=== PATIENT | female | born 1970 | race Caucasian/White ===

== ENCOUNTER → 2016-06-26 | Outpatient (CLI) | payer MEDICARE, OTHER ==
--- NOTE | 2016-06-26 09:09 | US ---
EXAMINATION TYPE: US abdomen complete DATE OF EXAM: 06/26/2016 8:52 AM COMPARISON: None CLINICAL HISTORY: 45 year-old female right upper quadrant pain. R10.11 RUQ Pain x 2 years and related to food intake. TECHNIQUE: Multiple sonographic images of the abdomen were obtained. FINDINGS: Liver Length: 16.3 cm Gallbladder Wall: 0.1 cm CBD: 0.2 cm Spleen: 9.7 cm Right Kidney: 9.5 x 4.5 x 3.8 cm Left Kidney: 9.9 x 4.7 x 4.2 cm Pancreas: hyperechoic; tail and head are gassed out Liver: Echogenic and attenuating. No focal lesions seen. Gallbladder: No abnormal gallbladder distention, wall thickening, pericholecystic fluid, or shadowin g calculi. Evidence for sonographic Orlando's sign: no CBD: Within normal limits Spleen: Within normal limits Right Kidney: No hydronephrosis. Left Kidney: No hydronephrosis. Upper IVC: wnl Abd Aorta: wnl IMPRESSION: At least moderate, possibly moderate to severe hepatic steatosis. Correlate with LFTs, lipid profile, and patient risk factors.
== END | disposition home or self-care (01) ==
LOC: RADUSWWP 08:21
PROVIDERS: ATTEND Surgery
DX: R10.11 Right upper quadrant pain (principal)
CPT/HCPCS: 76700

== ENCOUNTER 2016-08-22 06:57 | Day surgery (SDC) | payer MEDICARE ==
[2016-08-19 10:57] VITALS: BMI 35.5
[~2016-08-22 06:57] MED LIST: LACTATED RINGERS 1,000 ML IV SCH
[2016-08-22 07:14] VITALS: TEMP 98.6
[2016-08-22 07:26] LABS: Glucose,Whole Blood 99 mg/dL (75-99)
[2016-08-22] MEDS ORDERED: HYDROCORTISONE SUCCINATE 100 MG/2 ML VIAL IV STA (07:28)
[2016-08-22] MEDS ORDERED: LACTATED RINGERS 1,000 ML IV ONE (07:33)
[2016-08-22] MEDS ORDERED: PROPOFOL 10 MG/ML 20 ML VIAL IV ONE (07:36)
[2016-08-22] MEDS ORDERED: LIDOCAINE 1% INJ 10MG/ML (20 ML MDV) ONE (07:36)
--- NOTE | 2016-08-22 08:11 | P.OP ---
Date of Procedure: 08/22/16 Preoperative Diagnosis: Change in bowel habits GERD Hiatal hernia Panhypopituitary syndrome Obesity BMI 35.5 Postoperative Diagnosis: Same Procedure(s) Performed: Colonoscopy without biopsy Implants: Not applicable Anesthesia: MAC Surgeon: [place] Fleming Pathology: none sent Condition: stable Disposition: other (ASA3) Indications for Procedure: 45 years old female with multiple comorbid conditions including obesity BMI 35.5 , hypopituitarism, change in bowel habits, GERD and hiatal hernia presents for screening colonoscopy. Prior colonoscopy was [address] Choi. It was incomplete colonoscopy secondary to poor prep. Informed consent obtained and patient elected to undergo colonoscopy with possible biopsy Operative Findings: Sigmoid diverticulosis Description of Procedure: The patient was brought to the endoscopy suite and placed in lateral decubitus position. IV sedation was given as per anesthesia team. Patient was on continuous vitals and pulse oximetry monitoring throughout the procedure. A timeout was performed to verify correct patient and correct procedure. Perianal examination did not show any external hemorrhoids. Digital rectal examination was performed. No masses or gross blood. A well-lubricated Olympus colonoscope was passed per rectally and was gradually advanced beyond the sigmoid colon, splenic flexure, transverse colon, hepatic flexure and cecum. The ileocecal valve was visualized as well as the appendiceal orifice . The colonoscope was gradually withdrawn inspecting all the mucosal surfaces. Bowel prep was good. No polyps, masses, AV malformations noted. Sigmoid diverticulosis noted without any evidence of acute diverticulitis. The scope was gradually withdrawn and retroflexed in the rectum . Grade 1 internal hemorrhoids seen. Total withdrawal time was greater than 6 minutes . Patient tolerated the procedure well and was taken to post anesthesia care unit in stable condition. Recommend repeat colonoscopy in 10 years .
[2016-08-22] MEDS ORDERED: SIMETHICONE 40 MG/0.6 ML DROPS 2,000 MG/30 ML BOTTLE PO ONE (08:42)
[2016-08-22 08:47] VITALS: RESP 16
[2016-08-22] MEDS ORDERED: SIMETHICONE 40 MG/0.6 ML DROPS 2,000 MG/30 ML BOTTLE PO SCH (09:00)
[2016-08-22 09:01] VITALS: BP 123/79; PULSE 68
== END 2016-08-22 09:22 | disposition home or self-care (01) ==
LOC: ORWHC2ENDO 06:57
PROVIDERS: ATTEND Surgery
DX: K57.30 Diverticulosis of large intestine without perforation or abscess without bleeding (principal); K64.0 First degree hemorrhoids; Z80.0 Family history of malignant neoplasm of digestive organs; I20.9 Angina pectoris, unspecified; I25.2 Old myocardial infarction; E03.9 Hypothyroidism, unspecified; E23.0 Hypopituitarism; E66.01 Morbid (severe) obesity due to excess calories; Z68.35 Body mass index [BMI] 35.0-35.9, adult; J45.909 Unspecified asthma, uncomplicated; K21.9 Gastro-esophageal reflux disease without esophagitis; F41.9 Anxiety disorder, unspecified; F43.10 Post-traumatic stress disorder, unspecified; F32.9 Major depressive disorder, single episode, unspecified; E13.9 Other specified diabetes mellitus without complications; Z79.84 Long term (current) use of oral hypoglycemic drugs; Z87.891 Personal history of nicotine dependence; Z79.899 Other long term (current) drug therapy; Z88.5 Allergy status to narcotic agent; Z91.030 Bee allergy status
CPT/HCPCS: 45378; J2001; J2704

== ENCOUNTER → 2016-09-25 | Outpatient (CLI) | payer MEDICARE, OTHER | END | disposition home or self-care (01) | LOC: LABPAT 17:13 | PROVIDERS: ATTEND Orthopaedic Surgery | DX: Z01.812 Encounter for preprocedural laboratory examination (principal) | CPT/HCPCS: 87070 ==

== ENCOUNTER 2016-10-21 06:58 | Inpatient (IN) | payer MEDICARE ==
[2016-10-15 17:23] VITALS: BMI 35.5
--- NOTE | 2016-10-18 13:45 | HP ---
DATE OF ADMISSION: CHIEF COMPLAINT: Left knee pain. HISTORY OF PRESENT ILLNESS: The patient is a 45-year-old female on disability who presents with progressive left knee pain secondary to osteoarthrosis despite extensive conservative measures. She has had multiple previous arthroscopies in addition has tried injections and medications with only partial temporary relief. She notes persistent giving way, swelling, and stiffness. It limits her normal function and activities. PAST MEDICAL HISTORY: Significant for arthritis, hypopituitarism, diabetes insipidus, orthostatic hypotension and coronary artery disease. PAST SURGICAL HISTORY: Significant for spinal fusion, bilateral knee arthroscopies, right carpal tunnel release, left elbow arthroscopy. CURRENT MEDICATIONS: 1. Protonix. 2. Motrin. 3. Duragesic patch. 4. Crawford. 5. Baclofen. 6. Cymbalta 7. Neurontin. She has allergies to MORPHINE and VOLTAREN. FAMILY HISTORY: Significant for cancer. SOCIAL HISTORY: Negative for current tobacco or alcohol use. Sixteen-point review of systems otherwise reviewed and is noncontributory. On examination, the patient is approximately 5 feet 5 inches, 240 pounds of endomorphic habitus. HEENT exam is nonfocal. Neck is supple. She has painless passive motion of her left hip. Straight leg raise is negative. Active motion left knee -8 to 130 degrees of flexion. She is tender about the lateral greater than medial joint line. She has a trace effusion. Collaterals are stable, Montez's negative, Joseph's elicits medial and lateral pain. She has genu valgum alignment. Her distal neurovascular exam appears be intact in the left lower extremity. Previous x-rays to include weight-bearing notch, lateral, and merchant views of the left knee obtained in the office show severe lateral and patellofemoral compartment narrowing. There is a questionable loose body in the lateral compartment. IMPRESSION: 1. Left knee severe lateral compartment osteoarthrosis. 2. Hypopituitarism. RECOMMENDATIONS: I talked to the patient at length regarding her treatment options. At this point, she is quite limited because of pain and opts to proceed with surgery. We will plan to proceed with left total knee arthroplasty. We will institute DVT prophylaxis postoperatively. Her informatics spec did recommend a stress dose of hydrocortisone 100 mg one hour prior to surgery and then 75 mg IV q.8 hours after surgery. He also recommends tapering to oral hydrocortisone 20 mg b.i.d. in the postoperative phase.
[~2016-10-21 06:58] MED LIST changes: +ACETAMINOPHEN TAB 500 MG TAB PO ONE; +DEXAMETHASONE SOD PHOSPHATE 10 MG/ML 1 ML VIAL IV ONE; +HYDROmorphone 1 MG/ML 1 ML SYRINGE IVP PRN; +MIDAZOLAM 2 MG/2 ML VIAL IV PRN; +ONDANSETRON 4 MG/2 ML VIAL IVP ONE; +TRANEXAMIC ACID 1,000 MG in SODIUM CHLORIDE 0.9% 100 ML IVPB ONE; +ceFAZolin 2 GM in SODIUM CHLORIDE 0.9% 100 ML IVPB ONE
[2016-10-21] MEDS ORDERED: LIDOCAINE 1% 20 ML VIAL (10MG/ML) FOR IV START INTRADERMA ONE (13:59)
[2016-10-21] MEDS ORDERED: HYDROCORTISONE SUCCINATE 100 MG/2 ML VIAL IV ONE (14:00)
[2016-10-21] MEDS ORDERED: SCOPOLAMINE 1.5MG/72HR PATCH TRANSDERM ONE (14:05)
[2016-10-21 14:17] LABS: Glucose,Whole Blood 98 mg/dL (75-99)
[2016-10-21] MEDS ORDERED: ROPIVACAINE 1,100 MG, SODIUM CHLORIDE 0.9% 330 ML MISCELLANE PRN ×2 (14:49)
--- NOTE | 2016-10-21 14:53 | P.ONQ ---
Anesthesiology Proc Note - PNB - Peripheral Nerve Block Performed Left Adductor Canal Infusion Time Out Performed: Yes Indication: Acute Post-Operative Pain, Dx/Pain Location (Left Knee) Specifically requested for management of pain by DrAlan: Thanh Bey Sedation Type: Sedate with meaningful contact maintained Preparation: Sterile Dressing Position: Supine Catheter: Indwelling Needle Types: Other (see comment) (Pajunk) Needle Size: 100mm (4") Needle Gauge: 21 Technique: Ultrasound Injectate: 0.5% Ropivacaine (see comment for volume) (30cc) Blood Aspirated: No Pain Paresthesia on Injection Noted: No Resistance on Injection: Normal Events: Uneventful and Well Tolerated
[2016-10-21] MEDS ORDERED: BUPIVACAINE LIPOSOME/PF 1.3% 20 ML VIAL SQ ONE ×2 (15:15→16:25)
[2016-10-21] MEDS ORDERED: ROPIVACAINE 246.25 MG, EPINEPHrine 0.5 MG, KETOROLAC 30 MG, cloNIDine HCL/PF 80 MCG, WA... MISCELLANE ONE ×5 (15:31)
[2016-10-21] MEDS ORDERED: SODIUM CHLORIDE 0.9% 100 ML BAG ONE (16:03)
[2016-10-21] MEDS ORDERED: TRANEXAMIC ACID 1,000 MG/10 ML VIAL ONE (16:03)
[2016-10-21] MEDS ORDERED: MIDAZOLAM 2 MG/2 ML VIAL ONE (16:03)
[2016-10-21] MEDS ORDERED: MEPERIDINE 50 MG/ML SYRINGE ONE (16:03)
[2016-10-21] MEDS ORDERED: PROPOFOL 10 MG/ML 20 ML VIAL IV ONE (16:03)
[2016-10-21] MEDS ORDERED: LACTATED RINGERS 1,000 ML IV ONE (16:45)
[2016-10-21] MEDS ORDERED: HYDROcodone/APAP 7.5-325MG 1 EACH TAB PO PRN (17:39)
[2016-10-21] MEDS ORDERED: traMADol 50 MG TAB PO PRN (17:39)
[2016-10-21] MEDS ORDERED: NALOXONE 0.4 MG/ML 1 ML VIAL IV PRN (17:39)
[2016-10-21] MEDS ORDERED: ONDANSETRON 4 MG/2 ML VIAL IVP PRN (17:39)
[2016-10-21] MEDS ORDERED: HYDROmorphone 1 MG/ML 1 ML SYRINGE IVP PRN ×2 (17:39)
[2016-10-21] MEDS ORDERED: MAGNESIUM HYDROXIDE 2,400 MG/10 ML CUP PO PRN (17:39)
--- NOTE | 2016-10-21 18:08 | P.OP ---
Date of Procedure: 10/21/16 Preoperative Diagnosis: Left knee severe tricompartmental osteoarthrosis Postoperative Diagnosis: Same Procedure(s) Performed: Left total knee arthroplasty/cemented/cruciate retaining Implants: [employer] size 5 narrow cemented femoral component, size 3 cemented tibial component, 9 mm articular surface, 32 mm cemented patellar component. Anesthesia: regional, local, spinal Surgeon: Thanh Bey Risk Engineer #1: Dony Carson Estimated Blood Loss (ml): 50 Pathology: other (Bone fragments) Condition: stable Disposition: PACU Indications for Procedure: The patient's a 45-year-old female who presents with progressive left knee pain secondary to osteoarthrosis despite extensive conservative treatment. A discussion of the risks and benefits of operative intervention versus continued conservative measures was made with patient. She's had multiple previous arthroscopy was with only partial temporary relief. She opted to proceed with surgery. Specific risks of surgery to include infection, neurovascular injury, development of blood clots, possible component loosening, possible component failure and need for subsequent procedures was discussed. Informed consent was obtained. Operative Findings: Significant tricompartmental osteoarthrosis Description of Procedure: The patient was brought to the operating room, and after induction of spinal anesthesia the left lower extremity was prepped and draped in normal fashion. The limb was elevated to facilitate exsanguination. The tourniquet was inflated to 270 mmHg. A longitudinal incision extending 3 finger breaths above this. Pole of patella extending to the medial aspect the tibial tubercle was then made. Skin and subcutaneous tissues were divided sharply. Electrocautery was used for hemostasis. A medial parapatellar arthrotomy was then performed. The medial soft tissues to include the superficial and deep portions of the medial collateral ligament as well as the medial hamstring tendons were elevated subperiosteally. The patella was everted. A portion of the retropatellar fat pad was excised sharply. The knee was then flexed. The anterior cruciate ligament was sacrificed. Blunt retractors were placed. A starting hole was made in the distal femur 1 cm anterior to the posterior cruciate ligament origin. An intramedullary femoral guide was then gently inserted planning on 5 valgus distal cut with 9.5 mm distal resection. The cutting block was pinned in place. The distal cut was then made. The posterior referencing sizing guide was utilized. I felt size 5 was most appropriate. 3 of external rotation was was built into the system and verified off the trans-epicondylar axis and the posterior condyles. The cutting block was pinned in place. The anterior, posterior, and chamfer cuts were then made. Bone fragments were removed. A size 5 narrow component was then placed and was fully seated. There is good anterior to posterior and medial to lateral fit. The distal peg holes were drilled. The trial component was then removed. Attention was then paid towards preparing the proximal tibia. An extra medullary guide was utilized in line with the tibial shaft and second metatarsal distally. A 3 posterior slope cutting block was utilized. I planned on 6 mm resection from the medial compartment. The cutting block was pinned in place. The posterior cruciate ligament was protected with a retractor. The proximal tibial cut was made in bone fragment removed in one piece. The tibia sized most appropriate size 3. The remnants of the medial and lateral menisci were excised at the capsular junction with electrocautery. The trial femoral and tibial components were placed along with a 9 mm articular surface. I was able to obtain full flexion and extension with good stability with varus and valgus stress. After several flexion and extension cycles, the tibial rotation was marked with electrocautery in line with the medial one third of the tibial tubercle. Attention was then paid towards preparing the patella. A patella reamer was utilized taking that a 14 mm of bone stock. A good flush cut was made. The patella sized most appropriately 32 mm. The peg holes were drilled. The trial component was placed. The knee was taken through range of motion. I had good patellofemoral tracking with no hands technique. The trial components were then removed. The tibia was prepared in the appropriate rotation with appropriate drill and keel punch. The posterior osteophytes of the distal femur were carefully removed with a curved osteotome. The flexion and extension gaps were checked and felt to be symmetric. The bony surfaces were prepared with pulsatile lavage and dried. The posterior soft tissues were injected with ropivacaine. The tibial component was then cemented in placed and was fully seated. Excess cement was removed. The femoral component was cemented placed and was fully seated. Excess cement was removed. The trial 9 mm articular surface placed and the knee was put in full extension. The patella component was cemented place. After the cement had sufficiently hardened, the knee was again taken through range of motion. Again I was able to obtain full flexion and extension with good stability with varus and valgus stress. The trial articular surface was removed and the final 9 mm articular surface was inserted. This was fully seated. Care taken to avoid any soft tissue interposition. Pulsatile lavage was utilized. The medial parapatellar arthrotomy was closed with #2 Ethibond suture. A deep drain was placed exiting laterally. Tourniquet was deflated with proximal a 60 minutes total tourniquet time. The subcu tissues reapproximated with interrupted 2-0 Vicryl sutures. The skin was reapproximated with 30 subcu strata fix suture. Skin tape and adhesive was applied. A sterile dressing was applied. The patient was awoken from sedation and transferred to recovery room in good condition. Blood loss was estimated 50 mL. 2 doses of IV TXA was given. No complications were incurred. Sponge and needle counts were correct in the case.
--- NOTE | 2016-10-21 18:22 | XR ---
EXAMINATION TYPE: XR knee limited LT DATE OF EXAM: 10/21/2016 COMPARISON: NONE HISTORY: Post knee replacement TECHNIQUE: 2 views left knee FINDINGS: Tibial femoral components of in place. Catheter is present. Postsurgical changes are within the soft tissues. IMPRESSION: 1. No acute fractures post knee replacement
[2016-10-21 18:52] VITALS: RESP 16
[2016-10-21] MEDS ORDERED: SENNOSIDES-DOCUSATE SODIUM 1 EACH TAB PO SCH (21:00)
[2016-10-21] MEDS ORDERED: NITROGLYCERIN SL TABS 0.4 MG TAB SUBLINGUAL PRN (22:11)
[2016-10-21] MEDS ORDERED: diphenhydrAMINE 50 MG CAP PO PRN (22:11)
[2016-10-21] MEDS ORDERED: DOXEPIN 10 MG CAP PO SCH (22:15)
[2016-10-21] MEDS ORDERED: MELATONIN 5 MG TABLET PO SCH (22:16)
[2016-10-21] MEDS: HYDROCORTISONE SUCCINATE 100 MG/2 ML VIAL IV SCH (22:33)
[2016-10-21] MEDS: SUCRALFATE 1 GM TAB PO SCH (23:46)
[2016-10-21] MEDS: PANTOPRAZOLE 40 MG TABLET PO SCH (23:49)
[2016-10-22] MEDS: ceFAZolin 2 GM in SODIUM CHLORIDE 0.9% 100 ML IVPB SCH ×2 (00:21→08:28)
[2016-10-22] MEDS: HYDROcodone/APAP 7.5-325MG 1 EACH TAB PO PRN ×3 (02:24→14:36)
[2016-10-22] MEDS ORDERED: LEVOTHYROXINE 75 MCG TAB PO SCH (06:30)
[2016-10-22] MEDS ORDERED: SUCRALFATE 1 GM TAB PO SCH (07:30)
[2016-10-22] MEDS ORDERED: PANTOPRAZOLE 40 MG TABLET PO SCH (07:30)
[2016-10-22 07:42] LABS: Basophils % (A) 0 %; CH 27.6; CHCM 31.1; Eosinophils % (A) 0 %; HCT 35.8 % (34.0-46.0); HDW 2.54; HGB 11.2 gm/dL (11.4-16.0); Hypochromasia Slight; Luc # (Auto) 0.09; Luc % (Auto) 1; Lymphocytes # (A) 0.9 k/uL (1.0-4.8); Lymphocytes % (A) 5 %; MCH 27.9 pg (25.0-35.0); MCHC 31.3 g/dL (31.0-37.0); MCV 89.3 fL (80.0-100.0); Mean Platelet Volume 7.3; Monocytes # (A) 0.6 k/uL (0-1.0); Monocytes % (A) 4 %; Neutrophils # (A) 15.6 k/uL (1.3-7.7); Neutrophils % (A) 90 %; WBC 17.3 k/uL (3.8-10.6); WBC (Perox) 17.55
[2016-10-22] MEDS: DESMOPRESSIN 0.2 MG TAB PO SCH ×2 (08:29→12:48)
[2016-10-22] MEDS: HYDROCORTISONE SUCCINATE 100 MG/2 ML VIAL IV SCH (08:31)
[2016-10-22] MEDS: hydrOXYzine PAMOATE 25 MG CAP PO PRN ×2 (08:33→14:37)
[2016-10-22] MEDS: SUCRALFATE 1 GM TAB PO SCH ×2 (08:34→12:46)
[2016-10-22] MEDS: PANTOPRAZOLE 40 MG TABLET PO SCH (08:34)
[2016-10-22] MEDS ORDERED: RIVAROXABAN 10 MG TAB PO SCH (09:00)
[2016-10-22] MEDS ORDERED: HYDROCORTISONE 10 MG TAB PO SCH (09:00)
[2016-10-22] MEDS ORDERED: cycloSPORINE 0.05% OPHTH 0.4 ML DROPERETTE BOTH EYES SCH (09:00)
[2016-10-22] MEDS ORDERED: DULoxetine HCL 30 MG CAPSULE.DR PO SCH (09:00)
[2016-10-22] MEDS ORDERED: FAMOTIDINE 20 MG TAB PO SCH (09:00)
[2016-10-22] MEDS ORDERED: DESMOPRESSIN 0.2 MG TAB PO SCH (09:00)
[2016-10-22] MEDS ORDERED: CHOLECALCIFEROL 1,000 UNIT TAB PO SCH (09:00)
[2016-10-22] MEDS ORDERED: ARIPiprazole 2 MG TAB PO SCH (09:00)
[2016-10-22] MEDS ORDERED: SOMATROPIN SQ SCH (10:00)
--- NOTE | 2016-10-22 10:23 | P.PN ---
Subjective Principal diagnosis: Status post left total knee arthroplasty Patient is seen today resting in her hospital bed, she appears comfortable. Her family is present at bedside. She is done well at this point with physical therapy, she has urinated well on her own, pain is well-controlled. She denies any headaches, lightheadedness, chest pain, shortness of breath. Objective - Vital Signs Vital signs: Vital Signs Temp 98.6 F 10/22/16 07:00 Pulse 65 10/22/16 07:00 Resp 16 10/22/16 07:00 BP 104/71 10/22/16 07:00 Pulse Ox 97 10/22/16 07:00 Intake & Output 10/21/16 10/22/16 10/22/16 18:59 06:59 18:59 Intake Total 2000 40 180 Output Total 250 650 250 Balance 1750 -610 -70 Weight 116 kg Intake: IV 2000 Oral 40 180 Output: Urine 200 650 250 Uretheral ([place]) 250 Estimated Blood Loss 50 Other: Voiding Method Indwelling Catheter - Exam Left lower extremity: Incision is clean, dry, and intact. Calf is soft, no tenderness with palpation. Minimal soft tissue swelling present around the knee. Plantar flexion, dorsiflexion, EHL, FHL are intact. Dorsal pedis pulses 2+, sensory exam to light touch throughout extremities intact. - Labs CBC & Chem 7: 10/22/16 06:54 Labs: Abnormal Lab Results - Last 24 Hours (Table) 10/22/16 Range/Units 06:54 WBC 17.3 H (3.8-10.6) k/uL Hgb 11.2 L (11.4-16.0) gm/dL Plt Count 453 H (150-450) k/uL Neutrophils # 15.6 H (1.3-7.7) k/uL Lymphocytes # 0.9 L (1.0-4.8) k/uL Assessment and Plan Plan: Assessment: 1. Postop day 1 status post left total knee arthroplasty Plan: 1. Pain control, we'll discharge home on oral medication 2. Per endocrinology's recommendation, we'll discharge patient home on hydrocortisone tablets 20 mg twice a day 3. GI and DVT prophylaxis, will either discharge home on Xarelto 10 mg or aspirin 325 mg twice a day 4. Daily dressing changes/ice and elevate 5. Medical recommendations 6. Discharge planning: Patient will be likely discharged home today Time with Patient: Less than 30
--- NOTE | 2016-10-22 10:25 | P.DS ---
Providers Date of admission: 10/21/16 13:40 Attending physician: Thanh Bey Consults: 10/21/16 17:41 Consult Physician Routine Consulting Provider: Gaston Bueno Consult Reason/Comments: Medical Management Do you want consulting provider notified?: Yes Primary care physician: Adriel Fonsecamiguel [facility] Course: Date of admission: 10/21/2016 Date of discharge: 10/22/2016 Admission diagnosis: Status post left total knee arthroplasty Discharge diagnosis: Same Attending physician: Dr. Bey Surgical procedures: Left total knee arthroplasty Brief history: Patient is a 45-year-old female with a history of progressive primary left knee osteoarthritis. At this point patient has failed conservative treatment measures and has opted to proceed with a elective left total knee arthroplasty. Hospital course: Details of patient's surgery can be found in operative report. Patient tolerated the procedure well and was subsequently transported to orthopedic floor. Patient's orthopeidc and medical care was provided daily. Patient had daily laboratory tests performed for evaluation of overall blood counts. Patient had daily physical therapy to include strengthening range of motion as well as education with walker ambulation. Patient had daily CPM usage as part of their physical therapy program. Patient was treated with Xarelto for their postoperative DVT prophylaxis during their inpatient stay. Patient was noted to have a relatively uneventful postoperative course. Patient reported satisfactory pain control with oral pain medications by postoperative day 0. Patient showed satisfactory progress with physical therapy. Patient moved steadily through the program and had no difficulty meeting the goals by postoperative day 1. Given patient's otherwise satisfactory course and having met physical therapy goals, plan is to discharge patient home on postoperative day 1. Discharge condition/disposition: Patient will be discharged home in stable condition. Discharge medications: Instructions are given on resumption of patient's normal daily medications per primary care recommendation, in addition patient will be prescribed Monhegan 7.5 mg/325 mg, Vistaril 25 mg, Colace 100 mg, hydrocortisone 20 mg. Discharge instructions: 1. Wound care and infection precautions, keep incision dry and covered while showering, no lotions, creams, moisturizers. No soaking, tubs, pools, hottubs. Do not scrub over the incision. 2. Weight-bear as tolerated with walker / cane until follow-up. 3. Ice and elevate when necessary. Do not exceed 20 minutes per hour with ice pack. 4. Utilize compression sleeve until seen at first follow up appointment. 5. Visiting nursing care. 6. Home physical therapy including home CPM. 7. Pain meds and anticoagulants per prescription. 8. Pain medication has potential to cause constipation. Increase oral fluid and fiber intake. Contact primary care provider if you have not had a bowel movement within 48 hours after discharge 9. No anti-inflammatory medication until discussed at first post operative visit, this including Motrin, Aleve, Mobic, Diclofenac. 10. Follow up in office at 2 weeks postop with Josh Carson PA-C 11. Follow up with your primary care doctor 7-10 days after discharge. 12. Contact [facility] with any questions, . Procedures: Left total knee arthroplasty Patient Condition at Discharge: Good Plan - Discharge Summary New Discharge Prescriptions: New Rivaroxaban [Xarelto] 10 mg PO DAILY #12 tab Docusate [Colace] 100 mg PO DAILY #30 capsule HYDROcodone/APAP 7.5-325MG [Monhegan 7.5] 1 - 2 each PO Q6HR PRN #60 tab PRN Reason: Pain hydrOXYzine PAMOATE [Vistaril] 25 mg PO Q6HR #60 capsule Hydrocortisone [Cortef] 20 mg PO BID #30 tablet No Action cycloSPORINE [Restasis] 1 drop BOTH EYES BID Sucralfate [Carafate] 1 gram PO QID Pantoprazole Sodium [Protonix] 40 mg PO BID Melatonin 10 mg PO HS Doxepin [SINEquan] 20 mg PO HS diphenhydrAMINE [Benadryl] 50 mg PO BID PRN PRN Reason: Migraine Headache Levothyroxine Sodium [Synthroid] 75 mcg PO QAM Nitroglycerin Sl Tabs [Nitrostat] 0.4 mg SL Q5M PRN PRN Reason: Chest Pain Cholecalciferol [Vitamin D3] 2,000 unit PO DAILY Desmopressin Acetate 0.05 mg PO BID DULoxetine HCL [Cymbalta] 90 mg PO DAILY Hydrocortisone [Cortef] 10 mg PO BID Nutropin 0.3 mg SQ DAILY ARIPiprazole [Abilify] 2 mg PO DAILY Discharge Medication List Doxepin [SINEquan] 20 mg PO HS 10/31/13 [History] Melatonin 10 mg PO HS 10/31/13 [History] Pantoprazole Sodium [Protonix] 40 mg PO BID 10/31/13 [History] Sucralfate [Carafate] 1 gram PO QID 10/31/13 [History] cycloSPORINE [Restasis] 1 drop BOTH EYES BID 10/31/13 [History] diphenhydrAMINE [Benadryl] 50 mg PO BID PRN 12/28/13 [History] Levothyroxine Sodium [Synthroid] 75 mcg PO QAM 04/19/14 [History] Nitroglycerin Sl Tabs [Nitrostat] 0.4 mg SL Q5M PRN 01/15/15 [History] Cholecalciferol [Vitamin D3] 2,000 unit PO DAILY 05/01/15 [History] Desmopressin Acetate 0.05 mg PO BID 07/17/15 [History] DULoxetine HCL [Cymbalta] 90 mg PO DAILY 09/13/15 [History] Hydrocortisone [Cortef] 10 mg PO BID 12/08/15 [History] ARIPiprazole [Abilify] 2 mg PO DAILY 10/15/16 [History] Nutropin 0.3 mg SQ DAILY 10/15/16 [History] Rivaroxaban [Xarelto] 10 mg PO DAILY #12 tab 10/21/16 [Rx] Docusate [Colace] 100 mg PO DAILY #30 capsule 10/22/16 [Rx] HYDROcodone/APAP 7.5-325MG [Monhegan 7.5] 1 - 2 each PO Q6HR PRN #60 tab 10/22/16 [ Rx] Hydrocortisone [Cortef] 20 mg PO BID #30 tablet 10/22/16 [Rx] hydrOXYzine PAMOATE [Vistaril] 25 mg PO Q6HR #60 capsule 10/22/16 [Rx] Follow up Appointment(s)/Referral(s): Dony Carson PAC [PHYSICIAN CAREER SERVICES OFFICER] - 11/05/16 2:10 pm [facility] [REFERRING] - 1 Week Activity/Diet/Wound Care/Special Instructions: Orthopedic Discharge Instructions: 1. Wound care and infection precautions, keep incision dry and covered while showering, no lotions, creams, moisturizers. No soaking, pools, hot tubs. Do not scrub over incision. 2. Weight-bear as tolerated with walker / cane until follow-up. 3. Ice and elevate when necessary. Do not exceed 20 minutes per hour with ice pack. 4. Utilize compression sleeve until seen at first follow up appointment. 5. Visiting nursing care. 6. Home physical therapy including home CPM. 7. Pain meds and anticoagulants per prescription. 8. Pain medication has potential to cause constipation. Increase oral fluid and fiber intake. Contact primary care provider if you have not had a bowel movement within 48 hours after discharge. 9. No anti-inflammatory medication until discussed at first post operative visit, this including Motrin, Aleve, Mobic, Diclofenac. 10. Follow up in office at 2 weeks postop with Josh Carson PA-C 11. Follow up with your primary care doctor 7-10 days after discharge. 12. Contact [facility] with any questions, . Discharge Disposition: HOME WITH HOME HEALTH SERVICES
--- NOTE | 2016-10-22 12:25 | P.PN ---
Progress Note - Text Postoperative day # 1 status post total knee arthroplasty, on adductor canal perineural catheter placed for postoperative analgesia. Ropivacaine 0.2% 8 mL per hour through ON-Q pump continuous infusion. Pain is well controlled. On visual analog scale 3/10 Patient is Not using much PRN oral pain medications. Catheter site: Looks Ok. There is no erythema or tenderness. Continue with the current pain management plan and will follow.
[2016-10-22 13:50] VITALS: BP 129/65; PULSE 66; TEMP 98.8
--- NOTE | 2016-10-23 07:15 | CONS ---
DATE OF CONSULTATION: 10/22/2016 REASON FOR CONSULTATION: Medical management requested by Dr. Bey. CONSULTATION: This is a very pleasant 45-year-old patient of Dr. Mondragon well known to me from prior admissions. I saw this patient earlier today. The patient underwent a left total knee arthroplasty, doing well. Pain is reasonably well controlled ( ) has been up in the hallway. No nausea, vomiting or chest pain. Patient has lost quite a bit of weight voluntarily after stopping some medication in last few months. The patient's other chronic stable medical conditions include lumbar DJD, asthma, fibromyalgia, GERD, diabetes insipidus, hypopituitarism, cervical spine radiculopathy, interstitial cystitis with urinary bladder spasms. Patient had been following with Dr. Del Angel for pain management, stopped a lot of pain medication, actually she is really better and also was following later with Dr. Sy. REVIEW OF SYSTEMS: CONSTITUTIONAL: None. HEENT: None. RESPIRATORY: None. CARDIOVASCULAR: None. GASTROINTESTINAL: Heartburn. GENITOURINARY: None. MUSCULOSKELETAL: Pain in different joints. DERMATOLOGICAL: None. HEMATOLOGICAL: None. LYMPHATICS: None. PSYCHIATRY: None. NEUROLOGICAL: None. ENDOCRINOLOGY: As above. 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 PAST SURGICAL HISTORY: Back surgery, , titanium plate and 4 screws in the neck, right carpal tunnel surgery, hemorrhoidectomy, bronchoscopy, knee surgery, esophageal manometry study. PAST PSYCH HISTORY: Anxiety, depression, PTSD. SOCIAL HISTORY: Patient stopped smoking in 2008, smoked about three quarters day for about 29 years. Alcohol none. Family history of hyperlipidemia, hypertension, rectal cancer. Home medication list reviewed in the computer. Allergies to MORPHINE, VENOM BEE, BLUE DYE. On examination, temperature 98.8, pulse 66, respirations 16, blood pressure 129/65, pulse ox 97% on room air. GENERAL APPEARANCE: Well built, BMI of 41.3, appeared comfortable, smiling. EYES: Pupils equal. Conjunctivae normal. HEENT: Oral cavity normal. NECK: JVD not raised. Mass not palpable. RESPIRATORY: Effort normal. LUNGS: Fair air entry. CARDIOVASCULAR: First and second sounds normal. No edema. ABDOMEN: Soft, nontender. Liver and spleen not palpable. LYMPHATIC: No lymph node palpable in neck or axillae. PSYCHIATRY: Alert and oriented x3. Mood and affect normal. NEUROLOGICAL: Pupils equal. Cranial nerves grossly intact. Power and sensation grossly intact. Left knee in a dressing. INVESTIGATIONS: White count 17.3, hemoglobin 11.2. ASSESSMENT: 1. Left total knee arthroplasty. 2. Major depressive disorder in remission. 3. Severe lumbar degenerative joint disease, chronic. 4. Mild persistent asthma, chronic. 5. Fibromyalgia, chronic. 6. Gastroesophageal reflux disease. 7. Diabetes insipidus, chronic. 8. Hypopituitarism with Bam syndrome. 9. Interstitial cystitis, chronic. 10. Chronic urinary bladder spasms. 11. Morbid obesity, body mass index 41.3. PLAN: Home medications are continued. Patient is doing rather well, compared to last time I had seen her. The patient did stop a lot of her pain medications. She has lost a lot of weight and very excited. Overall, feeling much better. Patient when discharged is to go back and follow with family doctor. Thank you Dr. Bey.
== END 2016-10-22 15:34 | disposition home health service (06) | DRG 470 ==
LOC: 2ORMAIN 13:40 → 3SUR 17:42
PROVIDERS: ADMIT Orthopaedic Surgery; ATTEND Orthopaedic Surgery
PROC: 0SRD0J9 Replacement of Left Knee Joint with Synthetic Substitute, Cemented, Open Approach (ICD-10-PCS; principal; 2016-10-21 15:20)
DX: M17.12 Unilateral primary osteoarthritis, left knee (principal); E23.2 Diabetes insipidus; E23.0 Hypopituitarism; Z68.41 Body mass index [BMI] 40.0-44.9, adult; E66.01 Morbid (severe) obesity due to excess calories; F32.9 Major depressive disorder, single episode, unspecified; F43.10 Post-traumatic stress disorder, unspecified; I25.10 Atherosclerotic heart disease of native coronary artery without angina pectoris; J45.30 Mild persistent asthma, uncomplicated; K21.9 Gastro-esophageal reflux disease without esophagitis; M21.069 Valgus deformity, not elsewhere classified, unspecified knee; M47.816 Spondylosis without myelopathy or radiculopathy, lumbar region; M54.12 Radiculopathy, cervical region; M79.7 Fibromyalgia; N30.10 Interstitial cystitis (chronic) without hematuria; N32.89 Other specified disorders of bladder; Z82.49 Family history of ischemic heart disease and other diseases of the circulatory system; Z87.891 Personal history of nicotine dependence; Z98.1 Arthrodesis status
CPT/HCPCS: 81025; 85025; 88300

== ENCOUNTER → 2017-01-19 | Outpatient (CLI) | payer MEDICARE, OTHER ==
--- NOTE | 2017-01-19 09:43 | MR ---
EXAMINATION TYPE: MR lumbar spine wo con DATE OF EXAM: 01/19/2017 COMPARISON: MRI lumbar spine March 15, 2015 HISTORY: radiculopathy lsp per order, pain going into bilateral legs per patient for several years. TECHNIQUE: Multiplanar, multisequence imaging of the lumbar spine is performed without IV contrast. FINDINGS: Sagittal images of the lumbar spine show vertebral body heights and alignment to appear sat isfactory. Multilevel disc desiccation is redemonstrated but disc space heights are fairly well-maint ained. No large posterior disc herniations are seen on sagittal images. The conus medullaris remains normal in position and signal ending at mid L1 level. The bone marrow signal intensity is within nor mal limits. No significant spurring is seen. Axial images show the T12-L1, L1-L2, and L2-L3 levels all to remain within normal limits. Axial images at L3-L4 level show mild broad disc bulge minimally effacing anterior thecal sac, bilate ral neural foramina are patent. No significant change from prior study is seen. Axial images at L4-L5 level show mild facet degenerative changes bilaterally and ligamentum flavum hy pertrophy. There is broad central disc protrusion minimally effacing anterior thecal sac. Bilateral n eural foramina are patent. No significant change from prior study is seen. Axial images at L5-S1 level show mild facet degenerative changes bilaterally. There is small central disc protrusion seen but spinal canal is preserved and bilateral neural foramina are patent. Paraspinal muscle bulk is maintained. No suspicious retroperitoneal findings are evident. IMPRESSION: Stable multilevel degenerative changes mid to lower lumbar spine as detailed above. No si gnificant change or new finding is identified to account for patient's bilateral radiculopathy type s ymptoms.
== END | disposition home or self-care (01) ==
LOC: RADMRIMAIN 07:56
PROVIDERS: ATTEND Family Medicine
DX: M47.27 Other spondylosis with radiculopathy, lumbosacral region (principal)
CPT/HCPCS: 72148

== ENCOUNTER → 2017-02-05 | Outpatient (CLI) | payer MEDICARE, OTHER ==
[2017-02-05 16:37] LABS: Potassium 4.6 mmol/L (3.5-5.1)
[2017-02-05 16:40] LABS: Anisocytosis Slight; Basophils # (A) 0.1 k/uL (0-0.2); Basophils % (A) 1 %; CH 27.5; CHCM 32.4; Eosinophils # (A) 0.1 k/uL (0-0.7); Eosinophils % (A) 1 %; HCT 41.4 % (34.0-46.0); HDW 2.69; Luc # (Auto) 0.21; Luc % (Auto) 2; Lymphocytes % (A) 24 %; MCH 26.8 pg (25.0-35.0); MCHC 31.4 g/dL (31.0-37.0); MCV 85.4 fL (80.0-100.0); Mean Platelet Volume 6.7; Monocytes # (A) 0.5 k/uL (0-1.0); Monocytes % (A) 6 %; Neutrophils # (A) 5.7 k/uL (1.3-7.7); Neutrophils % (A) 66 %; RBC 4.85 m/uL (3.80-5.40); RDW 16.2 % (11.5-15.5); WBC 8.6 k/uL (3.8-10.6); WBC (Perox) 8.85
[2017-02-05 16:43] LABS: INR 0.9 (<1.2); Partial Thromboplastin Time 22.5 sec (22.0-30.0); Prothrombin Time 9.7 sec (9.0-12.0)
== END | disposition home or self-care (01) ==
LOC: LABPAT 15:38
PROVIDERS: ATTEND Orthopaedic Surgery
DX: Z01.810 Encounter for preprocedural cardiovascular examination (principal); Z01.812 Encounter for preprocedural laboratory examination; M17.11 Unilateral primary osteoarthritis, right knee
CPT/HCPCS: 80051; 85025; 85610; 85730; 87070

== ENCOUNTER 2017-02-10 06:14 | Inpatient (IN) | payer MEDICARE, OTHER ==
[2017-02-06 09:30] VITALS: BMI 36.3
--- NOTE | 2017-02-09 09:40 | HP ---
HISTORY AND PHYSICAL CHIEF COMPLAINT: Right knee pain. HISTORY OF PRESENT ILLNESS: The patient is a 46-year-old female on disability, who presents with progressive right knee pain, worsening over the past several years secondary to osteoarthrosis. She has tried multiple conservative measures. She is having pain that limits her normal function and activities. She underwent left total knee arthroplasty October 21, 2016. PAST MEDICAL HISTORY: Significant for hypopituitarism, diabetes, Blanca's hypothyroidism, arthritis, reflux disease, anxiety disorder. PAST SURGICAL HISTORY: Significant for left total knee arthroplasty, bilateral knee arthroscopy, carpal tunnel release, cervical spine fusion. FAMILY HISTORY: Significant for hypertension, cancer. SOCIAL HISTORY: Negative for current tobacco or alcohol use. . A 16-POINT REVIEW OF SYSTEMS: Otherwise reviewed and is noncontributory. On examination, the patient is approximately 5 foot 5, 240 pounds of endomorphic habitus. HEENT exam is nonfocal. Neck is supple. She has painless passive motion of her right hip. Straight leg raise is negative, active motion right knee -4 to 125 degrees of flexion. She is tender about the medial joint line. Collaterals are stable, Montez is negative, Joseph's is equivocal. She has genu varum alignment. Her distal neurovascular exam appears to be intact in the right lower extremity. Previous x-rays of the right knee obtained in the office show severe tricompartmental osteoarthrosis. IMPRESSION: 1. Right knee severe tricompartmental osteoarthrosis. 2. Hypopituitarism. RECOMMENDATIONS: I talked to the patient at length regarding her treatment options. At this point, she opts to proceed with surgery. We will plan to proceed with right total knee arthroplasty. Risks and benefits were discussed at length in layman's terms. The patient underwent preoperative medical evaluation and endocrine evaluation by Dr. Nadia Chapa. MMODL / IJN: [id number] /
[~2017-02-10 06:14] MED LIST changes: -HYDROmorphone 1 MG/ML 1 ML SYRINGE IVP PRN; -LACTATED RINGERS 1,000 ML IV SCH; +LIDOCAINE 1% 20 ML VIAL (10MG/ML) FOR IV START INTRADERMA PRN; +MELOXICAM 7.5 MG TAB PO ONE; +ONDANSETRON 4 MG/2 ML VIAL IVP PRN; +SCOPOLAMINE 1.5MG/72HR PATCH TRANSDERM ONE
[2017-02-10] MEDS: LACTATED RINGERS 1,000 ML IV SCH (06:43)
[2017-02-10] MEDS ORDERED: fentaNYL (PF) 50 MCG/ML 2 ML AMP IVP ONE (07:13)
[2017-02-10] MEDS ORDERED: ROPIVACAINE 1,100 MG, SODIUM CHLORIDE 0.9% 330 ML MISCELLANE PRN ×2 (07:35)
--- NOTE | 2017-02-10 07:37 | P.ONQ ---
Anesthesiology Proc Note - PNB - Peripheral Nerve Block Performed Right Adductor Canal Infusion Time Out Performed: Yes Procedure Start Time: 07:20 Indication: Acute Post-Operative Pain, Analgesia Specifically requested for management of pain by DrAlan: Thanh Bey Sedation Type: Sedate with meaningful contact maintained Preparation: Sterile Prep Position: Supine Catheter Depth at Skin (cm): 8 Catheter: Indwelling Needle Types: Other (see comment) (pajunk) Needle Size: 100mm (4") Needle Gauge: 21 Technique: Ultrasound Injectate: 0.5% Ropivacaine (see comment for volume) (20cc) Blood Aspirated: No Pain Paresthesia on Injection Noted: No Resistance on Injection: Normal Events: Uneventful and Well Tolerated
[2017-02-10] MEDS ORDERED: LIDOCAINE 1% INJ 10MG/ML (20 ML MDV) ONE (07:58)
[2017-02-10] MEDS ORDERED: MIDAZOLAM 2 MG/2 ML VIAL ONE (07:58)
[2017-02-10] MEDS ORDERED: PROPOFOL 10 MG/ML 20 ML VIAL IV ONE (07:58)
[2017-02-10] MEDS ORDERED: HYDROCORTISONE SUCCINATE 100 MG/2 ML VIAL ONE (07:58)
[2017-02-10] MEDS ORDERED: SODIUM CHLORIDE 0.9% 100 ML BAG ONE (07:58)
[2017-02-10] MEDS ORDERED: TRANEXAMIC ACID 1,000 MG/10 ML VIAL ONE (07:58)
[2017-02-10] MEDS ORDERED: fentaNYL (PF) 50 MCG/ML 2 ML AMP ONE (07:58)
[2017-02-10] MEDS ORDERED: ROPIVACAINE 246.25 MG, EPINEPHrine 0.5 MG, KETOROLAC 30 MG, cloNIDine HCL/PF 80 MCG, WA... MISCELLANE ONE ×5 (08:04)
[2017-02-10] MEDS ORDERED: ceFAZolin 3,000 MG in SODIUM CHLORIDE 0.9% IRRIGATIO 3,000 ML IRRIGATION ONE (08:42)
[2017-02-10] MEDS ORDERED: LACTATED RINGERS 1,000 ML IV ONE (08:44)
[2017-02-10] MEDS ORDERED: ROPIVACAINE 5 MG/ML 30 ML VIAL MISCELLANE ONE (08:45)
[2017-02-10] MEDS ORDERED: MAGNESIUM HYDROXIDE 2,400 MG/10 ML CUP PO PRN (09:33)
[2017-02-10] MEDS ORDERED: HYDROmorphone 1 MG/ML 1 ML SYRINGE IVP PRN (09:33)
[2017-02-10] MEDS ORDERED: HYDROcodone/APAP 7.5-325MG 1 EACH TAB PO PRN (09:33)
[2017-02-10] MEDS ORDERED: NALOXONE 0.4 MG/ML 1 ML VIAL IV PRN (09:33)
--- NOTE | 2017-02-10 09:39 | P.DS ---
Providers Date of admission: 02/10/17 06:14 Expected date of discharge: 02/11/17 Attending physician: Thanh Bey Consults: 02/10/17 09:33 Consult Physician Routine Consulting Provider: Gaston Bueno Consult Reason/Comments: medical management Do you want consulting provider notified?: Yes Primary care physician: Stated None Hospital Course: Date of admission: 02/10/2017 Date of discharge: 02/11/2017 Admission diagnosis: Status post right total knee arthroplasty Discharge diagnosis: Same Attending physician: Dr. Bey Surgical procedures: Right total knee arthroplasty Brief history: Patient is a 46-year-old female with a history of progressive primary right knee osteoarthritis. At this point patient has failed conservative treatment measures and has opted to proceed with a elective right total knee arthroplasty. Hospital course: Details of patient's surgery can be found in operative report. Patient tolerated the procedure well and was subsequently transported to orthopedic floor. Patient's orthopeidc and medical care was provided daily. Patient had daily laboratory tests performed for evaluation of overall blood counts . Patient had daily physical therapy to include strengthening range of motion as well as education with walker ambulation. Patient had daily CPM usage as part of their physical therapy program. Patient was treated with Lovenox for their postoperative DVT prophylaxis during their inpatient stay. Patient was noted to have a relatively uneventful postoperative course. Patient reported satisfactory pain control with oral pain medications by postoperative day 0. Patient showed satisfactory progress with physical therapy. Patient moved steadily through the program and had no difficulty meeting the goals by postoperative day 1. Given patient's otherwise satisfactory course and having met physical therapy goals, plan is to discharge patient home on postoperative day 1. Discharge condition/disposition: Patient will be discharged home in stable condition. Discharge medications: Instructions are given on resumption of patient's normal daily medications per primary care recommendation, in addition patient will be prescribed [place] 7.5 mg/325 mg, Vistaril 25 mg, Colace 100 mg, Xarelto 10 mg. Discharge instructions: 1. Wound care and infection precautions, keep incision dry and covered while showering, no lotions, creams, moisturizers. No soaking, tubs, pools, hottubs. Do not scrub over the incision. 2. Weight-bear as tolerated with walker / cane until follow-up. 3. Ice and elevate when necessary. Do not exceed 20 minutes per hour with ice pack. 4. Utilize compression sleeve until seen at first follow up appointment. 5. Visiting nursing care. 6. Home physical therapy including home CPM. 7. Pain meds and anticoagulants per prescription. 8. Pain medication has potential to cause constipation. Increase oral fluid and fiber intake. Contact primary care provider if you have not had a bowel movement within 48 hours after discharge 9. No anti-inflammatory medication until discussed at first post operative visit, this including Motrin, Aleve, Mobic, Diclofenac. 10. Follow up in office at 2 weeks postop with Josh Carson PA-C 11. Follow up with your primary care doctor 7-10 days after discharge. 12. Contact [facility] with any questions, . Procedures: Right total knee arthroplasty Patient Condition at Discharge: Good Plan - Discharge Summary New Discharge Prescriptions: New Rivaroxaban [Xarelto] 10 mg PO DAILY #12 tab Docusate [Colace] 100 mg PO DAILY #30 capsule HYDROcodone/APAP 7.5-325MG [[place] 7.5] 1 - 2 each PO Q6HR PRN #60 tab PRN Reason: Pain hydrOXYzine PAMOATE [Vistaril] 25 mg PO Q6HR #60 capsule No Action cycloSPORINE [Restasis] 1 drop BOTH EYES BID Sucralfate [Carafate] 1 gram PO QID Pantoprazole Sodium [Protonix] 40 mg PO BID Melatonin 10 mg PO HS Doxepin [SINEquan] 20 mg PO HS diphenhydrAMINE [Benadryl] 50 mg PO BID PRN PRN Reason: Allergy Symptoms Levothyroxine Sodium [Synthroid] 75 mcg PO QAM Nitroglycerin Sl Tabs [Nitrostat] 0.4 mg SL Q5M PRN PRN Reason: Chest Pain Cholecalciferol [Vitamin D3] 2,000 unit PO DAILY Desmopressin Acetate 0.05 mg PO BID DULoxetine HCL [Cymbalta] 90 mg PO DAILY Hydrocortisone [Cortef] 10 mg PO BID Nutropin 0.3 mg SQ DAILY ARIPiprazole [Abilify] 2 mg PO DAILY ALPRAZolam [Xanax] 0.5 mg PO HS PRN PRN Reason: Insomnia Lipoflavonoid 1 tab PO DAILY PRN PRN Reason: tinnitus Discharge Medication List Doxepin [SINEquan] 20 mg PO HS 10/31/13 [History] Melatonin 10 mg PO HS 10/31/13 [History] Pantoprazole Sodium [Protonix] 40 mg PO BID 10/31/13 [History] Sucralfate [Carafate] 1 gram PO QID 10/31/13 [History] cycloSPORINE [Restasis] 1 drop BOTH EYES BID 10/31/13 [History] diphenhydrAMINE [Benadryl] 50 mg PO BID PRN 12/28/13 [History] Levothyroxine Sodium [Synthroid] 75 mcg PO QAM 04/19/14 [History] Nitroglycerin Sl Tabs [Nitrostat] 0.4 mg SL Q5M PRN 01/15/15 [History] Cholecalciferol [Vitamin D3] 2,000 unit PO DAILY 05/01/15 [History] Desmopressin Acetate 0.05 mg PO BID 07/17/15 [History] DULoxetine HCL [Cymbalta] 90 mg PO DAILY 09/13/15 [History] Hydrocortisone [Cortef] 10 mg PO BID 12/08/15 [History] ARIPiprazole [Abilify] 2 mg PO DAILY 10/15/16 [History] Nutropin 0.3 mg SQ DAILY 10/15/16 [History] ALPRAZolam [Xanax] 0.5 mg PO HS PRN 02/06/17 [History] Lipoflavonoid 1 tab PO DAILY PRN 02/06/17 [History] Docusate [Colace] 100 mg PO DAILY #30 capsule 02/11/17 [Rx] HYDROcodone/APAP 7.5-325MG [[place] 7.5] 1 - 2 each PO Q6HR PRN #60 tab 02/11/17 [ Rx] Rivaroxaban [Xarelto] 10 mg PO DAILY #12 tab 02/11/17 [Rx] hydrOXYzine PAMOATE [Vistaril] 25 mg PO Q6HR #60 capsule 02/11/17 [Rx] Follow up Appointment(s)/Referral(s): Dony Carson PAC [[facility]] - 02/25/17 2:50 pm [facility], [REFERRING] - Activity/Diet/Wound Care/Special Instructions: Orthopedic Discharge Instructions: 1. Wound care and infection precautions, keep incision dry and covered while showering, no lotions, creams, moisturizers. No soaking, pools, hot tubs. Do not scrub over incision. 2. Weight-bear as tolerated with walker / cane until follow-up. 3. Ice and elevate when necessary. Do not exceed 20 minutes per hour with ice pack. 4. Utilize compression sleeve until seen at first follow up appointment. 5. Visiting nursing care. 6. Home physical therapy including home CPM. 7. Pain meds and anticoagulants per prescription. 8. Pain medication has potential to cause constipation. Increase oral fluid and fiber intake. Contact primary care provider if you have not had a bowel movement within 48 hours after discharge. 9. No anti-inflammatory medication until discussed at first post operative visit, this including Motrin, Aleve, Mobic, Diclofenac. 10. Follow up in office at 2 weeks postop with Josh Carson PA-C 11. Follow up with your primary care doctor 7-10 days after discharge. 12. Contact [facility] with any questions, . Discharge Disposition: HOME WITH HOME HEALTH SERVICES
--- NOTE | 2017-02-10 10:04 | P.OP ---
Date of Procedure: 02/10/17 Preoperative Diagnosis: Right knee severe tricompartmental osteoarthrosis Postoperative Diagnosis: Same Procedure(s) Performed: Right total knee [id number] retaining Implants: [employer] size 5 narrow cemented femoral component, size 4 cemented tibial component, 9 mm articular surface, 32 mm cemented patellar component. This was a cruciate retaining implant. Anesthesia: regional, local, spinal Surgeon: Thanh Bey Hog Operator #1: Dony Carson Estimated Blood Loss (ml): 50 Pathology: other (Bone fragments) Condition: stable Disposition: PACU Indications for Procedure: The patient is a 46-year-old female who presents with progressive right knee pain secondary to osteoarthrosis despite extensive conservative measures. A discussion of the risks and benefits of continued conservative measures versus operative intervention was made with patient. She opted to proceed with surgery. Operative risks to include infection, neurovascular injury, development of blood clots, possible component loosening, possible component failure and need for subsequent procedures was discussed. Informed consent was obtained. Operative Findings: As below Description of Procedure: The patient was brought to the operating room, and after induction of spinal anesthesia the right lower extremity was prepped and draped in normal fashion. The tourniquet was inflated to 270 mmHg. A longitudinal incision extending 3 finger breaths above the superior pole of patella extending to the medial aspect of the tibial tubercle was then made. The skin and subcutaneous tissues were divided sharply. Electrocautery was used for hemostasis. A medial parapatellar arthrotomy was performed. The medial soft tissues to include the superficial and deep portions of the medial collateral ligament as well as the medial hamstring tendons were elevated subperiosteally. The patella was everted. A portion the retro-patellar fat pad was excised sharply. The knee was flexed. The anterior cruciate ligament was sacrificed. Blunt retractors were placed. A starting hole was made in the distal femur 1 cm anterior to the posterior cruciate ligament origin. An intramedullary femoral guide was then gently inserted planning on 5 valgus distal cut with 9 mm distal resection. The cutting block was pinned in place. The distal cut was then made. The posterior referencing sizing guide was utilized. I felt size 5 narrow was most appropriate. 3 of external rotation was built into the system and verified off the trans-epicondylar axis and the posterior condyles. The cutting block was pinned in place. The anterior, posterior, and chamfer cuts were then made. The bone fragments were removed. The trial size 5 narrow component was placed and was fully seated. There is good anterior to posterior and medial to lateral fit. The distal peg holes were drilled. The trial component was then removed. Attention was then paid towards preparing the proximal tibia. An extramedullary guide was utilized in line with the tibial shaft and second metatarsal distally. A 3 posterior slope cutting block was utilized. I planned on a 6 mm resection from the medial compartment. The cutting block was pinned in place. The posterior cruciate ligament was protected with a retractor. The proximal tibial cut was made in the bone removed one fragment. The tibia sized most appropriately size 4. The remnants of the medial and lateral menisci were excised at the capsular junction with electrocautery. The trial femoral and tibial components were placed along with a 9 mm articular surface. I was able to obtain full flexion and extension with good stability with varus and valgus stress. After several flexion and extension cycles, the tibial rotation was marked in line with the medial one third of the tibial tubercle with electrocautery. The patella was then prepared with the appropriate patella reamer. This was taken down to 14 mm of bone stock. A good flush cut was made. The patella sized most appropriately 32 mm. The peg holes were drilled. The trial components placed. The knee was taken through range of motion. I had good patellofemoral tracking with no hands technique. The trial components were then removed. The tibia was prepared in the appropriate rotation with appropriate drill and keel punch. The posterior osteophytes off the distal femur were carefully removed with a curved osteotome. The flexion and extension gaps were checked and felt to be symmetric. The posterior soft tissues were injected with ropivacaine. The bony surfaces were prepared with pulsatile lavage and dried. The tibial component was then cemented in placed and was fully seated. Excess cement was removed. The femoral component cemented place and was fully seated. Excess cement was removed. The trial 9 mm articular surface was placed and the knee was put in full extension. The patella component was cemented. After the cement had sufficiently hardened, and the knee was taken through a range of motion. Again I had good stability in flexion and extension with varus and valgus stress. The trial articular surface was removed and the final 9 mm articular surface was placed and was fully seated. Care taken to avoid any soft tissue interposition. Pulsatile lavage was again utilized. The medial parapatellar arthrotomy was closed with #2 Ethibond suture. A deep drain was placed exiting laterally. The tourniquet was deflated with less than 1 hour total tourniquet time. Final hemostasis was obtained with electrocautery. The second dose of IV TXA was given. The subcutaneous tissues were reapproximated with interrupted 2-0 Vicryl sutures. The skin was repaired with 3-0 subcuticular strata fix suture. Skin tape and adhesive was applied. A sterile dressing was applied. The patient was awoken from sedation and transferred to the recovery room in good condition. Blood loss was estimated 50 mL. No complications were incurred. Sponge and needle counts were correct at the end the case.
--- NOTE | 2017-02-10 10:47 | XR ---
EXAMINATION TYPE: XR knee limited RT DATE OF EXAM: 02/10/2017 CLINICAL HISTORY: Postoperative evaluation Two views of the right knee are submitted. Identified are changes of total knee arthroplasty with femoral and tibial components appearing well seated. Postsurgical soft tissue changes are noted. Alignment is anatomic.
[2017-02-10 12:36] VITALS: RESP 16
[2017-02-10] MEDS: HYDROcodone/APAP 7.5-325MG 1 EACH TAB PO PRN (16:00)
[2017-02-10] MEDS: ceFAZolin 2 GM in SODIUM CHLORIDE 0.9% 100 ML IVPB SCH ×2 (16:44→23:44)
[2017-02-10] MEDS: SENNOSIDES-DOCUSATE SODIUM 1 EACH TAB PO SCH (20:48)
[2017-02-10] MEDS: ENOXAPARIN 30 MG/0.3 ML SYRINGE SQ SCH (20:49)
[2017-02-10] MEDS: HYDROmorphone 1 MG/ML 1 ML SYRINGE IVP PRN (20:56)
[2017-02-10] MEDS ORDERED: diphenhydrAMINE 25 MG CAP PO PRN (20:57)
[2017-02-10] MEDS ORDERED: ALPRAZolam 0.5 MG TAB PO PRN (22:46)
[2017-02-10] MEDS ORDERED: diphenhydrAMINE 50 MG CAP PO PRN (22:46)
[2017-02-10] MEDS: SUCRALFATE 1 GM TAB PO SCH (23:42)
[2017-02-10] MEDS: DESMOPRESSIN 0.2 MG TAB PO SCH (23:43)
[2017-02-10] MEDS: MELATONIN 5 MG TABLET PO SCH (23:43)
[2017-02-10] MEDS: PANTOPRAZOLE 40 MG TABLET PO SCH (23:43)
[2017-02-10] MEDS: cycloSPORINE 0.05% OPHTH 0.4 ML DROPERETTE BOTH EYES SCH (23:43)
[2017-02-10] MEDS: DOXEPIN 10 MG CAP PO SCH (23:44)
[2017-02-10] MEDS: HYDROCORTISONE 10 MG TAB PO SCH (23:44)
[2017-02-11] MEDS: LACTATED RINGERS 1,000 ML IV SCH (03:59)
[2017-02-11] MEDS: HYDROcodone/APAP 7.5-325MG 1 EACH TAB PO PRN ×2 (04:48→10:22)
[2017-02-11] MEDS: LEVOTHYROXINE 75 MCG TAB PO SCH (04:49)
[2017-02-11 07:11] LABS: Basophils % (A) 0 %; CH 26.3; CHCM 30.9; Eosinophils % (A) 0 %; HCT 32.4 % (34.0-46.0); HDW 2.55; HGB 10.2 gm/dL (11.4-16.0); Hypochromasia Slight; Luc # (Auto) 0.18; Luc % (Auto) 2; Lymphocytes # (A) 1.7 k/uL (1.0-4.8); Lymphocytes % (A) 15 %; MCH 27.1 pg (25.0-35.0); MCHC 31.7 g/dL (31.0-37.0); MCV 85.5 fL (80.0-100.0); Mean Platelet Volume 6.2; Monocytes # (A) 0.7 k/uL (0-1.0); Monocytes % (A) 6 %; Neutrophils % (A) 77 %; RBC 3.79 m/uL (3.80-5.40); RDW 15.4 % (11.5-15.5); WBC 11.7 k/uL (3.8-10.6); WBC (Perox) 11.87
--- NOTE | 2017-02-11 08:25 | CONS ---
CONSULTATION DATE OF CONSULTATION: 02/10/2017 REASON FOR CONSULTATION: Medical management requested by Dr. Bey. CONSULTATION: This is a very pleasant, 46-year-old patient who follows with Dr. Mondragon and also follows with battery tester field out of town. Patient has undergone a right total knee arthroplasty, has got a Hemovac in place. Pain is controlled. Patient's chronic stable medical conditions include lumbar DJD, asthma, fibromyalgia, GERD, diabetes insipidus, hypopituitarism, cervical spine radiculopathy, interstitial cystitis and urinary bladder spasms. Patient recently has been put on growth hormone and patient was sleeping quite a bit before that, not doing really well, excited about that. REVIEW OF SYSTEMS: CONSTITUTIONAL: None. HEENT: None. RESPIRATORY: None. CARDIOVASCULAR: None. GASTROINTESTINAL: Heartburn. GENITOURINARY: None. MUSCULOSKELETAL: Pain in the joints. DERMATOLOGICAL: None. HEMATOLOGICAL: None. LYMPHATIC: None. PSYCHIATRY: None. ENDOCRINOLOGY: As above. 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 PAST SURGICAL HISTORY: Back surgery, , joint replacement, artificial disc in C5, C6, C7, titanium plate and screws in the neck, right carpal tunnel, hemorrhoidectomy, bronchoscopy, cervical epidural steroid injections, left knee arthroscopy, esophageal manometry motility study, radiofrequency treatment to L5. Right knee scope, left total knee. PAST PSYCH HISTORY: Past psych history of depression and anxiety. SOCIAL HISTORY: The patient started smoking in 1979, stopped in 2008, 3/4 pack a day. Smoked for 29 years. FAMILY HISTORY: Family history of hyperlipidemia, hypertension and rectal cancer. HOME MEDICATIONS: 1. Benadryl 50 mg p.o. b.i.d. p.r.n. 2. Restasis 1 drop to both eyes b.i.d. 3. Carafate 1 gram p.o. q.i.d. 4. Protonix 40 mg b.i.d. 5. Nutropin 0.3 mg subcutaneous daily. 6. Nitrostat 0.4 sublingual q.5 p.r.n. 7. Melatonin 10 mg p.o. q.h.s. 8. Lipoflavonoid 1 tab p.o. daily p.r.n. 9. Synthroid 75 mcg p.o. daily. 10.Cortef 10 mg p.o. b.i.d. 11.[place] 7.5, one to two tablets q.6 p.r.n. 12.Sinequan 20 mg p.o. q.h.s. 13.Desmopressin 0.05 mg p.o. b.i.d. 14.Cymbalta 90 mg p.o. daily. 15.Vitamin D3, 2000 units p.o. daily. 16.Abilify 2 mg p.o. daily. 17.Xanax 0.5 p.o. q.h.s. p.r.n. ALLERGIES: Allergies to MORPHINE, VENOM BEE, BLUE DYE. PHYSICAL EXAMINATION: On examination, temperature 98.6 pulse 75, respirations 16, blood pressure 107/61, pulse ox 96% on room air. GENERAL APPEARANCE: Well built, BMI 36.3, lying in bed, comfortable. EYES: Pupils equal. Conjunctivae normal. HEENT: Oral cavity normal. NECK: JVD not raised. Mass not palpable. RESPIRATORY: Effort normal. Lungs fair air entry. CARDIOVASCULAR: First and second sounds normal. No edema. ABDOMEN: Soft, nontender. Liver and spleen not palpable. LYMPHATIC: No lymph node palpable in the neck or axillae. PSYCHIATRY: Alert and oriented x3. Mood affect normal. NEUROLOGICAL: Pupils equal. Cranial nerves grossly intact. Power and sensation grossly intact. EXTREMITIES: Right knee in a dressing with a Hemovac in placed. INVESTIGATIONS: White count 11.3, hemoglobin 11.2, platelets 453. ASSESSMENT: 1. Right total knee arthroplasty. 2. Major depressive disorder, in remission. 3. Severe lumbar spine degenerative joint disease, chronic, controlled. 4. Mild persistent asthma, chronic. 5. Chronic fibromyalgia. 6. Gastroesophageal reflux disease. 7. Diabetes insipidus, chronic. 8. Hypopituitarism with Bam syndrome. 9. Interstitial cystitis, chronic. 10.Chronic urinary bladder spasm. 11.Obesity, body mass index 36.3. PLAN: The patient's home medications will be resumed. The patient is on IV fluids. Lovenox for DVT prophylaxis per Dr. Bey. Care was discussed with the patient. The patient should follow up with family doctor upon discharge. Thank you, Dr. Bey. SHUN / ANASTACIA: [id number] /
[2017-02-11] MEDS: HYDROmorphone 1 MG/ML 1 ML SYRINGE IVP PRN ×2 (08:32→13:01)
[2017-02-11] MEDS: traMADol 50 MG TAB PO PRN ×2 (08:42→18:56)
[2017-02-11] MEDS: ARIPiprazole 2 MG TAB PO SCH (09:10)
[2017-02-11] MEDS: PANTOPRAZOLE 40 MG TABLET PO SCH ×2 (09:10→16:51)
[2017-02-11] MEDS: SUCRALFATE 1 GM TAB PO SCH ×4 (09:10→20:15)
[2017-02-11] MEDS: CHOLECALCIFEROL 1,000 UNIT TAB PO SCH (09:11)
[2017-02-11] MEDS: DULoxetine HCL 30 MG CAPSULE.DR PO SCH (09:12)
[2017-02-11] MEDS: HYDROCORTISONE 10 MG TAB PO SCH ×2 (09:12→20:15)
[2017-02-11] MEDS: FAMOTIDINE 20 MG TAB PO SCH (09:12)
[2017-02-11] MEDS: cycloSPORINE 0.05% OPHTH 0.4 ML DROPERETTE BOTH EYES SCH (09:13)
[2017-02-11] MEDS: DESMOPRESSIN 0.2 MG TAB PO SCH ×2 (09:14→20:13)
[2017-02-11] MEDS: ENOXAPARIN 30 MG/0.3 ML SYRINGE SQ SCH ×2 (09:15→20:15)
[2017-02-11] MEDS: hydrOXYzine PAMOATE 25 MG CAP PO PRN ×3 (10:22→22:19)
[2017-02-11] MEDS: SOMATROPIN SQ SCH (10:39)
--- NOTE | 2017-02-11 11:06 | P.PN ---
Subjective Principal diagnosis: Status post right total knee arthroplasty Patient seen today resting in her hospital bed, her is present at bedside. Patient's pain is controlled at this time. She is done well with therapy, urinary catheters been discontinued. She denies any headaches, lightheadedness, chest pain, shortness of breath, fever or chills. Objective - Vital Signs Vital signs: Vital Signs Temp 98.4 F 02/11/17 08:00 Pulse 61 02/11/17 08:00 Resp 16 02/11/17 08:00 BP 104/59 02/11/17 08:00 Pulse Ox 93 L 02/11/17 08:00 Intake & Output 02/10/17 02/11/17 02/11/17 18:59 06:59 18:59 Intake Total 1301 1390 Output Total 1000 650 Balance 301 740 Weight 102.058 kg Intake: IV 1301 Intake, IV Titration 800 Amount ceFAZolin 2 gm In Sodium 800 Chloride 0.9% 100 ml @ 100 mls/hr IVPB Q8H [facility] Rx#:[id number] Oral 590 Output: Drainage 650 Knee 650 Urine 950 Uretheral ([place]) 500 Estimated Blood Loss 50 Other: # Voids 4 - Exam Right lower extremity: Incisions clean, dry and intact. Pain pump is in good position. Minimal soft tissue swelling present around the knee. Calf is soft, no tenderness with palpation. Plantar flexion, dorsiflexion, EHL, FHL are intact. Sensory exam to light touch throughout the extremities intact, dorsal pedis pulses 2+ - Labs CBC & Chem 7: 02/11/17 06:37 Labs: Abnormal Lab Results - Last 24 Hours (Table) 02/11/17 Range/Units 06:37 WBC 11.7 H (3.8-10.6) k/uL RBC 3.79 L (3.80-5.40) m/uL Hgb 10.2 L (11.4-16.0) gm/dL Hct 32.4 L (34.0-46.0) % Neutrophils # 9.0 H (1.3-7.7) k/uL Assessment and Plan Plan: Assessment: 1. Postop day #1 status post right total knee arthroplasty Plan: 1. Pain control, we'll discharge patient home on oral medication 2. Daily dressing changes/ice and elevate, wound care instructions discussed 3. Home therapy and nursing at home, including use of CPM 4. GI and DVT prophylaxis, we'll discharge patient home on Xarelto 10 mg once a day 5. Medical recommendations 6. Discharge planning: Patient is stable for discharge home today Time with Patient: Less than 30
--- NOTE | 2017-02-11 11:53 | P.PN ---
Progress Note - Text POD#1 S/P Rt TKA. rt knee pain is tolerated with a combination of ACB and oral analgesics.
[2017-02-11] MEDS ORDERED: HYDROcodone/APAP 10-325MG 1 EACH TAB PO PRN (12:59)
--- NOTE | 2017-02-11 14:47 | PN ---
PROGRESS NOTE DATE OF SERVICE: 02/11/2017 PRESENTING COMPLAINT: Right knee surgery. INTERVAL HISTORY: Patient is status post right knee arthroplasty, some pain is present. No nausea. vomiting, tolerating a diet. No dizziness, did work with therapy. REVIEW OF SYSTEMS: Done for constitutional, cardiovascular, GI, pulmonary, musculoskeletal; relevant findings as above. CURRENT MEDICATIONS: Reviewed. PHYSICAL EXAMINATION: Temperature 98.4, pulse 61, respirations 16, blood pressure 104/59, pulse ox 93% on room air. GENERAL DESCRIPTION: A 46-year-old gentleman, sitting up in bed, comfortable. EYES: Pupils equal, conjunctivae normal. NECK: JVD not raised. Mass not palpable. Respiratory effort normal. Lungs are clear. CARDIOVASCULAR: First and second sounds normal, no edema. ABDOMEN: Soft, nontender. Liver and spleen not palpable. PSYCHIATRY: Alert and oriented x3, mood and affect normal. Right knee in a dressing. INVESTIGATIONS: Hemoglobin 10.2. ASSESSMENT: 1. Right total knee arthroplasty. 2. Major depressive disorder, in remission. 3. Severe lumbar spine degenerative joint disease, chronic, controlled. 4. Mild persistent asthma, chronic. 5. Chronic fibromyalgia. 6. Gastroesophageal reflux disease. 7. Diabetes insipidus, chronic. 8. Hypopituitarism, . 9. Interstitial cystitis, chronic. 10.Chronic urinary bladder spasms. 11.Obesity, body mass index of 36.3. PLAN: Care was discussed with the patient. No new issues. Continue current medication and treatment plan. Keep on Alar. SHUN / VELIAN: [id number] /
[2017-02-11] MEDS: HYDROcodone/APAP 10-325MG 1 EACH TAB PO PRN ×2 (16:11→22:20)
[2017-02-11] MEDS: DOXEPIN 10 MG CAP PO SCH (20:14)
[2017-02-11] MEDS: SENNOSIDES-DOCUSATE SODIUM 1 EACH TAB PO SCH (20:15)
[2017-02-11] MEDS: MELATONIN 5 MG TABLET PO SCH (20:15)
[2017-02-12] MEDS: cycloSPORINE 0.05% OPHTH 0.4 ML DROPERETTE BOTH EYES SCH ×2 (03:57→08:36)
[2017-02-12] MEDS: HYDROcodone/APAP 10-325MG 1 EACH TAB PO PRN ×3 (05:41→16:12)
[2017-02-12] MEDS: hydrOXYzine PAMOATE 25 MG CAP PO PRN ×3 (05:41→16:13)
[2017-02-12] MEDS: LEVOTHYROXINE 75 MCG TAB PO SCH (05:42)
[2017-02-12 08:33] VITALS: TEMP 98.2
[2017-02-12] MEDS: ENOXAPARIN 30 MG/0.3 ML SYRINGE SQ SCH (08:34)
[2017-02-12] MEDS: SUCRALFATE 1 GM TAB PO SCH ×2 (08:35→16:48)
[2017-02-12] MEDS: PANTOPRAZOLE 40 MG TABLET PO SCH (08:35)
[2017-02-12] MEDS: CHOLECALCIFEROL 1,000 UNIT TAB PO SCH (08:35)
[2017-02-12] MEDS: ARIPiprazole 2 MG TAB PO SCH (08:35)
[2017-02-12] MEDS: DESMOPRESSIN 0.2 MG TAB PO SCH (08:37)
[2017-02-12] MEDS: DULoxetine HCL 30 MG CAPSULE.DR PO SCH (08:38)
[2017-02-12] MEDS: FAMOTIDINE 20 MG TAB PO SCH (08:39)
[2017-02-12] MEDS: traMADol 50 MG TAB PO PRN (08:40)
[2017-02-12] MEDS: HYDROCORTISONE 10 MG TAB PO SCH (08:40)
[2017-02-12] MEDS: SOMATROPIN SQ SCH (10:08)
[2017-02-12 15:15] VITALS: BP 142/85; PULSE 84
--- NOTE | 2017-02-12 15:34 | P.PN ---
Progress Note - Text DATE OF SERVICE: 02/12/2017 PRESENTING COMPLAINT: Right knee surgery HISTORY OF PRESENT ILLNESS: 46-year-old female status post right knee arthroplasty. INTERVAL HISTORY: 02/12/2017: Sitting up in bed, appears comfortable. Right knee continues to be tender, surgical dressing in place, agreeable to work with physical therapy. Tolerating her diet, ambulatory with a walker and assistance, last BM prior to admission. REVIEW OF SYSTEMS: Done for constitutional ,cardiovascular, GI, pulmonary, musculoskeletal with relevant findings as above. CURRENT MEDICATIONS [place], Xanax, Abilify, DDAVP, Benadryl, Ultram. PHYSICAL EXAM VITAL SIGNS: Temperature 98.2, pulse 73, respirations 16, blood pressure 112/73, oxygen saturation 96% on room air. GENERAL APPEARANCE: Lying in bed, not in distress. EYES: Pupils equal. Conjunctiva normal. NECK: JVD not raised. Mass not palpable. RESPIRATORY: Respiratory effort normal. Lungs clear to auscultation. CARDIOVASCULAR: First and second sounds normal. No edema. ABDOMEN: Soft. Liver and spleen not palpable. No tenderness. No mass palpable. PSYCHIATRY: Alert and oriented x3. Mood and affect normal. MUSCULOSKELETAL: INVESTIGATIONS: White blood cell count 11.7, hemoglobin 10.2, ASSESSMENT: -Right knee arthroplasty. -Leukocytosis likely reactive to surgical procedure. -Acute blood loss anemia as expected from surgery. -Major depressive disorder, in remission. -Severe lumbar spine degenerative joint disease, chronic, controlled. -Persistent asthma chronic. -Chronic problem myalgia. -Gastroesophageal reflux disease, -Diabetes insipidus chronic. -Hypopituitarisim, controlled -Interstitial cystitis, chronic. -Chronic urinary bladder spasms. -Obesity, body mass index of 36.3. PLAN: Continue current medication and treatment plan, no new issues. Discharge planning for the next 24-48 hours. We will continue to follow closely. MEAT HOSTESS statement: Patient was seen and examined by nurse practitioner Leydi Lopez and all elements of the case discussed with attending Dr. Bueno
--- NOTE | 2017-02-12 18:24 | PN ---
PROGRESS NOTE DATE OF SERVICE: 02/12/2017 ATTENDING NOTE: This patient was seen and examined by me. I discussed with nurse practitioner, Ms. Lopez. The patient is feeling much better. Tired, some pain in the right knee. EXAMINATION: Afebrile, blood pressure 122/85. LUNGS: Clear. CARDIOVASCULAR: First and second sounds are normal. Dressing over the right knee. INVESTIGATIONS: No blood work from today. ASSESSMENT: 1. Right total knee arthroplasty, improving. 2. Other medical conditions stable. Care was discussed with the patient. Continue current treatment plan. MMODL / IJN: [id number] /
== END 2017-02-12 16:30 | disposition home health service (06) | DRG 470 ==
LOC: 2ORMAIN 06:14 → 3SUR 09:57
PROVIDERS: ADMIT Orthopaedic Surgery; ATTEND Orthopaedic Surgery
PROC: 0SRC0J9 Replacement of Right Knee Joint with Synthetic Substitute, Cemented, Open Approach (ICD-10-PCS; principal; 2017-02-10 08:00)
DX: M17.11 Unilateral primary osteoarthritis, right knee (principal); E23.2 Diabetes insipidus; E23.0 Hypopituitarism; E27.40 Unspecified adrenocortical insufficiency; D62 Acute posthemorrhagic anemia; N30.10 Interstitial cystitis (chronic) without hematuria; K21.9 Gastro-esophageal reflux disease without esophagitis; M79.7 Fibromyalgia; M51.26 Other intervertebral disc displacement, lumbar region; F32.9 Major depressive disorder, single episode, unspecified; M47.816 Spondylosis without myelopathy or radiculopathy, lumbar region; J45.30 Mild persistent asthma, uncomplicated; N32.89 Other specified disorders of bladder; E66.9 Obesity, unspecified; K44.9 Diaphragmatic hernia without obstruction or gangrene; M21.161 Varus deformity, not elsewhere classified, right knee; M54.12 Radiculopathy, cervical region; F41.9 Anxiety disorder, unspecified; Z79.899 Other long term (current) drug therapy; Z96.698 Presence of other orthopedic joint implants; Z98.1 Arthrodesis status; Z96.652 Presence of left artificial knee joint; Z87.891 Personal history of nicotine dependence; Z88.5 Allergy status to narcotic agent; Z91.030 Bee allergy status; Z91.02 Food additives allergy status
CPT/HCPCS: 85025; 88300

== ENCOUNTER → 2017-04-07 | Outpatient (CLI) | payer MEDICARE, OTHER ==
[2017-04-07 14:37] VITALS: BP 115/77; PULSE 98; RESP 16
--- NOTE | 2017-04-07 15:16 | P.PN ---
Subjective Progress Note Date: 04/07/17 This is 46 years old female with a chronic history of neck pain and upper extremity pain patient was diagnosed with complex regional pain syndrome, status post cervical epidural steroid injections, done more than a year ago , a few weeks ago patient started complaining of severe low back pain localized in the right side, radiation to the right buttock area, she denies any initiating event she denies any fever or night sweats and that is no change in the bowel movement or urination, the pain is constant and increases with any activity, she denies any motor or sensory deficit, and the current pain medication is not helping to control her pain she's using [place] 7.5/325, with minimal relief of her right buttock pain, she denies any side effect of the medication Objective - Vital Signs Vital signs: Vital Signs Temp Pulse 98 04/07/17 14:28 Resp 16 04/07/17 14:28 BP 115/77 04/07/17 14:28 Pulse Ox 96 04/07/17 14:28 Intake & Output 04/06/17 04/07/17 04/07/17 18:59 06:59 18:59 Weight 108.862 kg - Exam Physical Examinations : 1-Constitutiona : Cooperative , not in acute distress . 2-HEENT : nech ; supple , no Lymphadenopathy , normal thyroid size . eyes : no ptosis , no icterus, no photophobia . ENT : normal of hearing , normal oropharynx , no Thrush . 3- Respiratory : Chest clear to auscultations Bilaterally , no wheezing , no Rhonchi . 4- Cardiovascular : regular rate and rhythem , S1 , S2 , no S3 , no S4. 5- Gastrointestinal : abdomen soft no tenderness , bowel sounds positive all four quadrents , no organomegally . 6- Genitourinary : Defferred . 7- neurologic : Cranial nerve II to XII intact , no focal neurological deffecit . 8-psychatric : alert , oriented X 3 , appropriate affect , intact judgment and insight . 9-Lymphatic : no Lymphadenopathy . 10- musculoskeltal : cervical spine = motor stregnth in the deltoid and biceps, , Lumber spine = normal moter stegnth lower extremities ,thigh and legs .5/5 deep tendon reflexes : normal Knee Jerk , normal ankle Jerk . lumber facet Loading Test positive on the right side strait leg raising test negative bilaterally Fabere test negative bilaterally Sever tenderness over the Sacroiliac joint on the Right , Assessment and Plan Plan: Assessment and plan= right sacroiliitis, patient could benefit from right sacroiliac joint steroid injections , patient should continue to use her current pain medication [place] 7.5/325 every 6 hours when necessary, and she is getting prescription refilled from her primary care Time with Patient: Less than 30
== END | disposition home or self-care (01) ==
LOC: PNWHC3 13:38
PROVIDERS: ATTEND Specialist
DX: M46.1 Sacroiliitis, not elsewhere classified (principal)
CPT/HCPCS: 99211

== ENCOUNTER 2017-04-14 09:58 | Day surgery (SDC) | payer MEDICARE, OTHER ==
[2017-04-09 15:39] VITALS: BMI 35.5
--- NOTE | 2017-04-13 10:49 | HP ---
HISTORY AND PHYSICAL CHIEF COMPLAINT: Right knee stiffness. HISTORY OF PRESENT ILLNESS: The patient is a 46-year-old female who underwent right total knee arthroplasty on 02/10/2017 with persistent right knee stiffness despite adequate rehabilitation. She has been in therapy. She is walking without any assistive devices. She denies fevers or chills. PAST MEDICAL HISTORY: Significant for arthritis. PAST SURGICAL HISTORY: Significant for bilateral total knee arthroplasty, bilateral knee arthroscopies, left wrist surgery. CURRENT MEDICATIONS: 1. Duragesic patch. 2. [place]. 3. Baclofen. 4. Cymbalta. 5. Neurontin. 6. Protonix. ALLERGIES: She has allergies to MORPHINE and VOLTAREN. FAMILY HISTORY: Significant for cancer. SOCIAL HISTORY: Negative for current tobacco or alcohol use. REVIEW OF SYSTEMS: Sixteen point review of systems otherwise reviewed and is noncontributory. PHYSICAL EXAMINATION: On examination, the patient is approximately 5 feet 5 inches, 240 pounds of endomorphic habitus. HEENT exam is nonfocal. Neck is supple. She has painless passive motion of her right hip. Straight leg raise is negative. Active motion of right knee -8 to 80 degrees of flexion. The incision is well healed. There is no warmth or erythema. She has no real joint line tenderness. Her knee is stable to varus and valgus stress. Homans is negative. Her distal neurovascular exam appears intact in the right lower extremity. X-rays to include weightbearing notch and lateral views of the right knee obtained in the office show a total knee arthroplasty in good alignment without definite lucency or loosening. IMPRESSION: Status post right total knee arthroplasty with arthrofibrosis. RECOMMENDATIONS: I talked to the patient at length regarding her treatment options. At this point, she opts to proceed with manipulation under anesthesia. We will likely perform that utilizing IV sedation. Risks and benefits were discussed at length in layman's terms. MMODL / IJN: [id number] /
[~2017-04-14 09:58] MED LIST changes: -ACETAMINOPHEN TAB 500 MG TAB PO ONE; +LACTATED RINGERS 1,000 ML IV SCH; -LIDOCAINE 1% 20 ML VIAL (10MG/ML) FOR IV START INTRADERMA PRN; -MELOXICAM 7.5 MG TAB PO ONE; -ONDANSETRON 4 MG/2 ML VIAL IVP PRN; -SCOPOLAMINE 1.5MG/72HR PATCH TRANSDERM ONE; -TRANEXAMIC ACID 1,000 MG in SODIUM CHLORIDE 0.9% 100 ML IVPB ONE; -ceFAZolin 2 GM in SODIUM CHLORIDE 0.9% 100 ML IVPB ONE; +ceFAZolin IN SWFI 2 GM/20 ML SYRINGE IVP ONE
[2017-04-14 10:23] VITALS: TEMP 98.2
[2017-04-14] MEDS ORDERED: HYDROCORTISONE SUCCINATE 100 MG/2 ML VIAL IVP ONE (10:50)
[2017-04-14 11:05] LABS: Glucose,Whole Blood 83 mg/dL (75-99)
[2017-04-14] MEDS ORDERED: fentaNYL (PF) 50 MCG/ML 2 ML AMP ONE (11:45)
[2017-04-14] MEDS ORDERED: PROPOFOL 10 MG/ML 20 ML VIAL IV ONE (11:45)
[2017-04-14] MEDS ORDERED: MIDAZOLAM 2 MG/2 ML VIAL ONE (11:45)
[2017-04-14] MEDS ORDERED: LIDOCAINE 1% INJ 10MG/ML (20 ML MDV) ONE (11:45)
[2017-04-14] MEDS: HYDROmorphone 0.5 MG/0.5 ML SYRINGE IVP PRN ×4 (11:55→12:10)
--- NOTE | 2017-04-14 11:55 | P.OP ---
Date of Procedure: 04/14/17 Preoperative Diagnosis: Arthrofibrosis right knee status post total knee arthroplasty Postoperative Diagnosis: Same Procedure(s) Performed: Manipulation under anesthesia right knee Anesthesia: MAC Surgeon: Thanh Bey Estimated Blood Loss (ml): 0 Pathology: none sent Condition: stable Disposition: PACU Indications for Procedure: The patient's a 46-year-old female who recently underwent right total knee arthroplasty and initially did well with therapy, however developed increasing stiffness despite adequate rehabilitation. A discussion of the risks and benefits of manipulation under anesthesia was made with patient. She opted to proceed. Risks of the procedure to include possible fracture, component loosening, tendon rupture, and recurrence of stiffness was discussed. Informed consent was obtained. Operative Findings: Significant adhesions Description of Procedure: The patient was brought to the recovery room, and after induction of IV sedation I then gently manipulated her right knee. I first obtained 125 of flexion after encountering moderate adhesions. The knee was then gently manipulated into full extension. I felt this was adequate. The patient was then awoken from anesthesia and monitored until fully awake. No complications were incurred. There was no blood loss.
[2017-04-14] MEDS ORDERED: MEPERIDINE 50 MG/ML SYRINGE IVP ONE (12:21)
[2017-04-14] MEDS ORDERED: LACTATED RINGERS 1,000 ML IV ONE (12:53)
[2017-04-14] MEDS ORDERED: KETOROLAC 30 MG/ML 1 ML VIAL IVP ONE (12:59)
[2017-04-14] MEDS ORDERED: HYDROcodone/APAP 7.5-325MG 1 EACH TAB PO ONE (13:13)
[2017-04-14 13:35] VITALS: BP 111/80; PULSE 81; RESP 20
== END 2017-04-14 13:53 | disposition home or self-care (01) ==
LOC: OR 09:58
PROVIDERS: ATTEND Orthopaedic Surgery
DX: M24.661 Ankylosis, right knee (principal); Z96.651 Presence of right artificial knee joint; M19.90 Unspecified osteoarthritis, unspecified site; E07.9 Disorder of thyroid, unspecified; F32.9 Major depressive disorder, single episode, unspecified; F41.9 Anxiety disorder, unspecified; Z79.891 Long term (current) use of opiate analgesic; Z79.899 Other long term (current) drug therapy; Z88.6 Allergy status to analgesic agent; Z88.5 Allergy status to narcotic agent
CPT/HCPCS: 27570

== ENCOUNTER → 2017-06-11 | Outpatient (CLI) | payer MEDICARE, OTHER ==
[2017-06-11 14:42] VITALS: BP 115/81; PULSE 88; RESP 18; TEMP 98.9
--- NOTE | 2017-06-11 15:34 | P.PN ---
Subjective Progress Note Date: 06/11/17 This is follow-up visit for this patient with a history of severe and chronic low back pain secondary to sacroiliitis, we have done sacroiliac joint steroid injections one in March 2017 The second one was done in April 2017, patient reported that she gets more than 70% increase in her low back pain after each injection Patients currently on [place] 7.5/325 6 hours and she is getting prescription refills from her primary care Patient denies any side effects of the medication, denies excessive drowsiness or sleepiness, denies suicidal ideation, and reports that the current pain medication is NOT helping To control the pain and improve activity of daily living Patient denies any motor or sensory deficit , patient denies any fever or night sweats, denies any change in the bowel movements or urination Physical Examinations : 1-Constitutiona : Cooperative , not in acute distress . 2-HEENT : nech ; supple , no Lymphadenopathy , no Thyromegaly , normal thyroid size . eyes : no ptosis , no icterus, no photophobia . ENT : normal of hearing , normal oropharynx , no Thrush . 3- Respiratory : Chest clear to auscultations Bilaterally , no wheezing , no Rhonchi . 4- Cardiovascular : regular rate and rhythem , S1 , S2 , no S3 , no S4. 5- Gastrointestinal : abdomen soft no tenderness , bowel sounds positive all four quadrents , no organomegally . 6- Genitourinary : Defferred . 7- neurologic : Cranial nerve II to XII intact , no focal neurological deffecit . 8-psychatric : alert , oriented X 3 , appropriate affect , intact judgment and insight . 9-Lymphatic : no Lymphadenopathy . 10- musculoskeltal : exams of the cervical spine = motor strength normal bilateral upper extremities facet loading test cervical area positive. exams of the Lumber spine = motor strength lower extremities ,thigh and legs .5/5 deep tendon reflexes : normal Knee Jerk , normal ankle Jerk . lumber facet Loading Test positive Range of motion: Range of motion in flexion of the lumbar spine 60 degrees Range of motion range of motion of extension of the lumbar spine 30 Sever tenderness over the Sacroiliac joint on the Right , Assessment and plan = Chronic low back pain secondary to sacroiliitis, lumbar spondylosis with facet arthropathy without myelopathy , Patient had good results after right sacroiliac joint steroid injections 2 , and she will be in good candidate for radiofrequency ablation of the right side sacroiliac joint ( radiofrequency ablation of the right L5-S1 to result from this and the radiofrequency ablation of the lateral branches right-sided S1 S2 S3 she should continue to get prescription refills from her primary care Dr. Bennett Objective - Vital Signs Vital signs: Vital Signs Temp 98.9 F 06/11/17 14:32 Pulse 88 06/11/17 14:32 Resp 18 06/11/17 14:32 BP 115/81 06/11/17 14:32 Pulse Ox 95 06/11/17 14:32 Intake & Output 06/10/17 06/11/17 06/11/17 18:59 06:59 18:59 Weight 100.698 kg
== END | disposition home or self-care (01) ==
LOC: PNWHC3 14:21
PROVIDERS: ATTEND Specialist
DX: G89.29 Other chronic pain (principal); M47.816 Spondylosis without myelopathy or radiculopathy, lumbar region; M46.96 Unspecified inflammatory spondylopathy, lumbar region; M46.1 Sacroiliitis, not elsewhere classified; Z79.899 Other long term (current) drug therapy
CPT/HCPCS: 99211

== ENCOUNTER 2017-07-13 09:42 | Day surgery (SDC) | payer MEDICARE, OTHER ==
[2017-07-07 15:42] VITALS: BMI 35.5
[2017-07-13 10:13] VITALS: TEMP 98.1
[2017-07-13] MEDS ORDERED: LACTATED RINGERS 1,000 ML IV ONE (10:14)
[2017-07-13] MEDS ORDERED: LIDOCAINE 1% 20 ML VIAL (10MG/ML) FOR IV START INTRADERMA ONE (10:29)
[2017-07-13 10:54] LABS: Glucose,Whole Blood 91 mg/dL (75-99)
--- NOTE | 2017-07-13 11:23 | P.PCN ---
Date of Procedure: 07/13/17 Surgeon: Hugo Marques Pathology: none sent Condition: stable Disposition: PACU Description of Procedure: PREOPERATIVE DIAGNOSIS: Sacroiliitis; lumbar spondylosis without myelopathy POSTOPERATIVE DIAGNOSIS: Sacroiliitis; lumbar spondylosis without myelopathy PROCEDURE: Radiofrequency thermocoagulation/ablation of the Medial branch of L5 and S1, S2, S3 lateral branch levels under fluoroscopic guidance, right ANESTHESIA: Local with 1% lidocaine; IV sedation with Versed/fentanyl EBL: Minimal PROCEDURE INDICATION: The patient with low back pain secondary to sacroilitis with marked decrease in pain with prior right sacroiliac joint injections. No use of blood thinners. PROCEDURE DESCRIPTION: The patient was seen and identified in the preoperative area. Risks, benefits, complications, and alternatives were discussed with the patient, with risks including but not limited to bleeding, infection, nerve damage, incomplete pain relief, and allergic reactions to medications. The patient agreed to proceed with the procedure and signed the informed consent after all questions were answered. IV was started. Vital signs were stable throughout the procedure. Patient was taken to the OR and time out was completed.The patient was placed in the prone position on procedure table and a pillow was placed under the abdomen to reduce lumbar lordosis. The lumbosacral area was prepped and draped in the usual sterile fashion. Critical pause was taken. Vital signs were closely monitored during the procedure. L5 Medial Branch: Using right oblique fluoroscopy, the junction of the transverse process and the superior articular process of the top of the sacrum on the right side, which correspond to the fluoroscopic image of the "eye of the Alec dog" was identified. Skin and deeper tissues were localized with 1% lidocaine at the identified level. Then using fluoroscopy, a 10-cm 20-gauge radiofrequency cannula with a 10-mm active tip was was advanced under fluoroscopic guidance until contact was made with periosteum. At this level, the Sensory testing of L5 Medial branch was performed at 50 Hz and 0 to 1 volt with production of concordant pain. Motor stimulation was done at 2 Hz with stimulation of multifidus muscle contraction at (0.1-2.5) volts. No radicular symptoms or paresthesias were produced during the testing. Subsequently, the L5 medial branch was subjected to a radiofrequency ablation at a mode of 90 seconds at 80 degrees Celsius after negative motor and sensory testing as indicated and after injecting 0.5 ml of preservative free Lidocaine 1%. Then after the radiofrequency procedure was done, 1 mL of a solution containing 4 mL of 0.5% preservative-free lidocaine mixed with 40 mg of Kenalog. S1, S2, and S3 Medial branches: Using the oblique position, the right sacroiliac joint was identified. Skin and deeper tissues corresponding to the site were anesthetized with 1% lidocaine. Under fluoroscopic guidance, a total of three 10-cm 18-gauge radiofrequency cannula with 10-mm active tips were advanced to the lateral aspects of the S1, S2, and S3 vertebral foramina. Subsequently, sensory and motor testings were performed at a total of 3 segments at 50 Hz and 2 Hz respectively which produced concordant pain without radiculopathy or paresthesia. Then each segment was subjected to radiofrequency ablation at a mode of 90 seconds at 80 degrees Celsius for a total of 3 lesions with the bipolar technique. Then after the radiofrequency procedure was done, each site was injected with 1 mL of the aforementioned solution containing 4 mL of 0.5% preservative-free lidocaine mixed with 40 mg of Kenalog. The needles were withdrawn. Area was cleaned. Band-Aid was applied. COMPLICATIONS: None. COMMENTS: DISPOSITION / PLANS: The patient was placed in a supine position and transferred to the recovery area in a stable condition for observation and was discharged from the recovery room after meeting discharge criteria. Home discharge instructions given to the patient by the staff. The patient was reexamined prior to discharge and there were no issues. The patient will schedule a follow up in clinic in 4-6 weeks.
[2017-07-13] MEDS ORDERED: IV FLUID CONTINUATION 1,000 ML IV ONE (11:30)
[2017-07-13] MEDS ORDERED: LACTATED RINGERS 1,000 ML IV SCH (11:30)
[2017-07-13 11:37] VITALS: RESP 16
[2017-07-13] MEDS ORDERED: KETOROLAC 30 MG/ML 1 ML VIAL IVP STA (11:43)
[2017-07-13 11:48] VITALS: BP 116/68; PULSE 70
--- NOTE | 2017-07-13 12:18 | FL ---
EXAMINATION TYPE: FL guided pain mgmt statistic DATE OF EXAM: 07/13/2017 FLUOROSCOPY Fluoroscopy time of 17 seconds was used during right sacral radiofrequency ablation. 3 image/s docum ent/s the procedure.
== END 2017-07-13 12:02 | disposition home or self-care (01) ==
LOC: ORPAIN 09:42
PROVIDERS: ATTEND Anesthesiology
DX: M47.816 Spondylosis without myelopathy or radiculopathy, lumbar region (principal); M46.1 Sacroiliitis, not elsewhere classified; I10 Essential (primary) hypertension; F41.9 Anxiety disorder, unspecified; F32.9 Major depressive disorder, single episode, unspecified; E03.9 Hypothyroidism, unspecified; E23.0 Hypopituitarism; Z91.030 Bee allergy status; Z88.5 Allergy status to narcotic agent; Z91.09 Other allergy status, other than to drugs and biological substances
CPT/HCPCS: 81025; 64640 ×2; 64635; J2250; J3301; J3010; J1885; 99152

== ENCOUNTER → 2017-08-07 | Outpatient (CLI) | payer MEDICARE, OTHER ==
--- NOTE | 2017-08-07 12:48 | MR ---
EXAMINATION TYPE: MR pituitary wo/w con DATE OF EXAM: 08/07/2017 8:35 AM COMPARISON: NONE HISTORY: Hyperprolactinema CONTRAST: Patient received 10 mL intravenous Gadavist gadolinium contrast. Multiplanar MultiSpin echo imaging of the pituitary fossa was performed. Unenhanced followed by cont rast enhanced images are submitted. The unenhanced portion of the study fails to demonstrate evidence for hyperintense pituitary lesion. The pituitary gland is of normal size and measures 10 x 6.5 mm. Following contrast administration t here is a small stable 5 mm filling defect within the posterior aspect of the pituitary gland felt to reflect a small microadenoma. Pituitary stalk is midline. Suprasellar cistern is unremarkable witho ut evidence for mass. Optic chiasm has a normal appearance. Cavernous sinus including the carotid v essels appear to be within normal limits. IMPRESSION: 1. Small stable pituitary microadenoma.
== END | disposition home or self-care (01) ==
LOC: RADMRIMAIN 07:39
PROVIDERS: ATTEND Internal Medicine Endocrinology, Diabetes & Metabolism
DX: D35.2 Benign neoplasm of pituitary gland (principal); E22.1 Hyperprolactinemia; E06.3 Autoimmune thyroiditis; E23.2 Diabetes insipidus
CPT/HCPCS: 70553; A9581

== ENCOUNTER → 2017-08-11 | Outpatient (CLI) | payer MEDICARE, OTHER ==
[2017-08-11 13:02] VITALS: BP 130/91; PULSE 69; RESP 18; TEMP 98.6
--- NOTE | 2017-08-11 13:34 | P.PN ---
Subjective Progress Note Date: 08/11/17 Principal diagnosis: Failed back surgery syndrome, morbid obesity, panhypopituitarism This is a 46-year-old female who had an RFA on the right sacroiliac joint which gave her significant relief of her pain. She also had both knee joints replaced. She has pain in the left lower back area with occasional numbness in the left leg. She denies any bowel or bladder dysfunction. She is on chronic steroids with the dose of 20 mg/d of Solu-Cortef due to her panhypopituitarism. Objective - Vital Signs Vital signs: Vital Signs Temp 98.6 F 08/11/17 12:52 Pulse 69 08/11/17 12:52 Resp 18 08/11/17 12:52 BP 130/91 08/11/17 12:52 Pulse Ox 100 08/11/17 12:52 Intake & Output 08/10/17 08/11/17 08/11/17 18:59 06:59 18:59 Weight 99.79 kg - Constitutional General appearance: Present: morbidly obese - EENT Eyes: Present: PERRLA - Respiratory Respiratory: bilateral: CTA - Cardiovascular Rhythm: regular - Neurologic Neurologic: Present: CNII-XII intact - Psychiatric Psychiatric: Present: A&O x's 3, appropriate affect, intact judgment & insight ( The patient has normal muscle strength in the lower extremities, absent knee reflexes bilaterally, normal ankle reflexes bilaterally. She has tenderness around the left sacroiliac joint.) Assessment and Plan Plan: This is a 46-year-old female with left sacroiliitis. I will schedule her to have left sacroiliac joint steroid injection under fluoroscopic guidance and if it does help her pain then we can plan on doing RFA in the future. The patient is on a daily dose of steroids due to her history of panhypopituitarism.. The procedure was explained to the patient and her questions were answered. The patient understands that the above-mentioned procedure will not help her tingling in the left lower extremity.
== END ==
LOC: PNWHC3 12:38
PROVIDERS: ATTEND Anesthesiology
DX: M46.1 Sacroiliitis, not elsewhere classified (principal); M96.1 Postlaminectomy syndrome, not elsewhere classified; E66.01 Morbid (severe) obesity due to excess calories; E23.0 Hypopituitarism; Z79.52 Long term (current) use of systemic steroids
CPT/HCPCS: 99211

== ENCOUNTER 2017-08-14 08:56 | Day surgery (SDC) | payer MEDICARE, OTHER ==
[2017-08-11 14:37] VITALS: BMI 35.5
--- NOTE | 2017-08-14 06:59 | P.GSHP ---
History of Present Illness H&P Date: 08/14/17 CHIEF COMPLAINT: GERD HISTORY OF PRESENT ILLNESS: The patient is a 46-year-old female who presents reports gastroesophageal reflux disease. Upper endoscopy was offered for further evaluation and management. PAST MEDICAL HISTORY: Please see list. PAST SURGICAL HISTORY: Please see list. MEDICATIONS: Please see list. ALLERGIES: Please see list. SOCIAL HISTORY: No illicit drug use FAMILY HISTORY: No reports of Crohn disease or ulcerative colitis. REVIEW OF ORGAN SYSTEMS: CONSTITUTIONAL: No reports of fevers or chills. GI: Denies any blood in stools or constipation. PHYSICAL EXAM: VITAL SIGNS: Stable GENERAL: Well-developed and pleasant in no acute distress. HEENT: No scleral icterus. Extraocular movements grossly intact. Moist buccal mucosa. NECK: Supple without lymphadenopathy. CHEST: Unlabored respirations. Equal bilateral excursions. CARDIOVASCULAR: Regular rate and rhythm. Distal 2+ pulses. ABDOMEN: Soft, nondistended. MUSCULOSKELETAL: No clubbing, cyanosis, or edema. ASSESSMENT: 1. Gastroesophageal reflux disease PLAN: 1. Recommend proceeding with an upper endoscopy Past Medical History Past Medical History: Asthma, Cancer, Heart Failure, Eye Disorder, Fibromyalgia , GERD/Reflux, Myocardial Infarction (ME), Musculoskeletal Disorder, Osteoarthritis (OA), Renal Disease, Syncope, Thyroid Disorder Additional Past Medical History / Comment(s): SKIN CANCER- LT WRIST AREA. ADRENAL INSUFFICENCY. POTS SYNDROME. DIABETES INSIPIDUS. 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 RT CARPAL TUNNEL. . HEMORRHOIDECTOMY. BRONCHOSCOPY.CERVIAL EPIDURAL STEROID INJECTION, LT KNEE ARTHROSCOPIC LATERAL FEMORAL CHONDRECTOMY/MEDIALFEMORAL CHONDRECTOMY/PATELLER CHONDROPLASTY/PARTIAL SYNOVECTOMY OF LATERAL AND PATELLOFEMORAL COMPARTMENTS (TOTAL OF 3 KNEE SX), ESOPHAGEAL MANOMETRY MOTILITY STUDY, RECENT RADIOFREQUENCY TX L5-RT KNEE SCOPE, EXPLORATORY LAP- ENDOmetriosis Past Anesthesia/Blood Transfusion Reactions: Motion Sickness Additional Past Anesthesia/Blood Transfusion Reaction / Comment(s): CLAUSTROPHOBIA, HAS HAD VERTIGO IN PAST Smoking Status: Former smoker - Past Family History Mother Family Medical History: Cancer, Hyperlipidemia, Hypertension Additional Family Medical History / Comment(s): RECTAL CA Father Family Medical History: Hyperlipidemia, Hypertension Medications and Allergies Home Medications Medication Instructions Recorded Confirmed Type Doxepin [SINEquan] 20 mg PO HS 10/31/13 08/11/17 History Melatonin 10 mg PO HS 10/31/13 08/11/17 History Sucralfate [Carafate] 1 gram PO QID 10/31/13 08/11/17 History cycloSPORINE [Restasis] 1 drop BOTH EYES BID 10/31/13 08/11/17 History diphenhydrAMINE [Benadryl] 50 mg PO BID PRN 12/28/13 08/11/17 History Levothyroxine Sodium [Synthroid] 75 mcg PO QAM 04/19/14 08/11/17 History Nitroglycerin Sl Tabs [Nitrostat] 0.4 mg SL Q5M PRN 01/15/15 08/11/17 History Cholecalciferol [Vitamin D3] 2,000 unit PO DAILY 05/01/15 08/11/17 History Desmopressin Acetate 0.05 mg PO BID 07/17/15 08/11/17 History DULoxetine HCL [Cymbalta] 90 mg PO DAILY 09/13/15 08/11/17 History Hydrocortisone [Cortef] 10 mg PO BID 12/08/15 08/11/17 History ARIPiprazole [Abilify] 5 mg PO DAILY 10/15/16 08/11/17 History Nutropin 0.3 mg SQ DAILY 10/15/16 08/11/17 History ALPRAZolam [Xanax] 0.5 mg PO HS PRN 02/06/17 08/11/17 History HYDROcodone/APAP 7.5-325MG [[place] 1 tab PO Q6HR PRN 04/07/17 08/11/17 History 7.5-325] Meclizine [Antivert] 12.5 mg PO DAILY PRN 08/11/17 08/11/17 History Allergies Allergy/AdvReac Type Severity Reaction Status Date / Time morphine Allergy Anaphylaxis Verified 08/11/17 14:33 venom-honey bee Allergy Dyspnea Verified 08/11/17 14:33 [bee venom (honey bee)] blue dye AdvReac Mild HYPER Verified 08/11/17 14:33 FEELING
[~2017-08-14 08:56] MED LIST changes: -DEXAMETHASONE SOD PHOSPHATE 10 MG/ML 1 ML VIAL IV ONE; -MIDAZOLAM 2 MG/2 ML VIAL IV PRN; -ONDANSETRON 4 MG/2 ML VIAL IVP ONE; -ceFAZolin IN SWFI 2 GM/20 ML SYRINGE IVP ONE
[2017-08-14 10:01] VITALS: RESP 16; TEMP 98.5
[2017-08-14 10:02] LABS: Glucose,Whole Blood 76 mg/dL (75-99)
[2017-08-14] MEDS ORDERED: PROPOFOL 10 MG/ML 20 ML VIAL IV ONE (10:37)
[2017-08-14] MEDS ORDERED: LIDOCAINE 1% INJ 10MG/ML (20 ML MDV) ONE (10:37)
--- NOTE | 2017-08-14 11:00 | P.PCN ---
Date of Procedure: 08/14/17 Description of Procedure: PREOPERATIVE DIAGNOSIS: Gastroesophageal reflux disease. Morbid obesity, BMI 35.5 POSTOPERATIVE DIAGNOSIS: Gastroesophageal reflux disease Morbid obesity, BMI 35.5 Gastric polyps Erosive esophagitis OPERATION: Esophagogastroduodenoscopy with biopsies along antrum and distal esophagus SURGEON: Caitlin Osuna MD ANESTHESIA: MAC. INDICATIONS: The patient is a 46-year-old female who presents with a history of reflux disease. Benefits and risks of the procedure were described. Informed consent was obtained. DESCRIPTION: The patient was brought into the endoscopy suite and laid in the left lateral decubitus position. An Olympus gastroscope was passed along the posterior oropharynx down to the distal esophagus where the squamocolumnar junction was encountered at 37 cm from the incisors. The stomach was entered and retained food was found. Additional findings are listed below. Biopsies with cold forceps were obtained of the antrum and distal esophagus. The first through third portion of the duodenum was examined and unremarkable. Retroflexion of the scope confirmed Hill grade 1 lower esophageal valve. The squamocolumnar junction LA grade A erosive esophagitis. The stomach was desufflated. The patient tolerated the procedure well. FINDINGS: Squamocolumnar junction 37 cm from the incisors. Diaphragmatic hiatus at 37 cm. Hill grade 2 lower esophageal valve. LA grade A erosive esophagitis. No active duodenitis. Diffuse gastric polyps RECOMMENDATIONS: Recommend esophageal manometry Plan - Discharge Summary New Discharge Prescriptions: No Action cycloSPORINE [Restasis] 1 drop BOTH EYES BID Sucralfate [Carafate] 1 gram PO QID Melatonin 10 mg PO HS Doxepin [SINEquan] 20 mg PO HS diphenhydrAMINE [Benadryl] 50 mg PO BID PRN PRN Reason: Allergy Symptoms Levothyroxine Sodium [Synthroid] 75 mcg PO QAM Nitroglycerin Sl Tabs [Nitrostat] 0.4 mg SL Q5M PRN PRN Reason: Chest Pain Cholecalciferol [Vitamin D3] 2,000 unit PO DAILY Desmopressin Acetate 0.05 mg PO BID DULoxetine HCL [Cymbalta] 90 mg PO DAILY Hydrocortisone [Cortef] 10 mg PO BID Nutropin 0.3 mg SQ DAILY ARIPiprazole [Abilify] 5 mg PO DAILY ALPRAZolam [Xanax] 0.5 mg PO HS PRN PRN Reason: Insomnia HYDROcodone/APAP 7.5-325MG [[place] 7.5-325] 1 tab PO Q6HR PRN PRN Reason: Pain Meclizine [Antivert] 12.5 mg PO DAILY PRN PRN Reason: DIZZINESS Discharge Medication List Doxepin [SINEquan] 20 mg PO HS 10/31/13 [History] Melatonin 10 mg PO HS 10/31/13 [History] Sucralfate [Carafate] 1 gram PO QID 10/31/13 [History] cycloSPORINE [Restasis] 1 drop BOTH EYES BID 10/31/13 [History] diphenhydrAMINE [Benadryl] 50 mg PO BID PRN 12/28/13 [History] Levothyroxine Sodium [Synthroid] 75 mcg PO QAM 04/19/14 [History] Nitroglycerin Sl Tabs [Nitrostat] 0.4 mg SL Q5M PRN 01/15/15 [History] Cholecalciferol [Vitamin D3] 2,000 unit PO DAILY 05/01/15 [History] Desmopressin Acetate 0.05 mg PO BID 07/17/15 [History] DULoxetine HCL [Cymbalta] 90 mg PO DAILY 09/13/15 [History] Hydrocortisone [Cortef] 10 mg PO BID 12/08/15 [History] ARIPiprazole [Abilify] 5 mg PO DAILY 10/15/16 [History] Nutropin 0.3 mg SQ DAILY 10/15/16 [History] ALPRAZolam [Xanax] 0.5 mg PO HS PRN 02/06/17 [History] HYDROcodone/APAP 7.5-325MG [[place] 7.5-325] 1 tab PO Q6HR PRN 04/07/17 [History] Meclizine [Antivert] 12.5 mg PO DAILY PRN 08/11/17 [History]
[2017-08-14 11:09] VITALS: BP 145/84; PULSE 72
== END 2017-08-14 11:26 | disposition home or self-care (01) ==
LOC: ORWHC2ENDO 08:56
PROVIDERS: ATTEND Surgery Plastic and Reconstructive Surgery
DX: K22.10 Ulcer of esophagus without bleeding (principal); K21.9 Gastro-esophageal reflux disease without esophagitis; K31.7 Polyp of stomach and duodenum; E11.9 Type 2 diabetes mellitus without complications; E66.01 Morbid (severe) obesity due to excess calories; J45.909 Unspecified asthma, uncomplicated; M79.7 Fibromyalgia; I25.2 Old myocardial infarction; M19.90 Unspecified osteoarthritis, unspecified site; E07.9 Disorder of thyroid, unspecified; R55 Syncope and collapse; I50.9 Heart failure, unspecified; M79.9 Soft tissue disorder, unspecified; E23.0 Hypopituitarism; Q33.3 Agenesis of lung; F40.240 Claustrophobia; Z85.828 Personal history of other malignant neoplasm of skin; Z87.891 Personal history of nicotine dependence; Z80.0 Family history of malignant neoplasm of digestive organs; Z79.890 Hormone replacement therapy; Z79.899 Other long term (current) drug therapy; Z91.030 Bee allergy status; Z88.5 Allergy status to narcotic agent; Z91.048 Other nonmedicinal substance allergy status; Z68.35 Body mass index [BMI] 35.0-35.9, adult
CPT/HCPCS: 81025; 88305; 43239; J2001; J2704

== ENCOUNTER → 2017-08-20 | Outpatient (CLI) | payer MEDICARE, OTHER ==
--- NOTE | 2017-08-20 09:11 | NM ---
EXAMINATION TYPE: NM hepatobiliary w EF DATE OF EXAM: 08/20/2017 COMPARISON: Nuclear medicine HIDA scan May 15, 2014. HISTORY: Abdominal pain. Additional symptoms of heartburn, reflux, nausea, vomiting, and diarrhea. TECHNIQUE: After the intravenous administration of 5.16 mCi Tc 99m Mebrofenin hepatobiliary scintigra phy is performed. Immediate images post injection. FINDINGS: There is satisfactory initial accumulation of tracer by the liver. The gallbladder is visualized wit hin 20 minutes. The small bowel activity is noted within 40 minutes. At one hour 8 ounces of oral e nsure plus is given to mimic CCK and gallbladder ejection fraction is calculated at 89 %, not deviate d from the normal range. Therefore there is no scintigraphic evidence of cystic or common bile duct obstruction to suggest acute cholecystitis. Some consider increase ejection fraction abnormal or a hy perkinetic response. IMPRESSION: Ejection fraction remains over 80%, some consider this abnormal or a hyperkinetic respons e. This is not significantly changed from prior HIDA scan.
== END | disposition home or self-care (01) ==
LOC: RADNMMAIN 06:57
PROVIDERS: ATTEND Surgery Plastic and Reconstructive Surgery
DX: K21.9 Gastro-esophageal reflux disease without esophagitis (principal)
CPT/HCPCS: 78226; A9537

== ENCOUNTER → 2017-09-09 | Day surgery (SDC) | payer MEDICARE, OTHER ==
[2017-09-08 09:31] VITALS: BMI 35.5
[~2017-09-09] MED LIST changes: +IV FLUID CONTINUATION 1,000 ML IV ONE; +LIDOCAINE 1% 20 ML VIAL (10MG/ML) FOR IV START INTRADERMA ONE
[2017-09-09 09:18] VITALS: TEMP 98.4
--- NOTE | 2017-09-09 10:08 | P.PCN ---
Date of Procedure: 09/09/17 Surgeon: Hugo Marques Pathology: none sent Condition: stable Disposition: PACU Description of Procedure: PREOPERATIVE DIAGNOSIS: 1-Bilateral sacroiliitis. 2 Lumbar DDD POSTOPERATIVE DIAGNOSIS:. 1-Bilateral sacroiliitis. 2 Lumbar DDD PROCEDURES: Left Sacroiliac joint steroid injection with fluoroscopic guidance ANESTHESIA: Local with 1% lidocaine; conscious sedation EBL: Minimal. PROCEDURE INDICATIONS: This patient with a history of low back pain secondary to sacroiliitis and lumbar DDD unresponsive to conservative management. No use of blood thinners. PROCEDURE DESCRIPTION: The patient was seen and identified in the preoperative area. Risks, benefits, complications, and alternatives were discussed with the patient (including but not limited to incomplete pain relief, bleeding, infection, nerve damage, and allergies to medications), the patient agreed to proceed with the procedure and signed the consent after all questions were answered. Patient was taken to the OR and time out was completed to verify proper patient , position, laterality of pain, and allergies. Pt was placed in the prone position and a pillow was placed under the abdomen to reduce lumbar lordosis. The lumbosacral area was prepped and draped in the usual sterile fashion. Critical pause was taken. Vital signs were closely monitored during the procedure. The fluoroscopic camera was placed in contralateral oblique view and left sacroiliiac joint lower pole was identified. After local infiltration with 1% lidocaine 2 ml, Subsequently, a 22-gauge 3.5 inch spinal needle was introduced into the posteroinferior aspect of the left sacroiliac joint under direct fluoroscopic visualization. Subsequently, 3 ml of a solution of a total of 3 ml solution containing total 2 mL of 0.5% preservative-free bupivicaine mixed with 40 mg of Kenalog was injected after negative aspiration for CSF, blood, and air and negative for paresthesia. Needle was withdrawn intact, skin was cleansed, and bandages were applied. COMPLICATIONS: None. COMMENTS: DISPOSITION / PLANS: The patient was placed in a supine position and transferred to the recovery area in a stable condition for observation and was discharged from the recovery room after meeting discharge criteria. Home discharge instructions given to the patient by the staff. The patient was reexamined prior to discharge. The patient will schedule a follow up procedure in 2-4 weeks.
[2017-09-09 10:16] VITALS: RESP 18
--- NOTE | 2017-09-09 10:20 | FL ---
Fluoroscopy HISTORY: Pain 2 seconds fluoroscopy time supplied to the referring clinician. 3 intraoperative C-arm images docume nt the procedure. See dictated report from anesthesia.
[2017-09-09 10:34] VITALS: BP 119/78; PULSE 70
== END | disposition home or self-care (01) ==
LOC: ORPAIN 08:24
PROVIDERS: ATTEND Anesthesiology
DX: M46.1 Sacroiliitis, not elsewhere classified (principal); M51.36 Other intervertebral disc degeneration, lumbar region; M96.1 Postlaminectomy syndrome, not elsewhere classified; E66.01 Morbid (severe) obesity due to excess calories; Z68.35 Body mass index [BMI] 35.0-35.9, adult; E23.0 Hypopituitarism; K21.9 Gastro-esophageal reflux disease without esophagitis; J45.909 Unspecified asthma, uncomplicated; Z98.1 Arthrodesis status; Z96.653 Presence of artificial knee joint, bilateral; Z79.52 Long term (current) use of systemic steroids; Z88.5 Allergy status to narcotic agent
CPT/HCPCS: 81025; J2250; J3301; J3010; Q9966; G0260; 27096

== ENCOUNTER → 2017-09-22 | Outpatient (CLI) | payer MEDICARE, OTHER ==
--- NOTE | 2017-09-22 18:31 | MR ---
EXAMINATION TYPE: MR brain wo/w con DATE OF EXAM: 09/22/2017 COMPARISON: Prior MR pituitary dated 04/09/2016, prior MR brain 12/27/2015 HISTORY: White matter changes, dizziness, MS protocol TECHNIQUE: Multiplanar, multisequence images of the brain and brainstem is performed without and with IV contras t, utilizing 10 mL intravenous Gadavist . FINDINGS: Diffusion weighted images demonstrate no evidence of a recent infarct or other diffusion ab normality. There is no extra-axial fluid collection or significant interval change of white matter s ignal abnormality. Scattered hyperintensities on inversion recovery and T2-weighted sequences are aga in noted and are stable in size and number The ventricular system and cisternal spaces are normal in size and appearance. The brain volume is age appropriate. Midline structures demonstrate normal morphology. The craniocervical junction appears within normal limits. Post contrast images demonstrate no abnormal enhancement. The dural venous sinuses appear pa tent. The visualized sinuses are clear and the globes are intact. IMPRESSION: There is no significant interval change. Stable white matter demyelination. No abnormal e nhancement.
== END | disposition home or self-care (01) ==
LOC: RADMRIMAIN 17:36
PROVIDERS: ATTEND Nurse Practitioner Acute Care
DX: G37.9 Demyelinating disease of central nervous system, unspecified (principal); R90.89 Other abnormal findings on diagnostic imaging of central nervous system; Z88.5 Allergy status to narcotic agent
CPT/HCPCS: 70553; A9581

== ENCOUNTER 2017-10-02 10:49 | Day surgery (SDC) | payer MEDICARE, OTHER ==
[2017-09-29 16:22] VITALS: BMI 32.3
--- NOTE | 2017-10-02 05:43 | P.GSHP ---
History of Present Illness H&P Date: 10/02/17 CHIEF COMPLAINT: Cholecystitis HISTORY OF PRESENT ILLNESS: The patient is a 46-year-old female who presents with history of epigastric including right upper quadrant abdominal pain. She underwent diagnostic studies for her gallbladder. Separately her clinical picture was consistent with cholecystitis. Now she presents for surgical intervention. PAST MEDICAL HISTORY: Please see list PAST SURGICAL HISTORY: Please see list MEDICATIONS: Please see list ALLERGIES: See list. SOCIAL HISTORY: No recent tobacco use FAMILY HISTORY: Pertinent for gallbladder disease REVIEW OF ORGAN SYSTEMS: CONSTITUTIONAL: No reports of fevers or chills. HEENT: Denies any troubles with the vision or hearing. PHYSICAL EXAM: VITAL SIGNS: Afebrile vital signs stable GENERAL: Well-developed pleasant in no acute distress. HEENT: No scleral icterus. Extraocular movements grossly intact. Moist buccal mucosa. NECK: Supple without lymphadenopathy. CHEST: Unlabored respirations. Equal bilateral excursions. CARDIOVASCULAR: Regular rate regular rhythm rhythm. Distal 2+ pulses. ABDOMEN: Soft, nondistended. Tender along the epigastrium and right upper quadrant. MUSCULOSKELETAL: No clubbing, cyanosis, or edema. NEURO: Cranial nerves II to XII within normal limits. No focal or lateralizing signs. PSYCH: Alert and oriented to person, place and time. ASSESSMENT: 1. Epigastric and right upper quadrant abdominal pain 2. Chronic cholecystitis PLAN: 1. Will need a robotic cholecystectomy possible open. Benefits and risks were described. 2. Heparin for DVT prophylaxis 5000 units. 3. Antibiotic prophylaxis. Past Medical History Past Medical History: Asthma, Cancer, Heart Failure, Eye Disorder, Fibromyalgia , GERD/Reflux, Myocardial Infarction ([place]), Musculoskeletal Disorder, Osteoarthritis (OA), Renal Disease, Syncope, Thyroid Disorder Additional Past Medical History / Comment(s): SKIN CANCER- LT WRIST AREA. ADRENAL INSUFFICENCY. POTS SYNDROME. DIABETES INSIPIDUS. 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 RT CARPAL TUNNEL. . HEMORRHOIDECTOMY. BRONCHOSCOPY.CERVIAL EPIDURAL STEROID INJECTION, LT KNEE ARTHROSCOPIC LATERAL FEMORAL CHONDRECTOMY/MEDIALFEMORAL CHONDRECTOMY/PATELLER CHONDROPLASTY/PARTIAL SYNOVECTOMY OF LATERAL AND PATELLOFEMORAL COMPARTMENTS (TOTAL OF 3 KNEE SX), ESOPHAGEAL MANOMETRY MOTILITY STUDY, RECENT RADIOFREQUENCY TX L5-RT KNEE SCOPE, EXPLORATORY LAP- ENDOmetriosis Past Anesthesia/Blood Transfusion Reactions: Motion Sickness Additional Past Anesthesia/Blood Transfusion Reaction / Comment(s): CLAUSTROPHOBIA, HAS HAD VERTIGO IN PAST Smoking Status: Former smoker - Past Family History Mother Family Medical History: Cancer, Hyperlipidemia, Hypertension Additional Family Medical History / Comment(s): RECTAL CA Father Family Medical History: Hyperlipidemia, Hypertension Medications and Allergies Home Medications Medication Instructions Recorded Confirmed Type Doxepin [SINEquan] 10 mg PO HS 10/31/13 09/29/17 History Melatonin 10 mg PO HS 10/31/13 09/29/17 History Sucralfate [Carafate] 1 gram PO QID 10/31/13 09/29/17 History diphenhydrAMINE [Benadryl] 50 mg PO BID PRN 12/28/13 09/29/17 History Levothyroxine Sodium [Synthroid] 75 mcg PO QAM 04/19/14 09/29/17 History Nitroglycerin Sl Tabs [Nitrostat] 0.4 mg SL Q5M PRN 01/15/15 09/29/17 History Cholecalciferol [Vitamin D3] 2,000 unit PO DAILY 05/01/15 09/29/17 History Desmopressin Acetate 0.05 mg PO BID 07/17/15 09/29/17 History DULoxetine HCL [Cymbalta] 90 mg PO DAILY 09/13/15 09/29/17 History Hydrocortisone [Cortef] 10 mg PO BID 12/08/15 09/29/17 History ARIPiprazole [Abilify] 5 mg PO DAILY 10/15/16 09/29/17 History ALPRAZolam [Xanax] 0.5 mg PO HS PRN 02/06/17 09/29/17 History HYDROcodone/APAP 7.5-325MG [[place] 1 tab PO Q6HR PRN 04/07/17 09/29/17 History 7.5-325] Meclizine [Antivert] 25 mg PO TID 08/11/17 09/29/17 History Ranitidine HCl [Zantac] 150 mg PO BID #60 tab 08/14/17 09/29/17 Rx Rizatriptan Benzoate [Maxalt] 10 mg PO DAILY PRN 09/08/17 09/29/17 History tiZANidine [Zanaflex] 4 mg PO HS 09/08/17 09/29/17 History Allergies Allergy/AdvReac Type Severity Reaction Status Date / Time morphine Allergy Anaphylaxis Verified 09/29/17 16:18 venom-honey bee Allergy Dyspnea Verified 09/29/17 16:18 [bee venom (honey bee)] blue dye AdvReac Mild HYPER Verified 09/29/17 16:18 FEELING
[~2017-10-02 10:49] MED LIST changes: +ACETAMINOPHEN IV (For NPO) 1,000 MG in EMPTY BAG 1 BAG IVPB ONE; +DEXAMETHASONE SOD PHOSPHATE 10 MG/ML 1 ML VIAL IV ONE; +HEPARIN SODIUM,PORCINE 5,000 UNIT/ML 1 ML VIAL SQ ONE; +INDOCYANINE GREEN 25 MG VIAL IV STA; -IV FLUID CONTINUATION 1,000 ML IV ONE; -LACTATED RINGERS 1,000 ML IV SCH; -LIDOCAINE 1% 20 ML VIAL (10MG/ML) FOR IV START INTRADERMA ONE; +LIDOCAINE 1% 20 ML VIAL (10MG/ML) FOR IV START INTRADERMA PRN; +MIDAZOLAM 2 MG/2 ML VIAL IV PRN; +ONDANSETRON 4 MG/2 ML VIAL IVP ONE; +SCOPOLAMINE 1.5MG/72HR PATCH TRANSDERM ONE; +ceFAZolin IN SWFI 2 GM/20 ML SYRINGE IVP ONE
[2017-10-02 12:15] LABS: Glucose,Whole Blood 69 mg/dL (75-99)
[2017-10-02] MEDS ORDERED: LACTATED RINGERS 1,000 ML IV ONE (12:18)
[2017-10-02] MEDS ORDERED: methylPREDNISolone SOD SUCCI 125 MG/2 ML VIAL IVP ONE (12:20)
[2017-10-02 12:34] LABS: Basophils % (A) 0 %; Eosinophils % (A) 1 %; HCT 39.5 % (34.0-46.0); HGB 12.8 gm/dL (11.4-16.0); Lymphocytes # (A) 1.3 k/uL (1.0-4.8); Lymphocytes % (A) 19 %; MCH 27.8 pg (25.0-35.0); MCHC 32.4 g/dL (31.0-37.0); MCV 85.8 fL (80.0-100.0); Monocytes # (A) 0.3 k/uL (0-1.0); Monocytes % (A) 4 %; Neutrophils # (A) 4.9 k/uL (1.3-7.7); Neutrophils % (A) 73 %; Platelet Count 392 k/uL (150-450); RBC 4.61 m/uL (3.80-5.40); RDW 14.5 % (11.5-15.5); WBC 6.7 k/uL (3.8-10.6)
[2017-10-02 12:43] LABS: Albumin 3.8 g/dL (3.5-5.0); Calcium 9.2 mg/dL (8.4-10.2); Potassium 4.2 mmol/L (3.5-5.1); Total Bilirubin 0.5 mg/dL (0.2-1.3); Total Protein 6.4 g/dL (6.3-8.2)
[2017-10-02] MEDS ORDERED: LIDOCAINE 1% INJ 10MG/ML (20 ML MDV) ONE (13:19)
[2017-10-02] MEDS ORDERED: MIDAZOLAM 2 MG/2 ML VIAL ONE (13:19)
[2017-10-02] MEDS ORDERED: fentaNYL (PF) 50 MCG/ML 2 ML AMP ONE (13:19)
[2017-10-02] MEDS ORDERED: SUCCINYLCHOLINE CHLORIDE 100 MG/5 ML SYR IV ONE (13:19)
[2017-10-02] MEDS ORDERED: HYDROCORTISONE SUCCINATE 100 MG/2 ML VIAL ONE (13:19)
[2017-10-02] MEDS ORDERED: NEOSTIGMINE 1 MG/ML 10 ML VIAL ONE (13:19)
[2017-10-02] MEDS ORDERED: ROCURONIUM BROMIDE 10 MG/ML 10 ML VIAL IV ONE (13:19)
[2017-10-02] MEDS ORDERED: PROPOFOL 10 MG/ML 20 ML VIAL IV ONE (13:19)
[2017-10-02] MEDS ORDERED: GLYCOPYRROLATE 0.2 MG/ML 2 ML VIAL ONE (13:19)
[2017-10-02] MEDS ORDERED: BUPIVACAINE (PF) 0.25% 30 ML VIAL SQ ONE (13:50)
[2017-10-02 14:41] VITALS: RESP 16; TEMP 96.9
[2017-10-02 14:51] LABS: Glucose,Whole Blood 106 mg/dL (75-99)
--- NOTE | 2017-10-02 15:01 | P.OP ---
Date of Procedure: 10/02/17 Description of Procedure: SURGEON: CHAUNCEY CERRATO MD NUCLEAR STATION OPERATOR: MICHELLE WELLS PREOPERATIVE DIAGNOSES: 1. Chronic cholecystitis. 2. Right upper quadrant abdominal pain 3. Hypothyroidism 4. Obesity, BMI 32.3 5. Depressive disorder 6. Anxiety 7. Fibromyalgia 8. History of myocardial infarction 9. Previous history of heart failure 10. Asthma POSTOPERATIVE DIAGNOSES: 1. Chronic cholecystitis. 2. Right upper quadrant abdominal pain 3. Hypothyroidism 4. Obesity, BMI 32.3 5. Depressive disorder 6. Anxiety 7. Fibromyalgia 8. History of myocardial infarction 9. Previous history of heart failure 10. Asthma OPERATION: 1. Robotic-assisted da Magy Xi laparoscopic cholecystectomy, multiport with FIREFLY ESTIMATED BLOOD LOSS: 5 mL SPECIMENS REMOVED: Gallbladder COMPLICATIONS: None. OPERATIVE FINDINGS: 1. Chronic cholecystitis INDICATIONS: The patient is a 46-year-old female who presents with chronic cholelcystitis. Surgical intervention with a laparoscopic cholecystectomy was described at length including injury to the biliary tree, bleeding, infection, need for further surgery. Informed consent was obtained. Robotic assisted laparoscopic approach was described. Benefits and risks of the procedure including but not limited to bleeding, infection, injury to the biliary tree was described. Informed consent was obtained. DESCRIPTION OF PROCEDURE: Patient was brought to the operating room, placed in supine position. After general induction, the abdomen had been prepped and draped in standard sterile fashion. The robotic da Magy XI system was primed. After a timeout protocol was performed, the patient had been prepped and draped in standard sterile fashion. The patient was injected with indocyanine green. The robot was docked along the left lateral abdomen. The patient was repositioned in reverse Trendelenburg position. Please note prior to docking of the robot; however, a 5 mm 0 degrees laparoscopic trocar entry was performed along the left upper quadrant. Next, two 8 mm robotic ports were placed along the right upper abdomen. The camera 8-mm port was maintained along the epigastrium. Another 8 mm port was placed along the left upper abdominal wall after exchanging the 5 mm port. Please note that the ports were placed at least 10 to 15 cm away from the target anatomy of the gallbladder. Using a grasper for arm 1, a grasper for arm 2, including hook cautery for arm 4 , the robotic system was docked and primed as described. Instruments were interchanged by the executive assistant to president including hook cautery, Bovie cautery scissors and clip appliers. I had sat at the console. Adhesions were identified along the infundibulum of the gallbladder and addressed using hook cautery. The gallbladder fundus was retracted over the dome of the liver. Initial attention was brought to the infundibulum which was gently retracted in the inferior lateral approach. Using a grasper, the cystic duct including the cystic artery was carefully skeletonized. FIREFLY was used to identify the cystic artery and cystic structures. Using a clip circus hand 2 large PLASTIC clips were placed proximally, and 1 clip was placed distally along the cystic duct and then cauterized with the cautery. Again care was taken to avoid any injury to the biliary tree as the common bile duct was clearly visualized during this portion of dissection. Next, the cystic artery was cauterized after 2 large PLASTIC clips were placed. Electro-Bovie cautery was used to remove the gallbladder from the hepatic fossa. Hemostasis was checked and found to be adequate. The robot was undocked. I re-scrubbed into the case. Using a 10 mm Endo Catch bag via the left upper quadrant incision, the specimen was removed from the abdominal cavity. All pneumoperitoneum instruments were evacuated from the abdominal cavity. The incisions were reapproximated using 4-0 Monocryl in an interrupted subcuticular fashion. Fascial defect was less than 8 mm in size. Please note along the trocar sites, local anesthetic was placed as a field block prior to insertion of all instruments. Dermabond was applied to the skin. At the end of the procedure needle, sponge, and instrument count had been verified correct by the surgical tech. The patient was transferred to postanesthesia care unit in stable condition. Intraoperative films were shared with the patient's family who were very pleased with the level of care. Console time 11 minutes Plan - Discharge Summary New Discharge Prescriptions: No Action Sucralfate [Carafate] 1 gram PO QID Melatonin 10 mg PO HS Doxepin [SINEquan] 10 mg PO HS diphenhydrAMINE [Benadryl] 50 mg PO BID PRN PRN Reason: Allergy Symptoms Levothyroxine Sodium [Synthroid] 75 mcg PO QAM Nitroglycerin Sl Tabs [Nitrostat] 0.4 mg SL Q5M PRN PRN Reason: Chest Pain Cholecalciferol [Vitamin D3] 2,000 unit PO DAILY Desmopressin Acetate 0.05 mg PO BID DULoxetine HCL [Cymbalta] 90 mg PO DAILY Hydrocortisone [Cortef] 10 mg PO BID ARIPiprazole [Abilify] 5 mg PO DAILY ALPRAZolam [Xanax] 0.5 mg PO HS PRN PRN Reason: Insomnia HYDROcodone/APAP 7.5-325MG [Wellman 7.5-325] 1 tab PO Q6HR PRN PRN Reason: Pain Meclizine [Antivert] 25 mg PO TID Ranitidine HCl [Zantac] 150 mg PO BID #60 tab tiZANidine [Zanaflex] 4 mg PO HS Rizatriptan Benzoate [Maxalt] 10 mg PO DAILY PRN PRN Reason: migraines Discharge Medication List Doxepin [SINEquan] 10 mg PO HS 10/31/13 [History] Melatonin 10 mg PO HS 10/31/13 [History] Sucralfate [Carafate] 1 gram PO QID 10/31/13 [History] diphenhydrAMINE [Benadryl] 50 mg PO BID PRN 12/28/13 [History] Levothyroxine Sodium [Synthroid] 75 mcg PO QAM 04/19/14 [History] Nitroglycerin Sl Tabs [Nitrostat] 0.4 mg SL Q5M PRN 01/15/15 [History] Cholecalciferol [Vitamin D3] 2,000 unit PO DAILY 05/01/15 [History] Desmopressin Acetate 0.05 mg PO BID 07/17/15 [History] DULoxetine HCL [Cymbalta] 90 mg PO DAILY 09/13/15 [History] Hydrocortisone [Cortef] 10 mg PO BID 12/08/15 [History] ARIPiprazole [Abilify] 5 mg PO DAILY 10/15/16 [History] ALPRAZolam [Xanax] 0.5 mg PO HS PRN 02/06/17 [History] HYDROcodone/APAP 7.5-325MG [Wellman 7.5-325] 1 tab PO Q6HR PRN 04/07/17 [History] Meclizine [Antivert] 25 mg PO TID 08/11/17 [History] Ranitidine HCl [Zantac] 150 mg PO BID #60 tab 08/14/17 [Rx] Rizatriptan Benzoate [Maxalt] 10 mg PO DAILY PRN 09/08/17 [History] tiZANidine [Zanaflex] 4 mg PO HS 09/08/17 [History] Patient Instructions/Handouts: *Surgery [facility] - Scopalamine Patch Instructions
[2017-10-02] MEDS ORDERED: diphenhydrAMINE 50 MG/ML 1 ML VIAL IVP ONE (15:10)
[2017-10-02] MEDS: fentaNYL (PF) 50 MCG/ML 2 ML AMP IVP ONE ×2 (15:14→15:28)
[2017-10-02] MEDS: LACTATED RINGERS 1,000 ML IV SCH ×2 (15:30→15:34)
[2017-10-02] MEDS ORDERED: IBUPROFEN 200 MG TAB PO ONE (15:45)
[2017-10-02 16:01] VITALS: BP 134/91; PULSE 64
== END 2017-10-02 16:24 | disposition home or self-care (01) ==
LOC: OR 10:49
PROVIDERS: ATTEND Surgery Plastic and Reconstructive Surgery
DX: K81.1 Chronic cholecystitis (principal); E03.9 Hypothyroidism, unspecified; E66.9 Obesity, unspecified; Z68.32 Body mass index [BMI] 32.0-32.9, adult; F32.9 Major depressive disorder, single episode, unspecified; F41.9 Anxiety disorder, unspecified; M79.7 Fibromyalgia; I25.2 Old myocardial infarction; I50.9 Heart failure, unspecified; J45.909 Unspecified asthma, uncomplicated; H57.9 Unspecified disorder of eye and adnexa; K21.9 Gastro-esophageal reflux disease without esophagitis; M19.90 Unspecified osteoarthritis, unspecified site; N28.9 Disorder of kidney and ureter, unspecified; E27.40 Unspecified adrenocortical insufficiency; E23.2 Diabetes insipidus; E23.0 Hypopituitarism; Q33.3 Agenesis of lung; M54.12 Radiculopathy, cervical region; I25.10 Atherosclerotic heart disease of native coronary artery without angina pectoris; Z96.89 Presence of other specified functional implants; Z79.890 Hormone replacement therapy; Z79.899 Other long term (current) drug therapy; Z88.5 Allergy status to narcotic agent; Z91.030 Bee allergy status; Z91.09 Other allergy status, other than to drugs and biological substances; Z85.828 Personal history of other malignant neoplasm of skin; Z87.891 Personal history of nicotine dependence
CPT/HCPCS: 81025; 88304; 80053; 85025; 47562; J2250; J1200; J1644; J1100; J2710; J1720; J2930; J2405; J2001; J3010; J0131; J0330; J2704; J0690

== ENCOUNTER 2017-10-12 09:12 | Day surgery (SDC) | payer MEDICARE, OTHER ==
[2017-10-06 15:59] VITALS: BMI 35.5
[2017-10-12] MEDS ORDERED: LIDOCAINE 1% 20 ML VIAL (10MG/ML) FOR IV START INTRADERMA ONE (10:13)
[2017-10-12 10:15] VITALS: RESP 16; TEMP 98
[2017-10-12 10:15] LABS: Glucose,Whole Blood 87 mg/dL (75-99)
[2017-10-12] MEDS ORDERED: LACTATED RINGERS 1,000 ML IV SCH (10:15)
--- NOTE | 2017-10-12 10:20 | P.PCN ---
Date of Procedure: 10/12/17 Surgeon: Nick Fraser Description of Procedure: Preoperative diagnoses: Left sacroilitis Postoperative diagnoses: Left sacroilitis. Procedure: Left sacroiliac joint steroid injection under fluoroscopic guidance. Surgeon: Nick Fraser MD Anesthesia: IV sedation per hospital guidelines EBL: None Procedure indication: The patient had a history of severe chronic low back pain , diagnosed with sacroiliitis and lumbar sacral facet arthropathy unresponsive to conservative treatment. She has had previous left sacroiliac radio frequency ablation. She reports excellent relief from her first sacroiliac joint injection in this series. She would like to repeat the procedure again today to hopefully achieve further benefit. Procedure description: The patient was seen and identified in the preoperative holding area, risks and benefits and alternative of the procedure and possible complications discussed with the patient, and he agreed with the preceding, patient signed the consent, an IV was started, and vital signs were monitored and were stable throughout the procedure, patient was placed in the prone position or table and the lumbosacral area was prepped and draped with a sterile fashion, vital signs were closely monitored during the procedure, the fluoroscopy camera was placed in the contralateral oblique view on the left sacroiliac joint and the lower part of the joint was identified a 2 mL then a 25 -gauge Quincke-type spinal needle advanced slowly under fluoroscopy and placed in the posterior and inferior border of the left sacroiliac joint, placement confirmed with AP and lateral view, and after appropriate needle placement confirmed and after negative aspiration for heme and CSF and there was , 3 ml of Marcaine 0.5% and 40 mg of Kenalog injected after negative aspiration, no paresthesia during the injection, no resistance to injection, and the needle was removed. The entire same procedure was repeated for the left sacroiliac joint Patient tolerated the procedure well without any complication. The patient returned to supine position after the back was cleaned and a Band- Aid applied, the patient transported to recovery room in stable condition and he was monitored for 30 minutes before he was discharged home and then patient was reexamined before going home and patient was discharged in stable condition and patient will follow up with the pain clinic in the pain clinic to discuss the efficacy of this procedure and whether sacroiliac radio frequency ablation on the left side is warranted in the future.
[2017-10-12] MEDS ORDERED: IV FLUID CONTINUATION 1,000 ML IV ONE (10:35)
[2017-10-12 10:41] VITALS: BP 122/71
[2017-10-12 10:50] VITALS: PULSE 74
--- NOTE | 2017-10-12 11:52 | FL ---
Fluoroscopy HISTORY: Pain 3 seconds fluoroscopy time supplied to the referring clinician. 1 intraoperative C-arm images docume nt the procedure. See dictated report from anesthesia.
== END 2017-10-12 11:06 | disposition home or self-care (01) ==
LOC: ORPAIN 09:12
PROVIDERS: ATTEND Pain Medicine Pain Medicine
DX: M46.1 Sacroiliitis, not elsewhere classified (principal); G89.29 Other chronic pain; Z88.5 Allergy status to narcotic agent
CPT/HCPCS: 81025; J2250; J3301; J3010; G0260; 27096

== ENCOUNTER → 2017-11-04 | Outpatient (CLI) | payer MEDICARE, OTHER ==
[2017-11-04 13:10] VITALS: BP 114/68; PULSE 88; RESP 16
--- NOTE | 2017-11-04 13:26 | P.PN ---
Progress Note - Text Progress Note Date: 11/04/17 Patient returns for followup for chronic back and hip pain. Patient recently underwent left SIJ injection x 2 with good relief since procedures. Patient continues on OTC medications for pain with good relief. Patient denies adverse drug effects from medications. Today, pt denies new-onset weakness, bowel/ bladder incontinence, or any other signs or symptoms of cauda equina syndrome. There are no signs of acute intoxication, and no indications of medication diversion or overuse. In addition to above, 13-point review of systems is also negative for chest pain , shortness of breath, changes in vision, changes in hearing, new onset weakness , abdominal pain, diarrhea, extreme fatigue, malaise, fever, skin changes, homicidal or suicidal ideation, or bowel or bladder incontinence. Vital Signs: Reviewed in EMR Gen: WDWN, AAOx3, NAD HEENT: NCAT, EOMI, hearing grossly normal Pulm: resp unlabored Abd: soft, NT, ND Neck: supple, trachea midline ROM in flexion lumbar spine: reduced ROM in extension lumbar spine: reduced Lumbar paravertebral tenderness: + Facet loading: + bilateral, L > R SI joint tenderness: + L side Dedrick's test: ++ L side Straight leg raise: neg Imaging: Reviewed in EMR Assessment: 1. SIJ dysfunction 2. lumbar spondylosis 3. chronic pain syndrome Plan: 1. Explanation: Opioid and psychological risk scores were reviewed. Diagnoses , prognoses, and multiple treatment options including but not limited to physical therapy, interventional therapies, adjuvant medical therapies, narcotic medication therapies, and surgery were discussed with the patient and all questions were answered to the patient's satisfaction. 2. Opioid agreement: no opioids prescribed today 3. Counseling: The patient was counseled extensively on BODY MASS INDEX, EXERCISE. Specifically, the patient was instructed regarding the importance of weight control, and exercise in the context of both chronic pain and overall health. 4. Procedures: none for now 5. Consultations: None 6. Investigations: MAPS queried and appropriate 7. Medications: none 8. Morphine equivalents per day prescribed: zero 9. Disposition: f/u PRN. Patient has had good results from SIJ injections and will follow up as needed. PQRS measures: 1-Patient's medications are documented in the chart. 2-Tobacco use is negative 3-Patient has not had a pneumococcal vaccine. 4-Advanced care planning discussed, patient unable to give. 5-Opioid contract NOT signed with the patient. 6-Pain positive, follow-up visit or procedure scheduled 7-Patient's blood pressure measured and documented, and patient will follow up with the primary care due to hypertension. 8-Patient's weight was measured, and body mass index ABOVE the normal limits, and counseling was done. Patient instructed to follow up with PCP. 9-Patient WAS NOT identified as an unhealthy alcohol user.
== END | disposition home or self-care (01) ==
LOC: PNWHC3 12:46
PROVIDERS: ATTEND Anesthesiology
DX: G89.4 Chronic pain syndrome (principal); M54.9 Dorsalgia, unspecified; M47.816 Spondylosis without myelopathy or radiculopathy, lumbar region; M53.88 Other specified dorsopathies, sacral and sacrococcygeal region; Z79.891 Long term (current) use of opiate analgesic
CPT/HCPCS: 99211

== ENCOUNTER → 2017-12-15 | Outpatient (CLI) | payer MEDICARE, OTHER ==
[2017-12-17 15:56] LABS: Cortisol, Urine Free by LC-MS 13.1 ug/L
== END | disposition home or self-care (01) ==
LOC: LAB 12:43
PROVIDERS: ATTEND Internal Medicine Endocrinology, Diabetes & Metabolism
DX: I49.9 Cardiac arrhythmia, unspecified (principal); E22.1 Hyperprolactinemia; E23.0 Hypopituitarism; E06.3 Autoimmune thyroiditis
CPT/HCPCS: 82530; 93005

== ENCOUNTER → 2018-10-08 | Outpatient (CLI) | payer MEDICARE, OTHER ==
--- NOTE | 2018-10-12 12:36 | US ---
EXAMINATION TYPE: US axilla RT DATE OF EXAM: 10/08/2018 COMPARISON: NONE CLINICAL HISTORY: Pain right axilla M79.629. Palpable lump right axilla x 9 years No sonographic abnormality visualized on today's exam IMPRESSION: No sonographic solid or cystic mass. No sonographic correlate to the patient's palpable abnormality. If there is further concern biopsy by palpation could be performed.
== END | disposition home or self-care (01) ==
LOC: RADUSWWP 13:35
PROVIDERS: ATTEND Family Medicine
DX: M79.621 Pain in right upper arm (principal)

== ENCOUNTER → 2018-10-28 | Outpatient (CLI) | payer MEDICARE, OTHER ==
--- NOTE | 2018-11-01 08:38 | MM ---
Reason for exam: screening (asymptomatic). Last mammogram was performed 2 years and 7 months ago. History: Patient history of high-risk lesion on a previous biopsy and had first child at age 38. Family history of breast cancer in paternal grandmother. Took hormonal contraceptives for 17 years. Physical Findings: A clinical breast exam by your physician is recommended on an annual basis and results should be correlated with mammographic findings. MG Screening Mammo w CAD Bilateral CC and MLO view(s) were taken. Prior study comparison: April 11, 2016, bilateral MG 3d screening mammo w/cad. September 27, 2010, bilateral digital screening mammo w/CAD. The breast tissue is heterogeneously dense. This may lower the sensitivity of mammography. No significant changes when compared with prior studies. ASSESSMENT: Negative, BI-RAD 1 RECOMMENDATION: Routine screening mammogram of both breasts in 1 year.
== END | disposition home or self-care (01) ==
LOC: RADMAMWWP 10:05
PROVIDERS: ATTEND Family Medicine
DX: Z12.31 Encounter for screening mammogram for malignant neoplasm of breast (principal)
CPT/HCPCS: 77067

== ENCOUNTER → 2019-01-12 | Outpatient (CLI) | payer MEDICARE, OTHER ==
[2019-01-12 14:12] LABS: Basophils # (A) 0.1 k/uL (0-0.2); Basophils % (A) 1 %; Eosinophils # (A) 0.1 k/uL (0-0.7); Eosinophils % (A) 1 %; HCT 43.9 % (34.0-46.0); HGB 13.9 gm/dL (11.4-16.0); Lymphocytes # (A) 1.3 k/uL (1.0-4.8); Lymphocytes % (A) 15 %; MCH 29.1 pg (25.0-35.0); MCHC 31.7 g/dL (31.0-37.0); MCV 91.8 fL (80.0-100.0); Mean Platelet Volume 6.6; Monocytes # (A) 0.6 k/uL (0-1.0); Monocytes % (A) 7 %; Neutrophils # (A) 6.5 k/uL (1.3-7.7); Neutrophils % (A) 75 %; Platelet Count 409 k/uL (150-450); RBC 4.78 m/uL (3.80-5.40); RDW 14.1 % (11.5-15.5); WBC 8.6 k/uL (3.8-10.6)
[2019-01-12 14:31] LABS: Potassium 4.6 mmol/L (3.5-5.1)
== END | disposition home or self-care (01) ==
LOC: LABPAT 12:40
PROVIDERS: ATTEND Orthopaedic Surgery
DX: Z01.812 Encounter for preprocedural laboratory examination (principal); Z01.818 Encounter for other preprocedural examination; M75.41 Impingement syndrome of right shoulder
CPT/HCPCS: 36415; 80051; 85025; 93005

== ENCOUNTER → 2019-01-18 | Day surgery (SDC) | payer MEDICARE, OTHER ==
[2019-01-11 11:24] VITALS: BMI 37.1
--- NOTE | 2019-01-17 09:25 | HP ---
HISTORY AND PHYSICAL CHIEF COMPLAINT: Right shoulder pain. HISTORY OF PRESENT ILLNESS: The patient is a 48-year-old right-hand dominant female on disability, who presents with progressive right shoulder pain for the past several years. It has worsened recently. She is having pain with overhead use and at night. She has tried therapy in addition to medications without much relief. PAST MEDICAL HISTORY: Significant for arthritis, hypothyroidism. PAST SURGICAL HISTORY: Significant for bilateral total knee arthroplasty, right wrist surgery, bronchoscopy, and laparoscopy. CURRENT MEDICATIONS: 1. Carafate. 2. Cortef. 3. Cymbalta. 4. [place]. 5. Synthroid. 6. Xanax. 7. Zantac. ALLERGIES: She has allergies to MORPHINE and VOLTAREN. FAMILY HISTORY: Significant for cancer. SOCIAL HISTORY: Negative for current tobacco or alcohol use. REVIEW OF SYSTEMS: Sixteen-point review of systems otherwise reviewed and is noncontributory. PHYSICAL EXAMINATION: On examination, the patient is approximately 5 feet 5 inches, 230 pounds of endomorphic habitus. HEENT exam is nonfocal. Neck is supple. On examination of her right shoulder, she is tender about the anterior subacromial space. She has moderate subacromial crepitus. Active range of motion forward elevation 155 degrees, external rotation with arm at side 70 degrees, internal rotation to L1. Motor strength is 5 minus over 5 for external rotation with arm side 5 minus or 5 for abduction. Impingement test, Neer test, and Speed test are positive. Cross-body adduction is positive. Her distal neurovascular exam appears intact in the right upper extremity. MRI report 12/24/2018 of the right shoulder shows a possible partial-thickness tear involving the anterior aspect of the supraspinatus. IMPRESSION: 1. Right shoulder impingement with rotator cuff tendinitis versus partial-thickness tear. 2. Right acromioclavicular joint synovitis. RECOMMENDATIONS: I talked to the patient at length regarding her condition and treatment options. At this point, she remains quite symptomatic despite conservative measures. After thorough discussion, she opts to proceed with surgery. We will plan to proceed with arthroscopic evaluation of the right shoulder in addition to subacromial decompression and rotator cuff debridement versus repair. We will also consider distal clavicular resection. We will likely perform that as an outpatient procedure. Risks and benefits were discussed at length in layman's terms. MMODL / IJN: [id number] /
[~2019-01-18] MED LIST changes: -ACETAMINOPHEN IV (For NPO) 1,000 MG in EMPTY BAG 1 BAG IVPB ONE; +EPINEPHrine (PF) 1 ML in SODIUM CHLORIDE 0.9% IRRIGATIO 3,000 ML IRRIGATION ONE; +GLYCOPYRROLATE 0.2 MG/ML 2 ML VIAL ONE; -HEPARIN SODIUM,PORCINE 5,000 UNIT/ML 1 ML VIAL SQ ONE; +HYDROCORTISONE SUCCINATE 100 MG/2 ML VIAL ONE; -INDOCYANINE GREEN 25 MG VIAL IV STA; +LACTATED RINGERS 1,000 ML IV ONE; +LACTATED RINGERS 1,000 ML IV SCH; -LIDOCAINE 1% 20 ML VIAL (10MG/ML) FOR IV START INTRADERMA PRN; +LIDOCAINE 1% INJ 10MG/ML (20 ML MDV) ONE; +METOCLOPRAMIDE 5 MG/ML 2 ML VIAL IVP ONE; +MIDAZOLAM (PF) 2 MG/2 ML VIAL IV ONE; +MIDAZOLAM 2 MG/2 ML VIAL ONE; +NEOSTIGMINE 1 MG/ML 10 ML VIAL ONE; +PHENYLEPHRINE-0.9% NACL SYG 1 MG/10 ML SYRINGE ONE; +PROPOFOL 10 MG/ML 20 ML VIAL IV ONE; +ROCURONIUM BROMIDE 10 MG/ML 10 ML VIAL IV ONE; +ROPIVACAINE 5 MG/ML 30 ML VIAL ONE; +SUCCINYLCHOLINE CHLORIDE 100 MG/5 ML SYR IV ONE; -ceFAZolin IN SWFI 2 GM/20 ML SYRINGE IVP ONE; +fentaNYL (PF) 50 MCG/ML 2 ML AMP IV ONE; +fentaNYL (PF) 50 MCG/ML 2 ML AMP ONE
[2019-01-18 06:49] VITALS: TEMP 97.1
[2019-01-18 07:01] LABS: Glucose,Whole Blood 90 mg/dL (75-99)
--- NOTE | 2019-01-18 07:59 | P.ANPRN ---
Procedure Note - Anesthesia - Nerve Block Performed Right Interscalene Single Time Out Performed: Yes Date of Procedure: 01/18/19 Procedure Start Time: 07:35 Procedure Stop Time: 07:40 Location of Patient Procedure: PreOp Indication: Acute Post-Operative Pain, Dx/Pain Location (Right Shoulder Pain), Requested by Surgeon Sedation Type: Sedate with meaningful contact maintained Preparation: Sterile Prep Position: Supine Catheter: None Needle Types: Pajunk Needle Gauge: 21 Ultrasound used to visualize needle placement: Yes Ultrasound used to observe medication spread: Yes Injectate: 0.5% Ropivacaine (see comment for volume) (20ml) Adjunct: Epinephrine (see comment for dilution ratio) Blood Aspirated: No Pain Paresthesia on Injection Noted: No Resistance on Injection: Normal Image Stored and Saved: Yes Events: Uneventful and Well Tolerated
--- NOTE | 2019-01-18 09:52 | P.OP ---
Date of Procedure: 01/18/19 Preoperative Diagnosis: Right shoulder impingement Postoperative Diagnosis: Same in addition to right acromioclavicular joint synovitis/arthritis, high- grade partial thickness tear rotator cuff involving the supraspinatus tendon Procedure(s) Performed: Right shoulder arthroscopic subacromial decompression/distal clavicular resection/rotator cuff repair Implants: Arthrex 5.5 mm swivel lock anchor 1 Anesthesia: DANILOA, regional Surgeon: Thanh Bey Medication Reconciliation Technician #1: Dony Carson Estimated Blood Loss (ml): 10 Pathology: none sent Condition: stable Disposition: PACU Indications for Procedure: Patient is a 48-year-old female who presents with persistent/progressive right shoulder pain despite conservative measures. A discussion of the risks and benefits of operative intervention versus continued conservative measures was made with the patient. She opted to proceed with surgery. Operative risks to include infection, neurovascular injury, development of blood clots, possible incomplete resolution of symptoms, possible worsening symptoms and need for subsequent procedures was discussed. Informed consent was obtained. Operative Findings: As below Description of Procedure: The patient was brought to the operating room, and after induction of general anesthesia was placed in a beachchair position. A preoperative interscalene block was placed for postoperative analgesia. I examined the right shoulder. She did have moderate passive block to full forward elevation and external rotation. Gentle manipulation was performed with the arm at the side and then o btaining full forward elevation. Mild adhesions were encountered.. The right upper extremity was prepped and draped in normal fashion. The bony outlines the acromion, distal clavicle, and coracoid process were outlined with a skin marker. The glenohumeral joint was inflated with 50 mL of saline utilizing a spinal needle from posterior approach. A posterior portal was made through a 5 mm skin incision 1 cm medial and inferior to the posterior lateral border time. A blunt trocar was used to easily into the joint. Diagnostic arthroscopy was performed. An anterior portal was made just lateral to the coracoid process entering the joint above the subscapularis tendon. The subscapularis tendon appeared to be intact. Anterior labrum was intact. The inferior recess was inspected. The posterior labrum was intact. The biceps and its anchor appear to be intact. On inspection the rotator cuff, a high-grade partial-thickness tear involving the anterior aspect the supraspinatus was noted. This was completed utilizing a motorized bur. The posterior portion of the cuff appeared to be intact. A lateral portal was made 2 centimeters inferior to the anterior lateral border of the acromion. The soft tissue on the undersurface of the acromion was debrided with a motorized shaver and electrocautery clearly defining the anterior medial and lateral borders as well as the distal clavicle. An anterior inferior acromioplasty was performed with a motorized lucila starting anterolateral, then extending this posteriorly, then extending this medially. I converted to a flat acromion and this was verified in the posterior and lateral viewing portals. The distal 5 mm of clavicle was resected with a motorized bur. The greater tuberosity was lightly decorticating with a shaver down to a bleeding bony surface. A #2 fiber tape was passed through the rotator cuff with a scorpion suture passer. A lateral anchor was placed utilizing the appropriate starting awl. Initially 4.75 mm anchor was placed and this was inadequate. A 5.5 mm swivel lock anchor was placed with good purchase. Final arthroscopic view showed adequate compression at the footprint. The arthroscope was then removed. The portals were closed with simple 3-0 nylon sutures. A sterile dressing was applied in addition to a sling. The patient was then awoken from general anesthesia and transferred to recovery room in good condition. Blood loss was estimated at 10 mL. No complications were incurred. Sponge and needle counts were correct in the case. Josh CLARK assisted and the major componen ts of the case to include arm positioning, anchor placement, and rotator cuff repair.
[2019-01-18] MEDS: fentaNYL (PF) 50 MCG/ML 2 ML AMP IV PRN ×2 (10:26→10:34)
[2019-01-18 11:48] VITALS: BP 103/70; PULSE 65; RESP 16
== END | disposition home or self-care (01) ==
LOC: OR 06:27
PROVIDERS: ATTEND Orthopaedic Surgery
DX: M75.101 Unspecified rotator cuff tear or rupture of right shoulder, not specified as traumatic (principal); M65.811 Other synovitis and tenosynovitis, right shoulder; M75.41 Impingement syndrome of right shoulder; M13.811 Other specified arthritis, right shoulder; E03.9 Hypothyroidism, unspecified; K21.9 Gastro-esophageal reflux disease without esophagitis; E27.40 Unspecified adrenocortical insufficiency; M54.12 Radiculopathy, cervical region; Z79.899 Other long term (current) drug therapy; Z79.890 Hormone replacement therapy; Z88.5 Allergy status to narcotic agent; Z88.8 Allergy status to other drugs, medicaments and biological substances
CPT/HCPCS: 29826; 29827; 29824; 64415; 81025; C1713 ×3; C1894; J2250 ×2; J2710; J2765; J1720; J0690; J2405; J0171; J2001; J3010; J2795; J2370; J0330; J2704

== ENCOUNTER → 2020-08-09 | Outpatient (CLI) | payer MEDICARE, OTHER ==
[2020-08-09 14:52] LABS: Basophils # (A) 0.1 k/uL (0-0.2); Basophils % (A) 1 %; Eosinophils # (A) 0.1 k/uL (0-0.7); Eosinophils % (A) 2 %; HCT 40.4 % (34.0-46.0); HGB 13.2 gm/dL (11.4-16.0); Lymphocytes # (A) 1.7 k/uL (1.0-4.8); Lymphocytes % (A) 21 %; MCH 29.4 pg (25.0-35.0); MCHC 32.7 g/dL (31.0-37.0); MCV 89.8 fL (80.0-100.0); Mean Platelet Volume 6.9; Monocytes # (A) 0.4 k/uL (0-1.0); Monocytes % (A) 5 %; Neutrophils # (A) 5.5 k/uL (1.3-7.7); Neutrophils % (A) 70 %; Platelet Count 366 k/uL (150-450); RDW 13.6 % (11.5-15.5); WBC 7.8 k/uL (3.8-10.6)
[2020-08-09 15:01] LABS: Potassium 4.7 mmol/L (3.5-5.1)
== END | disposition home or self-care (01) ==
LOC: LABPAT 14:16
PROVIDERS: ATTEND Orthopaedic Surgery
DX: Z01.818 Encounter for other preprocedural examination (principal); M75.41 Impingement syndrome of right shoulder
CPT/HCPCS: 36415; 80051; 85025; 93005

== ENCOUNTER 2020-08-17 07:17 | Day surgery (SDC) | payer MEDICARE, OTHER ==
[2020-08-15 12:47] VITALS: BMI 39.5
--- NOTE | 2020-08-16 09:12 | HP ---
HISTORY AND PHYSICAL CHIEF COMPLAINT: Left shoulder pain. 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 She is having pain with overhead use and at night. She has tried previous medications in addition to an injection and therapy without much relief. She notes the pain significantly limits her. PAST MEDICAL HISTORY: Significant for hypothyroidism and endocrine disorder. PAST SURGICAL HISTORY: Significant for bilateral knee surgery, left shoulder arthroscopy, bilateral total knee arthroplasty, laparoscopy, and bronchoscopy. CURRENT MEDICATIONS: 1. Cortef. 2. Carafate. 3. Synthroid. 4. DDAVP. ALLERGIES: She notes allergies to MORPHINE and VOLTAREN. FAMILY HISTORY: Significant for cancer. SOCIAL HISTORY: Negative for current tobacco or alcohol use. REVIEW OF SYSTEMS: Sixteen-point review of systems otherwise reviewed and is noncontributory. PHYSICAL EXAMINATION: On examination, the patient is approximately 5 feet, 6 inches, 245 pounds of endomorphic habitus. HEENT exam is nonfocal. Neck is supple. On examination of her left shoulder, she is tender about the anterior subacromial space. She has mild subacromial crepitus. She is also tender over the acromioclavicular joint. Active range of motion forward elevation 160, external rotation with arm to side 70, internal rotation to T12. Motor strength 5 minus over 5 for abduction and external rotation. Impingement test, Neer test, and Speed test are positive. She has pain with cross-body adduction. Her distal neurovascular exam appears otherwise intact in the left upper extremity. MRI report left shoulder shows evidence of synovitis along with rotator cuff tendinitis and possible partial-thickness tear. Acromioclavicular joint synovitis is also noted. IMPRESSION: 1. Left rotator cuff tendinitis/impingement, possible partial-thickness tear. 2. Left acromioclavicular joint synovitis. 3. Left glenohumeral joint synovitis. RECOMMENDATIONS: I talked to the patient at length regarding her condition and treatment options. At this point, she remains quite symptomatic and limited despite conservative measures. After thorough discussion, she opts to proceed with surgery. We will plan to proceed with arthroscopic evaluation with probable subacromial decompression, distal clavicular resection, possible syndrome, and probable synovectomy. Risks and benefits were discussed at length in layman's terms. We will likely perform that as an outpatient procedure. MMODL / IJN: [id number] /
[~2020-08-17 07:17] MED LIST changes: -DEXAMETHASONE SOD PHOSPHATE 10 MG/ML 1 ML VIAL IV ONE; +DEXAMETHASONE SOD PHOSPHATE 4 MG/ML 1 ML VIAL IV ONE; -EPINEPHrine (PF) 1 ML in SODIUM CHLORIDE 0.9% IRRIGATIO 3,000 ML IRRIGATION ONE; -GLYCOPYRROLATE 0.2 MG/ML 2 ML VIAL ONE; -HYDROCORTISONE SUCCINATE 100 MG/2 ML VIAL ONE; -LACTATED RINGERS 1,000 ML IV ONE; -LIDOCAINE 1% INJ 10MG/ML (20 ML MDV) ONE; -METOCLOPRAMIDE 5 MG/ML 2 ML VIAL IVP ONE; -MIDAZOLAM (PF) 2 MG/2 ML VIAL IV ONE; -MIDAZOLAM 2 MG/2 ML VIAL ONE; -NEOSTIGMINE 1 MG/ML 10 ML VIAL ONE; -PHENYLEPHRINE-0.9% NACL SYG 1 MG/10 ML SYRINGE ONE; -PROPOFOL 10 MG/ML 20 ML VIAL IV ONE; -ROCURONIUM BROMIDE 10 MG/ML 10 ML VIAL IV ONE; -ROPIVACAINE 5 MG/ML 30 ML VIAL ONE; -SUCCINYLCHOLINE CHLORIDE 100 MG/5 ML SYR IV ONE; -fentaNYL (PF) 50 MCG/ML 2 ML AMP IV ONE; +fentaNYL (PF) 50 MCG/ML 2 ML AMP IV PRN; -fentaNYL (PF) 50 MCG/ML 2 ML AMP ONE
[2020-08-17 07:55] LABS: Glucose,Whole Blood 93 mg/dL (75-99)
[2020-08-17] MEDS ORDERED: MIDAZOLAM 2 MG/2 ML VIAL ONE (08:09)
[2020-08-17] MEDS ORDERED: SUCCINYLCHOLINE CHLORIDE 100 MG/5 ML SYR IV ONE (08:09)
[2020-08-17] MEDS ORDERED: ROCURONIUM 10 MG/ML (5 ML VIAL) IV ONE (08:09)
[2020-08-17] MEDS ORDERED: PHENYLEPHRINE-0.9% NACL SYG 1,000 MCG/10 ML SYRINGE ONE (08:09)
[2020-08-17] MEDS ORDERED: LIDOCAINE 1% INJ 10MG/ML (20 ML MDV) ONE (08:09)
[2020-08-17] MEDS ORDERED: NEOSTIGMINE 1 MG/ML 10 ML VIAL ONE (08:09)
[2020-08-17] MEDS ORDERED: DEXAMETHASONE SOD PHOSPHATE 4 MG/ML 1 ML VIAL ONE (08:09)
[2020-08-17] MEDS ORDERED: PROPOFOL 10 MG/ML 20 ML VIAL IV ONE (08:09)
[2020-08-17] MEDS ORDERED: ROPIVACAINE 5 MG/ML 30 ML VIAL ONE (08:09)
[2020-08-17] MEDS ORDERED: GLYCOPYRROLATE 0.2 MG/ML 2 ML VIAL ONE (08:09)
[2020-08-17] MEDS ORDERED: HYDROCORTISONE SUCCINATE 100 MG/2 ML VIAL IV ONE (08:10)
--- NOTE | 2020-08-17 09:48 | P.OP ---
Date of Procedure: 08/17/20 Preoperative Diagnosis: Left shoulder impingement Postoperative Diagnosis: Same in addition to type II SLAP tear, full-thickness tear anterior supraspinatusrotator cuff Procedure(s) Performed: Left shoulder arthroscopic subacromial decompression/biceps tenotomy/rotator cuff repair Implants: Arthrex 5.5 mm swivel lock anchor 1 Anesthesia: amira PUENTES Surgeon: Thanh Bey Dog Races Manager #1: Dony Carson Assistant #2: Teodoro Umanzor Estimated Blood Loss (ml): 10 Pathology: none sent Condition: stable Disposition: PACU Indications for Procedure: The patient's a 49-year-old female presents with progressive/persistent left shoulder pain despite conservative measures. A discussion of the risks and benefits of operative intervention versus continued conservative measures was made with patient. She opted to pursue surgery. Operative risks to include infection, neurovascular injury, development of blood clots, possible tendon rerupture, possible postoperative stiffness and need for subsequent procedures was discussed. Informed consent was obtained. Operative Findings: As below Description of Procedure: The patient was brought to the operating room, and after induction of general anesthesia was placed in a beachchair position. A preoperative interscalene block was placed for postoperative analgesia. I examined the left shoulder. T here was no gross block to passive motion or gross glenohumeral instability. The left upper extremity was prepped and draped in normal fashion. The bony outlines the acromion, distal clavicle, and coracoid process were outlined with a skin marker. The glenohumeral joint was inflated with 50 mL of saline utilizing a spinal needle from posterior approach. A posterior portal was made through a 5 mm skin incision 1 cm medial and inferior to the posterior lateral border time. A blunt trocar was used to easily into the joint. Diagnostic arthroscopy was performed. An anterior portal was made just lateral to the coracoid process entering the joint above the subscapularis tendon. The subscapularis tendon appeared to be intact. Anterior labrum was intact. The inferior recess was inspected. The posterior labrum was intact. There was a type II superior labral tear with instability of the anchor. It was elected to proceed with biceps tenotomy at this point. This was released off the superior labrum with electrocautery and a lateral retract to the bicipital groove. The labrum was debrided back to stable base with a motorized shaver. On inspection the rotator cuff, a full-thickness tear involving the anterior aspect the supraspinatus was noted. The remaining rotator cuff appeared to be intact. The arthroscope was placed into the subacromial space. A lateral portal was made 2 centimeters inferior to the anterior lateral border of the acromion. The rotator cuff was inspected and a 1.5 cm full-thickness tear involving the supraspinatus was noted. Significant bursal thickening was debrided with a motorized shaver. This was then easily brought back to the greater tuberosity. The soft tissue on the undersurface of the acromion was debrided with a motorized shaver and electrocautery clearly defining the anterior medial and lateral borders as well as the distal clavicle. An anterior inferior acromioplasty was performed with a motorized lucila starting anterolateral, then extending this posteriorly, then extending this medially. I converted to a flat acromion and this was verified in the posterior and lateral viewing portals. A #2 fiber tape was passed through the rotator cuff and was easily mobilized. A lateral anchor was then placed utilizing the appropriate starting awl. The sutures were appropriately tensioned. Good purchase was obtained. Final a rthroscopic view showed adequate compression at the footprint. The arthroscope was then removed. The portals were closed with simple 3-0 nylon sutures. A sterile dressing was applied in addition to an abductor brace. The patient was then awoken from general anesthesia and transferred to recovery room in good condition. Blood loss was estimated at 10 mL. No complications were incurred. Sponge and needle counts were correct in the case. Josh CLARK assisted and the major components of the case to include arm positioning, anchor placement, and rotator cuff repair.
[2020-08-17] MEDS ORDERED: KETOROLAC 15 MG/ML 1 ML VIAL IVP ONE (09:55)
[2020-08-17 09:57] VITALS: TEMP 97
[2020-08-17] MEDS ORDERED: HYDROmorphone 0.5 MG/0.5 ML SYRINGE IVP ONE ×3 (10:00→10:30)
[2020-08-17 10:56] VITALS: RESP 18
[2020-08-17] MEDS ORDERED: HYDROcodone/APAP 7.5-325MG 1 EACH TAB ONE (11:08)
[2020-08-17] MEDS ORDERED: HYDROcodone/APAP 7.5-325MG 1 EACH TAB PO ONE (11:09)
[2020-08-17 11:12] VITALS: BP 116/83; PULSE 73
[2020-08-17] MEDS ORDERED: LACTATED RINGERS 1,000 ML IV ONE (11:12)
--- NOTE | 2020-08-17 14:18 | P.ANPRN ---
Procedure Note - Anesthesia - Nerve Block Performed Left Interscalene Time Out Performed: Yes (07:58) Date of Procedure: 08/17/20 Procedure Start Time: 58 Procedure Stop Time: 08:13 Location of Patient: PreOp Indication: Acute Post-Operative Pain, Requested by Surgeon (Dr Bey) Sedation Type: Sedate with meaningful contact maintained Preparation: Sterile Prep Position: Supine Catheter: None Needle Types: Pajunk Needle Gauge: Other (see comment) (22g) Ultrasound used to visualize needle placement: Yes Ultrasound used to observe medication spread: Yes Injectate: 0.5% Ropivacaine (see comment for volume) (20cc + Decadron 4mg) Blood Aspirated: No Pain Paresthesia on Injection Noted: No Resistance on Injection: Normal Image Stored and Saved: Yes Events: Uneventful and Well Tolerated
== END 2020-08-17 11:36 | disposition home or self-care (01) ==
LOC: OR 07:17
PROVIDERS: ATTEND Orthopaedic Surgery
DX: M75.122 Complete rotator cuff tear or rupture of left shoulder, not specified as traumatic (principal); M25.812 Other specified joint disorders, left shoulder; S43.432A Superior glenoid labrum lesion of left shoulder, initial encounter; M19.90 Unspecified osteoarthritis, unspecified site; E03.9 Hypothyroidism, unspecified; F32.9 Major depressive disorder, single episode, unspecified; Z79.82 Long term (current) use of aspirin; Z79.890 Hormone replacement therapy; Z79.899 Other long term (current) drug therapy; Z88.5 Allergy status to narcotic agent; Z88.6 Allergy status to analgesic agent; X58.XXXA Exposure to other specified factors, initial encounter
CPT/HCPCS: 81025; 29827; 29828; 29826; 64415; C1713 ×2; J2250; J1100; J2710; J1720; J0690; J2405; J2001; J2795; J1885; J2370; J0330; J2704; J1170

== ENCOUNTER → 2021-02-06 | Outpatient (CLI) | payer MEDICARE, OTHER ==
--- NOTE | 2021-02-07 02:44 | MR ---
EXAMINATION TYPE: MR cervical spine wo con DATE OF EXAM: 02/06/2021 COMPARISON: 03/15/2015 HISTORY: Neck pain into left arm, headaches Multiplanar multiecho imaging of the cervical spine without contrast. There is metal artifact from anterior fusion surgery at C5-6 and C6-7. Vertebra have normal alignment . There is minimal posterior disc bulging at C4-5. There is no spinal stenosis. There is developmenta lly adequate spinal canal. Spinal canal measures 10.5 mm at C4-5 which is the narrowest point. Brains tem appears intact. Cervical spinal cord shows normal signal pattern. There is no edema. There is no evidence of cervical paraspinal mass. IMPRESSION: Previous cervical spine fusion surgery. No spinal stenosis. Minimal disc bulging at C4-5. No adverse change compared to old exam.
== END | disposition home or self-care (01) ==
LOC: RADMRIMAIN 19:22
PROVIDERS: ATTEND Orthopaedic Surgery
DX: M50.121 Cervical disc disorder at C4-C5 level with radiculopathy (principal); Z98.1 Arthrodesis status
CPT/HCPCS: 72141

== ENCOUNTER 2021-02-09 12:47 | Emergency (ER) | payer MEDICARE, OTHER ==
[2021-02-09 12:57] VITALS: RESP 18
[2021-02-09] MEDS ORDERED: HYDROmorphone 0.5 MG/0.5 ML SYRINGE IVP STA (13:08)
[2021-02-09 13:35] LABS: Basophils % (A) 1 %; Eosinophils % (A) 0 %; HCT 45.1 % (34.0-46.0); HGB 14.1 gm/dL (11.4-16.0); Lymphocytes # (A) 1.6 k/uL (1.0-4.8); Lymphocytes % (A) 19 %; MCH 28.3 pg (25.0-35.0); MCHC 31.3 g/dL (31.0-37.0); MCV 90.5 fL (80.0-100.0); Mean Platelet Volume 6.7; Monocytes # (A) 0.5 k/uL (0-1.0); Monocytes % (A) 6 %; Neutrophils # (A) 6.2 k/uL (1.3-7.7); Neutrophils % (A) 73 %; Platelet Count 354 k/uL (150-450); RBC 4.99 m/uL (3.80-5.40); RDW 13.8 % (11.5-15.5); WBC 8.6 k/uL (3.8-10.6)
[2021-02-09 13:45] LABS: ALT 17 U/L (4-34); AST 27 U/L (14-36); African American GFR (CKD) 53 (>60 ml/min/1.73 sqM); Albumin 4.2 g/dL (3.5-5.0); Alkaline Phosphatase 119 U/L (38-126); Anion Gap 9 mmol/L; Blood Urea Nitrogen 14 mg/dL (7-17); Calcium 9.8 mg/dL (8.4-10.2); Carbon Dioxide 25 mmol/L (22-30); Chloride 101 mmol/L (98-107); Glucose 129 mg/dL (74-99); Non-African American GFR(CKD) 46 (>60 ml/min/1.73 sqM); Potassium 4.8 mmol/L (3.5-5.1); Sodium 135 mmol/L (137-145); Total Bilirubin 0.5 mg/dL (0.2-1.3); Total Protein 7.1 g/dL (6.3-8.2)
[2021-02-09 13:47] LABS: INR 0.9 (<1.2); Partial Thromboplastin Time 22.4 sec (22.0-30.0)
[2021-02-09 13:59] LABS: HCG,Qualitative Serum Not Detected
--- NOTE | 2021-02-09 14:12 | XR ---
EXAMINATION TYPE: XR chest 2V DATE OF EXAM: 02/09/2021 COMPARISON: 12/08/2015 HISTORY: Chest pain TECHNIQUE: 2 views FINDINGS: Heart is normal. Lungs are clear of infiltrate. There are no hilar masses. Bony thorax is i ntact. Exam limited by the arms over the heart. Mediastinum appears normal. There is cervical spine f usion surgery. IMPRESSION: No active cardiopulmonary disease. No change.
--- NOTE | 2021-02-09 14:39 | ED ---
General Adult HPI - General Chief complaint: Chest Pain Stated complaint: chest pain Time Seen by Provider: 02/09/21 12:58 Source: patient, EMS, RN notes reviewed, old records reviewed Mode of arrival: EMS Limitations: no limitations - History of Present Illness Initial comments: Patient is a 50-year-old female with past medical history remarkable for asthma, heart failure, chronic angina, chronic left shoulder pain, thyroid disorder who presents emergency Department complaining of chest pain at work. 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 She does have a history of anginal chest pain in this identical to prior episodes. Improved with nitroglycerin at home. She took 4 baby aspirin prior to arrival. She denies any dyspnea, lower extremity swelling, history of blood clots. Denies being on blood thinners. Denies any nausea, vomiting, abdominal pain, headaches. States that her pain is vast imp roved and is now 2 out of 10 when earlier was apparently 7 out of 10. She denies any syncopal episodes. Patient is no acute complaints at this time. Patient presents for her typical anginal chest pain that she experiences. - Related Data Home Medications Medication Instructions Recorded Confirmed Melatonin 10 mg PO HS 10/31/13 02/09/21 Sucralfate [Carafate] 1 gram PO ACHS 10/31/13 02/09/21 Levothyroxine Sodium [Synthroid] 75 mcg PO DAILY 04/19/14 02/09/21 Nitroglycerin Sl Tabs [Nitrostat] 0.4 mg SL Q5M PRN 01/15/15 02/09/21 Desmopressin Acetate 0.05 mg PO BID 07/17/15 02/09/21 Hydrocortisone [Cortef] 10 mg PO DAILY 12/08/15 02/09/21 ALPRAZolam [Xanax] 0.5 mg PO DAILY PRN 02/06/17 02/09/21 HYDROcodone/APAP 7.5-325MG [Hammond 1 tab PO TID PRN 04/07/17 02/09/21 7.5-325] Hydrocortisone [Cortef] 5 mg PO HS 01/11/19 02/09/21 Brexpiprazole [Rexulti] 1 mg PO HS 08/15/20 02/09/21 DULoxetine HCL [Cymbalta] 120 mg PO DAILY 08/15/20 02/09/21 Genotropin (Somatropin) 0.2 mg SQ DAILY 08/15/20 02/09/21 Omeprazole 40 mg PO DAILY 08/15/20 02/09/21 busPIRone HCL 15 mg PO TID 08/15/20 02/09/21 ondansetron HCL [Zofran] 8 mg PO BID PRN 08/15/20 02/09/21 Amitriptyline HCl [Elavil] 25 mg PO HS 02/09/21 02/09/21 EPINEPHrine (Auto Inject) [Epipen] 0.3 mg IM ONCE PRN 02/09/21 02/09/21 Ibuprofen [Motrin Ib] 800 mg PO Q8H PRN 02/09/21 02/09/21 Rizatriptan Benzoate [Rizatriptan] 10 mg PO BID PRN 02/09/21 02/09/21 tiZANidine HCL 4 mg PO TID PRN 02/09/21 02/09/21 Allergies Allergy/AdvReac Type Severity Reaction Status Date / Time morphine Allergy Anaphylaxis Verified 02/09/21 14:30 venom-honey bee Allergy Dyspnea Verified 02/09/21 14:30 [bee venom (honey bee)] blue dye AdvReac Mild HYPER Verified 02/09/21 14:30 FEELING Review of Systems ROS Statement: Those systems with pertinent positive or pertinent negative responses have been documented in the HPI. Review of Systems: CONST: Denies fever EYES: Denies blurry vision ENT: Denies nasal congestion C/V: Endorses chest pain RESP: Denies shortness of breath GI: Denies abdominal pain : Denies dysuria SKIN: Denies rash. MSK: Denies joint pain. NEURO: Denies headache ROS Other: All systems not noted in ROS Statement are negative. Past Medical History Past Medical History: Asthma, Cancer, Heart Failure, Eye Disorder, Fibromyalgia, GERD/Reflux, Myocardial Infarction ([place]), Musculoskeletal Disorder, Osteoarthritis (OA), Renal Disease, Syncope, Thyroid Disorder Additional Past Medical History / Comment(s): SKIN CANCER, ADRENAL INSUFFICENCY. POTS SYNDROME. DIABETES INSIPIDUS. 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 Last Myocardial Infarction Date:: december 29 2014 History of Any Multi-Drug Resistant Organisms: None Reported Past Surgical History: Back Surgery, Section, Joint Replacement, Orthopedic Surgery Additional Past Surgical History / Comment(s): ARTIFICIAL DISC IN C5,6,7 , TITANIUM PLATE AND 4 SCREWS IN NECK. RT CARPAL TUNNEL. . HEMORRHOIDECTOMY. BRONCHOSCOPY.,CERVIAL EPIDURAL STEROID INJECTION, LT KNEE ARTHROSCOPIC LATERAL FEMORAL CHONDRECTOMY/MEDIALFEMORAL CHONDRECTOMY/PATELLER CHONDROPLASTY/PARTIAL SYNOVECTOMY OF LATERAL AND PATELLOFEMORAL COMPARTMENTS (TOTAL OF 3 KNEE SX), RADIOFREQUENCY TX L5,-RT KNEE SCOPE, EXPLORATORY LAP- ENDOmetriosis, TOTAL KNEE REPLACEMENT MARIA ELENA Past Anesthesia/Blood Transfusion Reactions: No Reported Reaction, Family History of Problems w/ Anesthesia, Motion Sickness Additional Past Anesthesia/Blood Transfusion Reaction / Comment(s): CLAUSTERPHOBIA, VERTIGO IN PAST. PATIENTS MOTHER HAS DIFFICULTY WAKING UP Past Psychological History: Anxiety, Depression, PTSD Smoking Status: Never smoker Past Alcohol Use History: None Reported Past Drug Use History: None Reported - Past Family History Mother Family Medical History: Cancer, Hyperlipidemia, Hypertension Additional Family Medical History / Comment(s): RECTAL CA Father Family Medical History: Hyperlipidemia, Hypertension General Exam - General Exam Comments Initial Comments: General: Appears in no acute distress. HEAD: Normal with no signs of head trauma. EYES: PERRLA, EOMI, conjunctiva normal, no discharge. ENT: Hearing grossly intact, normal oropharynx. RESPIRATORY: Clear breath sounds bilaterally. No wheezes, rales, or rhonchi. C/V: Tachycardic with a regular rhythm. S1 and S2 auscultated. No peripheral edema. Peripheral pulses are 2+ intact. ABD: Abd is soft, nontender, nondistended EXT: Normal range of motion, no obvious deformity SKIN: No rashes or lesions observed on exposed skin. NEURO: Alert and oriented 4. No focal sensory strength deficits. Limitations: no limitations Course Vital Signs 02/09/21 02/09/21 02/09/21 12:50 14:42 15:10 Temperature 99 F 98.6 F 98.6 F Pulse Rate 107 H 99 99 Respiratory 18 18 18 Rate Blood Pressure 117/83 108/81 108/81 O2 Sat by Pulse 99 98 98 Oximetry Medical Decision Making - Medical Decision Making Based on the patient's presentation and physical exam, I'm concerned for possible cardiac etiology for her chest pain. She states she is very mild chest pain at this time is requesting Dilaudid for the pain. He believe this is reasonable and she will receive a one-time dose of 0.5 mg of Dilaudid. We'll also obtain a cardiac workup including troponin, EKG, basic labs. She'll be connected to continuous cardiac monitoring. Serial troponin is necessary only, as the patient states that the pain began over 3 hours ago. It is improving at this time as well. Patient does not require aspirin and she received 4 baby aspirins at home. Patient's EKG shows no signs of acute ischemia, with chronic changes. Chest x- ray revealed no acute cardiopulmonary process. Laboratory studies are remarkable for a negative troponin. Remainder of her laboratory studies are unremarkable. Patient is not . COVID-19 swab is negative. On reevaluation, patient's complete resolution of her pain. She is requesting to be discharged home with this time and does not believe she requires admission. She states this is very typical of her anginal chest pain. It was almost improved prior to arrival. Heart score is low at 2, for age and risk factors. I do believe it is reasonable to discharge the patient home at this time. Strict return precautions were discussed. I instructed the patient to follow up with their PCP in the next 1-2 days.. I explained that the patient should return to the emergency department if they experience any worsening symptoms. Strict return precautions were discussed with the patient. The patient expressed understanding of these instructions. I answered all questions that the patient had. The patient was discharged home in good condition with their prescriptions and follow up information. - Lab Data Result diagrams: 02/09/21 13:02/09/21 13: Lab Results 02/09/21 02/09/21 02/09/21 Range/Units 13:09 13:09 13: WBC 8.6 (3.8-10.6) k/uL RBC 4.99 (3.80-5.40) m/uL Hgb 14.1 (11.4-16.0) gm/dL Hct 45.1 (34.0-46.0) % MCV 90.5 (80.0-100.0) fL MCH 28.3 (25.0-35.0) pg MCHC 31.3 (31.0-37.0) g/dL RDW 13.8 (11.5-15.5) % Plt Count 354 (150-450) k/uL MPV 6.7 Neutrophils % 73 % Lymphocytes % 19 % Monocytes % 6 % Eosinophils % 0 % Basophils % 1 % Neutrophils # 6.2 (1.3-7.7) k/uL Lymphocytes # 1.6 (1.0-4.8) k/uL Monocytes # 0.5 (0-1.0) k/uL Eosinophils # 0.0 (0-0.7) k/uL Basophils # 0.0 (0-0.2) k/uL PT 10.0 (9.0-12.0) sec INR 0.9 (<1.2) APTT 22.4 (22.0-30.0) sec Sodium 135 L (137-145) mmol/L Potassium 4.8 (3.5-5.1) mmol/L Chloride 101 (98-107) mmol/L Carbon Dioxide 25 (22-30) mmol/L Anion Gap 9 mmol/L BUN 14 (7-17) mg/dL Creatinine 1.34 H (0.52-1.04) mg/dL Est GFR (CKD-EPI)AfAm 53 (>60 ml/min/1.73 sqM) Est GFR (CKD-EPI)NonAf 46 (>60 ml/min/1.73 sqM) Glucose 129 H (74-99) mg/dL Calcium 9.8 (8.4-10.2) mg/dL Magnesium 2.0 (1.6-2.3) mg/dL Total Bilirubin 0.5 (0.2-1.3) mg/dL AST 27 (14-36) U/L ALT 17 (4-34) U/L Alkaline Phosphatase 119 (38-126) U/L Troponin I (0.000-0.034) ng/mL Total Protein 7.1 (6.3-8.2) g/dL Albumin 4.2 (3.5-5.0) g/dL HCG, Qual Not Detected Coronavirus (PCR) (Not Detectd) 02/09/21 02/09/21 Range/Units 13:09 Unknown WBC (3.8-10.6) k/uL RBC (3.80-5.40) m/uL Hgb (11.4-16.0) gm/dL Hct (34.0-46.0) % MCV (80.0-100.0) fL MCH (25.0-35.0) pg MCHC (31.0-37.0) g/dL RDW (11.5-15.5) % Plt Count (150-450) k/uL MPV Neutrophils % % Lymphocytes % % Monocytes % % Eosinophils % % Basophils % % Neutrophils # (1.3-7.7) k/uL Lymphocytes # (1.0-4.8) k/uL Monocytes # (0-1.0) k/uL Eosinophils # (0-0.7) k/uL Basophils # (0-0.2) k/uL PT (9.0-12.0) sec INR (<1.2) APTT (22.0-30.0) sec Sodium (137-145) mmol/L Potassium (3.5-5.1) mmol/L Chloride (98-107) mmol/L Carbon Dioxide (22-30) mmol/L Anion Gap mmol/L BUN (7-17) mg/dL Creatinine (0.52-1.04) mg/dL Est GFR (CKD-EPI)AfAm (>60 ml/min/1.73 sqM) Est GFR (CKD-EPI)NonAf (>60 ml/min/1.73 sqM) Glucose (74-99) mg/dL Calcium (8.4-10.2) mg/dL Magnesium (1.6-2.3) mg/dL Total Bilirubin (0.2-1.3) mg/dL AST (14-36) U/L ALT (4-34) U/L Alkaline Phosphatase (38-126) U/L Troponin I <0.012 (0.000-0.034) ng/mL Total Protein (6.3-8.2) g/dL Albumin (3.5-5.0) g/dL HCG, Qual Coronavirus (PCR) Not Detected (Not Detectd) - EKG Data -: EKG Interpreted by Me EKG Comments: 12-lead Electrocardiogram Interpretation Note EKG was reviewed and interpreted by myself. 12-lead ECG performed at 1309 is interpreted by me as revealing sinus tachycardia at a rate of 104 beats per minute. Left axis deviation. VT Intervals 122 ms, QRS duration 72 ms, QTc is 481 ms.. There are T-wave inversions in lead V2 and V3 which are seen on prior EKGs. These are chronic changes. No ST segment changes.. Progression across precordium is slightly delayed.. By my interpretation this EKG is non-diagnostic for acute ischemia. It reveals chronic T-wave inversions in V2 and V3 seen on prior EKGs. Disposition Clinical Impression: Chest pain of unknown etiology, History of angina Disposition: HOME SELF-CARE Condition: Good Instructions (If sedation given, give patient instructions): Chest Pain (ED) Is patient prescribed a controlled substance at d/c from ED?: No Referrals: Corby Mondragon MD [Primary Care Provider] - 1-2 days
[2021-02-09 14:43] VITALS: BP 108/81; PULSE 99; TEMP 98.6
== END 2021-02-09 15:11 | disposition home or self-care (01) ==
LOC: EC 12:47
DX: R07.89 Other chest pain (principal); I25.2 Old myocardial infarction; I50.9 Heart failure, unspecified; J45.909 Unspecified asthma, uncomplicated; K21.9 Gastro-esophageal reflux disease without esophagitis; M19.90 Unspecified osteoarthritis, unspecified site; M79.7 Fibromyalgia; F32.9 Major depressive disorder, single episode, unspecified; F41.9 Anxiety disorder, unspecified; Z79.890 Hormone replacement therapy; Z79.1 Long term (current) use of non-steroidal anti-inflammatories (NSAID); Z79.899 Other long term (current) drug therapy; Z82.49 Family history of ischemic heart disease and other diseases of the circulatory system; Z83.49 Family history of other endocrine, nutritional and metabolic diseases; Z85.828 Personal history of other malignant neoplasm of skin; Z96.653 Presence of artificial knee joint, bilateral
CPT/HCPCS: 36415; 93005; 80053; 83735; 84484; 85025; 85610; 85730; 84703; 87635; 71046; 99285; 96374; J1170

== ENCOUNTER → 2021-02-13 | Outpatient (CLI) | payer MEDICARE, OTHER ==
[2021-02-13 19:46] LABS: Basophils # (A) 0.05 X 10*3/uL (0.00-0.10); Basophils % (A) 0.7 %; Eosinophils # (A) 0.07 X 10*3/uL (0.04-0.35); Eosinophils % (A) 0.9 %; HCT 40.5 % (37.2-46.3); HGB 12.6 g/dL (12.0-15.0); Lymphocytes # (A) 1.73 X 10*3/uL (0.90-5.00); Lymphocytes % (A) 22.6 %; MCHC 31.1 g/dL (32.0-37.0); Mean Platelet Volume 10.2 fL (9.5-12.2); Monocytes # (A) 0.63 X 10*3/uL (0.20-1.00); Monocytes % (A) 8.2 %; Neutrophils # (A) 5.13 X 10*3/uL (1.80-7.70); Neutrophils % (A) 67.2 %; Platelet Count 385 X 10*3/uL (140-440); RDW 14.5 % (11.5-14.5); WBC 7.64 X 10*3/uL (4.50-10.00)
[2021-02-13 23:19] LABS: Erythrocyte Sedimentation Rate 35 mm/Hr (0-30)
[2021-02-14 03:20] LABS: African American GFR (CKD) 60.2 (60.0-200.0); Albumin 4.2 g/dL (3.80-4.90); Anion Gap 12.4 mmol/L (4.00-12.00); Calcium 9.6 mg/dL (8.7-10.3); Carbon Dioxide 25.6 mmol/L (21.6-31.8); Non-African American GFR(CKD) 51.9 (60.0-200.0); Total Protein 6.7 g/dL (6.2-8.2)
[2021-02-14 09:13] LABS: Folate, Serum 16.8 ng/mL
== END | disposition home or self-care (01) ==
LOC: LABWHC1 12:22
PROVIDERS: ATTEND Orthopaedic Surgery
DX: Z01.812 Encounter for preprocedural laboratory examination (principal); M25.50 Pain in unspecified joint
CPT/HCPCS: 36415; 80048; 82040; 82607; 82746; 84155; 84207; 85025; 85652

== ENCOUNTER → 2021-07-03 | Outpatient (CLI) | payer MEDICARE, OTHER | END | disposition home or self-care (01) | LOC: LABWHC1 07:43 | PROVIDERS: ATTEND Psychiatry & Neurology Neurology | DX: M79.7 Fibromyalgia (principal) | CPT/HCPCS: 36415; 93005 ==

== ENCOUNTER 2021-08-16 16:20 | Emergency (ER) | payer MEDICARE, OTHER ==
--- NOTE | 2021-08-16 18:22 | ED ---
General Adult HPI - General Chief complaint: Back Pain/Injury Stated complaint: flank pain, back pain Time Seen by Provider: 08/16/21 18:21 Source: patient Mode of arrival: ambulatory Limitations: no limitations - History of Present Illness Initial comments: Patient presents the ED complaining of having bilateral thoracic "muscle spasms" for the past several months. Patient states that her back pain/spasms seemed to be worse when she is working prolonged period of time. Patient states that she had her muscle relaxant changed about a week ago, and she feels that her new muscle relaxant is not helping as much as her old one was. Patient also states that she takes [place] for pain management. Patient denies trauma/injury/fall, fever or chills, headache, focal numbness/weakness/neuro deficit, chest pain or pressure, dyspnea, cough or cold symptoms, palpitations, dizziness, abdominal pain, nausea/vomiting/diarrhea, dysuria/hematuria/urinary frequency/urinary symptoms, extremity pain, or any other symptoms or complaints. - Related Data Home Medications Medication Instructions Recorded Confirmed Melatonin 10 mg PO HS 10/31/13 08/16/21 Sucralfate [Carafate] 1 gram PO ACHS 10/31/13 08/16/21 Levothyroxine Sodium [Synthroid] 75 mcg PO DAILY 04/19/14 08/16/21 Nitroglycerin Sl Tabs [Nitrostat] 0.4 mg SL Q5M PRN 01/15/15 08/16/21 Desmopressin Acetate 0.05 mg PO BID 07/17/15 08/16/21 Hydrocortisone [Cortef] 10 mg PO DAILY 12/08/15 08/16/21 ALPRAZolam [Xanax] 0.5 mg PO TID PRN 02/06/17 08/16/21 HYDROcodone/APAP 7.5-325MG [[place] 1 tab PO TID PRN 04/07/17 08/16/21 7.5-325] Hydrocortisone [Cortef] 5 mg PO HS 01/11/19 08/16/21 Brexpiprazole [Rexulti] 1 mg PO DAILY 08/15/20 08/16/21 DULoxetine HCL [Cymbalta] 120 mg PO DAILY 08/15/20 08/16/21 Genotropin (Somatropin) 0.2 mg SQ DAILY 08/15/20 08/16/21 Omeprazole 40 mg PO DAILY 08/15/20 08/16/21 Amitriptyline HCl [Elavil] 25 mg PO HS PRN 02/09/21 08/16/21 EPINEPHrine (Auto Inject) [Epipen] 0.3 mg IM ONCE PRN 02/09/21 08/16/21 Ibuprofen [Motrin Ib] 800 mg PO Q8H PRN 02/09/21 08/16/21 Rizatriptan Benzoate [Rizatriptan] 10 mg PO BID PRN 02/09/21 08/16/21 busPIRone HCL [Buspar] 30 mg PO BID 08/16/21 08/16/21 methocarbamoL [Robaxin] 750 mg PO BID PRN 08/16/21 08/16/21 Previous Rx's Medication Instructions Recorded Ciprofloxacin HCl [Cipro] 250 mg PO Q12HR 5 Days #10 tab 08/16/21 Allergies Allergy/AdvReac Type Severity Reaction Status Date / Time morphine Allergy Anaphylaxis Verified 08/16/21 18:22 venom-honey bee Allergy Dyspnea Verified 08/16/21 18:22 [bee venom (honey bee)] blue dye AdvReac Mild HYPER Verified 08/16/21 18:22 FEELING Review of Systems ROS Statement: Those systems with pertinent positive or pertinent negative responses have been documented in the HPI. ROS Other: All systems not noted in ROS Statement are negative. Past Medical History Past Medical History: Asthma, Cancer, Heart Failure, Eye Disorder, Fibromyalgia, GERD/Reflux, Myocardial Infarction ([place]), Musculoskeletal Disorder, Osteoart hritis (OA), Renal Disease, Syncope, Thyroid Disorder Additional Past Medical History / Comment(s): SKIN CANCER, ADRENAL INSUFFICENCY. POTS SYNDROME. DIABETES INSIPIDUS. 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 Last Myocardial Infarction Date:: december 29 2014 History of Any Multi-Drug Resistant Organisms: None Reported Past Surgical History: Back Surgery, Section, Joint Replacement, Orthopedic Surgery Additional Past Surgical History / Comment(s): ARTIFICIAL DISC IN C5,6,7 , TITANIUM PLATE AND 4 SCREWS IN NECK. RT CARPAL TUNNEL. . HEMORRHOIDECTOMY. BRONCHOSCOPY.,CERVIAL EPIDURAL STEROID INJECTION, LT KNEE ARTHROSCOPIC LATERAL FEMORAL CHONDRECTOMY/MEDIALFEMORAL CHONDRECTOMY/PATELLER CHONDROPLASTY/PARTIAL SYNOVECTOMY OF LATERAL AND PATELLOFEMORAL COMPARTMENTS (TOTAL OF 3 KNEE SX), RADIOFREQUENCY TX L5,-RT KNEE SCOPE, EXPLORATORY LAP- ENDOmetriosis, TOTAL KNEE REPLACEMENT MARIA ELENA Past Anesthesia/Blood Transfusion Reactions: No Reported Reaction, Family History of Problems w/ Anesthesia, Motion Sickness Additional Past Anesthesia/Blood Transfusion Reaction / Comment(s): CLAUSTERPHOBIA, VERTIGO IN PAST. PATIENTS MOTHER HAS DIFFICULTY WAKING UP Past Psychological History: Anxiety, Depression, PTSD Smoking Status: Never smoker Past Alcohol Use History: None Reported Past Drug Use History: None Reported - Past Family History Mother Family Medical History: Cancer, Hyperlipidemia, Hypertension Additional Family Medical History / Comment(s): RECTAL CA Father Family Medical History: Hyperlipidemia, Hypertension General Exam Limitations: no limitations General appearance: alert, in no apparent distress Head exam: Present: atraumatic, normocephalic Eye exam: Present: normal appearance, EOMI ENT exam: Present: mucous membranes moist Neck exam: Absent: tenderness Respiratory exam: Present: normal lung sounds bilaterally. Absent: respiratory distress, wheezes, rales, rhonchi, stridor Cardiovascular Exam: Present: regular rate, normal rhythm, normal heart sounds, other (Normal radial pulses bilaterally) GI/Abdominal exam: Present: soft. Absent: distended, tenderness, guarding Extremities exam: Present: full ROM. Absent: tenderness, pedal edema Back exam: Present: other (Mild bilateral thoracic back tenderness; no midline spinal tenderness) Neurological exam: Present: alert, oriented X3. Absent: motor sensory deficit Psychiatric exam: Present: normal affect, normal mood Skin exam: Present: warm, dry, intact, normal color Course Vital Signs 08/16/21 08/16/21 16:31 18:57 Temperature 98.7 F 98.1 F Pulse Rate 95 80 Respiratory 18 16 Rate Blood Pressure 121/90 122/83 O2 Sat by Pulse 96 98 Oximetry - Reevaluation(s) Reevaluation #1: 08/16/21 19:30 Patient denies any change in her pain/symptoms while in the ED. Patient denies development of any new symptoms while in the ED. Patient is aware of her test results, and she feels comfortable being discharged home at this time. Patient was counseled about back pain/spasms, hyperkalemia and UTIs. Patient was instructed to drink plenty of water/fluids. Patient was also instructed to follow up closely with her primary care provider. Patient was clearly explained return and follow-up instructions, and she was instructed to have a low threshold for return to the emergency department should her symptoms worsen. Patient feels comfortable with this plan. Medical Decision Making - Medical Decision Making I suspect that the patient's bilateral thoracic back pain is likely secondary to muscle spasms. Patient is currently on [place] and muscle relaxants for management of her pain, and she feels comfortable continuing on with these until she follows up with her primary care provider. Patient is noted to have mild hyperkalemia on laboratory evaluation, which I suspect is unrelated to her symptoms. Given the patient's UA findings of pyuria with leukocyte esterase, will treat the patient with a short course of ciprofloxacin for possible UTI. Patient agrees with this plan. Patient feels comfortable being discharged home at this time. - Lab Data Result diagrams: 08/16/21 18:57 Lab Results 08/16/21 08/16/21 Range/Units 18:33 18:57 Sodium 133 L (137-145) mmol/L Potassium 5.5 H (3.5-5.1) mmol/L Chloride 99 (98-107) mmol/L Carbon Dioxide 21 L (22-30) mmol/L Anion Gap 13 mmol/L BUN 26 H (7-17) mg/dL Creatinine 1.39 H (0.52-1.04) mg/dL Est GFR (CKD-EPI)AfAm 50 (>60 ml/min/1.73 sqM) Est GFR (CKD-EPI)NonAf 44 (>60 ml/min/1.73 sqM) Glucose 95 (74-99) mg/dL Calcium 9.1 (8.4-10.2) mg/dL Urine Color Yellow Urine Appearance Clear (Clear) Urine pH 6.0 (5.0-8.0) Ur Specific [place] 1.010 (1.001-1.035) Urine Protein Negative (Negative) Urine Glucose (UA) Negative (Negative) Urine Ketones Negative (Negative) Urine Blood Negative (Negative) Urine Nitrite Negative (Negative) Urine Bilirubin Negative (Negative) Urine Urobilinogen <2.0 (<2.0) mg/dL Ur Leukocyte Esterase Large H (Negative) Urine RBC 1 (0-5) /hpf Urine WBC 42 H (0-5) /hpf Ur Squamous Epith Cells 1 (0-4) /hpf Urine Mucus Rare H (None) /hpf Disposition Clinical Impression: Back muscle spasm, Hyperkalemia Narrative: Possible UTI Disposition: HOME SELF-CARE Condition: Stable Instructions (If sedation given, give patient instructions): Muscle Spasm (ED), Back Pain (ED), Urinary Tract Infection in Women (ED), Hyperkalemia (ED) Additional Instructions: Return to the ER immediately should you develop new or worsening pain, numbness or weakness, a fever, feeling dizzy or faint, shortness of breath, trouble controlling your bladder or bowels, vomiting, or new or worsening symptoms. Follow up closely with your primary care provider. Prescriptions: Ciprofloxacin HCl [Cipro] 250 mg PO Q12HR 5 Days #10 tab Is patient prescribed a controlled substance at d/c from ED?: No Referrals: Corby Mondragon MD [Primary Care Provider] - 1-2 days Time of Disposition: 19:45
[2021-08-16] MEDS ORDERED: KETOROLAC 15 MG/ML 1 ML VIAL IM STA (18:37)
[2021-08-16 18:39] LABS: Appearance,Urine Clear (Clear); Bilirubin,Urine Negative (Negative); Blood,Urine Negative (Negative); Color,Urine Yellow; Glucose,Urine (UA) Negative (Negative); Ketones,Urine Negative (Negative); Leukocyte Esterase,Urine Large (Negative); Mucus,Urine Rare /hpf; Nitrite,Urine Negative (Negative); Protein,Urine Negative (Negative); RBC,Urine 1 /hpf (0-5); Squamous Epithelial Cell,Urine 1 /hpf (0-4); Urobilinogen,Urine <2.0 mg/dL (<2.0); WBC,Urine 42 /hpf (0-5)
[2021-08-16 18:58] VITALS: BP 122/83; PULSE 80; RESP 16; TEMP 98.1
[2021-08-16 19:11] LABS: Calcium 9.1 mg/dL (8.4-10.2)
[2021-08-16 19:12] LABS: Potassium 5.5 mmol/L (3.5-5.1)
[2021-08-16] MEDS ORDERED: CIPROFLOXACIN HCL 250 MG TAB PO STA (19:24)
== END 2021-08-16 20:05 | disposition home or self-care (01) ==
LOC: EC 16:20
DX: M62.830 Muscle spasm of back (principal); E87.5 Hyperkalemia; J45.909 Unspecified asthma, uncomplicated; I50.9 Heart failure, unspecified; M79.7 Fibromyalgia; K21.9 Gastro-esophageal reflux disease without esophagitis; I25.2 Old myocardial infarction; M19.90 Unspecified osteoarthritis, unspecified site; E07.9 Disorder of thyroid, unspecified; F41.9 Anxiety disorder, unspecified; F32.A Depression, unspecified; F43.10 Post-traumatic stress disorder, unspecified; Z88.5 Allergy status to narcotic agent; Z85.828 Personal history of other malignant neoplasm of skin; Z96.652 Presence of left artificial knee joint
CPT/HCPCS: 99283; 96372; 36415; 80048; 81001; 87086; J1885

== ENCOUNTER 2021-08-21 15:49 | Emergency (ER) | payer MEDICARE, OTHER ==
[2021-08-21 17:17] VITALS: RESP 18; TEMP 98.8
[2021-08-21 17:53] LABS: Appearance,Urine Clear (Clear); Bilirubin,Urine Negative (Negative); Blood,Urine Negative (Negative); Color,Urine Yellow; Glucose,Urine (UA) Negative (Negative); Ketones,Urine Negative (Negative); Leukocyte Esterase,Urine Trace (Negative); Mucus,Urine Rare /hpf; Nitrite,Urine Negative (Negative); Protein,Urine Negative (Negative); RBC,Urine <1 /hpf (0-5); Specific Gravity,Urine 1.019 (1.001-1.035); Squamous Epithelial Cell,Urine 1 /hpf (0-4); Urobilinogen,Urine <2.0 mg/dL (<2.0); WBC,Urine 2 /hpf (0-5)
[2021-08-21] MEDS ORDERED: HYDROmorphone 0.5 MG/0.5 ML SYRINGE IVP STA (22:46)
--- NOTE | 2021-08-21 22:58 | ED ---
Abdominal Pain HPI - General Chief Complaint: Abdominal Pain Stated Complaint: Left Flank Pain Time Seen by Provider: 08/21/21 22:20 Source: patient Mode of arrival: ambulatory - History of Present Illness Initial Comments: This patient's 50-year-old woman who presents with what she believes is kidney infection. The patient is having left flank pain that is been going on for a pproximately 10 days. She was seen here 3 days ago where she was found to have white blood cells in the urine and she was given course of ciprofloxacin. She states she is taken approximately 3 days of this now and has not had improvement of her pain. Patient is denying fever or chills. No frequency, hematuria, dysuria, urgency. No change in bowel movements. No nausea or vomiting. There was no inciting trauma. MD Complaint: flank pain Onset/Timin -: days(s) Location: L flank Radiation: none Migration to: no migration Severity: moderate Quality: aching Consistency: constant Improves With: nothing Worsens With: nothing Treatments Prior to Arrival: prescription analgesics - Related Data Home Medications Medication Instructions Recorded Confirmed Melatonin 10 mg PO HS 10/31/13 08/21/21 Sucralfate [Carafate] 1 gram PO ACHS 10/31/13 08/21/21 Levothyroxine Sodium [Synthroid] 75 mcg PO DAILY 04/19/14 08/21/21 Nitroglycerin Sl Tabs [Nitrostat] 0.4 mg SL Q5M PRN 01/15/15 08/21/21 Desmopressin Acetate 0.05 mg PO BID 07/17/15 08/21/21 Hydrocortisone [Cortef] 10 mg PO DAILY 12/08/15 08/21/21 ALPRAZolam [Xanax] 0.5 mg PO TID PRN 02/06/17 08/21/21 HYDROcodone/APAP 7.5-325MG [[place] 1 tab PO TID PRN 04/07/17 08/21/21 7.5-325] Hydrocortisone [Cortef] 5 mg PO HS 01/11/19 08/21/21 Brexpiprazole [Rexulti] 1 mg PO DAILY 08/15/20 08/21/21 DULoxetine HCL [Cymbalta] 120 mg PO DAILY 08/15/20 08/21/21 Genotropin (Somatropin) 0.2 mg SQ DAILY 08/15/20 08/21/21 Omeprazole 40 mg PO DAILY 08/15/20 08/21/21 Amitriptyline HCl [Elavil] 25 mg PO HS PRN 02/09/21 08/21/21 EPINEPHrine (Auto Inject) [Epipen] 0.3 mg IM ONCE PRN 02/09/21 08/21/21 Ibuprofen [Motrin Ib] 800 mg PO Q8H PRN 02/09/21 08/21/21 Rizatriptan Benzoate [Rizatriptan] 10 mg PO BID PRN 02/09/21 08/21/21 busPIRone HCL [Buspar] 30 mg PO BID 08/16/21 08/21/21 tiZANidine [Zanaflex] 4 mg PO TID PRN 08/21/21 08/21/21 Previous Rx's Medication Instructions Recorded Ciprofloxacin HCl [Cipro] 250 mg PO Q12HR 5 Days #10 tab 08/16/21 Allergies Allergy/AdvReac Type Severity Reaction Status Date / Time morphine Allergy Anaphylaxis Verified 08/21/21 22:44 venom-honey bee Allergy Dyspnea Verified 08/21/21 22:44 [bee venom (honey bee)] blue dye AdvReac Mild HYPER Verified 08/21/21 22:44 FEELING Review of Systems ROS Statement: Those systems with pertinent positive or pertinent negative responses have been documented in the HPI. ROS Other: All systems not noted in ROS Statement are negative. Constitutional: Denies: fever, chills Gastrointestinal: Reports: as per HPI, abdominal pain. Denies: nausea, vomiting, constipation Genitourinary: Denies: urgency, dysuria, frequency, hematuria Musculoskeletal: Reports: as per HPI, back pain Skin: Denies: rash Neurological: Denies: weakness, numbness, paresthesias Past Medical History Past Medical History: Asthma, Cancer, Heart Failure, Eye Disorder, Fibromyalgia, GERD/Reflux, Myocardial Infarction ([place]), Musculoskeletal Disorder, Osteoarthritis (OA), Renal Disease, Syncope, Thyroid Disorder Additional Past Medical History / Comment(s): SKIN CANCER, ADRENAL INSUFFICENCY. POTS SYNDROME. DIABETES INSIPIDUS. 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 Last Myocardial Infarction Date:: december 29 2014 History of Any Multi-Drug Resistant Organisms: None Reported Past Surgical History: Back Surgery, Section, Joint Replacement, Orthopedic Surgery Additional Past Surgical History / Comment(s): ARTIFICIAL DISC IN C5,6,7 , TITANIUM PLATE AND 4 SCREWS IN NECK. RT CARPAL TUNNEL. . HEMORRHOIDECTOMY. BRONCHOSCOPY.,CERVIAL EPIDURAL STEROID INJECTION, LT KNEE ARTHROSCOPIC LATERAL FEMORAL CHONDRECTOMY/MEDIALFEMORAL CHONDRECTOMY/PATELLER CHONDROPLASTY/PARTIAL SYNOVECTOMY OF LATERAL AND PATELLOFEMORAL COMPARTMENTS (TOTAL OF 3 KNEE SX), RADIOFREQUENCY TX L5,-RT KNEE SCOPE, EXPLORATORY LAP- ENDOmetriosis, TOTAL KNEE REPLACEMENT MARIA ELENA Past Anesthesia/Blood Transfusion Reactions: No Reported Reaction, Family History of Problems w/ Anesthesia, Motion Sickness Additional Past Anesthesia/Blood Transfusion Reaction / Comment(s): CLAUSTERPHOBIA, VERTIGO IN PAST. PATIENTS MOTHER HAS DIFFICULTY WAKING UP Past Psychological History: Anxiety, Depression, PTSD Smoking Status: Never smoker Past Alcohol Use History: None Reported Past Drug Use History: None Reported - Past Family History Mother Family Medical History: Cancer, Hyperlipidemia, Hypertension Additional Family Medical History / Comment(s): RECTAL CA Father Family Medical History: Hyperlipidemia, Hypertension General Exam General appearance: alert, in no apparent distress Head exam: Present: atraumatic, normocephalic Eye exam: Present: normal appearance. Absent: scleral icterus, conjunctival injection Neck exam: Present: normal inspection Respiratory exam: Present: normal lung sounds bilaterally. Absent: respiratory distress, wheezes, rales, rhonchi, stridor Cardiovascular Exam: Present: regular rate, normal rhythm, normal heart sounds. Absent: systolic murmur, diastolic murmur, rubs, gallop GI/Abdominal exam: Present: soft. Absent: distended, tenderness, guarding, rebound, rigid, mass Extremities exam: Present: normal inspection, normal capillary refill. Absent: pedal edema, calf tenderness Back exam: Present: normal inspection, CVA tenderness (L), paraspinal tenderness. Absent: CVA tenderness (R), vertebral tenderness, rash noted Neurological exam: Present: alert. Absent: motor sensory deficit Skin exam: Present: warm, dry, intact, normal color. Absent: rash Course Vital Signs 08/21/21 17:14 Temperature 98.8 F Pulse Rate 88 Respiratory 18 Rate Blood Pressure 121/81 O2 Sat by Pulse 99 Oximetry Medical Decision Making - Lab Data Result diagrams: 08/21/21 23:20 08/21/21 23:20 Lab Results 08/21/21 08/21/21 08/21/21 Range/Units 17:27 23:20 23:20 WBC 8.4 (3.8-10.6) k/uL RBC 4.73 (3.80-5.40) m/uL Hgb 13.6 (11.4-16.0) gm/dL Hct 42.2 (34.0-46.0) % MCV 89.1 (80.0-100.0) fL MCH 28.7 (25.0-35.0) pg MCHC 32.2 (31.0-37.0) g/dL RDW 14.4 (11.5-15.5) % Plt Count 354 (150-450) k/uL MPV 6.6 Neutrophils % 60 % Lymphocytes % 30 % Monocytes % 6 % Eosinophils % 1 % Basophils % 1 % Neutrophils # 5.1 (1.3-7.7) k/uL Lymphocytes # 2.5 (1.0-4.8) k/uL Monocytes # 0.5 (0-1.0) k/uL Eosinophils # 0.1 (0-0.7) k/uL Basophils # 0.1 (0-0.2) k/uL Sodium 136 L (137-145) mmol/L Potassium 4.7 (3.5-5.1) mmol/L Chloride 103 (98-107) mmol/L Carbon Dioxide 27 (22-30) mmol/L Anion Gap 6 mmol/L BUN 17 (7-17) mg/dL Creatinine 1.25 H (0.52-1.04) mg/dL Est GFR (CKD-EPI)AfAm 57 (>60 ml/min/1.73 sqM) Est GFR (CKD-EPI)NonAf 50 (>60 ml/min/1.73 sqM) Glucose 101 H (74-99) mg/dL Calcium 9.1 (8.4-10.2) mg/dL Total Bilirubin 0.6 (0.2-1.3) mg/dL AST 71 H (14-36) U/L ALT 70 H (4-34) U/L Alkaline Phosphatase 156 H (38-126) U/L Total Protein 6.7 (6.3-8.2) g/dL Albumin 3.8 (3.5-5.0) g/dL Urine Color Yellow Urine Appearance Clear (Clear) Urine pH 6.0 (5.0-8.0) Ur Specific [place] 1.019 (1.001-1.035) Urine Protein Negative (Negative) Urine Glucose (UA) Negative (Negative) Urine Ketones Negative (Negative) Urine Blood Negative (Negative) Urine Nitrite Negative (Negative) Urine Bilirubin Negative (Negative) Urine Urobilinogen <2.0 (<2.0) mg/dL Ur Leukocyte Esterase Trace H (Negative) Urine RBC <1 (0-5) /hpf Urine WBC 2 (0-5) /hpf Ur Squamous Epith Cells 1 (0-4) /hpf Urine Mucus Rare H (None) /hpf Disposition Clinical Impression: Flank pain Disposition: HOME SELF-CARE Condition: Good Instructions (If sedation given, give patient instructions): Flank Pain (ED) Is patient prescribed a controlled substance at d/c from ED?: No Referrals: Corby Mondragon MD [Primary Care Provider] - 1-2 days
[2021-08-21 23:31] LABS: Basophils # (A) 0.1 k/uL (0-0.2); Basophils % (A) 1 %; Eosinophils # (A) 0.1 k/uL (0-0.7); Eosinophils % (A) 1 %; HCT 42.2 % (34.0-46.0); HGB 13.6 gm/dL (11.4-16.0); Lymphocytes # (A) 2.5 k/uL (1.0-4.8); Lymphocytes % (A) 30 %; MCH 28.7 pg (25.0-35.0); MCHC 32.2 g/dL (31.0-37.0); MCV 89.1 fL (80.0-100.0); Mean Platelet Volume 6.6; Monocytes # (A) 0.5 k/uL (0-1.0); Monocytes % (A) 6 %; Neutrophils # (A) 5.1 k/uL (1.3-7.7); Neutrophils % (A) 60 %; Platelet Count 354 k/uL (150-450); RBC 4.73 m/uL (3.80-5.40); RDW 14.4 % (11.5-15.5); WBC 8.4 k/uL (3.8-10.6)
[2021-08-21 23:51] LABS: Albumin 3.8 g/dL (3.5-5.0); Calcium 9.1 mg/dL (8.4-10.2); Potassium 4.7 mmol/L (3.5-5.1); Total Bilirubin 0.6 mg/dL (0.2-1.3); Total Protein 6.7 g/dL (6.3-8.2)
--- NOTE | 2021-08-22 01:48 | CT ---
EXAMINATION TYPE: CT abdomen pelvis wo con DATE OF EXAM: 08/22/2021 COMPARISON: None HISTORY: Left Flank Pain CT DLP: 1217.40 mGycm Automated exposure control for dose reduction was used. Images obtained from the diaphragm to the floor the pelvis with no contrast. Lung bases are clear. There is no pleural effusion. Heart size is normal. There is no pericardial eff usion. There is some fatty infiltration of the liver. Spleen and stomach pancreas appear intact. Gallbladder is absent. Bile ducts are nondilated. There is no adrenal mass. Kidneys have normal size and contour. There is no hydronephrosis. Ureters a re not dilated. Bladder distends smoothly. There is no inguinal hernia. Uterus appears normal. No pel bar mass. There are sigmoid diverticula. No diverticulitis. Appendix is posterior and appears normal. There is no mesenteric edema. No ascites or free air. No bowel obstruction The lumbar vertebrae are in normal alignment. No compression fracture. Disc spaces are fairly normal. Bony pelvis is intact. Hip joints are intact IMPRESSION: Fatty infiltration of the liver. Colonic diverticulosis without diverticulitis. No evidence of renal stone or obstruction. Normal appendix..
[2021-08-22] MEDS ORDERED: MAG HYDROX/AL HYDROX/SIMETH 30 ML, HYOSCYAMINE ELIXIR 10 ML, LIDOCAINE VISCOUS 2% 10 ML PO STA ×3 (02:07)
[2021-08-22] MEDS ORDERED: HYDROmorphone 1 MG/ML 1 ML SYRINGE IVP STA (02:40)
[2021-08-22 03:14] VITALS: BP 130/78; PULSE 74
== END 2021-08-22 03:14 | disposition home or self-care (01) ==
LOC: EC 15:49
DX: K57.30 Diverticulosis of large intestine without perforation or abscess without bleeding (principal); J45.909 Unspecified asthma, uncomplicated; I50.9 Heart failure, unspecified; M79.7 Fibromyalgia; K21.9 Gastro-esophageal reflux disease without esophagitis; I25.2 Old myocardial infarction; M19.90 Unspecified osteoarthritis, unspecified site; E07.9 Disorder of thyroid, unspecified; F41.9 Anxiety disorder, unspecified; F32.A Depression, unspecified; F43.10 Post-traumatic stress disorder, unspecified; Z88.5 Allergy status to narcotic agent; Z85.828 Personal history of other malignant neoplasm of skin; Z96.653 Presence of artificial knee joint, bilateral
CPT/HCPCS: 99284; 96374; 96376; 36415; 80053; 85025; 81001; 74176; J1170 ×2

== ENCOUNTER → 2021-10-04 | Outpatient (CLI) | payer MEDICARE, OTHER ==
--- NOTE | 2021-10-03 06:09 | MR ---
EXAMINATION TYPE: MR tspine/lspine wo con DATE OF EXAM: 10/02/2021 COMPARISON: Lumbar spine 01/19/2017 HISTORY: Mid and lower back pain, RLE radiculopathy. Multiplanar multiecho imaging of the thoracic and lumbar spine without contrast. The thoracic and lumbar vertebrae have normal alignment. No compression fracture. This spaces are clarita rly normal. No evidence of focal bone destruction. There is metal artifact from fusion surgery at C5- C6 and C7. Thoracic spinal cord has normal signal pattern. No evidence of edema. No spinal stenosis. Lumbar neural foramina are widely patent. No evidence of lumbar disc herniation. No lumbar paraspinal mass. Sacroiliac joints appear intact. IMPRESSION: Negative MR scan of the lumbar spine. Negative MR scan of the thoracic spine. No disc herniation. No spinal stenosis. No fracture. Lumbar spine unchanged compared to old exam.
--- NOTE | 2021-10-05 01:15 | MR ---
EXAMINATION TYPE: MR brain wo con DATE OF EXAM: 10/04/2021 COMPARISON: 09/22/2017 HISTORY: Headaches, migraines, history of abnormal brain MRI Multiplanar multiecho imaging of the brain without contrast. Diffusion images show no evidence of acute infarct. Ventricles have normal size. There is no mass ef fect or midline shift. No sign of intracranial hemorrhage. There are a few discrete white matter high signal foci in the frontal lobes measuring up to 5 mm. The brainstem is intact. Sella turcica is nor mal. Corpus callosum is intact. There is no evidence of orbital mass. IMPRESSION: White matter high signal foci with total lumbar approximately 7 appear not significantly different th an the old exam. The appearance is nonspecific. No evidence of cortical infarct.
== END | disposition home or self-care (01) ==
LOC: RADMRIMAIN 20:44
PROVIDERS: ATTEND Psychiatry & Neurology Neurology
DX: G43.909 Migraine, unspecified, not intractable, without status migrainosus (principal); R93.0 Abnormal findings on diagnostic imaging of skull and head, not elsewhere classified; M54.50 Low back pain, unspecified; M54.16 Radiculopathy, lumbar region
CPT/HCPCS: 70551; 72146; 72148

== ENCOUNTER 2022-05-01 08:02 | Day surgery (SDC) | payer MEDICARE, OTHER ==
[2022-04-29 14:33] VITALS: BMI 36.6
--- NOTE | 2022-05-01 05:58 | P.GSHP ---
History of Present Illness H&P Date: 05/01/22 CHIEF COMPLAINT: GERD and colon screen HISTORY OF PRESENT ILLNESS: The patient is a 51-year-old female who presents with GI bleed, gastroesophageal reflux disease and need for colon screen. Upper and lower endoscopy were offered for further evaluation and management. PAST MEDICAL HISTORY: Please see list. PAST SURGICAL HISTORY: Please see list. MEDICATIONS: Please see list. ALLERGIES: Please see list. SOCIAL HISTORY: No illicit drug use FAMILY HISTORY: No reports of Crohn disease or ulcerative colitis. REVIEW OF ORGAN SYSTEMS: CONSTITUTIONAL: No reports of fevers or chills. PHYSICAL EXAM: VITAL SIGNS: Stable GENERAL: Well-developed pleasant in no acute distress. HEENT: No scleral icterus. Extraocular movements grossly intact. Moist buccal mucosa. NECK: Supple without lymphadenopathy. CHEST: Unlabored respirations. Equal bilateral excursions. CARDIOVASCULAR: Regular rate and rhythm. Distal 2+ pulses. ABDOMEN: Soft, nondistended. MUSCULOSKELETAL: No clubbing, cyanosis, or edema. ASSESSMENT: 1. Gastroesophageal reflux disease 2. Colon screen. 3. GI bleed PLAN: 1. Recommend proceeding with an upper and lower endoscopy Past Medical History Past Medical History: Asthma, Cancer, Heart Failure, Eye Disorder, Fibromyalgia, GERD/Reflux, GI Bleed, Hypertension, Myocardial Infarction ([place]), Musculoskeletal Disorder, Osteoarthritis ([place]), Renal Disease, Syncope, Thyroid Disorder Additional Past Medical History / Comment(s): "Cat bite to finger 3-4 weeks ago, was on 2 different antibiotics, getting better but still not healed, will be starting another antibiotic soon." Rectal bleeding Ee/Feb 2022. HX SKIN CANCER. ADRENAL INSUFFICENCY. POTS SYNDROME. DIABETES INSIPIDUS. 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 LEFT CERVICAL RADICULOPATHY/CERVICOGENIC HEADACHE, TINNITUS, INTERSTITAL CYSTITIS, IBS, BACK PAIN, Migraines. Last Myocardial Infarction Date:: December 29 2014 History of Any Multi-Drug Resistant Organisms: None Reported Past Surgical History: Back Surgery, Section, Joint Replacement, Orthopedic Surgery Additional Past Surgical History / Comment(s): ARTIFICIAL DISC IN C5,6,7,TITANIUM PLATE AND 4 SCREWS IN NECK, RT CARPALTUNNEL, HEMORRHOIDECTOMY, BRONCHOSCOPY, CERVIAL EPIDURAL STEROID INJECTION, LT KNEE ARTHROSCOPIC LATERAL FEMORAL CHONDRECTOMY/MEDIALFEMORAL CHONDRECTOMY/PATELLER CHONDROPLASTY/PARTIAL SYNOVECTOMY OF LATERAL AND PATELLOFEMORAL COMPARTMENTS (TOTAL OF 3 KNEE SX), RADIOFREQUENCY TX L5,-RT KNEE ARTHROSCOPY, EXPLORATORY LAP-Endometriosis, BILATERAL TOTAL KNEE REPLACEMENTS. Past Anesthesia/Blood Transfusion Reactions: Motion Sickness Additional Past Anesthesia/Blood Transfusion Reaction / Comment(s): CLAUSTERPHOBIA, VERTIGO IN PAST. MOTHER HAS DIFFICULTY WAKING UP. Past Psychological History: Anxiety, Depression, PTSD Smoking Status: Former smoker Past Alcohol Use History: None Reported Additional Past Alcohol Use History / Comment(s): STARTED SMOKING IN 1979, QUIT IN 2008, WAS A 3/4 PPD SMOKER. Past Drug Use History: None Reported - Past Family History Mother Family Medical History: Cancer, Hyperlipidemia, Hypertension Additional Family Medical History / Comment(s): RECTAL CANCER. Father Family Medical History: Hyperlipidemia, Hypertension Medications and Allergies Home Medications Medication Instructions Recorded Confirmed Type Sucralfate [Carafate] 1 gram PO QID 10/31/13 04/29/22 History Levothyroxine Sodium [Synthroid] 75 mcg PO MOTUWETHFRSA 04/19/14 04/29/22 History Nitroglycerin Sl Tabs [Nitrostat] 0.4 mg SL Q5M PRN 01/15/15 04/29/22 History Desmopressin Acetate 0.05 mg PO BID 07/17/15 04/29/22 History Hydrocortisone [Cortef] 10 mg PO DAILY 12/08/15 04/29/22 History ALPRAZolam [Xanax] 0.5 mg PO TID PRN 02/06/17 04/29/22 History HYDROcodone/APAP 7.5-325MG [[place] 1 tab PO TID PRN 04/07/17 04/29/22 History 7.5-325] Hydrocortisone [Cortef] 5 mg PO HS 01/11/19 04/29/22 History DULoxetine HCL [Cymbalta] 60 mg PO QAM 08/15/20 04/29/22 History Omeprazole 40 mg PO DAILY 08/15/20 04/29/22 History Amitriptyline HCl [Elavil] 25 mg PO HS PRN 02/09/21 04/29/22 History EPINEPHrine (Auto Inject) [Epipen] 0.3 mg IM ONCE PRN 02/09/21 04/29/22 History Rizatriptan Benzoate [Rizatriptan] 10 mg PO BID PRN 02/09/21 04/29/22 History busPIRone HCL [Buspar] 30 mg PO BID 08/16/21 04/29/22 History Levothyroxine Sodium [Synthroid] 37.5 mcg PO RODRIGUEZ 04/29/22 04/29/22 History Allergies Allergy/AdvReac Type Severity Reaction Status Date / Time morphine Allergy Anaphylaxis Verified 04/29/22 14:12 venom-honey bee Allergy Dyspnea Verified 04/29/22 14:12 [bee venom (honey bee)] blue dye AdvReac Mild HYPER Verified 04/29/22 14:12 FEELING
[~2022-05-01 08:02] MED LIST changes: -DEXAMETHASONE SOD PHOSPHATE 4 MG/ML 1 ML VIAL IV ONE; -MIDAZOLAM 2 MG/2 ML VIAL IV PRN; -ONDANSETRON 4 MG/2 ML VIAL IVP ONE; -SCOPOLAMINE 1.5MG/72HR PATCH TRANSDERM ONE; -fentaNYL (PF) 50 MCG/ML 2 ML AMP IV PRN
[2022-05-01 08:35] VITALS: RESP 16; TEMP 98.5
[2022-05-01 08:35] LABS: Glucose,Whole Blood 99 mg/dL (70-110)
[2022-05-01] MEDS ORDERED: LIDOCAINE 2% INJ 20 MG/ML (2 ML VIAL) ONE (09:02)
[2022-05-01] MEDS ORDERED: PROPOFOL 10 MG/ML 20 ML VIAL IV ONE (09:02)
--- NOTE | 2022-05-01 09:15 | P.PCN ---
Date of Procedure: 05/01/22 Description of Procedure: PREOPERATIVE DIAGNOSIS: Gastroesophageal reflux disease. Morbid obesity. POSTOPERATIVE DIAGNOSIS: Gastroesophageal reflux disease. Morbid obesity. Gastritis. OPERATION: Esophagogastroduodenoscopy with biopsies along antrum and duodenum SURGEON: Caitlin Osuna MD ANESTHESIA: MAC. INDICATIONS: The patient is a 51-year-old female who presents with reflux disease. Benefits and risks of the procedure were described. Informed consent was obtained. DESCRIPTION: The patient was brought into the endoscopy suite and laid in the left lateral decubitus position. An Olympus gastroscope was passed along the posterior oropharynx down to the distal esophagus where the squamocolumnar junction was encountered at 40 cm from the incisors. The stomach was entered and no bile reflux was found. Additional findings are listed below. Biopsies with cold forceps were obtained of the antrum. The first through third portion of the duodenum was examined. Retroflexion of the scope confirmed Hill grade 2 lower esophageal valve. The squamocolumnar junction demonstrated LA grade B erosive esophagitis. The stomach was desufflated. The patient tolerated the procedure well. FINDINGS: Squamocolumnar junction 38 cm from the incisors. Diaphragmatic hiatus at 38 cm. Hill grade 2 lower esophageal valve. LA grade B erosive esophagitis. Biopsies obtained of duodenal Chronic gastritis RECOMMENDATIONS: Upper endoscopy as needed.
--- NOTE | 2022-05-01 09:29 | P.PCN ---
Date of Procedure: 05/01/22 Description of Procedure: PREOPERATIVE DIAGNOSIS: Personal history colon polyps History of GI bleed Family history colon cancer POSTOPERATIVE DIAGNOSIS: Personal history colon polyps History of GI bleed Family history colon cancer Severe sigmoid diverticulosis OPERATION: Colonoscopy to the cecum, ileocecal valve and appendiceal orifice. SURGEON: Caitlin Osuna MD. ANESTHESIA: MAC. INDICATIONS: The patient is a 51-year-old female who presents personal history colon polyps and family history of colon cancer. Benefits and risks were described and informed consent was obtained. DESCRIPTION OF PROCEDURE: The patient had undergone Sutab prep. The patient had been brought into the operating room and laid in the left lateral decubitus position. After adequate intravenous sedation, the rectum was examined with 2% lidocaine jelly. No external hemorrhoids were encountered. The rectal tone was within normal limits. No lesions were palpated in the rectal vault. An Olympus colonoscope was advanced until the cecum, ileocecal valve and appendiceal orifice were clearly viewed. The prep was excellent. Scattered diverticulosis was severe sigmoid diverticulosis was encountered. No colonic polyps were found. No evidence of focal colitis was found. Retroflexion of the scope demonstrated grade 1 internal hemorrhoids without active bleeding or inflammation. The colon was desufflated. The patient had tolerated the procedure well. Withdrawal time was over 6 minutes. FINDINGS: Aronchick preparation quality scale 1 (1-5) Internal hemorrhoids, grade 1 No external prolapsed hemorrhoids. No arteriovenous malformations. No adenomatous polyps. No focal colitis. Severe sigmoid diverticulosis RECOMMENDATIONS: Lower endoscopy in 5 years2026 Plan - Discharge Summary Discharge Rx Participant: No New Discharge Prescriptions: Continue Sucralfate [Carafate] 1 gram PO QID Levothyroxine Sodium [Synthroid] 75 mcg PO MOTUWETHFRSA Nitroglycerin Sl Tabs [Nitrostat] 0.4 mg SL Q5M PRN PRN Reason: Chest Pain Desmopressin Acetate 0.05 mg PO BID Hydrocortisone [Cortef] 10 mg PO DAILY ALPRAZolam [Xanax] 0.5 mg PO TID PRN PRN Reason: Anxiety HYDROcodone/APAP 7.5-325MG [[place] 7.5-325] 1 tab PO TID PRN PRN Reason: Pain Hydrocortisone [Cortef] 5 mg PO HS Rizatriptan Benzoate [Rizatriptan] 10 mg PO BID PRN PRN Reason: Migraine Headache EPINEPHrine (Auto Inject) [Epipen] 0.3 mg IM ONCE PRN PRN Reason: Anaphylaxis busPIRone HCL [Buspar] 30 mg PO BID Levothyroxine Sodium [Synthroid] 37.5 mcg PO RODRIGUEZ hydrALAZINE HCL 50 mg PO Q12HR DULoxetine HCL [Cymbalta] 60 mg PO QAM Omeprazole 40 mg PO DAILY Amitriptyline HCl [Elavil] 25 mg PO HS PRN PRN Reason: Insomnia amLODIPine [Norvasc] 5 mg PO DAILY Discharge Medication List Sucralfate [Carafate] 1 gram PO QID 10/31/13 [History] Levothyroxine Sodium [Synthroid] 75 mcg PO MOTUWETHFRSA 04/19/14 [History] Nitroglycerin Sl Tabs [Nitrostat] 0.4 mg SL Q5M PRN 01/15/15 [History] Desmopressin Acetate 0.05 mg PO BID 07/17/15 [History] Hydrocortisone [Cortef] 10 mg PO DAILY 12/08/15 [History] ALPRAZolam [Xanax] 0.5 mg PO TID PRN 02/06/17 [History] HYDROcodone/APAP 7.5-325MG [[place] 7.5-325] 1 tab PO TID PRN 04/07/17 [History] Hydrocortisone [Cortef] 5 mg PO HS 01/11/19 [History] DULoxetine HCL [Cymbalta] 60 mg PO QAM 08/15/20 [History] Omeprazole 40 mg PO DAILY 08/15/20 [History] Amitriptyline HCl [Elavil] 25 mg PO HS PRN 02/09/21 [History] EPINEPHrine (Auto Inject) [Epipen] 0.3 mg IM ONCE PRN 02/09/21 [History] Rizatriptan Benzoate [Rizatriptan] 10 mg PO BID PRN 02/09/21 [History] busPIRone HCL [Buspar] 30 mg PO BID 08/16/21 [History] Levothyroxine Sodium [Synthroid] 37.5 mcg PO RODRIGUEZ 04/29/22 [History] amLODIPine [Norvasc] 5 mg PO DAILY 05/01/22 [History] hydrALAZINE HCL 50 mg PO Q12HR 05/01/22 [History] Follow up Appointment(s)/Referral(s): Caitlin Osuna MD [STAFF PHYSICIAN] - 05/13/22 Patient Instructions/Handouts: Diverticulosis Diet (GEN), Diverticulosis (DC), GERD (Gastroesophageal Reflux Disease) (ED) Activity/Diet/Wound Care/Special Instructions: Repeat colonoscopy 5 years, 2026 Discharge Disposition: HOME SELF-CARE
[2022-05-01 10:16] VITALS: BP 107/74; PULSE 81
== END 2022-05-01 10:18 | disposition home or self-care (01) ==
LOC: ORWHC2ENDO 08:02
PROVIDERS: ATTEND Surgery Plastic and Reconstructive Surgery
DX: K57.30 Diverticulosis of large intestine without perforation or abscess without bleeding (principal); K29.50 Unspecified chronic gastritis without bleeding; E66.01 Morbid (severe) obesity due to excess calories; F32.A Depression, unspecified; F41.9 Anxiety disorder, unspecified; I11.0 Hypertensive heart disease with heart failure; I25.2 Old myocardial infarction; I50.9 Heart failure, unspecified; J45.909 Unspecified asthma, uncomplicated; K21.9 Gastro-esophageal reflux disease without esophagitis; K58.9 Irritable bowel syndrome, unspecified; M79.7 Fibromyalgia; Z80.0 Family history of malignant neoplasm of digestive organs; Z82.49 Family history of ischemic heart disease and other diseases of the circulatory system; Z83.49 Family history of other endocrine, nutritional and metabolic diseases; Z85.828 Personal history of other malignant neoplasm of skin; Z87.19 Personal history of other diseases of the digestive system; Z87.891 Personal history of nicotine dependence; Z91.030 Bee allergy status
CPT/HCPCS: 88305; 45378; 43239; J2704; J2001

== ENCOUNTER → 2022-09-01 | Outpatient (CLI) | payer MEDICARE, OTHER ==
[2022-09-01 21:52] LABS: African American GFR (CKD) 74.5 (60.0-200.0); Albumin 4.2 g/dL (3.8-4.9); Albumin/Globulin Ratio 1.5 (1.60-3.17); BUN/Creat Ratio 20.1 Ratio (12.00-20.00); Blood Urea Nitrogen 20.1 mg/dL (9.0-27.0); Calcium 9.8 mg/dL (8.7-10.3); Globulin 2.8 g/dL (1.6-3.3); Non-African American GFR(CKD) 64.3 (60.0-200.0); Potassium 4.4 mmol/L (3.5-5.5); Total Bilirubin 0.3 mg/dL (0.30-1.20)
== END | disposition home or self-care (01) ==
LOC: LABWHC1 14:19
PROVIDERS: ATTEND Internal Medicine Interventional Cardiology
DX: I10 Essential (primary) hypertension (principal)
CPT/HCPCS: 36415; 80053

== ENCOUNTER → 2022-10-24 | Outpatient (CLI) | payer MEDICARE, OTHER ==
--- NOTE | 2022-10-25 09:13 | MR ---
EXAMINATION TYPE: MR brain wo cspine wo/w DATE OF EXAM: 10/24/2022 6:59 PM COMPARISON: MRI Pituitary 08/07/2017 MRI C-spine 03/15/2015. CLINICAL INDICATION:Female, 51 years old with history of G43.909; Migraines, neck pain /numbness in l eft arm/fingers. TECHNIQUE: Multi planar, multi sequence imaging was performed through the brain including: T1, T2, Inversion rec overy, Diffusion weighted imaging, and gradient echo imaging. No gadolinium was given. Multi planar, multi sequence imaging was performed utilizing: T1-weighted, T2-weighted, and turbo inv ersion recovery imaging of the cervical spine. IV Contrast: 10 cc Gadavist FINDINGS: The owens-white junctions, ventricular system, and cisterns appear unremarkable. Scattered foci of hi gh T2 signal intensity are seen within the periventricular white matter. Midline structures show no a bnormality. Diffusion-weighted imaging shows no evidence of restricted diffusion. The susceptibility weighted images do not reveal any evidence for micro-hemorrhage. Previously described possible microadenoma not well visualized on these sequences which are not custo mized for pituitary masses. The bone marrow signal is within normal limits. Paranasal sinuses and mastoid air cells: No significant paranasal sinus disease. Visualized orbits: Orbital contents are intact. Alignment: The cervical vertebral bodies have preserved heights. Alignment is within normal limits gi ruben patient positioning. Bones: Fixation hardware changes are seen throughout the spine. Most pronounced at C5-6 and C7. No ab normal bone marrow signal. No abnormal inversion recovery signal to suggest bony edema. No abnormal p ostcontrast enhancement. Cord: The spinal cord is unremarkable with regards to their signal intensity and morphology. Discs: Multilevel disc desiccation is present. C2-C3: No significant disc pathology. The spinal canal is patent. No neural foraminal stenosis. C3-C4: No significant disc pathology. The spinal canal is patent. Bilateral facet and uncovertebral joint arthropathy are present with mild right neural foraminal stenosis. The left neural foramen is p atent. C4-C5: A disc osteophyte complex is present with mild spinal canal stenosis. Bilateral facet and unc overtebral joint arthropathy are present with moderate bilateral neural foraminal stenosis. C5-C6: No significant disc pathology. The spinal canal is patent. No neural foraminal stenosis. C6-C7: No significant disc pathology. The spinal canal is patent. No neural foraminal stenosis. C7-T1: No significant disc pathology. The spinal canal is patent. No neural foraminal stenosis. Other: None. IMPRESSION: C SPINE: 1. No evidence for disc herniation or significant spinal canal stenosis. 2. Postsurgical changes with mild degeneration versus C4-C5 with moderate bilateral neural foraminal stenosis. No abnormal postcontrast enhancement. BRAIN: 1. Previously described possible microadenoma not well visualized on these sequences which are not c ustomized for pituitary masses. No evidence of intracranial mass or acute/subacute infarct. 2. Nonspecific white matter changes, not significantly changed from 2015 given slice selection.
== END | disposition home or self-care (01) ==
LOC: RADMRIMAIN 17:27
PROVIDERS: ATTEND Psychiatry & Neurology Neurology
DX: G43.909 Migraine, unspecified, not intractable, without status migrainosus (principal); M96.1 Postlaminectomy syndrome, not elsewhere classified; M47.814 Spondylosis without myelopathy or radiculopathy, thoracic region; M47.817 Spondylosis without myelopathy or radiculopathy, lumbosacral region; R07.9 Chest pain, unspecified; M48.02 Spinal stenosis, cervical region; R90.82 White matter disease, unspecified
CPT/HCPCS: 70551; 72156; A9585

== ENCOUNTER → 2022-11-19 | Outpatient (CLI) | payer MEDICARE, OTHER ==
--- NOTE | 2022-11-19 22:28 | MR ---
EXAMINATION TYPE: MR taryn/justin wo con DATE OF EXAM: 11/19/2022 10:18 PM COMPARISON: 10/02/21 HISTORY: Severe pain and muscle spasms mid back, low back, and SI Jts, Numbness/tingling into left le g Multiplanar MultiSpin echo imaging of the thoracic spine was performed. Disc spaces: No evidence for herniation protrusion or significant degenerative disc disease. Spinal canal: No evidence for canal stenosis. No intrinsic or extrinsic lesion. Thoracic spinal cord: Thoracic spinal cord is of normal caliber and signal. Paraspinal soft tissues: No evidence for paraspinal mass. No destructive lesions seen. Vertebral segments: No evidence for fracture or bony lesion. IMPRESSION: Negative study EXAMINATION TYPE: MR taryn/justin wo con DATE OF EXAM: 11/19/2022 10:18 PM COMPARISON: 10/02/21 HISTORY: Severe pain and muscle spasms mid back, low back, and SI Jts, Numbness/tingling into left le g Multiplanar, MultiSpin echo imaging of the lumbar spine was performed. L1-L2: Normal disc appearance without desiccation. No herniation, protrusion or disc bulging. No ca nal stenosis is present. Foramina are patent bilaterally. L2-L3: Normal disc appearance without desiccation. No herniation, protrusion or disc bulging. No ca nal stenosis is present. Foramina are patent bilaterally. L3-L4: Normal disc appearance without desiccation. No herniation, protrusion or disc bulging. No ca nal stenosis is present. Foramina are patent bilaterally. L4-L5: Normal disc appearance without desiccation. No herniation, protrusion or disc bulging. No ca nal stenosis is present. Foramina are patent bilaterally. L5-S1: Normal disc appearance without desiccation. No herniation, protrusion or disc bulging. No ca nal stenosis is present. Foramina are patent bilaterally. Lumbar segments are intact. No paraspinal masses are identified. Conus medullaris has a normal appe arance. IMPRESSION: 1. No discrete abnormality seen.
== END | disposition home or self-care (01) ==
LOC: RADMRIMAIN 20:55
PROVIDERS: ATTEND Psychiatry & Neurology Neurology
DX: M47.814 Spondylosis without myelopathy or radiculopathy, thoracic region (principal); M47.817 Spondylosis without myelopathy or radiculopathy, lumbosacral region; G43.909 Migraine, unspecified, not intractable, without status migrainosus; M96.1 Postlaminectomy syndrome, not elsewhere classified; M54.2 Cervicalgia; R07.9 Chest pain, unspecified
CPT/HCPCS: 72146; 72148

== ENCOUNTER 2023-01-15 08:07 | Day surgery (SDC) | payer MEDICARE, OTHER ==
--- NOTE | 2023-01-15 07:42 | P.GSHP ---
History of Present Illness H&P Date: 01/15/23 CHIEF COMPLAINT: GERD HISTORY OF PRESENT ILLNESS: The patient is a 52-year-old female who presents reports gastroesophageal reflux disease. Upper endoscopy was offered for further evaluation and management. PAST MEDICAL HISTORY: Please see list. PAST SURGICAL HISTORY: Please see list. MEDICATIONS: Please see list. ALLERGIES: Please see list. SOCIAL HISTORY: No illicit drug use FAMILY HISTORY: No reports of Crohn disease or ulcerative colitis. REVIEW OF ORGAN SYSTEMS: CONSTITUTIONAL: No reports of fevers or chills. GI: Denies any blood in stools or constipation. PHYSICAL EXAM: VITAL SIGNS: Stable GENERAL: Well-developed and pleasant in no acute distress. HEENT: No scleral icterus. Extraocular movements grossly intact. Moist buccal mucosa. NECK: Supple without lymphadenopathy. CHEST: Unlabored respirations. Equal bilateral excursions. CARDIOVASCULAR: Regular rate and rhythm. Distal 2+ pulses. ABDOMEN: Soft, nondistended. MUSCULOSKELETAL: No clubbing, cyanosis, or edema. ASSESSMENT: 1. Gastroesophageal reflux disease PLAN: 1. Recommend proceeding with an upper endoscopy Past Medical History Past Medical History: Asthma, Cancer, Heart Failure, Eye Disorder, Fibromyalgia, GERD/Reflux, Myocardial Infarction ([place]), Musculoskeletal Disorder, Osteoarthritis (OA), Renal Disease, Syncope, Thyroid Disorder Additional Past Medical History / Comment(s): SKIN CANCER, ADRENAL INSUFFICENCY. POTS SYNDROME. DIABETES INSIPIDUS. 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 Last Myocardial Infarction Date:: december 29 2014 History of Any Multi-Drug Resistant Organisms: None Reported Past Surgical History: Back Surgery, Section, Joint Replacement, Orthopedic Surgery Additional Past Surgical History / Comment(s): ARTIFICIAL DISC IN C5,6,7 , DINESH NIUM PLATE AND 4 SCREWS IN NECK. RT CARPAL TUNNEL. . HEMORRHOIDECTOMY. BRONCHOSCOPY.,CERVIAL EPIDURAL STEROID INJECTION, LT KNEE ARTHROSCOPIC LATERAL FEMORAL CHONDRECTOMY/MEDIALFEMORAL CHONDRECTOMY/PATELLER CHONDROPLASTY/PARTIAL SYNOVECTOMY OF LATERAL AND PATELLOFEMORAL COMPARTMENTS (TOTAL OF 3 KNEE SX), RADIOFREQUENCY TX L5,-RT KNEE SCOPE, EXPLORATORY LAP- ENDOmetriosis, TOTAL KNEE REPLACEMENT MARIA ELENA Past Anesthesia/Blood Transfusion Reactions: No Reported Reaction, Family History of Problems w/ Anesthesia, Motion Sickness Additional Past Anesthesia/Blood Transfusion Reaction / Comment(s): CLAUSTERPHOBIA, VERTIGO IN PAST. PATIENTS MOTHER HAS DIFFICULTY WAKING UP Past Psychological History: Anxiety, Depression, PTSD Additional Psychological History / Comment(s): . Smoking Status: Never smoker Past Alcohol Use History: Rare Additional Past Alcohol Use History / Comment(s): STARTED SMOKING 1980 QUIT 2008 WAS 3/4 PPD Past Drug Use History: None Reported - Past Family History Mother Family Medical History: Cancer, Hyperlipidemia, Hypertension Additional Family Medical History / Comment(s): RECTAL CANCER. Father Family Medical History: Hyperlipidemia, Hypertension Medications and Allergies Home Medications Medication Instructions Recorded Confirmed Type Levothyroxine Sodium [Synthroid] 75 mcg PO QAM 04/19/14 01/13/23 History Nitroglycerin Sl Tabs [Nitrostat] 0.4 mg SL Q5M PRN 01/15/15 01/13/23 History Desmopressin Acetate 0.05 mg PO BID 07/17/15 01/13/23 History Hydrocortisone [Cortef] 10 mg PO QAM 12/08/15 01/13/23 History ALPRAZolam [Xanax] 0.5 mg PO TID PRN 02/06/17 01/13/23 History HYDROcodone/APAP 7.5-325MG [[place] 1 tab PO TID PRN 04/07/17 01/13/23 History 7.5-325] Hydrocortisone [Cortef] 5 mg PO HS 01/11/19 01/13/23 History DULoxetine HCL [Cymbalta] 60 mg PO QAM 08/15/20 01/13/23 History Omeprazole 40 mg PO QAM 08/15/20 01/13/23 History Amitriptyline HCl [Elavil] 25 mg PO HS PRN 02/09/21 01/13/23 History EPINEPHrine (Auto Inject) [Epipen] 0.3 mg IM ONCE PRN 02/09/21 01/13/23 History Rizatriptan Benzoate [Rizatriptan] 10 mg PO BID PRN 02/09/21 01/13/23 History busPIRone HCL [Buspar] 30 mg PO BID 08/16/21 01/13/23 History amLODIPine [Norvasc] 5 mg PO QAM 05/01/22 01/13/23 History hydrALAZINE HCL 50 mg PO Q12HR 05/01/22 01/13/23 History DULoxetine HCL [Cymbalta] 30 mg PO QAM 01/13/23 01/13/23 History Allergies Allergy/AdvReac Type Severity Reaction Status Date / Time morphine Allergy Anaphylaxis Verified 01/13/23 10:19 venom-honey bee Allergy Dyspnea Verified 01/13/23 10:19 [bee venom (honey bee)] blue dye AdvReac Mild HYPER Verified 01/13/23 10:19 FEELING
[~2023-01-15 08:07] MED LIST changes: +LIDOCAINE 1% (10MG/ML) FOR IV START INTRADERMA PRN
[2023-01-15 08:56] VITALS: TEMP 96.7
[2023-01-15] MEDS ORDERED: PROPOFOL 10 MG/ML 20 ML VIAL IV ONE (09:12)
[2023-01-15] MEDS ORDERED: LIDOCAINE 2% INJ 20 MG/ML (2 ML VIAL) ONE (09:12)
--- NOTE | 2023-01-15 09:25 | P.PCN ---
Date of Procedure: 01/15/23 Description of Procedure: PREOPERATIVE DIAGNOSIS: Gastroesophageal reflux disease. Morbid obesity. POSTOPERATIVE DIAGNOSIS: Gastroesophageal reflux disease with erosive esophagitis Morbid obesity. Gastritis. OPERATION: Esophagogastroduodenoscopy with biopsies along antrum and duodenum SURGEON: Caitlin Osuna MD ANESTHESIA: MAC. INDICATIONS: The patient is a 52-year-old female who presents with reflux disease. Benefits and risks of the procedure were described. Informed consent was obtained. DESCRIPTION: The patient was brought into the endoscopy suite and laid in the left lateral decubitus position. An Olympus gastroscope was passed along the posterior oropharynx down to the distal esophagus where the squamocolumnar junction was encountered at 38 cm from the incisors. The stomach was entered and no bile reflux was found. Additional findings are listed below. Biopsies with cold forceps were obtained of the antrum. The first through third portion of the duodenum was examined. Retroflexion of the scope confirmed Hill grade 2 lower esophageal valve. The squamocolumnar junction demonstrated LA grade C erosive esophagitis. The stomach was desufflated. The patient tolerated the procedure well. FINDINGS: Squamocolumnar junction 38 cm from the incisors. Diaphragmatic hiatus at 38 cm. Hill grade 2 lower esophageal valve. LA grade C erosive esophagitis. Biopsies obtained of the duodenum. Chronic gastritis with biopsies obtained. RECOMMENDATIONS: Recommend anti-reflex operation for persistent reflux esophagitis Plan - Discharge Summary Discharge Rx Participant: No New Discharge Prescriptions: Continue Levothyroxine Sodium [Synthroid] 75 mcg PO QAM Nitroglycerin Sl Tabs [Nitrostat] 0.4 mg SL Q5M PRN PRN Reason: Chest Pain Desmopressin Acetate 0.05 mg PO BID Hydrocortisone [Cortef] 10 mg PO QAM ALPRAZolam [Xanax] 0.5 mg PO TID PRN PRN Reason: Anxiety HYDROcodone/APAP 7.5-325MG [[place] 7.5-325] 1 tab PO TID PRN PRN Reason: Pain Hydrocortisone [Cortef] 5 mg PO HS Rizatriptan Benzoate [Rizatriptan] 10 mg PO BID PRN PRN Reason: Migraine Headache EPINEPHrine (Auto Inject) [Epipen] 0.3 mg IM ONCE PRN PRN Reason: Anaphylaxis busPIRone HCL [Buspar] 30 mg PO BID hydrALAZINE HCL 50 mg PO Q12HR DULoxetine HCL [Cymbalta] 30 mg PO QAM Tamsulosin [Flomax] 0.4 mg PO DAILY Zolpidem [Ambien] 5 mg PO HS PRN PRN Reason: Insomnia Pravastatin Sodium [Pravachol] 20 mg PO DAILY DULoxetine HCL [Cymbalta] 60 mg PO QAM Omeprazole 40 mg PO QAM Amitriptyline HCl [Elavil] 25 mg PO HS PRN PRN Reason: Insomnia amLODIPine [Norvasc] 5 mg PO QAM Pregabalin 50 mg PO TID Discharge Medication List Levothyroxine Sodium [Synthroid] 75 mcg PO QAM 04/19/14 [History] Nitroglycerin Sl Tabs [Nitrostat] 0.4 mg SL Q5M PRN 01/15/15 [History] Desmopressin Acetate 0.05 mg PO BID 07/17/15 [History] Hydrocortisone [Cortef] 10 mg PO QAM 12/08/15 [History] ALPRAZolam [Xanax] 0.5 mg PO TID PRN 02/06/17 [History] HYDROcodone/APAP 7.5-325MG [[place] 7.5-325] 1 tab PO TID PRN 04/07/17 [History] Hydrocortisone [Cortef] 5 mg PO HS 01/11/19 [History] DULoxetine HCL [Cymbalta] 60 mg PO QAM 08/15/20 [History] Omeprazole 40 mg PO QAM 08/15/20 [History] Amitriptyline HCl [Elavil] 25 mg PO HS PRN 02/09/21 [History] EPINEPHrine (Auto Inject) [Epipen] 0.3 mg IM ONCE PRN 02/09/21 [History] Rizatriptan Benzoate [Rizatriptan] 10 mg PO BID PRN 02/09/21 [History] busPIRone HCL [Buspar] 30 mg PO BID 08/16/21 [History] amLODIPine [Norvasc] 5 mg PO QAM 05/01/22 [History] hydrALAZINE HCL 50 mg PO Q12HR 05/01/22 [History] DULoxetine HCL [Cymbalta] 30 mg PO QAM 01/13/23 [History] Pravastatin Sodium [Pravachol] 20 mg PO DAILY 01/15/23 [History] Pregabalin 50 mg PO TID 01/15/23 [History] Tamsulosin [Flomax] 0.4 mg PO DAILY 01/15/23 [History] Zolpidem [Ambien] 5 mg PO HS PRN 01/15/23 [History] Follow up Appointment(s)/Referral(s): Caitlin Osuna MD [STAFF PHYSICIAN] - 02/03/23 2:30 pm Patient Instructions/Handouts: GERD (Gastroesophageal Reflux Disease) (DC) Discharge Disposition: HOME SELF-CARE
[2023-01-15 09:45] VITALS: BP 132/85; PULSE 84; RESP 18
== END 2023-01-15 10:08 | disposition home or self-care (01) ==
LOC: ORWHC2ENDO 08:07
PROVIDERS: ATTEND Surgery Plastic and Reconstructive Surgery
DX: K21.00 Gastro-esophageal reflux disease with esophagitis, without bleeding (principal); K29.50 Unspecified chronic gastritis without bleeding; K44.9 Diaphragmatic hernia without obstruction or gangrene; E66.01 Morbid (severe) obesity due to excess calories; J45.909 Unspecified asthma, uncomplicated; M79.7 Fibromyalgia; I25.2 Old myocardial infarction; M19.90 Unspecified osteoarthritis, unspecified site; E07.9 Disorder of thyroid, unspecified; H57.9 Unspecified disorder of eye and adnexa; R55 Syncope and collapse; E23.2 Diabetes insipidus; Z85.828 Personal history of other malignant neoplasm of skin; E23.0 Hypopituitarism; I11.0 Hypertensive heart disease with heart failure; I50.9 Heart failure, unspecified; G90.A Postural orthostatic tachycardia syndrome [POTS]; J44.9 Chronic obstructive pulmonary disease, unspecified; K58.9 Irritable bowel syndrome, unspecified; F41.9 Anxiety disorder, unspecified; F32.9 Major depressive disorder, single episode, unspecified; G47.33 Obstructive sleep apnea (adult) (pediatric); Z87.891 Personal history of nicotine dependence; Z96.653 Presence of artificial knee joint, bilateral; Z98.890 Other specified postprocedural states; Z80.0 Family history of malignant neoplasm of digestive organs; Z83.49 Family history of other endocrine, nutritional and metabolic diseases; Z88.5 Allergy status to narcotic agent; Z91.030 Bee allergy status; Z82.49 Family history of ischemic heart disease and other diseases of the circulatory system; Z79.02 Long term (current) use of antithrombotics/antiplatelets; Z79.890 Hormone replacement therapy; Z79.891 Long term (current) use of opiate analgesic; Z79.899 Other long term (current) drug therapy
CPT/HCPCS: 88305; 43239; J2704; J2001

== ENCOUNTER → 2023-04-29 | Outpatient (CLI) | payer MEDICARE, OTHER ==
[2023-04-29 16:15] VITALS: BP 125/86; PULSE 80; TEMP 98.7; BMI 41.2
--- NOTE | 2023-04-29 16:44 | P.HPBAR ---
Bariatric H&P - History & Physicial H&P Date: 04/29/23 History & Physicial: Visit/CC: new patient Patient initial contact: Initial weight: Initial weight in pounds: Height: 5 ft 5 in Initial BMI: Last weight: Current weight: 112.491 kg Current weight in pounds: 248.00 Current BMI: 41.2 [place] body weight (based on NIH guidelines): 56.699 kg Excess body weight loss: The patient is a 52 year-old F who presents for Bariatric Assessment. DATE OF SERVICE: 04/29/23 REASON FOR CONSULTATION: Initial bariatric evaluation. HISTORY OF PRESENT ILLNESS: Noemi Griggs is a 52-year-old female who comes with lifelong morbid obesity. As a result of morbid obesity she has developed osteoarthritis of the knees, lower back, and hypertensive heart disease. She has tried dieting without improvement. Due to her medications, she has weight gain. She has severe gastroesophageal reflux disease. She is looking to the gastric bypass to address her reflux disease. At height of 5 feet 5 inches, her ideal body weight is 140 pounds. Her highest weight is 259 pounds, BMI 43.3. She comes in 248 pounds. Her body mass index is 41.3. She is 99 pounds overweight. PAST MEDICAL HISTORY: 1. Morbid obesity due to excess calories 2. Body mass index of 43.3, initial 3. Osteoarthritis of the knees. 4. Osteoarthritis of the lower back. 5. Hypertensive heart disease with congestive heart failure 6. Hypothyroidism 7. Adrenal insufficiency 8. Generalized anxiety disorder 9. Depressive disorder 10. Gastroesophageal reflux disease 11. Hypertensive heart disease 12. Hyperlipidemia 13. Chronic pain syndrome 14. Post traumatic stress disorder 15. Claustrophobic. 16. Asthma 17. Fibromyalgia 18. Myocardial infarction 20. Inguinal disease 21. 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 Adrenal insufficiency 24. 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 Endometriosis 27. Interstitial cystitis 28. Irritable bowel syndrome PAST SURGICAL HISTORY: 1. Multiple back surgeries 2. Right carpal tunnel syndrome 3. Bronchoscopy 4. Steroid injections 5. Left knee arthroscopy 6. Total knee replacement, bilateral HOME MEDICATIONS: Home Medications Medication Instructions Recorded Confirmed Levothyroxine Sodium [Synthroid] 75 mcg PO QAM 04/19/14 04/29/23 Nitroglycerin Sl Tabs [Nitrostat] 0.4 mg SL Q5M PRN 01/15/15 04/29/23 Desmopressin Acetate 0.05 mg PO BID 07/17/15 04/29/23 Hydrocortisone [Cortef] 10 mg PO QAM 12/08/15 04/29/23 ALPRAZolam [Xanax] 0.5 mg PO TID PRN 02/06/17 04/29/23 HYDROcodone/APAP 7.5-325MG [[place] 1 tab PO TID PRN 04/07/17 04/29/23 7.5-325] Hydrocortisone [Cortef] 5 mg PO HS 01/11/19 04/29/23 DULoxetine HCL [Cymbalta] 60 mg PO QAM 08/15/20 04/29/23 Omeprazole 40 mg PO QAM 08/15/20 04/29/23 Amitriptyline HCl [Elavil] 25 mg PO HS PRN 02/09/21 04/29/23 EPINEPHrine (Auto Inject) [Epipen] 0.3 mg IM ONCE PRN 02/09/21 04/29/23 Rizatriptan Benzoate [Rizatriptan] 10 mg PO BID PRN 02/09/21 04/29/23 busPIRone HCL [Buspar] 30 mg PO BID 08/16/21 04/29/23 amLODIPine [Norvasc] 5 mg PO QAM 05/01/22 04/29/23 hydrALAZINE HCL 50 mg PO Q12HR 05/01/22 04/29/23 DULoxetine HCL [Cymbalta] 30 mg PO QAM 01/13/23 04/29/23 Pravastatin Sodium [Pravachol] 20 mg PO DAILY 01/15/23 04/29/23 Pregabalin 50 mg PO TID 01/15/23 04/29/23 Tamsulosin [Flomax] 0.4 mg PO DAILY 01/15/23 04/29/23 Zolpidem [Ambien] 5 mg PO HS PRN 01/15/23 04/29/23 tiZANidine [Zanaflex] 4 mg PO Q8HR PRN 04/29/23 04/29/23 ALLERGIES: Allergies Allergy/AdvReac Type Severity Reaction Status Date / Time morphine Allergy Anaphylaxis Verified 04/29/23 15:59 venom-honey bee Allergy Dyspnea Verified 04/29/23 15:59 [bee venom (honey bee)] blue dye AdvReac Mild HYPER Verified 04/29/23 15:59 FEELING SOCIAL HISTORY: Past tobacco use. FAMILY HISTORY: No family history of ulcerative colitis disease or Crohn's disease. Family history of morbid obesity. No lupus in the family. No reports of stomach or esophageal cancer. REVIEW OF ORGAN SYSTEMS: CONSTITUTIONAL: At height of 5 feet 5 inches, her ideal body weight is 140 pounds. Her highest weight is 259 pounds, BMI 43.3. She comes in 248 pounds. Her body mass index is 41.3. She is 99 pounds overweight. HEENT: Denies any active troubles with vision or hearing. Has troubles with swallowing. ENDOCRINE: Has adrenal insufficiency. History of Bam syndrome. CARDIOVASCULAR: Past reports of palpitations or heart attacks or chest pain. Has hypertensive heart disease. RESPIRATORY: Has daytime somnolence. Has asthma. Has chronic obstructive pulmonary disease. GASTROINTESTINAL: Denies any bright red blood per rectum. No diarrhea. No constipation. Has gastroesophageal reflux disease. GENITOURINARY: No recent blood in urine MUSCULOSKELETAL: Has lower back pain and joint pain. Has osteoarthritis of the knees. NEURO: No headaches. No seizure disorders. Has neuropathy. PSYCH: Has depression. Has generalized anxiety disorder. RHEUMATOLOGIC: No lupus. No rheumatoid arthritis. HEMATOLOGIC: Denies any abnormal bleeding or bruising. SKIN: No rash. No skin cancer. PHYSICAL EXAM: VITAL SIGNS: Height 5 foot 5 inches, weight 248 pounds. BMI 41.3 Vital Signs Temp 98.7 F 04/29/23 15:58 Pulse 80 04/29/23 15:58 Resp BP 125/86 04/29/23 15:58 Pulse Ox FiO2 GENERAL: Well-developed in no acute distress. HEENT: No scleral icterus. Extraocular movements grossly intact. Hears conversational speech. No nasal drainage. NECK: Supple without lymphadenopathy. CHEST: Nonlabored respirations with equal bilateral excursions. CARDIOVASCULAR: Regular rate and regular rhythm. Distal 2+ pulses. ABDOMEN: Obese, soft, nontender, nondistended. MUSCULOSKELETAL: No clubbing, cyanosis. Gross strength 5/5 distal lower extremities. NEURO: No focal or lateralizing signs. Cranial nerves 2 through 12 grossly within normal limits. PSYCH: Appropriate affect. Alert and oriented to person, place and time. SKIN: Good skin turgor. Well perfused. ASSESSMENT: 1. Morbid obesity due to excess calories 2. Body mass index of 43.3, initial 3. Osteoarthritis of the knees. 4. Osteoarthritis of the lower back. 5. Hypertensive heart disease with congestive heart failure 6. Hypothyroidism 7. Adrenal insufficiency 8. Generalized anxiety disorder 9. Depressive disorder 10. Gastroesophageal reflux disease 11. Hypertensive heart disease 12. Hyperlipidemia 13. Chronic pain syndrome 14. Post traumatic stress disorder 15. Claustrophobic. 16. Asthma 17. Fibromyalgia 18. Myocardial infarction 20. Inguinal disease 21. 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 Adrenal insufficiency 24. 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 Endometriosis 27. Interstitial cystitis 28. Irritable bowel syndrome PLAN: 1. Surgical options including a band, gastric bypass, sleeve gastrectomy were described in detail. Alternatives such as gastric balloon including duodenal switch were described. She is looking into the gastric bypass to address gastroesophageal reflux disease. 2. Will need nephrology clearance. 3. Recommend a bariatric metabolic panel to evaluate for micro- including macronutrient deficiencies, except CBC and CMP. 4. For history of daytime somnolence, recommend evaluation and treatment for sleep apnea. 5. Dietary surveillance and counseling was reviewed. Increased protein intake over 65 grams daily advised. 6. Will need cardiac risk assessment. 7. Recommend medical risk assessment. 8. Psych assessment per insurance guidelines. 9. Recommend upper endoscopy. 10. Recommend 12-lead EKG. 11. Recommend esophagram Thank you for this consultation. Past Medical History Past Medical History: Asthma, Cancer, Heart Failure, Eye Disorder, Fibromyalgia, GERD/Reflux, Hypertension, Myocardial Infarction (OR), Musculoskeletal Disorder, Osteoarthritis (OA), Renal Disease, Syncope, Thyroid Disorder Additional Past Medical History / Comment(s): SKIN CANCER, ADRENAL INSUFFICENCY. POTS SYNDROME. DIABETES INSIPIDUS. 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 Last Myocardial Infarction Date:: december 29 2014 History of Any Multi-Drug Resistant Organisms: None Reported Past Surgical History: Back Surgery, Section, Cholecystectomy, Joint Replacement, Orthopedic Surgery Additional Past Surgical History / Comment(s): ARTIFICIAL DISC IN C5,6,7 , TITANIUM PLATE AND 4 SCREWS IN NECK. RT CARPAL TUNNEL. . HEMORRHOIDECTOMY. BRONCHOSCOPY.,CERVIAL EPIDURAL STEROID INJECTION, LT KNEE ARTHROSCOPIC LATERAL FEMORAL CHONDRECTOMY/MEDIALFEMORAL CHONDRECTOMY/PATELLER CHONDROPLASTY/PARTIAL SYNOVECTOMY OF LATERAL AND PATELLOFEMORAL COMPARTMENTS (TOTAL OF 3 KNEE SX), RADIOFREQUENCY TX L5,-RT KNEE SCOPE, EXPLORATORY LAP- ENDOmetriosis, TOTAL KNEE REPLACEMENT MARIA ELENA Past Anesthesia/Blood Transfusion Reactions: No Reported Reaction, Family History of Problems w/ Anesthesia, Motion Sickness Additional Past Anesthesia/Blood Transfusion Reaction / Comm: CLAUSTERPHOBIA, VERTIGO IN PAST. PATIENTS MOTHER HAS DIFFICULTY WAKING UP Past Psychological History: Anxiety, Depression, PTSD Additional Psychological History / Comment(s): . Smoking Status: Never smoker Past Alcohol Use History: Rare Additional Past Alcohol Use History / Comment(s): STARTED SMOKING 1979 QUIT 2008 WAS 3/4 PPD Past Drug Use History: None Reported - Past Family History Mother Family Medical History: Cancer, Hyperlipidemia, Hypertension Additional Family Medical History / Comment(s): RECTAL CANCER. Father Family Medical History: Hyperlipidemia, Hypertension Surgical - Exam Vital Signs Temp Pulse BP 98.7 F 80 125/86 04/29/23 15:58 04/29/23 15:58 04/29/23 15:58 Bariatric Checklist Checklist: Plan: Checklist: EGD: 1. Hiatal hernia: 2. H. Pylori: HgbA1c: Vitamin D: Smoking: Former smoker Primary care physician referral: Dr. Mondragon Psychiatry clearance: Cardiology clearance: Sleep study: Diet journal: VTE risk score: VTE risk level: Rehab needs at discharge:
== END ==
LOC: BARWHC3 15:09
PROVIDERS: ATTEND Surgery Plastic and Reconstructive Surgery
DX: E66.01 Morbid (severe) obesity due to excess calories (principal); C44.92 Squamous cell carcinoma of skin, unspecified; M17.0 Bilateral primary osteoarthritis of knee; M47.816 Spondylosis without myelopathy or radiculopathy, lumbar region; I11.0 Hypertensive heart disease with heart failure; E03.9 Hypothyroidism, unspecified; E27.40 Unspecified adrenocortical insufficiency; E23.2 Diabetes insipidus; F41.1 Generalized anxiety disorder; F32.A Depression, unspecified; K21.9 Gastro-esophageal reflux disease without esophagitis; E78.5 Hyperlipidemia, unspecified; G89.4 Chronic pain syndrome; F43.10 Post-traumatic stress disorder, unspecified; F40.240 Claustrophobia; K40.90 Unilateral inguinal hernia, without obstruction or gangrene, not specified as recurrent; J45.909 Unspecified asthma, uncomplicated; M79.7 Fibromyalgia; I21.9 Acute myocardial infarction, unspecified; G90.A Postural orthostatic tachycardia syndrome [POTS]; E23.0 Hypopituitarism; N80.9 Endometriosis, unspecified; N30.10 Interstitial cystitis (chronic) without hematuria; K58.9 Irritable bowel syndrome, unspecified; Z68.41 Body mass index [BMI] 40.0-44.9, adult; Z91.030 Bee allergy status; Z88.5 Allergy status to narcotic agent; Z91.041 Radiographic dye allergy status; Z87.891 Personal history of nicotine dependence
CPT/HCPCS: 99212

== ENCOUNTER → 2023-04-30 | Outpatient (CLI) | payer MEDICARE ==
[2023-04-30 09:21] LABS: INR 0.9 (<1.2); Partial Thromboplastin Time 22.8 sec (22.0-30.0); Prothrombin Time 9.7 sec (10.0-12.5)
[2023-04-30 16:15] LABS: Prealbumin 22.1 mg/dL (18.0-42.0)
[2023-04-30 16:38] LABS: % Iron Saturation 11.45 (12.00-45.00); Chol/HDL Ratio 2.28 Ratio; Ferritin 12.1 ng/mL (10.0-291.0); Iron 38 UG/DL (50-170); LDL Cholesterol,Calculated 62.5 mg/dL (0.0-131.0); Magnesium 2.3 mg/dL (1.5-2.4); Phosphorus 4.1 mg/dL (2.4-5.1); Total Iron Binding Capacity 332 UG/DL (228-460)
[2023-04-30 17:45] LABS: Urine Alcohol Negative (Negative); Urine Barbiturate Negative (Negative); Urine Cocaine Negative (Negative); Urine Methadone Negative (Negative); Urine Opiates Positive (Negative); Urine Phencyclidine Negative (Negative)
[2023-05-01 14:54] LABS: Zinc, Serum 60 ug/dL (60-130)
[2023-05-04 07:22] LABS: Anabasine Urine <2.0 ng/mL (<2.0)
[2023-05-05 06:22] LABS: Vit B1(Thiamine) 60 ug/L (38-122)
[2023-05-05 11:24] LABS: Vitamin A 48 ug/dL (38-106)
== END | disposition home or self-care (01) ==
LOC: LABWHC1 07:41
PROVIDERS: ATTEND Surgery Plastic and Reconstructive Surgery
DX: E66.01 Morbid (severe) obesity due to excess calories (principal); E89.1 Postprocedural hypoinsulinemia; D50.8 Other iron deficiency anemias; K91.2 Postsurgical malabsorption, not elsewhere classified; E44.0 Moderate protein-calorie malnutrition; E44.1 Mild protein-calorie malnutrition; E45 Retarded development following protein-calorie malnutrition; E46 Unspecified protein-calorie malnutrition; E55.9 Vitamin D deficiency, unspecified; K74.1 Hepatic sclerosis; N19 Unspecified kidney failure; T56.894A Toxic effect of other metals, undetermined, initial encounter; K50.90 Crohn's disease, unspecified, without complications; I49.8 Other specified cardiac arrhythmias; I45.10 Unspecified right bundle-branch block
CPT/HCPCS: 84255; 84134; 84425; 80061; 82607; 82728; 82525; 82746; 83540; 83550; 83735; 84100; 84443; 84590; 84630; 85610; 85730; 82306; 80306; 83970; 83036; 93005; 36415; G0480; 80323

== ENCOUNTER → 2023-06-08 | Outpatient (CLI) | payer MEDICARE, OTHER ==
[2023-06-08 13:36] VITALS: BMI 41.1
== END ==
LOC: BARWHC3 12:58
PROVIDERS: ATTEND Surgery Plastic and Reconstructive Surgery
DX: E66.01 Morbid (severe) obesity due to excess calories (principal); Z71.3 Dietary counseling and surveillance; Z68.41 Body mass index [BMI] 40.0-44.9, adult; Z88.5 Allergy status to narcotic agent; Z91.030 Bee allergy status; Z91.041 Radiographic dye allergy status; Z87.891 Personal history of nicotine dependence
CPT/HCPCS: 97804; 99211

== ENCOUNTER → 2023-06-30 | Outpatient (CLI) | payer MEDICARE ==
--- NOTE | 2023-06-30 17:47 | CA ---
Transthoracic Echo Report Name: Noemi Griggs Age: 52 Gender: F : 1970 Exam Date: 06/30/2023 15:08 Exam Location: [place] [facility] Ht (in): 61 Wt (lb): 250 Ordering Physician: Javon Jarrett MD ([id number]) Attending/Referring Phys: Marika Duran [facility] Wireless Operator [address] Procedure CPT: Indications: R06.02 SHORTNESS OF BREATH Cardiac Hx: Technical Quality: Technically difficult study Contrast 1: Total Dose (mL): Contrast 2: Total Dose (mL): MEASUREMENTS (Male / Female) Normal Values 2D ECHO LV Diastolic Diameter PLAX 4.6 cm 4.2 - 5.9 / 3.9 - 5.3 cm LV Systolic Diameter PLAX 3.1 cm IVS Diastolic Thickness 1.2 cm 0.6 - 1.0 / 0.6 - 0.9 cm LVPW Diastolic Thickness 0.6 cm 0.6 - 1.0 / 0.6 - 0.9 cm LV Relative Wall Thickness 0.4 Aortic Root Diameter 3.3 cm LA Systolic Diameter LX 3.7 cm 3.0 - 4.0 / 2.7 - 3.8 cm DOPPLER AV Peak Velocity 129.3 cm/s AV Peak Gradient 6.7 mmHg LVOT Peak Velocity 94.1 cm/s LVOT Peak Gradient 3.5 mmHg Mitral E Point Velocity 120.6 cm/s Mitral A Point Velocity 64.9 cm/s Mitral E to A Ratio 1.9 MV Deceleration Time 174.8 ms MV E' Velocity 18.1 cm/s Mitral E to MV E' Ratio 6.7 PV Peak Velocity 89.4 cm/s PV Peak Gradient 3.2 mmHg FINDINGS Left Ventricle Left ventricular ejection fraction is estimated at 55-60 %.normal left ventricular wall motion. Left ventricular cavity size normal. Mildly increased left ventricular wall thickness. Right Ventricle Normal right ventricular size and function. Right Atrium Right atrium not well visualized. Left Atrium Normal left atrial size. Mitral Valve No evidence for mitral valve regurgitation.structurally normal mitral valve. Aortic Valve Trileaflet aortic valve. No aortic valve stenosis or regurgitation. Tricuspid Valve No tricuspid regurgitation.structurally normal tricuspid valve. Pulmonic Valve Trace pulmonic regurgitation. Pericardium No pericardial effusion. Aorta Normal size aortic root and proximal ascending aorta. CONCLUSIONS Technically difficult study. Normal left ventricle size and systolic function Limited Doppler study with no significant abnormalities Previewed by: Dr. Leesa Dotson MD (Electronically Signed) Final Date: 30 June 2023 17:46
== END | disposition home or self-care (01) ==
LOC: RADECHMAIN 14:53
PROVIDERS: ATTEND Internal Medicine Clinical Cardiac Electrophysiology
DX: R06.02 Shortness of breath (principal)
CPT/HCPCS: 93306

== ENCOUNTER 2023-07-31 12:21 | Emergency (ER) | payer MEDICARE ==
--- NOTE | 2023-07-31 12:58 | ED ---
General Adult HPI - General Chief complaint: Neuro Symptoms/Deficit Stated complaint: dizziness,headache Time Seen by Provider: 07/31/23 12:34 Source: patient Mode of arrival: ambulatory Limitations: no limitations - History of Present Illness Initial comments: Dictation was produced using [employer] dictation software. please excuse any grammatical, word or spelling errors. Chief Complaint: 52-year-old female presents to the emergency department for chr onic headache dizziness and confusion History of Present Illness: Patient 52-year-old female she has multiple comorbidities. She states for the last 3 months she has been dealing with symptoms of frontal headache, dizziness, confusion and numbness to her left extremities. Patient states that the symptoms have been ongoing for several months. She called her neurologist and was called by the nurse told to come to the emergency department for further care. Patient states that the symptoms have been ongoing for months. Denies any acute symptoms. 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 The ROS documented in this emergency department record has been reviewed and confirmed by me. Those systems with pertinent positive or negative responses have been documented in the HPI. All other systems are other negative and/or noncontributory. - Related Data Home Medications Medication Instructions Recorded Confirmed Levothyroxine Sodium [Synthroid] 75 mcg PO QAM 04/19/14 04/29/23 Nitroglycerin Sl Tabs [Nitrostat] 0.4 mg SL Q5M PRN 01/15/15 04/29/23 Desmopressin Acetate 0.05 mg PO BID 07/17/15 04/29/23 Hydrocortisone [Cortef] 10 mg PO QAM 12/08/15 04/29/23 ALPRAZolam [Xanax] 0.5 mg PO TID PRN 02/06/17 04/29/23 HYDROcodone/APAP 7.5-325MG [[place] 1 tab PO TID PRN 04/07/17 04/29/23 7.5-325] Hydrocortisone [Cortef] 5 mg PO HS 01/11/19 04/29/23 DULoxetine HCL [Cymbalta] 60 mg PO QAM 08/15/20 04/29/23 Omeprazole 40 mg PO QAM 08/15/20 04/29/23 Amitriptyline HCl [Elavil] 25 mg PO HS PRN 02/09/21 04/29/23 EPINEPHrine (Auto Inject) [Epipen] 0.3 mg IM ONCE PRN 02/09/21 04/29/23 Rizatriptan Benzoate [Rizatriptan] 10 mg PO BID PRN 02/09/21 04/29/23 busPIRone HCL [Buspar] 30 mg PO BID 08/16/21 04/29/23 amLODIPine [Norvasc] 5 mg PO QAM 05/01/22 04/29/23 hydrALAZINE HCL 50 mg PO Q12HR 05/01/22 04/29/23 DULoxetine HCL [Cymbalta] 30 mg PO QAM 01/13/23 04/29/23 Pravastatin Sodium [Pravachol] 20 mg PO DAILY 01/15/23 04/29/23 Pregabalin 50 mg PO TID 01/15/23 04/29/23 Tamsulosin [Flomax] 0.4 mg PO DAILY 01/15/23 04/29/23 Zolpidem [Ambien] 5 mg PO HS PRN 01/15/23 04/29/23 tiZANidine [Zanaflex] 4 mg PO Q8HR PRN 04/29/23 04/29/23 Ergocalciferol [Vitamin D2 (1250 50,000 unit PO WEEKLY 05/19/23 05/19/23 Mcg = 75599 Iu)] Allergies Allergy/AdvReac Type Severity Reaction Status Date / Time morphine Allergy Anaphylaxis Verified 04/29/23 15:59 venom-honey bee Allergy Dyspnea Verified 04/29/23 15:59 [bee venom (honey bee)] blue dye AdvReac Mild HYPER Verified 04/29/23 15:59 FEELING Review of Systems ROS Statement: Those systems with pertinent positive or pertinent negative responses have been documented in the HPI. ROS Other: All systems not noted in ROS Statement are negative. Past Medical History Past Medical History: Asthma, Cancer, Heart Failure, Eye Disorder, Fibromyalgia, GERD/Reflux, Hypertension, Myocardial Infarction ([place]), Musculoskeletal Disorder, Osteoarthritis (OA), Renal Disease, Syncope, Thyroid Disorder Additional Past Medical History / Comment(s): SKIN CANCER, ADRENAL INSUFFICENCY. POTS SYNDROME. DIABETES INSIPIDUS. 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 Last Myocardial Infarction Date:: december 29 2014 History of Any Multi-Drug Resistant Organisms: None Reported Past Surgical History: Back Surgery, Section, Cholecystectomy, Joint Replacement, Orthopedic Surgery Additional Past Surgical History / Comment(s): ARTIFICIAL DISC IN C5,6,7 , TITANIUM PLATE AND 4 SCREWS IN NECK. RT CARPAL TUNNEL. . HEMORRHOIDECTOMY. BRONCHOSCOPY.,CERVIAL EPIDURAL STEROID INJECTION, LT KNEE ARTHROSCOPIC LATERAL FEMORAL CHONDRECTOMY/MEDIALFEMORAL CHONDRECTOMY/PATELLER CHONDROPLASTY/PARTIAL SYNOVECTOMY OF LATERAL AND PATELLOFEMORAL COMPARTMENTS (TOTAL OF 3 KNEE SX), RADIOFREQUENCY TX L5,-RT KNEE SCOPE, EXPLORATORY LAP- ENDOmetriosis, TOTAL KNEE REPLACEMENT MARIA ELENA Past Anesthesia/Blood Transfusion Reactions: No Reported Reaction, Family History of Problems w/ Anesthesia, Motion Sickness Additional Past Anesthesia/Blood Transfusion Reaction / Comment(s): CLAUSTERPHOBIA, VERTIGO IN PAST. PATIENTS MOTHER HAS DIFFICULTY WAKING UP Past Psychological History: Anxiety, Depression, PTSD Smoking Status: Never smoker Past Alcohol Use History: Rare Past Drug Use History: None Reported - Past Family History Mother Family Medical History: Cancer, Hyperlipidemia, Hypertension Additional Family Medical History / Comment(s): RECTAL CANCER. Father Family Medical History: Hyperlipidemia, Hypertension General Exam - General Exam Comments Initial Comments: PHYSICAL EXAM: General Impression: Alert and oriented x3, not in acute distress HEENT: Normocephalic atraumatic, extra-ocular movements intact, pupils equal and reactive to light bilaterally, mucous membranes moist. Cardiovascular: Heart regular rate and rhythm Chest: Able to complete full sentences, no retractions, no tachypnea Abdomen: abdomen soft, non-tender, non-distended, no organomegaly Musculoskeletal: Pulses present and equal in all extremities, no peripheral edema Motor: no focal deficits noted Neurological: CN II-XII grossly intact, no focal motor or sensory deficits noted Skin: Intact with no visualized rashes Psych: Normal affect and mood Limitations: no limitations Course Vital Signs 07/31/23 12:28 Temperature 98.5 F Pulse Rate 94 Respiratory 18 Rate Blood Pressure 122/81 O2 Sat by Pulse 97 Oximetry EKG Findings - EKG Comments: EKG Findings:: My EKG interpretation: Ventricular rate 82, sinus rhythm,. 06/01/1942, QRS 102, QTc 426. No IN prolongation, no QTC prolongation, no ST or T- wave changes noted. Overall, this EKG is unremarkable Medical Decision Making - Medical Decision Making Was pt. sent in by a medical professional or institution (, GUILLE, SOUVENIR ASSEMBLER, urgent care, hospital, or shelter...) When possible be specific @ -No Did you speak to anyone other than the patient for history (EMS, parent, family, police, friend...)? What history was obtained from this source @ -No Did you review nursing and triage notes (agree or disagree)? Why? @ -I reviewed and agree with nursing and triage notes Were old charts reviewed (outside hosp., previous admission, EMS record, old EKG, old radiological studies, urgent care reports/EKG's, shelter records)? Report findings @ -No old charts were reviewed Differential Diagnosis (chest pain, altered mental status, abdominal pain women, abdominal pain men, vaginal bleeding, musculoskeletal, weakness, fever, dyspnea, syncope, headache, dizziness, GI bleed, back pain, seizure, CVA, palpatations, mental health)? @ -Differential Headache: Migraine, tension, cluster, carbon monoxide, central venous thrombosis, pension karma temporal arteritis, acute closure glaucoma, intercranial hemorrhage, mastoiditis, sinusitis, head injury, this is not meant to be an all-inclusive list. EKG interpreted by me (3pts min.). @ -None done X-rays interpreted by me (1pt min.). @ -None done CT interpreted by me (1pt min.). @ -CT brain is nonacute U/S interpreted by me (1pt. min.). @ -None done What testing was considered but not performed or refused? (CT, X-rays, U/S, labs)? Why? @ -None What meds were considered but not given or refused? Why? @ -None Did you discuss the management of the patient with other professionals (professionals i.e. GUILLE Stacy, SOUVENIR ASSEMBLER, lab, RT, psych nurse, social work associate, motorcycle tester, teacher, air defence officer, case sealer)? Give summary @ -No Was smoking cessation discussed for >3mins.? @ -No Was critical care preformed (if so, how long)? @ -No Were there social determinants of health that impacted care today? How? (Homelessness, low income, unemployed, alcoholism, drug addiction, transportation, low edu. Level, literacy, decrease access to med. care, skilled nursing, rehab)? @ -No Was there de-escalation of care discussed even if they declined (Discuss DNR or withdrawal of care, Hospice)? DNR status @ -No What co-morbidities impacted this encounter? (DM, HTN, Smoking, COPD, CAD, Cancer, CVA, ARF, Chemo, Hep., AIDS, mental health diagnosis, sleep apnea, morb id obesity)? @ -None Was patient admitted / discharged? Hospital course, mention meds given and rou te, prescriptions, significant lab abnormalities, going to OR and other pertinent info. @ -52-year-old female presents with chronic headache dizziness and left-sided paresthesias. Vital signs stable. Patient establish care with neurology. Physical examination is benign. Patient no acute distress. Labs and imaging unremarkable. Patient given headache cocktail with resolution of symptoms. Guille sauer feels improved. Advised follow-up with neurologist. Undiagnosed new problem with uncertain prognosis? @ -No Drug Therapy requiring intensive monitoring for toxicity (Heparin, Nitro, Insulin, Cardizem)? @ -No Were any procedures done? @ -No Diagnosis/symptom? Acute, or Chronic, or Acute on Chronic? Uncomplicated (without systemic symptoms) or Complicated (systemic symptoms)? @ -Chronic headache Side effects of treatment? @ -No Exacerbation, Progression, or Severe Exacerbation? @ -No Poses a threat to life or bodily function? How? (Chest pain, USA, SC, pneumonia, PE, COPD, DKA, ARF, appy, cholecystitis, CVA, Diverticulitis, Homicidal, Suicidal, threat to staff... and all critical care pts) @ -No - Lab Data Result diagrams: 07/31/23 12:55 07/31/23 12:55 Lab Results 07/31/23 07/31/23 Range/Units 12:55 12:55 WBC 8.5 (3.8-10.6) k/uL RBC 4.45 (3.80-5.40) m/uL Hgb 12.9 (11.4-16.0) gm/dL Hct 39.3 (34.0-46.0) % MCV 88.3 (80.0-100.0) fL MCH 28.9 (25.0-35.0) pg MCHC 32.8 (31.0-37.0) g/dL RDW 15.0 (11.5-15.5) % Plt Count 344 (150-450) k/uL MPV 7.5 Neutrophils % 68 % Lymphocytes % 22 % Monocytes % 6 % Eosinophils % 2 % Basophils % 0 % Neutrophils # 5.7 (1.3-7.7) k/uL Lymphocytes # 1.9 (1.0-4.8) k/uL Monocytes # 0.5 (0-1.0) k/uL Eosinophils # 0.2 (0-0.7) k/uL Basophils # 0.0 (0-0.2) k/uL Sodium 137 (137-145) mmol/L Potassium 3.9 (3.5-5.1) mmol/L Chloride 104 (98-107) mmol/L Carbon Dioxide 24 (22-30) mmol/L Anion Gap 9 mmol/L BUN 16 (7-17) mg/dL Creatinine 1.11 H (0.52-1.04) mg/dL Est GFR (CKD-EPI)AfAm 65 (>60 ml/min/1.73 sqM) Est GFR (CKD-EPI)NonAf 57 (>60 ml/min/1.73 sqM) Glucose 107 H (74-99) mg/dL Calcium 8.9 (8.4-10.2) mg/dL Magnesium 2.0 (1.6-2.3) mg/dL Total Bilirubin 0.5 (0.2-1.3) mg/dL AST 29 (14-36) U/L ALT 25 (4-34) U/L Alkaline Phosphatase 114 (38-126) U/L Total Protein 6.7 (6.3-8.2) g/dL Albumin 4.1 (3.5-5.0) g/dL Disposition Clinical Impression: Chronic headache Disposition: HOME SELF-CARE Condition: Good Instructions (If sedation given, give patient instructions): Dizziness (ED) Is patient prescribed a controlled substance at d/c from ED?: No Referrals: Corby Mondragon MD [Primary Care Provider] - 1-2 days Time of Disposition: 14:41
[2023-07-31 13:11] LABS: ALT 25 U/L (4-34); AST 29 U/L (14-36); African American GFR (CKD) 65 (>60 ml/min/1.73 sqM); Albumin 4.1 g/dL (3.5-5.0); Alkaline Phosphatase 114 U/L (38-126); Anion Gap 9 mmol/L; Basophils % (A) 0 %; Blood Urea Nitrogen 16 mg/dL (7-17); Calcium 8.9 mg/dL (8.4-10.2); Carbon Dioxide 24 mmol/L (22-30); Chloride 104 mmol/L (98-107); Eosinophils # (A) 0.2 k/uL (0-0.7); Eosinophils % (A) 2 %; Glucose 107 mg/dL (74-99); HCT 39.3 % (34.0-46.0); HGB 12.9 gm/dL (11.4-16.0); Lymphocytes # (A) 1.9 k/uL (1.0-4.8); Lymphocytes % (A) 22 %; MCH 28.9 pg (25.0-35.0); MCHC 32.8 g/dL (31.0-37.0); MCV 88.3 fL (80.0-100.0); Mean Platelet Volume 7.5; Monocytes # (A) 0.5 k/uL (0-1.0); Monocytes % (A) 6 %; Neutrophils # (A) 5.7 k/uL (1.3-7.7); Neutrophils % (A) 68 %; Non-African American GFR(CKD) 57 (>60 ml/min/1.73 sqM); Platelet Count 344 k/uL (150-450); Potassium 3.9 mmol/L (3.5-5.1); RBC 4.45 m/uL (3.80-5.40); Sodium 137 mmol/L (137-145); Total Bilirubin 0.5 mg/dL (0.2-1.3); Total Protein 6.7 g/dL (6.3-8.2); WBC 8.5 k/uL (3.8-10.6)
[2023-07-31] MEDS: ONDANSETRON 4 MG/2 ML VIAL IVP STA (13:12)
[2023-07-31] MEDS: diphenhydrAMINE 50 MG/ML 1 ML VIAL IVP STA (13:12)
[2023-07-31] MEDS: SODIUM CHLORIDE 0.9% 1,000 ML IV STA (13:12)
[2023-07-31] MEDS: KETOROLAC 15 MG/ML 1 ML VIAL IVP STA (13:13)
--- NOTE | 2023-07-31 13:22 | CT ---
EXAMINATION TYPE: CT brain wo con DATE OF EXAM: 07/31/2023 COMPARISON: None available. HISTORY: headache CT DLP: 1157.8 mGycm Automated exposure control for dose reduction was used. FINDINGS: There is no acute intracranial hemorrhage, mass, mass effect, midline shift, extra-axial fluid collec tion or hydrocephalus. The owens-white distinction is intact without evidence of an acute major vessel infarct. The visualized paranasal sinuses and mastoid air cells are clear. IMPRESSION: NO ACUTE INTRACRANIAL PROCESS.
[2023-07-31 13:28] VITALS: TEMP 98.5
[2023-07-31] MEDS: HYDROmorphone 0.5 MG/0.5 ML SYRINGE IVP STA (14:06)
[2023-07-31 15:40] VITALS: BP 121/75; PULSE 76; RESP 12
== END 2023-07-31 15:12 | disposition home or self-care (01) ==
LOC: EC 12:21
DX: G89.29 Other chronic pain (principal); R51.9 Headache, unspecified; I11.0 Hypertensive heart disease with heart failure; I50.9 Heart failure, unspecified; I25.2 Old myocardial infarction; J45.909 Unspecified asthma, uncomplicated; K21.9 Gastro-esophageal reflux disease without esophagitis; M19.90 Unspecified osteoarthritis, unspecified site; M79.7 Fibromyalgia; E07.9 Disorder of thyroid, unspecified; F32.A Depression, unspecified; F41.9 Anxiety disorder, unspecified; Z79.890 Hormone replacement therapy; Z79.899 Other long term (current) drug therapy; Z88.5 Allergy status to narcotic agent; Z91.030 Bee allergy status; Z91.041 Radiographic dye allergy status
CPT/HCPCS: 36415; 93005; 80053; 83735; 85025; 70450; 99284; 96374; 96375 ×3; 96361; J1200; J2405; J1885; J1170

== ENCOUNTER → 2023-08-05 | Outpatient (CLI) | payer MEDICARE ==
[2023-08-05 11:16] LABS: HCT 42.6 % (37.2-46.3); HGB 13.2 g/dL (12.0-15.0); MCH 27.6 pg (27.0-32.0); MCV 88.9 FL (80.0-97.0); Mean Platelet Volume 9.8 FL (9.5-12.2); NRBC Per 100 WBC 0 X 10*3/uL (0.00-0.01); Platelet Count 403 X 10*3/uL (140-440); RBC 4.79 X 10*6/uL (4.10-5.20); RDW 15.2 % (11.5-14.5); WBC 6.62 X 10*3/uL (4.50-10.00)
[2023-08-05 11:25] LABS: ALT 23 U/L (8-44); AST 22 U/L (13-35); Albumin 4.2 g/dL (3.8-4.9); Albumin/Globulin Ratio 1.56 Ratio (1.60-3.17); Alkaline Phosphatase 120 U/L (41-126); Blood Urea Nitrogen 12.6 mg/dL (9.0-27.0); Calcium 9.8 mg/dL (8.7-10.3); Carbon Dioxide 30.6 mmol/L (21.6-31.8); Chloride 103 mmol/L (96-109); Chol/HDL Ratio 2.75 Ratio; Globulin 2.7 g/dL (1.6-3.3); Glucose 111 mg/dL (70-110); LDL Cholesterol,Calculated 94.2 mg/dL (0.0-131.0); Potassium 4.5 mmol/L (3.5-5.5); Sodium 142 mmol/L (135-145); Total Bilirubin 0.5 mg/dL (0.3-1.2); Total Protein 6.9 g/dL (6.2-8.2); VLDL Calculation 17.66 mg/dL (5.00-40.00)
== END | disposition home or self-care (01) ==
LOC: LABWHC1 07:41
PROVIDERS: ATTEND Family Medicine
DX: Z00.01 Encounter for general adult medical examination with abnormal findings (principal)
CPT/HCPCS: 36415; 80053; 80061; 85027

== ENCOUNTER 2023-10-01 11:21 | Emergency (ER) | payer MEDICARE ==
[2023-10-01 12:10] VITALS: RESP 18; TEMP 98.9
--- NOTE | 2023-10-01 12:18 | ED ---
General Adult HPI - General Chief complaint: Abdominal Pain Stated complaint: back pain Time Seen by Provider: 10/01/23 11:59 Source: patient Mode of arrival: ambulatory Limitations: no limitations - History of Present Illness Initial comments: Dictation was produced using [employer] dictation software. please excuse any grammatical, word or spelling errors. Chief Complaint: 52-year-old female with multiple comorbidities presents to the ER for acute on chronic right flank pain History of Present Illness: Patient 52-year-old female she has history of c hronic pain. She was told to come to the emergency department by her pain doctor, on [employer] primary care doctor. Patient states that she has chronic right-sided pain. States that it arises from her right upper back radiates to her right rib area. She has history of cholecystectomy. Patient denies any fevers. No nausea vomiting or diarrhea. Patient is currently being treated for urinary tract infection. The ROS documented in this emergency department record has been reviewed and confirmed by me. Those systems with pertinent positive or negative responses have been documented in the HPI. All other systems are other negative and/or noncontributory. - Related Data Home Medications Medication Instructions Recorded Confirmed Levothyroxine Sodium [Synthroid] 75 mcg PO QAM 04/19/14 04/29/23 Nitroglycerin Sl Tabs [Nitrostat] 0.4 mg SL Q5M PRN 01/15/15 04/29/23 Desmopressin Acetate 0.05 mg PO BID 07/17/15 04/29/23 Hydrocortisone [Cortef] 10 mg PO QAM 12/08/15 04/29/23 ALPRAZolam [Xanax] 0.5 mg PO TID PRN 02/06/17 04/29/23 HYDROcodone/APAP 7.5-325MG [[place] 1 tab PO TID PRN 04/07/17 04/29/23 7.5-325] Hydrocortisone [Cortef] 5 mg PO HS 01/11/19 04/29/23 DULoxetine HCL [Cymbalta] 60 mg PO QAM 08/15/20 04/29/23 Omeprazole 40 mg PO QAM 08/15/20 04/29/23 Amitriptyline HCl [Elavil] 25 mg PO HS PRN 02/09/21 04/29/23 EPINEPHrine (Auto Inject) [Epipen] 0.3 mg IM ONCE PRN 02/09/21 04/29/23 Rizatriptan Benzoate [Rizatriptan] 10 mg PO BID PRN 02/09/21 04/29/23 busPIRone HCL [Buspar] 30 mg PO BID 08/16/21 04/29/23 amLODIPine [Norvasc] 5 mg PO QAM 05/01/22 04/29/23 hydrALAZINE HCL 50 mg PO Q12HR 05/01/22 04/29/23 DULoxetine HCL [Cymbalta] 30 mg PO QAM 01/13/23 04/29/23 Pravastatin Sodium [Pravachol] 20 mg PO DAILY 01/15/23 04/29/23 Pregabalin 50 mg PO TID 01/15/23 04/29/23 Tamsulosin [Flomax] 0.4 mg PO DAILY 01/15/23 04/29/23 Zolpidem [Ambien] 5 mg PO HS PRN 01/15/23 04/29/23 tiZANidine [Zanaflex] 4 mg PO Q8HR PRN 04/29/23 04/29/23 Ergocalciferol [Vitamin D2 (1250 50,000 unit PO WEEKLY 05/19/23 05/19/23 Mcg = 20299 Iu)] Allergies Allergy/AdvReac Type Severity Reaction Status Date / Time morphine Allergy Anaphylaxis Verified 10/01/23 11:29 venom-honey bee Allergy Dyspnea Verified 10/01/23 11:29 [bee venom (honey bee)] blue dye AdvReac Mild HYPER Verified 10/01/23 11:29 FEELING Review of Systems ROS Statement: Those systems with pertinent positive or pertinent negative responses have been documented in the HPI. ROS Other: All systems not noted in ROS Statement are negative. Past Medical History Past Medical History: Asthma, Cancer, Heart Failure, Eye Disorder, Fibromyalgia, GERD/Reflux, Hypertension, Myocardial Infarction ([place]), Musculoskeletal Disorder, Osteoarthritis (OA), Renal Disease, Syncope, Thyroid Disorder Additional Past Medical History / Comment(s): SKIN CANCER, ADRENAL INSUFFICENCY. POTS SYNDROME. DIABETES INSIPIDUS. 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 Last Myocardial Infarction Date:: december 29 2014 History of Any Multi-Drug Resistant Organisms: None Reported Past Surgical History: Back Surgery, Section, Cholecystectomy, Joint Replacement, Orthopedic Surgery Additional Past Surgical History / Comment(s): ARTIFICIAL DISC IN C5,6,7 , TITANIUM PLATE AND 4 SCREWS IN NECK. RT CARPAL TUNNEL. . HEMORRHOIDECTOMY. BRONCHOSCOPY.,CERVIAL EPIDURAL STEROID INJECTION, LT KNEE ARTHROSCOPIC LATERAL FEMORAL CHONDRECTOMY/MEDIALFEMORAL CHONDRECTOMY/PATELLER CHONDROPLASTY/PARTIAL SYNOVECTOMY OF LATERAL AND PATELLOFEMORAL COMPARTMENTS (TOTAL OF 3 KNEE SX), RADIOFREQUENCY TX L5,-RT KNEE SCOPE, EXPLORATORY LAP- ENDOmetriosis, TOTAL KNEE REPLACEMENT MARIA ELENA Past Anesthesia/Blood Transfusion Reactions: No Reported Reaction, Family History of Problems w/ Anesthesia, Motion Sickness Additional Past Anesthesia/Blood Transfusion Reaction / Comment(s): CLAUSTERPHOBIA, VERTIGO IN PAST. PATIENTS MOTHER HAS DIFFICULTY WAKING UP Past Psychological History: Anxiety, Depression, PTSD Smoking Status: Never smoker Past Alcohol Use History: Rare Past Drug Use History: None Reported - Past Family History Mother Family Medical History: Cancer, Hyperlipidemia, Hypertension Additional Family Medical History / Comment(s): RECTAL CANCER. Father Family Medical History: Hyperlipidemia, Hypertension General Exam - General Exam Comments Initial Comments: PHYSICAL EXAM: General Impression: Alert and oriented x3, not in acute distress HEENT: Normocephalic atraumatic, extra-ocular movements intact, pupils equal and reactive to light bilaterally, mucous membranes moist. Cardiovascular: Heart regular rate and rhythm Chest: Able to complete full sentences, no retractions, no tachypnea Abdomen: abdomen soft, non-tender, non-distended, no organomegaly Musculoskeletal: Pulses present and equal in all extremities, no peripheral edema, positive right CVA pain Motor: no focal deficits noted Neurological: CN II-XII grossly intact, no focal motor or sensory deficits noted Skin: Intact with no visualized rashes Psych: Normal affect and mood Limitations: no limitations Course Vital Signs 10/01/23 10/01/23 11:28 12:32 Temperature 98.9 F Pulse Rate 110 H 91 Respiratory 18 18 Rate Blood Pressure 158/97 124/88 O2 Sat by Pulse 96 99 Oximetry Medical Decision Making - Medical Decision Making Was pt. sent in by a medical professional or institution (, PA, SUPERVISOR MAINTENANCE, urgent care, hospital, or [facility]...) When possible be specific @ -No Did you speak to anyone other than the patient for history (EMS, parent, family, police, friend...)? What history was obtained from this source @ -No Did you review nursing and triage notes (agree or disagree)? Why? @ -I reviewed and agree with nursing and triage notes Were old charts reviewed (outside hosp., previous admission, EMS record, old EKG, old radiological studies, urgent care reports/EKG's, [facility] records)? Report findings @ -No old charts were reviewed Differential Diagnosis (chest pain, altered mental status, abdominal pain women, abdominal pain men, vaginal bleeding, musculoskeletal, weakness, fever, dyspnea, syncope, headache, dizziness, GI bleed, back pain, seizure, CVA, palpatations, mental health)? @ -Differential Abdominal Pain Women: Appendicitis, Cholecystitis, diverticulosis, ischemic bowel, pancreatitis, hepatitis, UTI, gastroenteritis, AAA, incarcerated hernia, bowel obstruction, constipation, inflammatory bowel, hepatitis, peptic ulcer disease, splenic infarction, perforated viscus, vulvitis, ovarian torsion, PID, kidney stone, placenta abruption, this is not meant to be an all-inclusive list EKG interpreted by me (3pts min.). @ -None done X-rays interpreted by me (1pt min.). @ -Abdominal x-ray shows enteritis versus ileus CT interpreted by me (1pt min.). @ -CT scan of the ab pelvis shows no acute process. There is incidental finding of ovarian cyst. Patient notified of this and told to follow-up with her primary care doctor for further testing U/S interpreted by me (1pt. min.). @ -None done What testing was considered but not performed or refused? (CT, X-rays, U/S, labs)? Why? @ -None What meds were considered but not given or refused? Why? @ -None Did you discuss the management of the patient with other professionals (neil march i.e. , PA, SUPERVISOR MAINTENANCE, lab, RT, psych nurse, criminal justice social worker, finance manager, teacher, first officer and flight instructor, director case management)? Give summary @ -No Was smoking cessation discussed for >3mins.? @ -No Was critical care preformed (if so, how long)? @ -No Were there social determinants of health that impacted care today? How? (Homelessness, low income, unemployed, alcoholism, drug addiction, transportation, low edu. Level, literacy, decrease access to med. care, senior living, rehab)? @ -No Was there de-escalation of care discussed even if they declined (Discuss DNR or withdrawal of care, Hospice)? DNR status @ -No What co-morbidities impacted this encounter? (DM, HTN, Smoking, COPD, CAD, Cancer, CVA, ARF, Chemo, Hep., AIDS, mental health diagnosis, sleep apnea, morbid obesity)? @ -None Was patient admitted / discharged? Hospital course, mention meds given and route, prescriptions, significant lab abnormalities, going to OR and other pertinent info. @ -52-year-old female presents emergency department for right-sided flank pain. Vital signs upon arrival shows heart of 110, rest of vital signs within acceptable limits. Laboratory evaluation obtained found to be within acceptable limits. Urinalysis negative. X-ray concerning for ileus versus enteritis. CT scan ordered showing no acute processes. There is incidental finding of right ovarian cyst. Patient was notified of this told to follow-up with her primary doctor. Undiagnosed new problem with uncertain prognosis? @ -No Drug Therapy requiring intensive monitoring for toxicity (Heparin, Nitro, Insulin, Cardizem)? @ -No Were any procedures done? @ -No Diagnosis/symptom? Acute, or Chronic, or Acute on Chronic? Uncomplicated (without systemic symptoms) or Complicated (systemic symptoms)? @ -Flank pain Side effects of treatment? @ -No Exacerbation, Progression, or Severe Exacerbation? @ -No Poses a threat to life or bodily function? How? (Chest pain, [place], [place], pneumonia, PE, COPD, DKA, ARF, appy, cholecystitis, CVA, Diverticulitis, Homicidal, Suicidal, threat to staff... and all critical care pts) @ -No - Lab Data Result diagrams: 10/01/23 12:29 10/01/23 12:29 Lab Results 10/01/23 10/01/23 10/01/23 Range/Units 12:07 12:29 12:29 WBC 7.9 (3.8-10.6) k/uL RBC 5.40 (3.80-5.40) m/uL Hgb 15.0 (11.4-16.0) gm/dL Hct 46.9 H (34.0-46.0) % MCV 86.8 (80.0-100.0) fL MCH 27.8 (25.0-35.0) pg MCHC 32.0 (31.0-37.0) g/dL RDW 14.6 (11.5-15.5) % Plt Count 363 (150-450) k/uL MPV 7.3 Neutrophils % 79 % Lymphocytes % 11 % Monocytes % 6 % Eosinophils % 2 % Basophils % 1 % Neutrophils # 6.2 (1.3-7.7) k/uL Lymphocytes # 0.9 L (1.0-4.8) k/uL Monocytes # 0.4 (0-1.0) k/uL Eosinophils # 0.1 (0-0.7) k/uL Basophils # 0.1 (0-0.2) k/uL Sodium 140 (137-145) mmol/L Potassium 4.7 (3.5-5.1) mmol/L Chloride 106 (98-107) mmol/L Carbon Dioxide 25 (22-30) mmol/L Anion Gap 9 mmol/L BUN 12 (7-17) mg/dL Creatinine 1.07 H (0.52-1.04) mg/dL Est GFR (CKD-EPI)AfAm 68 (>60 ml/min/1.73 sqM) Est GFR (CKD-EPI)NonAf 59 (>60 ml/min/1.73 sqM) Glucose 112 H (74-99) mg/dL Calcium 9.3 (8.4-10.2) mg/dL Total Bilirubin 0.6 (0.2-1.3) mg/dL AST 35 (14-36) U/L ALT 28 (4-34) U/L Alkaline Phosphatase 114 (38-126) U/L Total Protein 7.1 (6.3-8.2) g/dL Albumin 4.1 (3.5-5.0) g/dL Lipase 110 (23-300) U/L Urine Color Light Yellow Urine Appearance Clear (Clear) Urine pH 6.0 (5.0-8.0) Ur Specific [place] 1.015 (1.001-1.035) Urine Protein Negative (Negative) Urine Glucose (UA) Negative (Negative) Urine Ketones Trace H (Negative) Urine Blood Negative (Negative) Urine Nitrite Negative (Negative) Urine Bilirubin Negative (Negative) Urine Urobilinogen <2.0 (<2.0) mg/dL Ur Leukocyte Esterase Negative (Negative) Disposition Clinical Impression: Flank pain Disposition: HOME SELF-CARE Condition: Good Instructions (If sedation given, give patient instructions): Flank Pain (ED) Is patient prescribed a controlled substance at d/c from ED?: No Referrals: Corby Mondragon MD [Primary Care Provider] - 1-2 days Time of Disposition: 14:03
[2023-10-01] MEDS: HYDROmorphone 1 MG/ML 1 ML SYRINGE IVP STA (12:34)
[2023-10-01 12:39] LABS: Appearance,Urine Clear (Clear); Bilirubin,Urine Negative (Negative); Blood,Urine Negative (Negative); Color,Urine Light Yellow; Glucose,Urine (UA) Negative (Negative); Ketones,Urine Trace (Negative); Leukocyte Esterase,Urine Negative (Negative); Nitrite,Urine Negative (Negative); Protein,Urine Negative (Negative); Specific Gravity,Urine 1.015 (1.001-1.035); Urobilinogen,Urine <2.0 mg/dL (<2.0)
[2023-10-01 12:39] LABS: Basophils # (A) 0.1 k/uL (0-0.2); Basophils % (A) 1 %; Eosinophils # (A) 0.1 k/uL (0-0.7); Eosinophils % (A) 2 %; HCT 46.9 % (34.0-46.0); Lymphocytes # (A) 0.9 k/uL (1.0-4.8); Lymphocytes % (A) 11 %; MCH 27.8 pg (25.0-35.0); MCV 86.8 fL (80.0-100.0); Mean Platelet Volume 7.3; Monocytes # (A) 0.4 k/uL (0-1.0); Monocytes % (A) 6 %; Neutrophils # (A) 6.2 k/uL (1.3-7.7); Neutrophils % (A) 79 %; Platelet Count 363 k/uL (150-450); RDW 14.6 % (11.5-15.5); WBC 7.9 k/uL (3.8-10.6)
[2023-10-01 12:50] LABS: ALT 28 U/L (4-34); AST 35 U/L (14-36); African American GFR (CKD) 68 (>60 ml/min/1.73 sqM); Albumin 4.1 g/dL (3.5-5.0); Alkaline Phosphatase 114 U/L (38-126); Anion Gap 9 mmol/L; Blood Urea Nitrogen 12 mg/dL (7-17); Calcium 9.3 mg/dL (8.4-10.2); Carbon Dioxide 25 mmol/L (22-30); Chloride 106 mmol/L (98-107); Glucose 112 mg/dL (74-99); Lipase 110 U/L (23-300); Non-African American GFR(CKD) 59 (>60 ml/min/1.73 sqM); Potassium 4.7 mmol/L (3.5-5.1); Sodium 140 mmol/L (137-145); Total Bilirubin 0.6 mg/dL (0.2-1.3); Total Protein 7.1 g/dL (6.3-8.2)
--- NOTE | 2023-10-01 13:06 | XR ---
EXAMINATION TYPE: XR abdomen 1V DATE OF EXAM: 10/01/2023 Comparison: None Clinical History: 52-year-old female right flank pain Findings: Lung bases are clear. No evidence for free intraperitoneal air. No dilated small bowel. Small air-fluid levels are present in the right side of the abdomen. No diffe rential air-fluid levels seen. Some scattered small bowel air is present. Mild overall stool burden. Round calcification in the left side of the pelvis measuring 5 mm likely phlebolith. Impression: 1. No evidence for free air. Overall nonobstructive bowel gas pattern. 2. Small air-fluid levels in the right side of the abdomen could be transient or could reflect a marvin onal ileus or enteritis.
--- NOTE | 2023-10-01 13:57 | CT ---
EXAMINATION TYPE: CT abdomen pelvis w con DATE OF EXAM: 10/01/2023 COMPARISON: 08/22/2021 HISTORY: RIGHT FLANK PAIN X1 WEEK CT DLP: 1879.9 mGycm Automated exposure control for dose reduction was used. TECHNIQUE: Helical acquisition of images was performed from the lung bases through the pelvis. CONTRAST: Performed without Oral Contrast and with IV Contrast, patient injected with 80 mL of Isovue 300. FINDINGS: The lung bases are clear. There are surgical absence of the gallbladder. There is no biliary ductal dilatation. There is no focal mass or organomegaly involving the liver, pancreas, spleen or adrenal glands. There is moderate fatty infiltration liver with a focal area of fatty sparing superior to the gallbladder fossa. There is no solid renal mass or hydronephrosis and there is homogeneous contrast enhancement of the r enal parenchyma. The caliber the abdominal aorta is normal is no retroperitoneal adenopathy or hemorr franci. The bowel loops are normal in caliber and there is no evidence of dilatation or obstruction. No infla mmatory changes are identified in the bowel wall or mesentery. There is mild diverticulosis of the si gmoid colon without CT evidence of diverticulitis. There is no free intraperitoneal air or fluid. There is a 3.1 cm cystic mass in the region the right adnexa. Follow-up pelvic ultrasound in 4-6 week s is recommended to demonstrate resolution and rule out malignancy. The osseous structures and soft tissues are intact. IMPRESSION: 1. 3.1 cm cystic mass in the right adnexa. Follow-up pelvic ultrasound in 4-6 weeks is recommended to demonstrate resolution and rule out malignancy. 2. Moderate fatty infiltration liver.
[2023-10-01 14:27] VITALS: BP 127/80; PULSE 92
== END 2023-10-01 14:21 | disposition home or self-care (01) ==
LOC: EC 11:21
DX: K76.0 Fatty (change of) liver, not elsewhere classified (principal); Z91.030 Bee allergy status; Z88.5 Allergy status to narcotic agent; Z91.018 Allergy to other foods; Z90.49 Acquired absence of other specified parts of digestive tract
CPT/HCPCS: 36415; 80053; 83690; 85025; 81003; 74018; 74177; 99284; 96374; J1170; Q9967

== ENCOUNTER → 2023-10-28 | Outpatient (CLI) | payer MEDICARE ==
[2023-10-28 16:15] VITALS: BP 125/86; PULSE 80; TEMP 98.7; BMI 41.1
--- NOTE | 2023-10-28 17:07 | P.BASOAP ---
Subjective Progress Note Date: 10/28/23 DATE OF SERVICE: 10/28/23 CHIEF COMPLAINT: Morbid obesity HISTORY OF PRESENT ILLNESS: Noemi Griggs is a 52-year-old female who comes with lifelong morbid obesity. She still reports moderate to severe gastroesophageal reflux disease. As result of her morbid obesity, she has developed osteoarthritis, hypertensive heart disease. She does not have a scale at home. She has completed medical risk assessment, cardiac risk assessment, including bariatric assessment. She presents for gastric bypass. At height of 5 feet 5 inches, her ideal body weight is 149 pounds. Her highest weight is 259 pounds, BMI 43.3. She comes in 246 pounds from 248 pounds, 6 months. She has lost 2 pounds in 6 months. Her body mass index is 41.3. She is 97 pounds overweight. PAST MEDICAL HISTORY: 1. Morbid obesity due to excess calories 2. Body mass index of 43.3, initial 3. Osteoarthritis of the knees. 4. Osteoarthritis of the lower back. 5. Congestive heart failure 6. Hypothyroidism 7. Adrenal insufficiency 8. Generalized anxiety disorder 9. Depressive disorder 10. Gastroesophageal reflux disease 11. Hypertensive heart disease 12. Hyperlipidemia 13. Chronic pain syndrome 14. Post traumatic stress disorder 15. Claustrophobic. 16. Asthma 17. Fibromyalgia 18. Myocardial infarction 20. Inguinal disease 21. 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 Adrenal insufficiency 24. 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 Endometriosis 27. Interstitial cystitis 28. Irritable bowel syndrome PAST SURGICAL HISTORY: 1. Multiple back surgeries 2. Right carpal tunnel syndrome 3. Bronchoscopy 4. Steroid injections 5. Left knee arthroscopy 6. Total knee replacement, bilateral HOME MEDICATIONS: Home Medications Medication Instructions Recorded Confirmed Levothyroxine Sodium [Synthroid] 75 mcg PO QAM 04/19/14 12/09/23 Nitroglycerin Sl Tabs [Nitrostat] 0.4 mg SL Q5M PRN 01/15/12/09/23 Hydrocortisone [Cortef] 10 mg PO QAM 12/08/15 12/09/23 ALPRAZolam [Xanax] 0.5 mg PO TID PRN 02/06/17 12/09/23 HYDROcodone/APAP 7.5-325MG [[place] 1 tab PO TID PRN 04/07/17 12/09/23 7.5-325] Hydrocortisone [Cortef] 5 mg PO HS 01/11/19 12/09/23 EPINEPHrine (Auto Inject) [Epipen] 0.3 mg IM ONCE PRN 02/09/21 12/09/23 Rizatriptan Benzoate [Rizatriptan] 10 mg PO BID PRN 02/09/21 12/09/23 Pregabalin 50 mg PO TID 01/15/23 12/09/23 Tamsulosin [Flomax] 0.4 mg PO DAILY 01/15/23 12/09/23 Zolpidem [Ambien] 5 mg PO HS PRN 01/15/23 12/09/23 Meclazine 1 tab PO TID PRN 11/27/23 12/09/23 Amitriptyline HCl 25 mg PO HS 12/09/23 12/09/23 DULoxetine HCL [Cymbalta] 30 mg PO DAILY 12/09/23 12/09/23 DULoxetine HCL [Cymbalta] 60 mg PO DAILY 12/09/23 12/09/23 Desmopressin Acetate [Ddavp] 0.1 mg PO BID 12/09/23 12/09/23 busPIRone HCL [Buspar] 30 mg PO BID 12/09/23 12/09/23 Omeprazole 40 mg PO BID 12/10/23 12/10/23 Sucralfate [Carafate] 1 gram PO BID 12/10/23 12/10/23 Previous Rx's Medication Instructions Recorded Omeprazole [PriLOSEC] 40 mg PO DAILY #30 cap 12/02/23 Ondansetron Odt [Zofran Odt] 4 mg PO Q8HR PRN #9 tab 12/02/23 Simethicone 40 mg/0.6 ml Drops 40 mg PO PCHS PRN #30 ml 12/02/23 [Mylicon Drops] Triamcinolone Acetonide 1 applic TOPICAL TID #60 ml 12/09/23 [Triamcinolone Acetonide 0.025%] ALLERGIES: Allergies Allergy/AdvReac Type Severity Reaction Status Date / Time morphine Allergy Anaphylaxis Verified 12/09/23 13:27 venom-honey bee Allergy Dyspnea Verified 12/09/23 13:27 [bee venom (honey bee)] blue dye AdvReac Mild HYPER Verified 12/09/23 13:27 FEELING SOCIAL HISTORY: Past tobacco use. FAMILY HISTORY: No family history of ulcerative colitis disease or Crohn's disease. Family history of morbid obesity. No lupus in the family. No reports of stomach or esophageal cancer. REVIEW OF ORGAN SYSTEMS: CONSTITUTIONAL: At height of 5 feet 5 inches, her ideal body weight is 140 pounds. Her highest weight is 259 pounds, BMI 43.3. She comes in 248 pounds. Her body mass index is 41.3. She is 99 pounds overweight. HEENT: Denies any active troubles with vision or hearing. Has troubles with swallowing. ENDOCRINE: Has adrenal insufficiency. History of Bam syndrome. CARDIOVASCULAR: Past reports of palpitations or heart attacks or chest pain. Has hypertensive heart disease. RESPIRATORY: Has daytime somnolence. Has asthma. Has chronic obstructive pulmonary disease. GASTROINTESTINAL: Denies any bright red blood per rectum. No diarrhea. No constipation. Has gastroesophageal reflux disease. GENITOURINARY: No recent blood in urine MUSCULOSKELETAL: Has lower back pain and joint pain. Has osteoarthritis of the knees. NEURO: No headaches. No seizure disorders. Has neuropathy. PSYCH: Has depression. Has generalized anxiety disorder. RHEUMATOLOGIC: No lupus. No rheumatoid arthritis. HEMATOLOGIC: Denies any abnormal bleeding or bruising. SKIN: No rash. No skin cancer. PHYSICAL EXAM: VITAL SIGNS: Height 5 foot 5 inches, weight 246 pounds. BMI 40.9 Vital Signs Temp 98.7 F 10/28/23 16:12 Pulse 80 10/28/23 16:12 Resp BP 125/86 10/28/23 16:12 Pulse Ox FiO2 GENERAL: Well-developed in no acute distress. HEENT: No scleral icterus. Extraocular movements grossly intact. Hears conversational speech. No nasal drainage. NECK: Supple without lymphadenopathy. CHEST: Nonlabored respirations with equal bilateral excursions. CARDIOVASCULAR: Regular rate and regular rhythm. Distal 2+ pulses. ABDOMEN: Obese, soft, nontender, nondistended. MUSCULOSKELETAL: No clubbing, cyanosis. NEURO: No focal or lateralizing signs. Cranial nerves 2 through 12 grossly within normal limits. PSYCH: Appropriate affect. Alert and oriented to person, place and time. SKIN: Good skin turgor. Well perfused. ASSESSMENT: 1. Morbid obesity due to excess calories 2. Body mass index of 43.3, initial to 40.9 3. Osteoarthritis of the knees. 4. Osteoarthritis of the lower back. 5. Hypertensive heart disease with congestive heart failure 6. Hypothyroidism 7. Adrenal insufficiency 8. Generalized anxiety disorder 9. Depressive disorder 10. Gastroesophageal reflux disease 11. Hypertensive heart disease 12. Hyperlipidemia 13. Chronic pain syndrome 14. Post traumatic stress disorder 15. Claustrophobic. 16. Asthma 17. Fibromyalgia 18. Myocardial infarction 20. Inguinal disease 21. 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 Adrenal insufficiency 24. 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 Endometriosis 27. Interstitial cystitis 28. Irritable bowel syndrome PLAN: 1. Bariatric options between a sleeve, band and a Molly-en-Y gastric bypass were reviewed in detail. The patient elected for gastric bypass. Robotic assisted approach described. 2. The [place] [facility] Data was also reviewed with benefits and risks as described. 3. An 8 page second-generation bariatric consent form was reviewed in detail including potential of bleeding, infection, leaks, adequate weight loss, nutritional deficiencies which the patient demonstrated understanding of the risks. 4. A 2 week high-protein low caloric 800 kcal diet described to address hepatomegaly. 5. Preoperative labs including complete metabolic panel and CBC with type and screen recommended. 6. DVT prophylaxis per [place] [facility]. 7. Antibiotic prophylaxis. 8. Inpatient hospitalization anticipated for more than 2 nights. 9. All questions and concerns were addressed with the patient. 10. The patient is at elevated risk for perioperative complications with sleep apnea and hypertensive heart disease. 11. Overall, patient has expressed understanding of bariatric care including postoperative diet and commitment of lifestyle. Patient should benefit from surgical intervention for correction of morbid obesity. 12. She is elevated risk due to pre-existing comorbid conditions 13. She comes in 248 pounds. Goal weight loss of 5% or 236 pounds described. 14. Recommend fidgeting that increases risk for weight loss and decrease risk for deep venous thrombosis. 15. Recommend drinking fluids 64 ounces or more. 16. Should presence of adhesions to be identified and prohibitive to proceed with surgery, she has elected for lysis of adhesions with return of gastric bypass later. Objective - Vital Signs Vital signs: Vital Signs Temp 98.7 F 10/28/23 16:12 Pulse 80 10/28/23 16:12 Resp BP 125/86 10/28/23 16:12 Pulse Ox FiO2 Intake & Output 10/27/23 10/28/23 10/28/23 18:59 06:59 18:59 Weight 112.037 kg Assessment/Plan Plan: Date: 10/28/23 Initial Weight: Initial BMI: Current Weight: 112.037 kg Current BMI: 41.1 Type of Surgery: Total Volume in Band: Previous Volume: Volume Removed: Volume Added: Band Size:
== END ==
LOC: BARWHC3 14:55
PROVIDERS: ATTEND Surgery Plastic and Reconstructive Surgery
DX: E66.01 Morbid (severe) obesity due to excess calories (principal); M17.0 Bilateral primary osteoarthritis of knee; M47.816 Spondylosis without myelopathy or radiculopathy, lumbar region; I11.0 Hypertensive heart disease with heart failure; I50.9 Heart failure, unspecified; E03.9 Hypothyroidism, unspecified; E27.40 Unspecified adrenocortical insufficiency; F41.1 Generalized anxiety disorder; E78.5 Hyperlipidemia, unspecified; G89.29 Other chronic pain; F43.10 Post-traumatic stress disorder, unspecified; F40.240 Claustrophobia; J45.909 Unspecified asthma, uncomplicated; M79.7 Fibromyalgia; K92.89 Other specified diseases of the digestive system; I25.2 Old myocardial infarction; C44.90 Unspecified malignant neoplasm of skin, unspecified; G90.A Postural orthostatic tachycardia syndrome [POTS]; E23.2 Diabetes insipidus; E23.0 Hypopituitarism; N80.9 Endometriosis, unspecified; N30.10 Interstitial cystitis (chronic) without hematuria; K58.9 Irritable bowel syndrome, unspecified; F32.A Depression, unspecified; Z68.41 Body mass index [BMI] 40.0-44.9, adult; Z88.5 Allergy status to narcotic agent; Z91.030 Bee allergy status; Z91.041 Radiographic dye allergy status; Z79.890 Hormone replacement therapy; Z87.891 Personal history of nicotine dependence
CPT/HCPCS: 99211

== ENCOUNTER → 2023-10-28 | Outpatient (CLI) | payer MEDICARE ==
--- NOTE | 2023-10-28 16:48 | US ---
EXAMINATION TYPE: US pelvis complete transvag DATE OF EXAM: 10/28/2023 COMPARISON: CT: 10/01/23 CLINICAL INDICATION: Female, 52 years old with history of N83.201 UNSPECIFIED OVARIAN CYST, RIGHT HOWIE E; right ovarian cyst seen on CT TECHNIQUE: . Transabdominal sonographic images of the pelvis were acquired. Transvaginal sonographi c images were medically necessary to better assess the following anatomy: ovaries Date of LMP: Years ago. Pt is postmenopausal EXAM MEASUREMENTS: Uterus: 6.3 x 3.6 x 2.3 cm Endometrial Stripe: 0.5 cm Right Ovary: 3.3 x 2.4 x 1.6 cm Left Ovary: 2.4 x 1.6 x 1.3 cm 1. Uterus: Anteverted wnl 2. Endometrium: wnl 3. Right Ovary: Cystic area seen measuring 3.2 x 1.8 x 1.5cm changes a bilobed morphology versus 2 a djacent cysts/follicles. 4. Left Ovary: wnl 5. Bilateral Adnexa: wnl 6. Posterior cul-de-sac: wnl IMPRESSION: 1. No evidence for acute process. 2. Endometrium within normal limits for thickness. 3. Right ovarian bilobed appearing cyst measuring up to 3.2 cm.
== END | disposition home or self-care (01) ==
LOC: RADUSWWP 15:55
PROVIDERS: ATTEND Family Medicine
DX: N83.201 Unspecified ovarian cyst, right side (principal)
CPT/HCPCS: 76830; 76856

== ENCOUNTER 2023-11-02 07:30 | Inpatient (IN) | payer MEDICARE ==
[2023-11-30] MEDS ORDERED: LIDOCAINE 1% (10MG/ML) FOR IV START INTRADERMA PRN (05:27)
--- NOTE | 2023-11-30 06:40 | P.GSHP ---
History of Present Illness H&P Date: 11/30/23 CHIEF COMPLAINT: Morbid obesity due to excess calories HISTORY OF PRESENT ILLNESS: Noemi Griggs is a 53-year-old female who comes with lifelong morbid obesity. As a result of morbid obesity she has developed osteoarthritis of the knees, lower back, and hypertensive heart disease. She has tried dieting without improvement. Due to her medications, she has weight gain. She has severe gastroesophageal reflux disease. She is looking to the gastric bypass to address her reflux disease. Completed cardiac, medical risk assessment. She has completed bariatric assessment. At height of 5 feet 5 inches, her ideal body weight is 140 pounds. Her highest weight is 259 pounds, BMI 43.3. Today she comes in 234 pounds from 248 pounds, 7 months ago. She has lost 19 pounds in several months. Her body mass index is 38.3.. She is 81 pounds overweight. PAST MEDICAL HISTORY: 1. Morbid obesity due to excess calories 2. Body mass index of 43.3, initial 3. Osteoarthritis of the knees. 4. Osteoarthritis of the lower back. 5. Hypertensive heart disease with congestive heart failure 6. Hypothyroidism 7. Adrenal insufficiency 8. Generalized anxiety disorder 9. Depressive disorder 10. Gastroesophageal reflux disease 11. Hypertensive heart disease 12. Hyperlipidemia 13. Chronic pain syndrome 14. Post traumatic stress disorder 15. Claustrophobic. 16. Asthma 17. Fibromyalgia 18. Myocardial infarction 20. Inguinal disease 21. 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 Adrenal insufficiency 24. 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 Endometriosis 27. Interstitial cystitis 28. Irritable bowel syndrome PAST SURGICAL HISTORY: 1. Multiple back surgeries 2. Right carpal tunnel syndrome 3. Bronchoscopy 4. Steroid injections 5. Left knee arthroscopy 6. Total knee replacement, bilateral HOME MEDICATIONS: Home Medications Medication Instructions Recorded Confirmed Levothyroxine Sodium [Synthroid] 75 mcg PO QAM 04/19/14 04/29/23 Nitroglycerin Sl Tabs [Nitrostat] 0.4 mg SL Q5M PRN 01/15/15 04/29/23 Desmopressin Acetate 0.05 mg PO BID 07/17/15 04/29/23 Hydrocortisone [Cortef] 10 mg PO QAM 12/08/15 04/29/23 ALPRAZolam [Xanax] 0.5 mg PO TID PRN 02/06/17 04/29/23 HYDROcodone/APAP 7.5-325MG [[place] 1 tab PO TID PRN 04/07/17 04/29/23 7.5-325] Hydrocortisone [Cortef] 5 mg PO HS 01/11/19 04/29/23 DULoxetine HCL [Cymbalta] 60 mg PO QAM 08/15/20 04/29/23 Omeprazole 40 mg PO QAM 08/15/20 04/29/23 Amitriptyline HCl [Elavil] 25 mg PO HS PRN 02/09/21 04/29/23 EPINEPHrine (Auto Inject) [Epipen] 0.3 mg IM ONCE PRN 02/09/21 04/29/23 Rizatriptan Benzoate [Rizatriptan] 10 mg PO BID PRN 02/09/21 04/29/23 busPIRone HCL [Buspar] 30 mg PO BID 08/16/21 04/29/23 amLODIPine [Norvasc] 5 mg PO QAM 05/01/22 04/29/23 hydrALAZINE HCL 50 mg PO Q12HR 05/01/22 04/29/23 DULoxetine HCL [Cymbalta] 30 mg PO QAM 01/13/23 04/29/23 Pravastatin Sodium [Pravachol] 20 mg PO DAILY 01/15/23 04/29/23 Pregabalin 50 mg PO TID 01/15/23 04/29/23 Tamsulosin [Flomax] 0.4 mg PO DAILY 01/15/23 04/29/23 Zolpidem [Ambien] 5 mg PO HS PRN 01/15/23 04/29/23 tiZANidine [Zanaflex] 4 mg PO Q8HR PRN 04/29/23 04/29/23 ALLERGIES: Allergies Allergy/AdvReac Type Severity Reaction Status Date / Time morphine Allergy Anaphylaxis Verified 04/29/23 15:59 venom-honey bee Allergy Dyspnea Verified 04/29/23 15:59 [bee venom (honey bee)] blue dye AdvReac Mild HYPER Verified 04/29/23 15:59 FEELING SOCIAL HISTORY: Past tobacco use. FAMILY HISTORY: No family history of ulcerative colitis disease or Crohn's disease. Family history of morbid obesity. No lupus in the family. No reports of stomach or esophageal cancer. REVIEW OF ORGAN SYSTEMS: CONSTITUTIONAL: At height of 5 feet 5 inches, her ideal body weight is 140 pounds. Her highest weight is 259 pounds, BMI 43.3. She comes in 248 pounds. Her body mass index is 41.3. She is 99 pounds overweight. HEENT: Denies any active troubles with vision or hearing. Has troubles with swallowing. ENDOCRINE: Has adrenal insufficiency. History of Bam syndrome. CARDIOVASCULAR: Past reports of palpitations or heart attacks or chest pain. Has hypertensive heart disease. RESPIRATORY: Has daytime somnolence. Has asthma. Has chronic obstructive pulmonary disease. GASTROINTESTINAL: Denies any bright red blood per rectum. No diarrhea. No constipation. Has gastroesophageal reflux disease. GENITOURINARY: No recent blood in urine MUSCULOSKELETAL: Has lower back pain and joint pain. Has osteoarthritis of the knees. NEURO: No headaches. No seizure disorders. Has neuropathy. PSYCH: Has depression. Has generalized anxiety disorder. RHEUMATOLOGIC: No lupus. No rheumatoid arthritis. HEMATOLOGIC: Denies any abnormal bleeding or bruising. SKIN: No rash. No skin cancer. PHYSICAL EXAM: VITAL SIGNS: Height 5 foot 5 inches, weight 234 pounds. BMI 37.1 GENERAL: Well-developed in no acute distress. HEENT: No scleral icterus. Extraocular movements grossly intact. Hears conversational speech. No nasal drainage. NECK: Supple without lymphadenopathy. CHEST: Nonlabored respirations with equal bilateral excursions. CARDIOVASCULAR: Regular rate and regular rhythm. Distal 2+ pulses. ABDOMEN: Obese, soft, nontender, nondistended. MUSCULOSKELETAL: No clubbing, cyanosis. Gross strength 5/5 distal lower extremities. NEURO: No focal or lateralizing signs. Cranial nerves 2 through 12 grossly within normal limits. PSYCH: Appropriate affect. Alert and oriented to person, place and time. SKIN: Good skin turgor. Well perfused. ASSESSMENT: 1. Morbid obesity due to excess calories 2. Body mass index of 43.3, initial 3. Osteoarthritis of the knees. 4. Osteoarthritis of the lower back. 5. Hypertensive heart disease with congestive heart failure 6. Hypothyroidism 7. Adrenal insufficiency 8. Generalized anxiety disorder 9. Depressive disorder 10. Gastroesophageal reflux disease 11. Hypertensive heart disease 12. Hyperlipidemia 13. Chronic pain syndrome 14. Post traumatic stress disorder 15. Claustrophobic. 16. Asthma 17. Fibromyalgia 18. Myocardial infarction 20. Inguinal disease 21. 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 Adrenal insufficiency 24. 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 Endometriosis 27. Interstitial cystitis 28. Irritable bowel syndrome PLAN: 1. Bariatric options between a sleeve, band and a Molly-en-Y gastric bypass were reviewed in detail. The patient elected for a gastric bypass. Robotic assisted approach described. 2. The [place] [facility] Data was also reviewed with benefits and risks as described. 3. An 8 page second-generation bariatric consent form was reviewed in detail including potential of bleeding, infection, leaks, adequate weight loss, nutritional deficiencies which the patient demonstrated understanding of the risks. 4. A 2 week high-protein low caloric 800 kcal diet described to address hepatomegaly. 5. Preoperative labs including complete metabolic panel and CBC with type and screen recommended. 6. DVT prophylaxis per [place] [facility]. 7. Antibiotic prophylaxis. 8. Inpatient hospitalization anticipated for more than 2 nights. 9. All questions and concerns were addressed with the patient. 10. She is at elevated risk for perioperative complications secondary to pre- existing diabetes type 2, obstructive sleep apnea, pre-existing coronary artery disease. 11. Overall, patient has expressed understanding of bariatric care including postoperative diet and commitment of lifestyle. Patient should benefit from surgical intervention for correction of her morbid obesity. 12. To address severe postoperative nausea and vomiting, total IV anesthesia otherwise TIVA requested Past Medical History Past Medical History: Asthma, Cancer, Eye Disorder, Fibromyalgia, GERD/Reflux, Hypertension, Myocardial Infarction ([place]), Musculoskeletal Disorder, Osteoarthritis (OA), Renal Disease, Syncope, Thyroid Disorder Additional Past Medical History / Comment(s): SKIN CANCER, ADRENAL INSUFFICENCY. POTS SYNDROME. DIABETES INSIPIDUS. 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 Last Myocardial Infarction Date:: december 29 2014 History of Any Multi-Drug Resistant Organisms: None Reported Past Surgical History: Back Surgery, Section, Cholecystectomy, Joint Replacement, Orthopedic Surgery Additional Past Surgical History / Comment(s): ARTIFICIAL DISC IN C5,6,7 , TITANIUM PLATE AND 4 SCREWS IN NECK. RT CARPAL TUNNEL. . HEMORRHOIDECTOMY. BRONCHOSCOPY.,CERVIAL EPIDURAL STEROID INJECTION, LT KNEE ARTHROSCOPIC LATERAL FEMORAL CHONDRECTOMY/MEDIALFEMORAL CHONDRECTOMY/PATELLER CHONDROPLASTY/PARTIAL SYNOVECTOMY OF LATERAL AND PATELLOFEMORAL COMPARTMENTS (TOTAL OF 3 KNEE SX), RADIOFREQUENCY TX L5,-RT KNEE SCOPE, EXPLORATORY LAP- ENDOmetriosis, TOTAL KNEE REPLACEMENT MARIA ELENA maria elena shoulder rotator cuff and biceps tendon Past Anesthesia/Blood Transfusion Reactions: No Reported Reaction, Family History of Problems w/ Anesthesia, Motion Sickness Additional Past Anesthesia/Blood Transfusion Reaction / Comment(s): CLAUSTE RPHOBIA, VERTIGO IN PAST. PATIENTS MOTHER HAS DIFFICULTY WAKING UP Smoking Status: Never smoker - Past Family History Mother Family Medical History: Cancer, Hyperlipidemia, Hypertension Additional Family Medical History / Comment(s): RECTAL CANCER. Father Family Medical History: Hyperlipidemia, Hypertension Medications and Allergies Home Medications Medication Instructions Recorded Confirmed Type Levothyroxine Sodium [Synthroid] 75 mcg PO QAM 04/19/14 11/27/23 History Nitroglycerin Sl Tabs [Nitrostat] 0.4 mg SL Q5M PRN 01/15/15 11/27/23 History Desmopressin Acetate 0.05 mg PO BID 07/17/15 11/27/23 History Hydrocortisone [Cortef] 10 mg PO QAM 12/08/15 11/27/23 History ALPRAZolam [Xanax] 1 mg PO TID PRN 02/06/17 11/27/23 History HYDROcodone/APAP 7.5-325MG [[place] 1 tab PO TID PRN 04/07/17 11/27/23 History 7.5-325] Hydrocortisone [Cortef] 5 mg PO HS 01/11/19 11/27/23 History DULoxetine HCL [Cymbalta] 60 mg PO QAM 08/15/20 11/27/23 History Omeprazole 40 mg PO QAM 08/15/20 11/27/23 History Amitriptyline HCl [Elavil] 25 mg PO HS PRN 02/09/21 11/27/23 History EPINEPHrine (Auto Inject) [Epipen] 0.3 mg IM ONCE PRN 02/09/21 11/27/23 History Rizatriptan Benzoate [Rizatriptan] 10 mg PO BID PRN 02/09/21 11/27/23 History busPIRone HCL [Buspar] 30 mg PO BID 08/16/21 11/27/23 History hydrALAZINE HCL 50 mg PO DAILY 05/01/22 11/27/23 History DULoxetine HCL [Cymbalta] 30 mg PO QAM 01/13/23 11/27/23 History Pravastatin Sodium [Pravachol] 20 mg PO DAILY 01/15/23 11/27/23 History Pregabalin 50 mg PO TID 01/15/23 11/27/23 History Tamsulosin [Flomax] 0.4 mg PO DAILY 01/15/23 11/27/23 History Zolpidem [Ambien] 5 mg PO HS PRN 01/15/23 11/27/23 History tiZANidine [Zanaflex] 4 mg PO Q8HR PRN 04/29/23 11/27/23 History Ergocalciferol [Vitamin D2 (1250 50,000 unit PO WEEKLY 05/19/23 11/27/23 History Mcg = [id number] Iu)] Meclazine 1 tab PO TID PRN 11/27/23 History Allergies Allergy/AdvReac Type Severity Reaction Status Date / Time morphine Allergy Anaphylaxis Verified 11/27/23 11:47 venom-honey bee Allergy Dyspnea Verified 11/27/23 11:47 [bee venom (honey bee)] blue dye AdvReac Mild HYPER Verified 11/27/23 11:47 FEELING
[2023-11-30] MEDS: LACTATED RINGERS 1,000 ML IV ONE ×3 (07:05→10:42)
[2023-11-30] MEDS: ACETAMINOPHEN TAB 500 MG TAB PO PRN (07:09)
[2023-11-30] MEDS: ALVIMOPAN 12 MG CAPSULE PO PRN (07:09)
[2023-11-30] MEDS: CHLORHEXIDINE GLUCONATE 15 ML CUP MUCOUS MEM STA (07:10)
[2023-11-30] MEDS: MIDAZOLAM 2 MG/2 ML VIAL IVP ONE (07:13)
[2023-11-30 07:22] LABS: Glucose,Whole Blood 80 mg/dL (70-110)
[2023-11-30] MEDS: ONDANSETRON 4 MG/2 ML VIAL IVP PRN (07:26)
[2023-11-30] MEDS: DEXAMETHASONE SOD PHOSPHATE 4 MG/ML 1 ML VIAL IV ONE ×2 (07:26→15:01)
[2023-11-30] MEDS: PANTOPRAZOLE 40 MG/10 ML VIAL IVP STA (07:26)
--- NOTE | 2023-11-30 07:26 | P.ANPRN ---
Procedure Note - Anesthesia - Nerve Block Performed Bilateral Erector Spinae Single Time Out Performed: Yes Date of Procedure: 11/30/23 Procedure Start Time: 07:13 Location of Patient: PreOp Indication: Acute Post-Operative Pain, Analgesia, Requested by Surgeon Sedation Type: Sedate with meaningful contact maintained Preparation: Sterile Prep, Sterile Dressing Position: Prone Catheter: None Needle Types: Pajunk Needle Gauge: 21 Ultrasound used to visualize needle placement: Yes Ultrasound used to observe medication spread: Yes Injectate: 0.5% Ropivacaine (see comment for volume) (Ropiov 20ml+[id number]----Spvo side) Blood Aspirated: No Pain Paresthesia on Injection Noted: No Resistance on Injection: Normal Image Stored and Saved: Yes Events: Uneventful and Well Tolerated
[2023-11-30] MEDS: SCOPOLAMINE 1 MG/72 HR PATCH TRANSDERM STA (07:27)
[2023-11-30] MEDS: LACTATED RINGERS 1,000 ML IV SCH (07:29)
[2023-11-30] MEDS: HEPARIN SODIUM,PORCINE 5,000 UNIT/ML 1 ML VIAL SQ PRN (07:33)
[2023-11-30] MEDS ORDERED: NEOSTIGMINE 1 MG/ML 10 ML VIAL ONE (07:43)
[2023-11-30] MEDS ORDERED: GLYCOPYRROLATE 0.2 MG/ML 2 ML VIAL ONE (07:43)
[2023-11-30] MEDS ORDERED: PHENYLEPHRINE 10 MG/ML VIAL ONE (07:43)
[2023-11-30] MEDS ORDERED: WATER FOR INJECTION, STERILE 10 ML VIAL IV ONE (07:43)
[2023-11-30] MEDS ORDERED: KETAMINE HCL IN 0.9 % NACL 50 MG/5 ML SYRINGE ONE (07:43)
[2023-11-30] MEDS ORDERED: ROPIVACAINE 5 MG/ML 30 ML VIAL ONE (07:43)
[2023-11-30] MEDS ORDERED: PROPOFOL 10 MG/ML 20 ML VIAL IV ONE (07:43)
[2023-11-30] MEDS ORDERED: fentaNYL (PF) 50 MCG/ML 2 ML AMP ONE (07:43)
[2023-11-30] MEDS ORDERED: ROCURONIUM 10 MG/ML (5 ML VIAL) IV ONE (07:43)
[2023-11-30] MEDS ORDERED: DEXAMETHASONE SOD PHOSPHATE 4 MG/ML 1 ML VIAL ONE (07:43)
[2023-11-30] MEDS ORDERED: LIDOCAINE 1% INJ 10MG/ML (20 ML MDV) ONE (07:43)
[2023-11-30] MEDS ORDERED: ePHEDrine 50 MG/ML 1 ML VIAL ONE (07:43)
[2023-11-30] MEDS ORDERED: SUCCINYLCHOLINE CHLORIDE 200 MG/10 ML VIAL IV ONE (07:43)
[2023-11-30] MEDS ORDERED: HYDROmorphone (PF) 1 MG/ML ONE (07:43)
[2023-11-30] MEDS ORDERED: MIDAZOLAM 2 MG/2 ML VIAL ONE (07:43)
[2023-11-30] MEDS: LIDOCAINE 1%-EPI 1:100,000 20 ML VIAL SQ ONE (08:18)
[2023-11-30] MEDS ORDERED: NALOXONE 0.4 MG/ML 1 ML VIAL IV PRN ×2 (11:25→11:28)
[2023-11-30] MEDS ORDERED: NON FORMULARY DRUG (Epinephrine (Auto Inject) 0.3 MG/0.3 ML Each) IM PRN (11:29)
[2023-11-30] MEDS ORDERED: ALPRAZolam 0.5 MG TAB PO PRN (11:29)
[2023-11-30] MEDS ORDERED: ZOLPIDEM 5 MG TAB PO PRN (11:29)
[2023-11-30] MEDS: HYDROmorphone 0.5 MG/0.5 ML SYRINGE IVP PRN (11:37)
--- NOTE | 2023-11-30 13:57 | P.OP ---
Date of Procedure: 11/30/23 Description of Procedure: SURGEON: CHAUNCEY CERRATO MD PREOPERATIVE DIAGNOSES: 1. Morbid obesity due to excess calories 2. Body mass index of 43.3, initial 3. Osteoarthritis of the knees. 4. Osteoarthritis of the lower back. 5. Hypertensive heart disease with congestive heart failure 6. Hypothyroidism 7. Adrenal insufficiency 8. Generalized anxiety disorder 9. Depressive disorder 10. Gastroesophageal reflux disease 11. Hypertensive heart disease 12. Hyperlipidemia 13. Chronic pain syndrome 14. Post traumatic stress disorder 15. Claustrophobic. 16. Asthma 17. Fibromyalgia 18. Myocardial infarction 20. Inguinal disease 21. 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 Adrenal insufficiency 24. 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 Endometriosis 27. Interstitial cystitis 28. Irritable bowel syndrome POSTOPERATIVE DIAGNOSES: 1. Morbid obesity due to excess calories 2. Body mass index of 43.3, initial 3. Osteoarthritis of the knees. 4. Osteoarthritis of the lower back. 5. Hypertensive heart disease with congestive heart failure 6. Hypothyroidism 7. Adrenal insufficiency 8. Generalized anxiety disorder 9. Depressive disorder 10. Gastroesophageal reflux disease 11. Hypertensive heart disease 12. Hyperlipidemia 13. Chronic pain syndrome 14. Post traumatic stress disorder 15. Claustrophobic. 16. Asthma 17. Fibromyalgia 18. Myocardial infarction 20. Inguinal disease 21. 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 Adrenal insufficiency 24. 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 Endometriosis 27. Interstitial cystitis 28. Irritable bowel syndrome 29. Pelvic adhesions from previous Pfannenstiel incision OPERATION: 1. Robotic assisted da Magy Xi laparoscopic Markus-en-Y gastric bypass, 150 cm antecolic antegastric Markus limb, with 25 mm EEA. 2. Robotic assisted da Magy Xi laparoscopic lysis of adhesions 3. Intraoperative esophagogastrojejunoscopy. ANESTHESIA: GETA and local ESTIMATED BLOOD LOSS: 20 mL SPECIMENS REMOVED: None. COMPLICATIONS: NONE. Operative Findings: 1. Biliopancreatic limb 60 cm 2. Bypass performed using 150 cm markus limb 3. Jejunojejunostomy and Hansen's defects closed using 2-0 V-LOC, green 4. Leak test negative with gastrojejunal anastomosis patent and hemostatic. 5. Reinforcement sutures were placed along the gastrojejunal anastomosis circumferentially with interrupted 3-0 Vicryl x 6 INDICATIONS: Noemi Griggs is a 53-year-old female who comes with lifelong morbid obesity. As a result of morbid obesity she has developed osteoarthritis of the knees, lower back, and hypertensive heart disease. She has tried dieting without improvement. Due to her medications, she has weight gain. She has severe gastroesophageal reflux disease. She is looking to the gastric bypass to address her reflux disease. Completed cardiac, medical risk assessment. She has completed bariatric assessment. At height of 5 feet 5 inches, her ideal body weight is 140 pounds. Her highest weight is 259 pounds, BMI 43.3. Today she comes in 234 pounds from 248 pounds, 7 months ago. She has lost 19 pounds in several months. Her body mass index is 38.3. She is 81 pounds overweight. A second-generation bariatric consent form was described in detail including the possibility of protein malnutrition, leaks, gastrojejunal stricture, venous thrombosis, need for further surgery for which she demonstrated understanding. Benefits and risks of the procedure were described at length. Informed consent was obtained. DESCRIPTION: The patient was brought into the operating room theater. She was placed supine. She had received heparin subcutaneously for DVT prophylaxis. Additionally Peridex oral solution as an oral decontaminant was placed per anesthesia. After general induction, the abdomen was prepped and draped in standard sterile fashion. Ioban draping was placed along the abdomen. Holland catheter was avoided. A robotic da Magy Xi system was prepped and primed. Incisions were proposed at 15 cm from the xiphoid. Proposed port sites were marked with indelible marker along the anterior axillary line bilaterally, mid clavicular line bilaterally with each port marked 10 cm from each other. The robotic stapler port was marked for the right midclavicular line including along the left midclavicular line. A 5 mm 0 degrees laparoscopic trocar entry was performed along the left upper quadrant. The abdomen was insufflated to 15 mmHg pressure, which she tolerated well. Diagnostic laparoscopy demonstrated no injury to bowel, viscera, or mesentery. The liver was consistent with her 2-week protein diet without hepatomegaly. Additionally, pelvic adhesions of omentum to the lower abdomen was found consistent with a prior C-sections. An 8 mm camera port was placed left lateral to the umbilicus at the epigastrium, 15 cm distal to the xiphoid. Next, 12-mm robot stapler port was placed along the right mid abdomen. An 12 mm port was exchanged along the left upper quadrant. An 8 mm port was placed on the left lateral abdominal wall under direct visualization Please note that the ports were placed 18 to 20 cm away from the target anatomy of the stomach. Care was taken to check that each robotic arm was safely away from collision with the bed or the patient. At the epigastrium, a medium sized Albert liver retractor was placed under direct visualization with the [employer] Production Manager placed under the right shoulder of the patient. The patient was repositioned in reverse Trendelenburg position at 25-degrees after lowering the bed. The robot was docked over the patient. Using grasper for arm 3, a grasper for arm 1, including vessel sealer for arm 4, the robotic system was docked and primed as described. Instruments were interchanged by the certified pathology assistant including endoscissors, the needle laundry route driver, and stapler. I had sat at the console. Moderate adhesions of the pelvis was identified from previous . Initially, robot was docked for pelvis. Lysis of adhesions performed with a vessel sealer where the omentum was adhered to the lower abdomen. Once adhesions were lysed. Attention was then brought to the upper abdomen. The robot was redocked. Next, the transverse mesocolon was reflected into the upper abdomen for the jejunojejunostomy portion of the case. The ligament of Treitz was identified and measured 60 cm antegrade and marked using 3-0 Silk. The jejunum was divided at the 60 cm point using 60-mm white loads above the suture measurement. The biliopancreatic limb was held in place. The Markus limb was measured 150 cm in an antegrade fashion. At 150 cm along the anti-mesenteric border of the Markus limb, a jejunojejunostomy was proposed whereby enterotomies were created along the biliopancreatic limb including the Markus limb using a Bovie cautery. A stay suture of 3-0 Slik was placed to align and create the anastomosis. The enterotomies along the anti- mesenteric borders were created followed by unidirectional fire from the patient's right side using 60 mm white loads Spins.FM technology robotic stapler. The jejunojejunostomy was found to be hemostatic. The enterotomy was closed after horizontal mattress stitch of 3-0 silk used to elevate the enterotomy followed by closure with the robotic stapler blue load. The jejunal limb was temporarily tacked along the left upper quadrant. Attention was now brought to the creation of the gastrojejunostomy. Along the lesser curvature of the stomach, dissection was made along the retrogastric space to allow first firing of the robotic staple. Total of two melia of green loads and blue loads of 60 mm staplers were used to divide the stomach to create the gastric pouch. The patient was then prepared for placement of a Orvil. A 25-mm Orvil was selected for placement by the nurse baker paint. The Orvil tubing was placed anterior to the staple line of the gastric pouch and brought out through the left inferior lateral port. I re-scrubbed into the case. The robotic arms were temporarily undocked. The Orvil was then carefully and successfully navigated with the help of the nurse baker paint into the gastric pouch. The sutures were identified and divided. The tubing was from the 25 mm anvil. As the Orvil had been placed, the jejunal limb was brought proximally into the upper abdomen. No torsion was found upon the Markus limb. No tension was identified as the limb was brought along the upper abdomen. The jejunal limb was previously opened using hook cautery. The 25-mm EEA stapler was brought through the left anterior lateral port site from the left side. The EEA stapler was brought through the open jejunal limb and its needle was deployed at the antimesenteric border where the anvil were mated for approximately 1 minute upon firing. The stapler was removed after irrigating the shaft of the instrument with warm normal saline. Donuts were found to be intact and on both sides. The da Magy Xi robot arms were then re-docked. I sat at the console. The open jejunal limb defect was closed using 60 mm blue loads after releasing any tension from the blind jejunal limb. No redundancy was present for jejunal limb. The transverse mesocolon was divided for the markus limb. Reinforcement sutures were placed along the gastrojejunal anastomosis with multiple 3-0 Vicryl. The Hansen and jejunojejunostomy mesenteric defect was closed using 2-0 V LOC, green. I then went to the head of the bed to perform the esophagogastrojejunoscopy and a leak test. An Olympus gastroscope was passed alongthe posterior oropharynx which was unremarkable for any injury to the vocal cords. The scope was passed down to the proximal portion of the pouch, whereby no active bleeding was encountered. Excellent visualization of the gastrojejunostomy anastomosis, including the Markus limb was encountered with endoscopic image obtained. The anastomosis was found to be patent without active bleeding. Residual blood was suctioned from the gastric pouch. The gastrointestinal tract was desufflated. No evidence of intraoperative leak was encountered as the gastric pouch and anastomosis were submerged under normal saline solution. The robot was then undocked. I then went back to the bedside of the patient, whereby with coordinated effort of the certified pathology assistant, irrigation was aspirated from the upper abdominal cavity. Tisseel was placed circumferentially over the anastomosis of the gastrojejunostomy. The fascial defect of the EEA stapler was closed using Elmer Melendez and 0 Vicryl. All instruments and pneumoperitoneum were evacuated from the abdominal cavity. The port correlating with the EEA stapler device was cleansed with normal saline solution and hydrogen peroxide. The rest of incisions were reapproximated using 4-0 Monocryl in an interrupted subcuticular fashion. Local anesthetic was infiltrated along the skin for postop analgesia. Liquid glue was applied to the skin. OptiFoam dressing was placed along the EEA stapler site. At the end of the procedure, needle, sponge and instrument count had been verified correct by the surgical rn. The patient had tolerated the procedure well and was extubated and taken to the postanesthesia unit in stable condition.
[2023-11-30 14:41] LABS: Glucose,Whole Blood 106 mg/dL (70-110)
[2023-11-30] MEDS: droPERidol 5 MG/2 ML VIAL IVP ONE (15:02)
[2023-11-30] MEDS: ALBUTEROL NEBULIZED 2.5 MG/3 ML INHALATION SCH (15:02)
[2023-11-30] MEDS: 0.9% NACL WITH KCL 20 MEQ/L 1,000 ML IV SCH (16:15)
[2023-11-30] MEDS: fentaNYL PCA 500 MCG/50 ML BAG IV SCH (16:16)
[2023-11-30] MEDS: PREGABALIN 50 MG CAP PO SCH (16:34)
[2023-11-30] MEDS: ONDANSETRON 4 MG/2 ML VIAL IVP SCH (17:23)
[2023-11-30] MEDS: SIMETHICONE 80 MG CHEWABLE PO SCH (17:23)
[2023-11-30] MEDS: ACETAMINOPHEN IV (For NPO) 1,000 MG in EMPTY BAG 1 BAG IVPB SCH (18:44)
[2023-11-30] MEDS: HYDROcodone/APAP 7.5-325MG 1 EACH TAB PO PRN (20:50)
[2023-11-30] MEDS: PANTOPRAZOLE 40 MG/10 ML VIAL IV SCH (20:50)
[2023-11-30] MEDS: HYDROCORTISONE 10 MG TAB PO SCH (20:52)
[2023-11-30] MEDS: DESMOPRESSIN 0.2 MG TAB PO SCH (20:53)
[2023-11-30] MEDS: PROCHLORPERAZINE 5 MG TAB PO STA (20:54)
[2023-11-30] MEDS: SUMAtriptan succinate 50 MG TAB PO PRN (21:00)
[2023-11-30] MEDS: BUTALB/APAP/CAFF 50-325-40MG TAB PO PRN (23:07)
--- NOTE | 2023-11-30 23:39 | P.CONS ---
History of Present Illness - Reason for Consult Consult date: 11/30/23 Medical management - Chief Complaint Gastric bypass surgery - History of Present Illness Patient is a 53 old female with a past medical history of, fibromyalgia, hypertension, GERD, history of [place] p, hypothyroidism,, back surgery POTS syndrome,, diabetes insipidus, hypopituitarism /Bam syndrome, cervical radiculopathy, IBS and chronic back pain and anxiety/depression. Patient PTSD and depression PTSD and other medical problems was admitted to hospital for elective laparoscopic Molly-en-Y gastric bypass. Patient is status post surgery. Currently awake alert and oriented x 3. Complains of abdominal pain mainly in the upper abdomen. Requiring 4 L oxygen via nasal cannula. Blood pressure 152/87 pulse is 77 respiration 17 pulse ox 95% on room air. Denies any chest pain or shortness of breath. Complains of nausea. No episodes of vomiting. No cough or sputum production. Patient has been afebrile. Blood sugar is controlled. Laboratory data is not available at this time. Review of Systems Constitutional: Patient denies any fever or chills . No generalized weakness or weight loss. Abdomen: Patient complains of nausea. No episodes of vomiting. No diarrhea. Upper abdominal pain Cardiovascular: Patient denies any chest pain or short of breath no palpitations. Respiratory: patient denied any cough or sputum production. No shortness of breath Neurologic: Patient denied any numbness or tingling. no headache. Musculoskeletal: Patient denies any complaints of joint swelling or deformity. Skin: Negative Psychiatric: Negative Endocrine: No heat or cold intolerance. No recent weight gain. Genitourinary: No dysuria or hematuria. All other 14 point ROS negative except the above Past Medical History Past Medical History: Asthma, Cancer, Eye Disorder, Fibromyalgia, GERD/Reflux, Hypertension, Myocardial Infarction (MO), Musculoskeletal Disorder, Osteoarthritis (OA), Renal Disease, Syncope, Thyroid Disorder Additional Past Medical History / Comment(s): SKIN CANCER, ADRENAL INSUFFICENCY. POTS SYNDROME. DIABETES INSIPIDUS. 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 Last Myocardial Infarction Date:: december 29 2014 History of Any Multi-Drug Resistant Organisms: None Reported Past Surgical History: Back Surgery, Section, Cholecystectomy, Joint Replacement, Orthopedic Surgery Additional Past Surgical History / Comment(s): ARTIFICIAL DISC IN C5,6,7 , TITANIUM PLATE AND 4 SCREWS IN NECK. RT CARPAL TUNNEL. . HEMORRHOIDECTOMY. BRONCHOSCOPY.,CERVIAL EPIDURAL STEROID INJECTION, LT KNEE ARTHROSCOPIC LATERAL FEMORAL CHONDRECTOMY/MEDIALFEMORAL CHONDRECTOMY/PATELLER CHONDROPLASTY/PARTIAL SYNOVECTOMY OF LATERAL AND PATELLOFEMORAL COMPARTMENTS (TOTAL OF 3 KNEE SX), RADIOFREQUENCY TX L5,-RT KNEE SCOPE, EXPLORATORY LAP- ENDOmetriosis, TOTAL KNEE REPLACEMENT MARIA ELENA maria elena shoulder rotator cuff and biceps tendon Past Anesthesia/Blood Transfusion Reactions: No Reported Reaction, Family History of Problems w/ Anesthesia, Motion Sickness Additional Past Anesthesia/Blood Transfusion Reaction / Comm: CLAUSTERPHOBIA, VERTIGO IN PAST. PATIENTS MOTHER HAS DIFFICULTY WAKING UP Past Psychological History: Anxiety, Depression, PTSD Additional Psychological History / Comment(s): . Smoking Status: Never smoker Past Alcohol Use History: Rare Additional Past Alcohol Use History / Comment(s): STARTED SMOKING 1979 QUIT 2008 WAS 3/4 PPD Past Drug Use History: None Reported - Past Family History Mother Family Medical History: Cancer, Hyperlipidemia, Hypertension Additional Family Medical History / Comment(s): RECTAL CANCER. Father Family Medical History: Hyperlipidemia, Hypertension Medications and Allergies Home Medications Medication Instructions Recorded Confirmed Type Levothyroxine Sodium [Synthroid] 75 mcg PO QAM 04/19/14 11/27/23 History Nitroglycerin Sl Tabs [Nitrostat] 0.4 mg SL Q5M PRN 01/15/15 11/27/23 History Desmopressin Acetate 0.05 mg PO BID 07/17/15 11/27/23 History Hydrocortisone [Cortef] 10 mg PO QAM 12/08/15 11/27/23 History ALPRAZolam [Xanax] 1 mg PO TID PRN 02/06/17 11/27/23 History HYDROcodone/APAP 7.5-325MG [[place] 1 tab PO TID PRN 04/07/17 11/27/23 History 7.5-325] Hydrocortisone [Cortef] 5 mg PO HS 01/11/19 11/27/23 History DULoxetine HCL [Cymbalta] 60 mg PO QAM 08/15/20 11/27/23 History Omeprazole 40 mg PO QAM 08/15/20 11/27/23 History Amitriptyline HCl [Elavil] 25 mg PO HS PRN 02/09/21 11/27/23 History EPINEPHrine (Auto Inject) [Epipen] 0.3 mg IM ONCE PRN 02/09/21 11/27/23 History Rizatriptan Benzoate [Rizatriptan] 10 mg PO BID PRN 02/09/21 11/27/23 History busPIRone HCL [Buspar] 30 mg PO BID 08/16/21 11/27/23 History hydrALAZINE HCL 50 mg PO DAILY 05/01/22 11/27/23 History DULoxetine HCL [Cymbalta] 30 mg PO QAM 01/13/23 11/27/23 History Pravastatin Sodium [Pravachol] 20 mg PO DAILY 01/15/23 11/27/23 History Pregabalin 50 mg PO TID 01/15/23 11/27/23 History Tamsulosin [Flomax] 0.4 mg PO DAILY 01/15/23 11/27/23 History Zolpidem [Ambien] 5 mg PO HS PRN 01/15/23 11/27/23 History tiZANidine [Zanaflex] 4 mg PO Q8HR PRN 04/29/23 11/27/23 History Ergocalciferol [Vitamin D2 (1250 50,000 unit PO WEEKLY 05/19/23 11/27/23 History Mcg = 69495 Iu)] Meclazine 1 tab PO TID PRN 11/27/23 History Allergies Allergy/AdvReac Type Severity Reaction Status Date / Time morphine Allergy Anaphylaxis Verified 11/30/23 06:45 venom-honey bee Allergy Dyspnea Verified 11/30/23 06:45 [bee venom (honey bee)] blue dye AdvReac Mild HYPER Verified 11/30/23 06:45 FEELING Physical Exam Vitals: Vital Signs Temp Pulse Resp BP Pulse Ox 11/30/23 19:11 98.1 F 76 18 150/95 92 L 11/30/23 17:02 92 L 11/30/23 15:31 98.6 F 77 17 152/87 95 11/30/23 14:45 78 12 139/75 95 11/30/23 14:30 74 12 141/78 95 11/30/23 14:15 73 12 140/79 95 11/30/23 14:00 70 12 143/76 95 11/30/23 13:45 71 14 141/75 97 11/30/23 13:30 93 14 139/74 96 11/30/23 13:15 71 14 137/71 96 11/30/23 13:00 82 19 141/70 96 11/30/23 12:43 86 20 92 L 11/30/23 12:28 72 16 132/70 93 L 11/30/23 12:13 75 16 129/61 95 11/30/23 11:58 69 16 126/57 95 11/30/23 11:43 84 16 117/59 95 11/30/23 11:28 88 16 120/57 96 11/30/23 11:13 86 20 130/63 95 11/30/23 10:58 97.0 F L 90 14 103/64 95 11/30/23 07:18 59 L 16 126/60 100 11/30/23 06:54 97.0 F L 67 16 137/70 96 Intake and Output 11/30/23 11/30/23 11/30/23 06:59 14:59 22:59 Intake Total 1150 Output Total 10 1200 Balance 1140 -1200 Intake: IV 1150 Output: Urine 1200 Estimated Blood Loss 10 Other: Voiding Method Toilet Weight 105.5 kg 105.5 kg PHYSICAL EXAMINATION: Patient is lying in the bed comfortably, no acute distress, awake alert and oriented. Obesity. HEENT: Normocephalic. Neck is supple. Pupils reactive. Nostrils clear. Oral cavity is moist. Neck reveals no JVD, carotid bruits, or thyromegaly. CHEST EXAMINATION: Trachea is central. Symmetrical expansion. Bibasilar diminished sounds lung zuleta clear to auscultation and percussion. CARDIAC: Normal S1, S2 with no gallops. No murmurs ABDOMEN: Soft. Bowel sounds sluggish. Upper abdominal tenderness. No guarding or rigidity. No organomegaly. No abdominal bruits. Extremities: reveal no edema. No clubbing or cyanosis Neurologically awake, alert, oriented x3 with well-coordinated movements. No focal deficits noted Skin: No rash or skin lesions. Psychiatric: Coperative. Nonsuicidal Musculoskeletal: No joint swelling or deformity. Normal range of motion. Assessment and Plan Assessment: Status post laparoscopic Molly-en-Y gastric bypass postoperative day 0. Morbid obesity BMI 37.5 Hypertension fairly controlled Hypothyroidism Adrenal insufficiency on Cortef at home. GERD Hyperlipidemia Chronic pain Low back pain Diabetes insipidus History of Bam syndrome IVF Anxiety/depression and PTSD disorder and fibromyalgia POTS syndrome history DVT prophylaxis as per primary team Plan: Patient will be continued on symptomatic management. Encourage incentive spirometry. Current pain medications and bowel regimen. Continue home medications and monitor blood pressure closely. Symptomatic management for nausea. Patient was started back on hydrocortisone 5 mg at bedtime and 10 mg every morning. IV hydration with normal saline and follow-up CBC and BMP tomorrow. Will follow closely and further recommendations based on the clinical course. Thank you kindly for your consult. Time with Patient: Greater than 30
[2023-12-01] MEDS: LEVOTHYROXINE 75 MCG TAB PO SCH (05:05)
[2023-12-01 08:36] LABS: Basophils # (A) 0.01 X 10*3/uL (0.00-0.10); Basophils % (A) 0.1 %; Eosinophils # (A) 0 X 10*3/uL (0.04-0.35); Eosinophils % (A) 0 %; HCT 36.2 % (37.2-46.3); HGB 11.8 g/dL (12.0-15.0); Lymphocytes # (A) 0.73 X 10*3/uL (0.90-5.00); Lymphocytes % (A) 7.2 %; MCH 28.1 pg (27.0-32.0); MCHC 32.6 g/dL (32.0-37.0); MCV 86.2 FL (80.0-97.0); Mean Platelet Volume 10.1 FL (9.5-12.2); Monocytes % (A) 8.8 %; NRBC Per 100 WBC 0 X 10*3/uL (0.00-0.01); Neutrophils # (A) 8.52 X 10*3/uL (1.80-7.70); Neutrophils % (A) 83.5 %; Platelet Count 349 X 10*3/uL (140-440); RDW 15.5 % (11.5-14.5)
[2023-12-01 08:53] LABS: Phosphorus 3.3 mg/dL (2.4-5.1)
[2023-12-01 08:54] LABS: Blood Urea Nitrogen 10.7 mg/dL (9.0-27.0); Calcium 8.4 mg/dL (8.7-10.3); Chloride 99 mmol/L (96-109); Potassium 5.2 mmol/L (3.5-5.5); Sodium 131 mmol/L (135-145)
[2023-12-01] MEDS: HYDROCORTISONE 10 MG TAB PO SCH (11:26)
[2023-12-01] MEDS: hydrALAZINE HCL 50 MG TAB PO SCH (11:26)
[2023-12-01] MEDS: TAMSULOSIN 0.4 MG CAP.ER.24H PO SCH (11:27)
[2023-12-01 12:45] VITALS: BMI 37.5
[2023-12-01] MEDS: 0.9% NACL WITH KCL 20 MEQ/L 1,000 ML IV SCH (13:43)
--- NOTE | 2023-12-01 16:11 | FL ---
EXAMINATION TYPE: FL UGI DATE OF EXAM: 12/01/2023 COMPARISON: None HISTORY: Molly-en-Y TECHNIQUE: A single contrast Limited UGI study is performed. FINDINGS: Contrast passes from the distal esophagus through the Molly-en-Y surgery site without seen. There is prompt spill into the jejunum. No extravasation of contrast is evident. No free air is noted during this examination. Overhead radiographs were obtained which are unremarkable. IMPRESSION: 1. Normal post Molly-en-Y surgery without obstruction or hesitancy. No extravasation.
[2023-12-02] MEDS: diphenhydrAMINE 50 MG/ML 1 ML VIAL IVP PRN (02:08)
[2023-12-02] MEDS ORDERED: bisacodyL 5 MG TABLET.DR PO PRN (08:00)
--- NOTE | 2023-12-02 11:13 | P.PN ---
Subjective Progress Note Date: 12/02/23 CHIEF COMPLAINT: Morbid obesity HISTORY OF PRESENT ILLNESS: The patient is a 53-year-old female status post gastric bypass for morbid obesity. She reports nausea due to her multiple medications. She reports appropriate fullness after her medications. No emesis. She is passing some flatus. ROS: No reports of vomiting. No bowel movements. No fevers or chills. No new chest pain. No productive sputum PHYSICAL EXAM: VITAL SIGNS: Reviewed CONSTITUTIONAL: Well developed and in no acute distress. EYES: Conjuctivae without sclera icterus. Extraocular movements grossly intact. HEAD, EARS, NOSE, THROAT: Moist buccal mucosa. Head is atraumatic, normocephalic. Hears conversational speech. No nasal drainage. RESPIRATORY: Non-labored respirations and equal bilateral excursions. CARDIOVASCULAR: Palpable 2+ radial pulses. ABDOMEN: Dressing clean dry and intact MUSCULOSKELETAL: No gross deformity of the lower extremities noted. No clubbing. No cyanosis. SKIN: Good skin turgor. Well perfused. NEUROLOGIC: Cranial nerves II through XII grossly intact. No focal or lateralizing signs. PSYCH: Appropriate affect. Alert and oriented to person, place and time. CLINICAL LABS: Reviewed. WBC 10.2, hemoglobin 11.9 STUDIES: Esophagram reviewed without obstruction or leak ASSESSMENT: 1. Morbid obesity due to excess calories 2. Status post gastric bypass PLAN: 1. Will hold medications due to nausea 2. IV fluid hydration 3. Revisit this afternoon for possible discharge later today Objective - Vital Signs Vital signs: Vital Signs Temp 98.9 F 12/02/23 07:22 Pulse 65 12/02/23 08:03 Resp 17 12/02/23 07:22 BP 131/89 12/02/23 07:22 Pulse Ox 95 12/02/23 08:04 FiO2 Intake & Output 12/01/23 12/02/23 12/02/23 18:59 06:59 18:59 Intake Total 240 Output Total 600 Balance -360 Weight 105.5 kg Intake: Oral 240 Output: Urine 600 Other: Voiding Method Toilet # Voids 6 3 - Labs CBC & Chem 7: 12/01/23 05:28 12/01/23 05:28
[2023-12-02] MEDS: SODIUM CHLORIDE 0.9% 1,000 ML IV ONE (12:47)
[2023-12-02 13:12] LABS: African American GFR (CKD) >90 (>60 ml/min/1.73 sqM); Anion Gap 6 mmol/L; Blood Urea Nitrogen 7 mg/dL (7-17); Calcium 8.6 mg/dL (8.4-10.2); Carbon Dioxide 24 mmol/L (22-30); Chloride 98 mmol/L (98-107); Glucose 81 mg/dL (74-99); Non-African American GFR(CKD) 89 (>60 ml/min/1.73 sqM); Sodium 128 mmol/L (137-145)
[2023-12-02 13:24] LABS: Potassium 5.6 mmol/L (3.5-5.1)
[2023-12-02 14:27] LABS: Basophils % (A) 0 %; Eosinophils # (A) 0.1 k/uL (0-0.7); Eosinophils % (A) 1 %; HCT 37.6 % (34.0-46.0); Lymphocytes % (A) 10 %; MCH 28.6 pg (25.0-35.0); MCHC 31.5 g/dL (31.0-37.0); MCV 90.6 fL (80.0-100.0); Mean Platelet Volume 8.9; Monocytes # (A) 0.8 k/uL (0-1.0); Monocytes % (A) 7 %; Neutrophils # (A) 8.8 k/uL (1.3-7.7); Neutrophils % (A) 81 %; Platelet Count 294 k/uL (150-450); RBC 4.15 m/uL (3.80-5.40); WBC 10.8 k/uL (3.8-10.6)
[2023-12-02 14:28] LABS: HGB 11.8 gm/dL (11.4-16.0)
[2023-12-02 14:30] VITALS: BP 129/86; PULSE 79; RESP 16; TEMP 99.2
--- NOTE | 2023-12-02 15:16 | P.DS ---
Providers Date of admission: 11/30/23 06:06 Expected date of discharge: 12/02/23 Attending physician: Caitlin Osuna Consults: 12/01/23 18:12 Consult Physician Routine Consulting Provider: Alexander Vasquez Consult Reason/Comments: medical management Do you want consulting provider notified?: Already Contacted Primary care physician: [facility] Course: Discharge diagnosis 1. Morbid obesity due to excess calories 2. Body mass index of 43.3, initial 3. Osteoarthritis of the knees. 4. Osteoarthritis of the lower back. 5. Hypertensive heart disease with congestive heart failure 6. Hypothyroidism 7. Adrenal insufficiency 8. Generalized anxiety disorder 9. Depressive disorder 10. Gastroesophageal reflux disease 11. Hypertensive heart disease 12. Hyperlipidemia 13. Chronic pain syndrome 14. Post traumatic stress disorder 15. Claustrophobic. 16. Asthma 17. Fibromyalgia 18. Myocardial infarction 20. Inguinal disease 21. 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 Adrenal insufficiency 24. 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 Endometriosis 27. Interstitial cystitis 28. Irritable bowel syndrome 29. Pelvic adhesions from previous Pfannenstiel incision Hospital course Noemi Griggs is a 53-year-old female who comes with lifelong morbid obesity. She is status post Robotic assisted da Magy Xi laparoscopic Molly-en-Y gastric bypass and Robotic assisted da Magy Xi laparoscopic lysis of adhesions. Patient tolerated surgery well. Pain is controlled. She is tolerating diet. Upper GI showed no evidence of leak or obstruction. She is having small amount of flatus. She has been up and ambulating. She is afebrile. She is stable for discharge. Physician Computer Game Designer note has been reviewed by physician. Signing provider agrees with the documented findings, assessment, and plan of care. Patient Condition at Discharge: Stable Plan - Discharge Summary Discharge Rx Participant: No New Discharge Prescriptions: New bisacodyL [Dulcolax] 5 mg PO DAILY PRN #10 tab PRN Reason: Constipation Simethicone 40 mg/0.6 ml Drops [Mylicon Drops] 40 mg PO PCHS PRN #30 ml PRN Reason: Gas Omeprazole [PriLOSEC] 40 mg PO DAILY #30 cap Ondansetron Odt [Zofran Odt] 4 mg PO Q8HR PRN #9 tab PRN Reason: Nausea Continue Levothyroxine Sodium [Synthroid] 75 mcg PO QAM Nitroglycerin Sl Tabs [Nitrostat] 0.4 mg SL Q5M PRN PRN Reason: Chest Pain Hydrocortisone [Cortef] 10 mg PO QAM ALPRAZolam [Xanax] 1 mg PO TID PRN PRN Reason: Anxiety HYDROcodone/APAP 7.5-325MG [Hope 7.5-325] 1 tab PO TID PRN PRN Reason: Pain Hydrocortisone [Cortef] 5 mg PO HS Rizatriptan Benzoate [Rizatriptan] 10 mg PO BID PRN PRN Reason: Migraine Headache EPINEPHrine (Auto Inject) [Epipen] 0.3 mg IM ONCE PRN PRN Reason: Anaphylaxis hydrALAZINE HCL 50 mg PO DAILY Tamsulosin [Flomax] 0.4 mg PO DAILY Zolpidem [Ambien] 5 mg PO HS PRN PRN Reason: Insomnia Meclazine 1 tab PO TID PRN PRN Reason: Vertigo Pregabalin 50 mg PO TID tiZANidine [Zanaflex] 4 mg PO Q8HR PRN PRN Reason: Pain Discontinued Desmopressin Acetate 0.05 mg PO BID busPIRone HCL [Buspar] 30 mg PO BID DULoxetine HCL [Cymbalta] 30 mg PO QAM Pravastatin Sodium [Pravachol] 20 mg PO DAILY Ergocalciferol [Vitamin D2 (1250 Mcg = 99608 Iu)] 50,000 unit PO WEEKLY DULoxetine HCL [Cymbalta] 60 mg PO QAM Omeprazole 40 mg PO QAM Amitriptyline HCl [Elavil] 25 mg PO HS PRN PRN Reason: Insomnia Discharge Medication List Levothyroxine Sodium [Synthroid] 75 mcg PO QAM 04/19/14 [History] Nitroglycerin Sl Tabs [Nitrostat] 0.4 mg SL Q5M PRN 01/15/15 [History] Hydrocortisone [Cortef] 10 mg PO QAM 12/08/15 [History] ALPRAZolam [Xanax] 1 mg PO TID PRN 02/06/17 [History] HYDROcodone/APAP 7.5-325MG [Hope 7.5-325] 1 tab PO TID PRN 04/07/17 [History] Hydrocortisone [Cortef] 5 mg PO HS 01/11/19 [History] EPINEPHrine (Auto Inject) [Epipen] 0.3 mg IM ONCE PRN 02/09/21 [History] Rizatriptan Benzoate [Rizatriptan] 10 mg PO BID PRN 02/09/21 [History] hydrALAZINE HCL 50 mg PO DAILY 05/01/22 [History] Pregabalin 50 mg PO TID 01/15/23 [History] Tamsulosin [Flomax] 0.4 mg PO DAILY 01/15/23 [History] Zolpidem [Ambien] 5 mg PO HS PRN 01/15/23 [History] tiZANidine [Zanaflex] 4 mg PO Q8HR PRN 04/29/23 [History] Meclazine 1 tab PO TID PRN 11/27/23 [History] Omeprazole [PriLOSEC] 40 mg PO DAILY #30 cap 12/02/23 [Rx] Ondansetron Odt [Zofran Odt] 4 mg PO Q8HR PRN #9 tab 12/02/23 [Rx] Simethicone 40 mg/0.6 ml Drops [Mylicon Drops] 40 mg PO PCHS PRN #30 ml 12/02/23 [Rx] bisacodyL [Dulcolax] 5 mg PO DAILY PRN #10 tab 12/02/23 [Rx] Follow up [facility]ment(s[facility] [place] [place] [facility] - 12/04/23 9:00 am Corby Mondragon MD [Primary Care Provider] - 1 Week Patient Instructions/Handouts: Nutrition after Bariatric Surgery (DC), Nutrition after Bariatric Surgery (GEN), Biliary Bypass (DC) Activity/Diet/Wound Care/Special Instructions: Liquid diet only for 2 weeks until December 13September Shower. No soaking in bath tubs 2 weeks until December 13 Continue to use incentive spirometry to prevent pneumonias. Please continue to ambulate at home to prevent blood clots in legs. Please notify your surgeon if you develop nausea and vomiting including new onset of abdominal pain. No lifting over 4 pounds in 4 weeks, Dec 30 Drink 64 oz of fluid daily. Start protein shakes on . Notify bariatric center for temp over 101.0, increased pain, drainage from incisions. No straws or carbonated beverages. Liquid diet only. Sugar content should be less than 6 g to avoid dumping syndrome. Take MOM for constipation. CRUSH, OPEN, OR CUT TABLETS LARGER THAN A SIZE OF A TIC TAC Discharge Disposition: HOME SELF-CARE
[2023-12-02 16:01] LABS: African American GFR (CKD) >90 (>60 ml/min/1.73 sqM); Anion Gap 6 mmol/L; Blood Urea Nitrogen 6 mg/dL (7-17); Calcium 8.5 mg/dL (8.4-10.2); Carbon Dioxide 24 mmol/L (22-30); Chloride 97 mmol/L (98-107); Glucose 84 mg/dL (74-99); Non-African American GFR(CKD) >90 (>60 ml/min/1.73 sqM); Sodium 127 mmol/L (137-145)
[2023-12-02 16:05] LABS: Potassium 5.5 mmol/L (3.5-5.1)
== END 2023-12-02 17:21 | disposition home or self-care (01) | DRG 620 ==
LOC: 2ORMAIN 11-30 06:06 → 4SSUR 11-30 14:45
PROVIDERS: ADMIT Surgery Plastic and Reconstructive Surgery; ATTEND Surgery Plastic and Reconstructive Surgery
PROC: 0DJ08ZZ Inspection of Upper Intestinal Tract, Via Natural or Artificial Opening Endoscopic (ICD-10-PCS; principal; 2023-11-30 07:30)
PROC: 0D164ZA Bypass Stomach to Jejunum, Percutaneous Endoscopic Approach (ICD-10-PCS; principal; 2023-11-30 07:30)
PROC: 8E0W4CZ Robotic Assisted Procedure of Trunk Region, Percutaneous Endoscopic Approach (ICD-10-PCS; principal; 2023-11-30 07:30)
DX: E66.01 Morbid (severe) obesity due to excess calories (principal); E23.0 Hypopituitarism; E27.40 Unspecified adrenocortical insufficiency; E23.2 Diabetes insipidus; Z68.37 Body mass index [BMI] 37.0-37.9, adult; M17.0 Bilateral primary osteoarthritis of knee; M19.09 Primary osteoarthritis, other specified site; N80.9 Endometriosis, unspecified; N30.10 Interstitial cystitis (chronic) without hematuria; M79.7 Fibromyalgia; K21.9 Gastro-esophageal reflux disease without esophagitis; E03.9 Hypothyroidism, unspecified; G90.A Postural orthostatic tachycardia syndrome [POTS]; M54.12 Radiculopathy, cervical region; K58.9 Irritable bowel syndrome, unspecified; F32.A Depression, unspecified; E78.5 Hyperlipidemia, unspecified; F40.240 Claustrophobia; F41.1 Generalized anxiety disorder; F43.10 Post-traumatic stress disorder, unspecified; G89.4 Chronic pain syndrome; I11.0 Hypertensive heart disease with heart failure; I50.9 Heart failure, unspecified; J45.909 Unspecified asthma, uncomplicated; Z96.653 Presence of artificial knee joint, bilateral; Z68.41 Body mass index [BMI] 40.0-44.9, adult; Z88.5 Allergy status to narcotic agent; I25.2 Old myocardial infarction; Z87.891 Personal history of nicotine dependence; Z85.828 Personal history of other malignant neoplasm of skin; Z79.899 Other long term (current) drug therapy; Z79.890 Hormone replacement therapy
CPT/HCPCS: 64999; 74240; 80048; 83735; 84100; 85025; 94640; 94760

== ENCOUNTER → 2023-11-04 | Outpatient (CLI) | payer MEDICARE ==
[2023-11-04 18:10] LABS: Basophils # (A) 0.05 X 10*3/uL (0.00-0.10); Basophils % (A) 0.8 %; Eosinophils # (A) 0.11 X 10*3/uL (0.04-0.35); Eosinophils % (A) 1.9 %; HCT 42.8 % (37.2-46.3); Lymphocytes # (A) 1.29 X 10*3/uL (0.90-5.00); Lymphocytes % (A) 21.7 %; MCH 27.4 pg (27.0-32.0); MCHC 30.4 g/dL (32.0-37.0); MCV 90.3 FL (80.0-97.0); Mean Platelet Volume 9.8 FL (9.5-12.2); Monocytes % (A) 8.4 %; NRBC Per 100 WBC 0 X 10*3/uL (0.00-0.01); Neutrophils # (A) 3.98 X 10*3/uL (1.80-7.70); Platelet Count 382 X 10*3/uL (140-440); RBC 4.74 X 10*6/uL (4.10-5.20); RDW 15.7 % (11.5-14.5); WBC 5.94 X 10*3/uL (4.50-10.00)
[2023-11-04 18:57] LABS: ALT 25 U/L (8-44); AST 22 U/L (13-35); Albumin 4.1 g/dL (3.8-4.9); Albumin/Globulin Ratio 1.64 Ratio (1.60-3.17); Alkaline Phosphatase 119 U/L (41-126); BUN/Creat Ratio 12.45 Ratio (12.00-20.00); Blood Urea Nitrogen 13.7 mg/dL (9.0-27.0); Calcium 9.5 mg/dL (8.7-10.3); Carbon Dioxide 25.9 mmol/L (21.6-31.8); Chloride 107 mmol/L (96-109); Globulin 2.5 g/dL (1.6-3.3); Glucose 120 mg/dL (70-110); Iron 42 UG/DL (50-170); Potassium 4.7 mmol/L (3.5-5.5); Sodium 144 mmol/L (135-145); Total Bilirubin 0.2 mg/dL (0.3-1.2); Total Protein 6.6 g/dL (6.2-8.2)
== END | disposition home or self-care (01) ==
LOC: LABPAT 07:47
PROVIDERS: ATTEND Surgery Plastic and Reconstructive Surgery
DX: Z01.812 Encounter for preprocedural laboratory examination (principal); D50.8 Other iron deficiency anemias; E55.9 Vitamin D deficiency, unspecified; E89.1 Postprocedural hypoinsulinemia
CPT/HCPCS: 36415; 80053; 82306; 83036; 83540; 85025

== ENCOUNTER → 2023-11-25 | Outpatient (CLI) | payer MEDICARE ==
[2023-11-25 18:30] LABS: Basophils # (A) 0.05 X 10*3/uL (0.00-0.10); Basophils % (A) 0.5 %; Eosinophils # (A) 0.02 X 10*3/uL (0.04-0.35); Eosinophils % (A) 0.2 %; HCT 46.3 % (37.2-46.3); HGB 14.7 g/dL (12.0-15.0); Lymphocytes # (A) 1.25 X 10*3/uL (0.90-5.00); Lymphocytes % (A) 11.4 %; MCH 28.1 pg (27.0-32.0); MCHC 31.7 g/dL (32.0-37.0); MCV 88.4 FL (80.0-97.0); Mean Platelet Volume 10.2 FL (9.5-12.2); Monocytes # (A) 0.88 X 10*3/uL (0.20-1.00); Monocytes % (A) 8.1 %; NRBC Per 100 WBC 0 X 10*3/uL (0.00-0.01); Neutrophils # (A) 8.71 X 10*3/uL (1.80-7.70); Neutrophils % (A) 79.6 %; Platelet Count 455 X 10*3/uL (140-440); RBC 5.24 X 10*6/uL (4.10-5.20); RDW 15.6 % (11.5-14.5); WBC 10.93 X 10*3/uL (4.50-10.00)
[2023-11-25 19:53] LABS: ALT 31 U/L (8-44); AST 27 U/L (13-35); Albumin 4.6 g/dL (3.8-4.9); Albumin/Globulin Ratio 1.64 Ratio (1.60-3.17); Alkaline Phosphatase 113 U/L (41-126); Blood Urea Nitrogen 13.2 mg/dL (9.0-27.0); Calcium 9.8 mg/dL (8.7-10.3); Carbon Dioxide 22.5 mmol/L (21.6-31.8); Chloride 100 mmol/L (96-109); Globulin 2.8 g/dL (1.6-3.3); Glucose 136 mg/dL (70-110); Potassium 4.6 mmol/L (3.5-5.5); Sodium 137 mmol/L (135-145); Total Bilirubin 0.4 mg/dL (0.3-1.2); Total Protein 7.4 g/dL (6.2-8.2)
== END | disposition home or self-care (01) ==
LOC: LABPAT 13:58
PROVIDERS: ATTEND Surgery Plastic and Reconstructive Surgery
DX: Z01.812 Encounter for preprocedural laboratory examination (principal); E66.01 Morbid (severe) obesity due to excess calories
CPT/HCPCS: 80053; 85025; 86850; 86900; 86901

== ENCOUNTER → 2024-03-09 | Outpatient (CLI) | payer MEDICARE ==
[2024-03-09 13:56] VITALS: BP 119/88; PULSE 75; RESP 16; TEMP 98.7; BMI 30.9
--- NOTE | 2024-03-09 14:31 | P.BASOAP ---
Subjective Progress Note Date: 03/09/24 She is under 200 in 15 years. Lost weight. Lost hair. She has lost 60 pounds. She lost 30 pounds in 2 months. No blood sugar diabetes type II in remission. She is off her medications. Hgb A1c last week 5.2%. She has left upper quadrant pain. She has pain with movement. Recommend lysis of adhesions. She is 3 months out. Objective - Vital Signs Vital signs: Vital Signs Temp 98.7 F 03/09/24 13:43 Pulse 75 03/09/24 13:43 Resp 16 03/09/24 13:43 BP 119/88 03/09/24 13:43 Pulse Ox FiO2 Intake & Output 03/08/24 03/09/24 03/09/24 18:59 06:59 18:59 Weight 84.368 kg Assessment/Plan Plan: Date: 03/09/24 Initial Weight: Initial BMI: Current Weight: 84.368 kg Current BMI: 30.9 Type of Surgery: Total Volume in Band: Previous Volume: Volume Removed: Volume Added: Band Size:
== END ==
LOC: BARWHC3 12:52
PROVIDERS: ATTEND Surgery Plastic and Reconstructive Surgery
DX: E66.01 Morbid (severe) obesity due to excess calories (principal); Z71.3 Dietary counseling and surveillance; Z68.30 Body mass index [BMI] 30.0-30.9, adult; Z91.048 Other nonmedicinal substance allergy status; Z88.8 Allergy status to other drugs, medicaments and biological substances; Z91.030 Bee allergy status; Z87.891 Personal history of nicotine dependence
CPT/HCPCS: 97803; G0463; 99211

== ENCOUNTER → 2024-03-30 | Outpatient (CLI) | payer MEDICARE ==
[2024-03-30 08:24] LABS: INR 0.9 (<1.2); Partial Thromboplastin Time 24.1 sec (22.0-30.0)
[2024-03-30 10:21] LABS: HGB 13.9 g/dL (12.0-15.0); MCH 30.3 pg (27.0-32.0); MCHC 32.3 g/dL (32.0-37.0); MCV 93.7 FL (80.0-97.0); Mean Platelet Volume 10.1 FL (9.5-12.2); NRBC Per 100 WBC 0 X 10*3/uL (0.00-0.01); Platelet Count 383 X 10*3/uL (140-440); RBC 4.59 X 10*6/uL (4.10-5.20); RDW 16.4 % (11.5-14.5); WBC 5.36 X 10*3/uL (4.50-10.00)
[2024-03-30 10:54] LABS: % Iron Saturation 25.55 (12.00-45.00); ALT 120 U/L (8-44); AST 129 U/L (13-35); Albumin 4.1 g/dL (3.8-4.9); Albumin/Globulin Ratio 1.78 Ratio (1.60-3.17); Alkaline Phosphatase 219 U/L (41-126); Blood Urea Nitrogen 13.4 mg/dL (9.0-27.0); Calcium 9.9 mg/dL (8.7-10.3); Carbon Dioxide 27.1 mmol/L (21.6-31.8); Chloride 101 mmol/L (96-109); Chol/HDL Ratio 2.17 Ratio; Ferritin 70.3 ng/mL (10.0-291.0); Globulin 2.3 g/dL (1.6-3.3); Glucose 92 mg/dL (70-110); Iron 82 UG/DL (50-170); LDL Cholesterol,Calculated 66.5 mg/dL (0.0-131.0); Magnesium 2.2 mg/dL (1.5-2.4); Phosphorus 4.1 mg/dL (2.4-5.1); Potassium 4.7 mmol/L (3.5-5.5); Sodium 138 mmol/L (135-145); Total Bilirubin 0.6 mg/dL (0.3-1.2); Total Iron Binding Capacity 321 UG/DL (228-460); Total Protein 6.4 g/dL (6.2-8.2)
[2024-03-30 11:12] LABS: Prealbumin 19.2 mg/dL (18.0-42.0)
[2024-03-31 12:33] LABS: Zinc, Serum 97 ug/dL (60-130)
[2024-04-01 05:53] LABS: Vit B1(Thiamine) 90 ug/L (38-122)
== END | disposition home or self-care (01) ==
LOC: LABWHC1 07:24
PROVIDERS: ATTEND Surgery Plastic and Reconstructive Surgery
DX: D50.8 Other iron deficiency anemias (principal); K91.2 Postsurgical malabsorption, not elsewhere classified; E44.0 Moderate protein-calorie malnutrition; E44.1 Mild protein-calorie malnutrition; E46 Unspecified protein-calorie malnutrition; E55.9 Vitamin D deficiency, unspecified; K74.1 Hepatic sclerosis; N19 Unspecified kidney failure; T56.894A Toxic effect of other metals, undetermined, initial encounter
CPT/HCPCS: 36415; 80053; 80061; 82306; 82525; 82607; 82728; 82746; 83540; 83550; 83735; 83970; 84100; 84134; 84255; 84425; 84443; 84590; 84630; 85027; 85610; 85730

== ENCOUNTER 2024-04-06 12:28 | Emergency (ER) | payer MEDICARE ==
[2024-04-06 12:33] VITALS: TEMP 98.1
--- NOTE | 2024-04-06 13:06 | ED ---
General Adult HPI - General Chief complaint: Recheck/Abnormal Lab/Rx Stated complaint: Abd pain Time Seen by Provider: 04/06/24 12:34 Source: patient Mode of arrival: ambulatory Limitations: no limitations - History of Present Illness Initial comments: Dictation was produced using [email or web address] dictation software. please excuse any grammatical, word or spelling errors. Chief Complaint: 53-year-old female presents to the emergency department for elevated liver enzymes and flank pain History of Present Illness: Patient 53-year-old female she has multiple c omorbidities she has history of cholecystectomy, bariatric surgery. She is scheduled to have lysis of adhesions procedure with general surgery. States that she had blood work drawn currently. She is found to have elevated liver enzymes she was told to come to the emergency department for further care. She does have some right-sided flank pain. Denies any fever, chills or night sweats. States that it feels symptomatic whenever she lies on her right side. The ROS documented in this emergency department record has been reviewed and confirmed by me. Those systems with pertinent positive or negative responses have been documented in the HPI. All other systems are other negative and/or n oncontributory. - Related Data Home Medications Medication Instructions Recorded Confirmed Levothyroxine Sodium [Synthroid] 75 mcg PO QAM 04/19/14 03/09/24 Nitroglycerin Sl Tabs [Nitrostat] 0.4 mg SL Q5M PRN 01/15/15 03/09/24 Hydrocortisone [Cortef] 10 mg PO QAM 12/08/15 03/09/24 ALPRAZolam [Xanax] 0.5 mg PO TID PRN 02/06/17 03/09/24 HYDROcodone/APAP 7.5-325MG [[place] 1 tab PO TID PRN 04/07/17 03/09/24 7.5-325] Hydrocortisone [Cortef] 5 mg PO HS 01/11/19 03/09/24 EPINEPHrine (Auto Inject) [Epipen] 0.3 mg IM ONCE PRN 02/09/21 03/09/24 Amitriptyline HCl 20 mg PO HS 12/09/23 03/09/24 DULoxetine HCL [Cymbalta] 30 mg PO DAILY 12/09/23 03/09/24 Desmopressin Acetate [Ddavp] 0.1 mg PO BID 12/09/23 03/09/24 Omeprazole 40 mg PO BID 12/10/23 03/09/24 Sucralfate [Carafate] 1 gram PO BID 12/10/23 03/09/24 Allergies Allergy/AdvReac Type Severity Reaction Status Date / Time morphine Allergy Anaphylaxis Verified 04/06/24 12:33 venom-honey bee Allergy Dyspnea Verified 04/06/24 12:33 [bee venom (honey bee)] blue dye AdvReac Mild HYPER Verified 04/06/24 12:33 FEELING Review of Systems ROS Statement: Those systems with pertinent positive or pertinent negative responses have been documented in the HPI. ROS Other: All systems not noted in ROS Statement are negative. Past Medical History Past Medical History: Asthma, Cancer, Heart Failure, Eye Disorder, Fibromyalgia, GERD/Reflux, Hypertension, Myocardial Infarction (OK), Musculoskeletal Disorder, Osteoarthritis (OA), Renal Disease, Syncope, Thyroid Disorder Additional Past Medical History / Comment(s): SKIN CANCER, ADRENAL INSUFFICENCY. POTS SYNDROME. DIABETES INSIPIDUS. 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 Last Myocardial Infarction Date:: december 29 2014 History of Any Multi-Drug Resistant Organisms: None Reported Past Surgical History: Back Surgery, Bariatric Surgery, Section, Cholecystectomy, Joint Replacement, Orthopedic Surgery Additional Past Surgical History / Comment(s): ARTIFICIAL DISC IN C5,6,7 , TITANIUM PLATE AND 4 SCREWS IN NECK. RT CARPAL TUNNEL. . HEMORRHOIDECTOMY. BRONCHOSCOPY.,CERVIAL EPIDURAL STEROID INJECTION, LT KNEE ARTHROSCOPIC LATERAL FEMORAL CHONDRECTOMY/MEDIALFEMORAL CHONDRECTOMY/PATELLER CHONDROPLASTY/PARTIAL SYNOVECTOMY OF LATERAL AND PATELLOFEMORAL COMPARTMENTS (TOTAL OF 3 KNEE SX), RADIOFREQUENCY TX L5,-RT KNEE SCOPE, EXPLORATORY LAP- ENDOmetriosis, TOTAL KNEE REPLACEMENT MARIA ELENA maira elena shoulder rotator cuff and biceps tendon. gastric bypass 11-30-23 Past Anesthesia/Blood Transfusion Reactions: No Reported Reaction, Family History of Problems w/ Anesthesia, Motion Sickness Additional Past Anesthesia/Blood Transfusion Reaction / Comment(s): CLAUSTERPHOBIA, VERTIGO IN PAST. PATIENTS MOTHER HAS DIFFICULTY WAKING UP Past Psychological History: Anxiety, Depression, PTSD Smoking Status: Never smoker Past Alcohol Use History: Rare Past Drug Use History: None Reported - Past Family History Mother Family Medical History: Cancer, Hyperlipidemia, Hypertension Additional Family Medical History / Comment(s): RECTAL CANCER. Father Family Medical History: Hyperlipidemia, Hypertension General Exam - General Exam Comments Initial Comments: PHYSICAL EXAM: General Impression: Alert and oriented x3, not in acute distress HEENT: Normocephalic atraumatic, extra-ocular movements intact, pupils equal and reactive to light bilaterally, mucous membranes moist. Cardiovascular: Heart regular rate and rhythm Chest: Able to complete full sentences, no retractions, no tachypnea Abdomen: abdomen soft, non-tender, non-distended, no organomegaly Musculoskeletal: Pulses present and equal in all extremities, no peripheral edema Motor: no focal deficits noted Neurological: CN II-XII grossly intact, no focal motor or sensory deficits noted Skin: Intact with no visualized rashes Psych: Normal affect and mood Limitations: no limitations Course Vital Signs 04/06/24 04/06/24 12:30 15:15 Temperature 98.1 F Pulse Rate 88 61 Respiratory 22 20 Rate Blood Pressure 142/89 135/92 O2 Sat by Pulse 99 97 Oximetry Medical Decision Making - Medical Decision Making Was pt. sent in by a medical professional or institution (, PA, RUBBER GOODS REPAIRER, urgent care, hospital, or penitentiary...) When possible be specific @ -No Did you speak to anyone other than the patient for history (EMS, parent, family, police, friend...)? What history was obtained from this source @ -No Did you review nursing and triage notes (agree or disagree)? Why? @ -I reviewed and agree with nursing and triage notes Were old charts reviewed (outside hosp., previous admission, EMS record, old EKG, old radiological studies, urgent care reports/EKG's, penitentiary records)? Report findings @ -No old charts were reviewed Differential Diagnosis (chest pain, altered mental status, abdominal pain women, abdominal pain men, vaginal bleeding, musculoskeletal, weakness, fever, dyspnea, syncope, headache, dizziness, GI bleed, back pain, seizure, CVA, palpatations, mental health)? @ -Differential Abdominal Pain Men: Appendicitis, cholecystitis, diverticulosis, ischemic bowel, pancreatitis, hepatitis, UTI, gastroenteritis, AAA, incarcerated hernia, bowel obstruction, constipation, inflammatory bowel, hepatitis, peptic ulcer disease, splenic infarction, perforated viscus, testicular torsion, this is not meant to be an all-inclusive list EKG interpreted by me (3pts min.). @ -None done X-rays interpreted by me (1pt min.). @ -None done CT interpreted by me (1pt min.). @ -None done U/S interpreted by me (1pt. min.). @ -Ultrasound shows fatty liver What testing was considered but not performed or refused? (CT, X-rays, U/S, labs)? Why? @ -None What meds were considered but not given or refused? Why? @ -None Was smoking cessation discussed for >3mins.? @ -No Were there social determinants of health that impacted care today? How? (Homel essness, low income, unemployed, alcoholism, drug addiction, transportation, low edu. Level, literacy, decrease access to med. care, penitentiary, rehab)? @ -No Was there de-escalation of care discussed even if they declined (Discuss DNR or withdrawal of care, Hospice)? DNR status @ -No What co-morbidities impacted this encounter? (DM, HTN, Smoking, COPD, CAD, Cancer, CVA, ARF, Chemo, Hep., AIDS, mental health diagnosis, sleep apnea, morbid obesity)? @ -None Was patient admitted / discharged? Hospital course, mention meds given and route, prescriptions, significant lab abnormalities, going to OR and other pertinent info. @ -53-year-old female presents to the emergency department for elevated liver enzymes she was instructed by general surgeon to come to the ER to be evaluated. Vital signs are stable. Patient's physical examination is benign. Abdomen soft. Laboratory evaluation obtained. Very mild elevation of her liver enzymes. Ultrasound shows fatty liver. Patient reevaluated bedside 3:55 PM found to be stable to condition. Patient told to follow-up with her primary care doctor further outpatient care. Did you discuss the management of the patient with other professionals (pro fessionals i.e. , PA, RUBBER GOODS REPAIRER, lab, RT, psych nurse, licensed master social worker, media relations coordinator, teacher, youth liaison officer, bilingual case manager)? Give summary @ -No Was critical care preformed (if so, how long)? @ -No Undiagnosed new problem with uncertain prognosis? @ -No Drug Therapy requiring intensive monitoring for toxicity (Heparin, Nitro, Insulin, Cardizem)? @ -No Were any procedures done? @ -No Diagnosis/symptom? Acute, or Chronic, or Acute on Chronic? Uncomplicated (without systemic symptoms) or Complicated (systemic symptoms)? @ -Abdominal pain Side effects of treatment? @ -No Exacerbation, Progression, or Severe Exacerbation? @ -No Poses a threat to life or bodily function? How? (Chest pain, [place], [place], pneumonia, PE, COPD, DKA, ARF, appy, cholecystitis, CVA, Diverticulitis, Homicidal, Suicidal, threat to staff... and all critical care pts) @ -No - Lab Data Result diagrams: 04/06/24 13:08 04/06/24 13:08 Lab Results 04/06/24 04/06/24 04/06/24 Range/Units 13:08 13:08 13:08 WBC 6.4 (3.8-10.6) k/uL RBC 4.73 (3.80-5.40) m/uL Hgb 14.4 (11.4-16.0) gm/dL Hct 44.2 (34.0-46.0) % MCV 93.4 (80.0-100.0) fL MCH 30.4 (25.0-35.0) pg MCHC 32.5 (31.0-37.0) g/dL RDW 15.7 H (11.5-15.5) % Plt Count 324 (150-450) k/uL MPV 7.3 Neutrophils % 77 % Lymphocytes % 15 % Monocytes % 4 % Eosinophils % 2 % Basophils % 0 % Neutrophils # 5.0 (1.3-7.7) k/uL Lymphocytes # 1.0 (1.0-4.8) k/uL Monocytes # 0.3 (0-1.0) k/uL Eosinophils # 0.1 (0-0.7) k/uL Basophils # 0.0 (0-0.2) k/uL Sodium 136 L (137-145) mmol/L Potassium 4.2 (3.5-5.1) mmol/L Chloride 104 (98-107) mmol/L Carbon Dioxide 26 (22-30) mmol/L Anion Gap 6 mmol/L BUN 10 (7-17) mg/dL Creatinine 0.93 (0.52-1.04) mg/dL Est GFR (CKD-EPI)AfAm 81 (>60 ml/min/1.73 sqM) Est GFR (CKD-EPI)NonAf 70 (>60 ml/min/1.73 sqM) Glucose 95 (74-99) mg/dL Calcium 9.7 (8.4-10.2) mg/dL Total Bilirubin 1.0 (0.2-1.3) mg/dL AST 41 H (14-36) U/L ALT 109 H (4-34) U/L Alkaline Phosphatase 139 H (38-126) U/L Total Protein 7.5 (6.3-8.2) g/dL Albumin 4.8 (3.5-5.0) g/dL Lipase 81 (23-300) U/L Urine Color Yellow Urine Appearance Clear (Clear) Urine pH 6.0 (5.0-8.0) Ur Specific [place] 1.024 (1.001-1.035) Urine Protein 1+ H (Negative) Urine Glucose (UA) Negative (Negative) Urine Ketones 1+ H (Negative) Urine Blood Negative (Negative) Urine Nitrite Negative (Negative) Urine Bilirubin Negative (Negative) Urine Urobilinogen 2.0 (<2.0) mg/dL Ur Leukocyte Esterase Negative (Negative) Urine RBC <1 (0-5) /hpf Urine WBC 1 (0-5) /hpf Ur Squamous Epith Cells 1 (0-4) /hpf Hyaline Casts 3 H (0-2) /lpf Urine Mucus Moderate H (None) /hpf Disposition Clinical Impression: Fatty liver Disposition: HOME SELF-CARE Condition: Good Instructions (If sedation given, give patient instructions): Abdominal Pain (ED) Is patient prescribed a controlled substance at d/c from ED?: No Referrals: Corby Mondragon MD [Primary Care Provider] - 1-2 days Time of Disposition: 15:56
[2024-04-06 13:19] LABS: Basophils % (A) 0 %; Eosinophils # (A) 0.1 k/uL (0-0.7); Eosinophils % (A) 2 %; HCT 44.2 % (34.0-46.0); HGB 14.4 gm/dL (11.4-16.0); Lymphocytes % (A) 15 %; MCH 30.4 pg (25.0-35.0); MCHC 32.5 g/dL (31.0-37.0); MCV 93.4 fL (80.0-100.0); Mean Platelet Volume 7.3; Monocytes # (A) 0.3 k/uL (0-1.0); Monocytes % (A) 4 %; Neutrophils % (A) 77 %; Platelet Count 324 k/uL (150-450); RBC 4.73 m/uL (3.80-5.40); RDW 15.7 % (11.5-15.5); WBC 6.4 k/uL (3.8-10.6)
[2024-04-06 13:31] LABS: ALT 109 U/L (4-34); AST 41 U/L (14-36); African American GFR (CKD) 81 (>60 ml/min/1.73 sqM); Albumin 4.8 g/dL (3.5-5.0); Alkaline Phosphatase 139 U/L (38-126); Anion Gap 6 mmol/L; Appearance,Urine Clear (Clear); Bilirubin,Urine Negative (Negative); Blood Urea Nitrogen 10 mg/dL (7-17); Blood,Urine Negative (Negative); Calcium 9.7 mg/dL (8.4-10.2); Carbon Dioxide 26 mmol/L (22-30); Chloride 104 mmol/L (98-107); Color,Urine Yellow; Glucose 95 mg/dL (74-99); Glucose,Urine (UA) Negative (Negative); Hyaline Casts,Urine 3 /lpf (0-2); Ketones,Urine 1+ (Negative); Leukocyte Esterase,Urine Negative (Negative); Lipase 81 U/L (23-300); Mucus,Urine Moderate /hpf; Nitrite,Urine Negative (Negative); Non-African American GFR(CKD) 70 (>60 ml/min/1.73 sqM); Potassium 4.2 mmol/L (3.5-5.1); Protein,Urine 1+ (Negative); RBC,Urine <1 /hpf (0-5); Sodium 136 mmol/L (137-145); Specific Gravity,Urine 1.024 (1.001-1.035); Squamous Epithelial Cell,Urine 1 /hpf (0-4); Total Protein 7.5 g/dL (6.3-8.2); WBC,Urine 1 /hpf (0-5)
[2024-04-06] MEDS: HYDROmorphone 0.5 MG/0.5 ML SYRINGE IVP STA (13:51)
[2024-04-06] MEDS: MAG HYDROX/AL HYDROX/SIMETH 30 ML, HYOSCYAMINE ELIXIR 10 ML, LIDOCAINE VISCOUS 2% 10 ML PO STA (14:40)
[2024-04-06 15:15] VITALS: BP 135/92; PULSE 61; RESP 20
--- NOTE | 2024-04-06 15:20 | US ---
EXAMINATION TYPE: US abdomen limited DATE OF EXAM: 04/06/2024 COMPARISON: NONE CLINICAL INDICATION: Female, 53 years old with history of epigastric pain; right back pain, gastric b ypass surgery TECHNIQUE: Grayscale and color Doppler imaging of the right upper quadrant was performed. FINDINGS: EXAM MEASUREMENTS: Liver Length: 15.3 cm Gallbladder Wall: Surgically absent CBD: 0.9 cm Right Kidney: 9.8x5.0x5.7 cm Pancreas: Tail obscured by overlying bowel gas Liver: heterogenous, areas of fatty infiltration and fatty sparing Gallbladder: Surgically absent Evidence for sonographic Orlando's sign: No CBD: Dilated measuring 9 mm in diameter , likely post cholecystectomy related. Right Kidney: wnl Information Assurance reports limited by study due to shadowing bowel gas and patient body habitus. IMPRESSION: Increased hepatic parenchymal echogenicity suggesting steatosis. Otherwise, unremarkable right upper quadrant ultrasound exam. [facility], , 04/06/2024 3:17 PM
== END 2024-04-06 16:24 | disposition home or self-care (01) ==
LOC: EC 12:28
DX: K76.0 Fatty (change of) liver, not elsewhere classified (principal); K58.9 Irritable bowel syndrome, unspecified; Z88.5 Allergy status to narcotic agent; Z91.030 Bee allergy status; Z91.018 Allergy to other foods; Z90.49 Acquired absence of other specified parts of digestive tract
CPT/HCPCS: 36415; 80053; 83690; 85025; 81001; 76705; 99284; 96374; J1171

== ENCOUNTER → 2024-04-13 | Outpatient (CLI) | payer MEDICARE ==
[2024-04-13 17:00] VITALS: BP 148/93; PULSE 57; RESP 16; TEMP 98.6; BMI 29.9
--- NOTE | 2024-04-13 17:19 | P.BASOAP ---
Subjective Progress Note Date: 04/13/24 Has severe abdominal pain. She has back and LUQ pain and is getting severe. She is doing well. She is eating less. Objective - Vital Signs Vital signs: Vital Signs Temp 98.6 F 04/13/24 16:45 Pulse 57 L 04/13/24 16:45 Resp 16 04/13/24 16:45 BP 148/93 04/13/24 16:45 Pulse Ox FiO2 Intake & Output 04/12/24 04/13/24 04/13/24 18:59 06:59 18:59 Weight 81.647 kg Assessment/Plan Plan: Date: 04/13/24 Initial Weight: Initial BMI: Current Weight: 81.647 kg Current BMI: 29.9 Type of Surgery: Total Volume in Band: Previous Volume: Volume Removed: Volume Added: Band Size:
== END ==
LOC: BARWHC3 15:59
PROVIDERS: ATTEND Surgery Plastic and Reconstructive Surgery
DX: E66.01 Morbid (severe) obesity due to excess calories (principal); R10.12 Left upper quadrant pain; M54.9 Dorsalgia, unspecified; Z91.048 Other nonmedicinal substance allergy status; Z88.5 Allergy status to narcotic agent; Z91.030 Bee allergy status; Z91.041 Radiographic dye allergy status; Z68.30 Body mass index [BMI] 30.0-30.9, adult; Z87.891 Personal history of nicotine dependence
CPT/HCPCS: 99211

== ENCOUNTER 2024-04-14 09:31 | Observation (INO) | payer MEDICARE ==
--- NOTE | 2024-04-14 10:43 | ED ---
Abdominal Pain HPI - General Chief Complaint: Abdominal Pain Stated Complaint: abd pain-sent by rodrigo Time Seen by Provider: 04/14/24 09:48 Source: patient, RN notes reviewed Mode of arrival: ambulatory Limitations: no limitations - History of Present Illness Initial Comments: This is a 53-year-old female presenting with referral from general surgeon's office, Dr. Osuna, with complaint of upper quadrant abdominal pain with radiation into the mid back that has been worsening over the past few weeks. Patient is scheduled to have procedure in April however contacted general surgeon's office with referral to report to the emergency department for further evaluation with impending admission. Patient has previous surgical abdominal history of Molly-en-Y. Denies nausea, vomiting, fevers, chills. - Related Data Home Medications Medication Instructions Recorded Confirmed Levothyroxine Sodium [Synthroid] 75 mcg PO DAILY 04/19/14 04/14/24 Hydrocortisone [Cortef] 10 mg PO DAILY 12/08/15 04/14/24 Hydrocortisone [Cortef] 5 mg PO HS 01/11/19 04/14/24 DULoxetine HCL [Cymbalta] 30 mg PO TID 12/09/23 04/14/24 Desmopressin Acetate [Ddavp] 0.1 mg PO DAILY 12/09/23 04/14/24 Omeprazole 40 mg PO DAILY 12/10/23 04/14/24 Sucralfate [Carafate] 1 gm PO BID 12/10/23 04/14/24 ALPRAZolam [Xanax] 1 mg PO HS 04/14/24 04/14/24 Amitriptyline HCl [Elavil] 20 mg PO HS 04/14/24 04/14/24 HYDROcodone/APAP [Brainerd Elixir 15 ml PO TID PRN 04/14/24 04/14/24 7.5-325Mg/15Ml] Allergies Allergy/AdvReac Type Severity Reaction Status Date / Time morphine Allergy Anaphylaxis Verified 04/14/24 13:05 venom-honey bee Allergy Dyspnea Verified 04/14/24 13:05 [bee venom (honey bee)] blue dye AdvReac Mild HYPER Verified 04/14/24 13:05 FEELING Review of Systems ROS Statement: Those systems with pertinent positive or pertinent negative responses have been documented in the HPI. ROS Other: All systems not noted in ROS Statement are negative. Past Medical History Past Medical History: Asthma, Cancer, Heart Failure, Eye Disorder, Fibromyalgia, GERD/Reflux, Hypertension, Myocardial Infarction (PR), Musculoskeletal Disorder, Osteoarthritis (OA), Renal Disease, Syncope, Thyroid Disorder Additional Past Medical History / Comment(s): SKIN CANCER, ADRENAL INSUFFICENCY. POTS SYNDROME. DIABETES INSIPIDUS. 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 Last Myocardial Infarction Date:: december 29 2014 History of Any Multi-Drug Resistant Organisms: None Reported Past Surgical History: Back Surgery, Bariatric Surgery, Section, Cholecystectomy, Joint Replacement, Orthopedic Surgery Additional Past Surgical History / Comment(s): ARTIFICIAL DISC IN C5,6,7 , TITANIUM PLATE AND 4 SCREWS IN NECK. RT CARPAL TUNNEL. . HEMORRHOIDECTOMY. BRONCHOSCOPY.,CERVIAL EPIDURAL STEROID INJECTION, LT KNEE ARTHROSCOPIC LATERAL FEMORAL CHONDRECTOMY/MEDIALFEMORAL CHONDRECTOMY/PATELLER CHONDROPLASTY/PARTIAL SYNOVECTOMY OF LATERAL AND PATELLOFEMORAL COMPARTMENTS (TOTAL OF 3 KNEE SX), RADIOFREQUENCY TX L5,-RT KNEE SCOPE, EXPLORATORY LAP- ENDOmetriosis, TOTAL KNEE REPLACEMENT MARIA ELENA maria elena shoulder rotator cuff and biceps tendon. gastric bypass 11-30-23 Past Anesthesia/Blood Transfusion Reactions: No Reported Reaction, Family History of Problems w/ Anesthesia, Motion Sickness Additional Past Anesthesia/Blood Transfusion Reaction / Comment(s): CLAUSTERPHOBIA, VERTIGO IN PAST. PATIENTS MOTHER HAS DIFFICULTY WAKING UP Past Psychological History: Anxiety, Depression, PTSD Smoking Status: Never smoker Past Alcohol Use History: Rare Past Drug Use History: None Reported - Past Family History Mother Family Medical History: Cancer, Hyperlipidemia, Hypertension Additional Family Medical History / Comment(s): RECTAL CANCER. Father Family Medical History: Hyperlipidemia, Hypertension General Exam - General Exam Comments Initial Comments: Visual Physical Exam Vital signs reviewed General: Well-appearing, nontoxic, no acute distress. Head: Normocephalic, atraumatic Eyes: PERRLA, EOMI ENT: Airway patent Chest: Nonlabored breathing Skin: No visual rash, normal skin tone Neuro: Alert and oriented 3 Musculoskeletal: No gross abnormalities Limitations: no limitations General appearance: alert, in no apparent distress ENT exam: Present: normal exam, mucous membranes moist Neck exam: Present: normal inspection. Absent: tenderness, meningismus, lymphadenopathy Respiratory exam: Present: normal lung sounds bilaterally. Absent: respiratory distress, wheezes, rales, rhonchi, stridor Cardiovascular Exam: Present: regular rate, normal rhythm, normal heart sounds. Absent: systolic murmur, diastolic murmur, rubs, gallop, clicks GI/Abdominal exam: Present: soft, tenderness (LUQ, RUQ), normal bowel sounds. Absent: distended, guarding, rebound, rigid Extremities exam: Present: normal inspection, full ROM, normal capillary refill. Absent: tenderness, pedal edema, joint swelling, calf tenderness Back exam: Present: normal inspection Neurological exam: Present: alert, oriented X3, CN II-XII intact Skin exam: Present: warm, dry, intact, normal color. Absent: rash Course Vital Signs 04/14/24 09:47 Temperature 97.5 F L Pulse Rate 83 Respiratory 20 Rate Blood Pressure 143/93 O2 Sat by Pulse 98 Oximetry Medical Decision Making - Medical Decision Making Was pt. sent in by a medical professional or institution (, PA, MOTION PI[employer]URE EQUIPMENT SUPERVISOR, urgent care, hospital, or correction...) When possible be specific @ -No Did you speak to anyone other than the patient for history (EMS, parent, family, police, friend...)? What history was obtained from this source @ -No Did you review nursing and triage notes (agree or disagree)? Why? @ -I reviewed and agree with nursing and triage notes Were old charts reviewed (outside hosp., previous admission, EMS record, old EKG, old radiological studies, urgent care reports/EKG's, correction records)? Report findings @ -No old charts were reviewed Differential Diagnosis (chest pain, altered mental status, abdominal pain women, abdominal pain men, vaginal bleeding, weakness, fever, dyspnea, syncope, headache, dizziness, GI bleed, back pain, seizure, CVA, palpatations, mental health, musculoskeletal)? @ -Differential Abdominal Pain Women: Appendicitis, Cholecystitis, diverticulosis, ischemic bowel, pancreatitis, hepatitis, UTI, gastroenteritis, AAA, incarcerated hernia, bowel obstruction, constipation, inflammatory bowel, hepatitis, peptic ulcer disease, splenic infarction, perforated viscus, vulvitis, ovarian torsion, PID, kidney stone, placenta abruption, this is not meant to be an all-inclusive list EKG interpreted by me (3pts min.). @ -Completed at 1334 sinus rhythm with a ventricular to 77, MD interval 190, QRS 99, QTc 412. X-rays interpreted by me (1pt min.). @ -None done CT interpreted by me (1pt min.). @ -CT of the abdomen pelvis with IV contrast reveals postsurgical changes with no acute changes in the abdomen pelvis U/S interpreted by me (1pt. min.). @ -None done What testing was considered but not performed or refused? (CT, X-rays, U/S, labs)? Why? @ -None What meds were considered but not given or refused? Why? @ -None Did you discuss the management of the patient with other professionals (professionals i.e. , PA, MOTION PI[employer] EQUIPMENT SUPERVISOR, lab, RT, psych nurse, social services analyst, director of neighborhood service center, teacher, maritime officer, foster care case manager)? Give summary @ -Spoke with general surgeon, Dr. Osuna, in regard to the patient's presentation who is excepted for admission with impending surgery. Is recommend that patient be placed in n.p.o. status with only ice chips and IV Tylenol as needed for pain and continued IV hydration. Was smoking cessation discussed for >3mins.? @ -No Was critical care preformed (if so, how long)? @ -No Were there social determinants of health that impacted care today? How? (Homelessness, low income, unemployed, alcoholism, drug addiction, transportation, low edu. Level, literacy, decrease access to med. care, assisted, rehab)? @ -No Was there de-escalation of care discussed even if they declined (Discuss DNR or withdrawal of care, Hospice)? DNR status @ -No What co-morbidities impacted this encounter? (DM, HTN, Smoking, COPD, CAD, Cancer, CVA, ARF, Chemo, Hep., AIDS, mental health diagnosis, sleep apnea, morbid obesity)? @ -None Was patient admitted / discharged? Hospital course, mention meds given and route, prescriptions, significant lab abnormalities, going to OR and other pertinent info. @ -admitted. 53-year-old female with abdominal pain. Patient will be admitted to general surgery for further evaluation and will have as needed pain medication and fluids. Laboratory results including CBC, CMP unremarkable. discussed with Dr. Up Undiagnosed new problem with uncertain prognosis? @ -No Drug Therapy requiring intensive monitoring for toxicity (Heparin, Nitro, Insulin, Cardizem)? @ -No Were any procedures done? @ -No Diagnosis/symptom? @ -abdominal pain Acute, or Chronic, or Acute on Chronic? @ -acute Uncomplicated (without systemic symptoms) or Complicated (systemic symptoms)? @ -complicated Side effects of treatment? @ -No Exacerbation, Progression, or Severe Exacerbation? @ -No Poses a threat to life or bodily function? How? (Chest pain, USA, PR, pneumonia, PE, COPD, DKA, ARF, appy, cholecystitis, CVA, Diverticulitis, Homicidal, Suicidal, threat to staff... and all critical care pts) @ -No - Lab Data Result diagrams: 04/14/24 11:06 04/14/24 11:06 Lab Results 04/14/24 04/14/24 04/14/24 Range/Units 11:06 11:06 11:06 WBC 7.4 (3.8-10.6) k/uL RBC 4.81 (3.80-5.40) m/uL Hgb 14.3 (11.4-16.0) gm/dL Hct 45.2 (34.0-46.0) % MCV 94.0 (80.0-100.0) fL MCH 29.8 (25.0-35.0) pg MCHC 31.7 (31.0-37.0) g/dL RDW 15.0 (11.5-15.5) % Plt Count 337 (150-450) k/uL MPV 6.7 Neutrophils % 77 % Lymphocytes % 15 % Monocytes % 4 % Eosinophils % 1 % Basophils % 0 % Neutrophils # 5.7 (1.3-7.7) k/uL Lymphocytes # 1.1 (1.0-4.8) k/uL Monocytes # 0.3 (0-1.0) k/uL Eosinophils # 0.1 (0-0.7) k/uL Basophils # 0.0 (0-0.2) k/uL Sodium 139 (137-145) mmol/L Potassium 4.0 (3.5-5.1) mmol/L Chloride 105 (98-107) mmol/L Carbon Dioxide 28 (22-30) mmol/L Anion Gap 6 mmol/L BUN 10 (7-17) mg/dL Creatinine 0.84 (0.52-1.04) mg/dL Est GFR (CKD-EPI)AfAm >90 (>60 ml/min/1.73 sqM) Est GFR (CKD-EPI)NonAf 78 (>60 ml/min/1.73 sqM) Glucose 101 H (74-99) mg/dL Plasma Lactic Acid Jose 0.6 L (0.7-2.0) mmol/L Calcium 9.3 (8.4-10.2) mg/dL Total Bilirubin 0.6 (0.2-1.3) mg/dL AST 26 (14-36) U/L ALT 33 (4-34) U/L Alkaline Phosphatase 125 (38-126) U/L Total Protein 6.8 (6.3-8.2) g/dL Albumin 4.2 (3.5-5.0) g/dL Amylase 49 (30-110) U/L Lipase 114 (23-300) U/L Disposition Clinical Impression: Mesenteric ischemia Disposition: ADMITTED IP TO THIS [facility] Condition: Serious Decision to Admit Reason: Admit from EC Decision Date: 04/14/24 Decision Time: 12:55
[2024-04-14 11:22] LABS: Basophils % (A) 0 %; Eosinophils # (A) 0.1 k/uL (0-0.7); Eosinophils % (A) 1 %; HCT 45.2 % (34.0-46.0); HGB 14.3 gm/dL (11.4-16.0); Lymphocytes # (A) 1.1 k/uL (1.0-4.8); Lymphocytes % (A) 15 %; MCH 29.8 pg (25.0-35.0); MCHC 31.7 g/dL (31.0-37.0); Mean Platelet Volume 6.7; Monocytes # (A) 0.3 k/uL (0-1.0); Monocytes % (A) 4 %; Neutrophils # (A) 5.7 k/uL (1.3-7.7); Neutrophils % (A) 77 %; Platelet Count 337 k/uL (150-450); RBC 4.81 m/uL (3.80-5.40); WBC 7.4 k/uL (3.8-10.6)
[2024-04-14 11:29] LABS: ALT 33 U/L (4-34); AST 26 U/L (14-36); African American GFR (CKD) >90 (>60 ml/min/1.73 sqM); Albumin 4.2 g/dL (3.5-5.0); Alkaline Phosphatase 125 U/L (38-126); Amylase 49 U/L (30-110); Anion Gap 6 mmol/L; Blood Urea Nitrogen 10 mg/dL (7-17); Calcium 9.3 mg/dL (8.4-10.2); Carbon Dioxide 28 mmol/L (22-30); Chloride 105 mmol/L (98-107); Glucose 101 mg/dL (74-99); Lipase 114 U/L (23-300); Non-African American GFR(CKD) 78 (>60 ml/min/1.73 sqM); Sodium 139 mmol/L (137-145); Total Bilirubin 0.6 mg/dL (0.2-1.3); Total Protein 6.8 g/dL (6.3-8.2)
--- NOTE | 2024-04-14 12:24 | CT ---
EXAMINATION TYPE: CT abdomen pelvis w con DATE OF EXAM: 04/14/2024 COMPARISON: 10/01/2023 CLINICAL INDICATION: Female, 53 years old with history of abdominal pain, hx markus en y; PHH, epigastr ic pain, history of bariatric surgery TECHNIQUE: Performed without Oral Contrast and with IV Contrast, patient injected with 100 mL of Isovue 370. CT DLP: 862.[address] CTDI: mGy Automated exposure control for dose reduction was used. FINDINGS: The lung bases are clear. There is surgical absence of the gallbladder. There is no biliary ductal dilatation. There are postsurgical changes of Markus-en-Y bariatric surgery. There is no organomegaly involving the liver, pancreas, spleen or adrenal glands. There is a fatty li andrew. There is a stable 17 mm hypodensity in the left lobe of liver adjacent to the ligamentum teres. There is a stable 13 mm hypodensity in the posterior segment of the right lobe of the liver. There is no solid renal mass or hydronephrosis and there is homogeneous contrast enhancement of the r enal parenchyma. The caliber the abdominal aorta is normal is no retroperitoneal adenopathy or hemorr franci. The bowel loops are normal in caliber and there is no evidence of dilatation or obstruction. No infla mmatory changes are identified in the bowel wall or mesentery. There is no free intraperitoneal air or fluid. No pelvic mass, free fluid, abscess or adenopathy. The osseous structures and soft tissues are intact. IMPRESSION: 1. Postsurgical changes as described above. 2. No acute changes within the abdomen or pelvis. [facility], , 04/14/2024 12:22 PM
[2024-04-14] MEDS ORDERED: NALOXONE 0.4 MG/ML 1 ML VIAL IV PRN (12:53)
--- NOTE | 2024-04-14 14:33 | P.GSHP ---
History of Present Illness H&P Date: 04/14/24 CHIEF COMPLAINT: Abdominal pain HISTORY OF PRESENT ILLNESS: This is a 53-year-old female who presents to the hospital with complaints of epigastric abdominal pain that is radiating to the back. She reports the pain wraps around like a band. She has been having nausea. No vomiting. The pain has worsened. She reports her stools are small. She feels bloated. She was scheduled for lysis of adhesions and Vargas. But symptoms have worsened and she was instructed to come to the ER by surgeon. Patient does have a past surgical history of Molly-en-Y gastric bypass with lysis of adhesions in November 2023 as well as a history of cholecystectomy and . PAST MEDICAL HISTORY: See list. PAST SURGICAL HISTORY: See list. MEDICATIONS: See list. ALLERGIES: See list. SOCIAL HISTORY: No illicit drug use. REVIEW OF SYSTEMS: CONSTITUTIONAL: Denies fever or chills. HEENT: Denies blurred vision, vision changes, or eye pain. Denies hemoptysis ENDOCRINE: Denies heat or cold intolerance. CARDIOVASCULAR: Denies chest pain or pressure. RESPIRATORY: No shortness of breath. GASTROINTESTINAL: Please refer to HPI otherwise unremarkable NEURO: Denies history of seizures. PSYCH: No depression or suicidal ideation HEMATOLOGIC: Denies bleeding disorders. LYMPHATIC: The patient denies any lumps and bumps around the neck. GENITOURINARY: Denies any blood in urine or increased urinary frequency. MUSCULOSKELETAL: Denies myalgias. Denies joint swelling. Denies decreased range of motion beyond patients baseline. SKIN: Denies pruitis. Denies rash. PHYSICAL EXAM: VITAL SIGNS: Reviewed GENERAL: Well-developed in no acute distress. HEENT: No sclera icterus. Extraocular movements grossly intact. Moist buccal mucosa. Head is atraumatic, normocephalic. Hears conversational speech. No nasal drainage. NECK: Supple without lymphadenopathy. CHEST: Non-labored respirations and equal bilateral excursions. CARDIOVASCULAR: Palpable 2+ radial pulses. ABDOMEN: Soft. Mildly distended. Tenderness epigastric area and right upper quadrant MUSCULOSKELETAL: No clubbing or cyanosis. NEUROLOGIC: No focal or lateralizing signs. Cranial nerves II through XII grossly intact. PSYCH: Appropriate affect. Alert and oriented to person, place and time. SKIN: Well perfused. Good skin turgor. LABORATORY DATA: WBC 7.4 Hgb 14.3 platelets 337 Sodium 139 potassium is 4.0 creatinine 0.84 Lactic acid 0.6 LFTs normal lipase 114 IMAGING: CT scan abdomen pelvis reports postsurgical changes. No acute change within the abdomen or pelvis. ASSESSMENT: 1. Epigastric abdominal pain that radiates to the back likely due to adhesions 2. History of Molly-en-Y gastric bypass with lysis of adhesions in November 2023 3. History of cholecystectomy 4. History of adrenal insufficiency 5. History of hypertensive heart disease with congestive heart failure 6. Diabetes insipidus PLAN: -Patient scheduled for Robotic lysis of adhesions tomorrow, 04/15/[address] Osuna -ok for clear liquid diet today -N.p.o. after midnight -Continue IV fluids -Continue supportive care Physician Circulation Analyst note has been reviewed by physician. Signing provider agrees with the documented findings, assessment, and plan of care. Please see additional documentation below. CHIEF COMPLAINT: Abdominal pain HISTORY OF PRESENT ILLNESS: The patient is a 53-year-old female who presents with initially intermittent abdominal pain. She has a significant history of multiple metabolic disorders including gastric bypass and multiple abdominal surgeries. Patient reports of worsening epigastric abdominal pain especially with eating and pain radiating along the bilateral upper abdomen. Clinical findings were consistent with mesenteric ischemia. Patient was admitted due to the severity of her abdominal pain and previous history of gastric bypass with risk of volvulus and internal hernias. PAST MEDICAL HISTORY: See list and reviewed PAST SURGICAL HISTORY: See list and reviewed MEDICATIONS: See list and reviewed ALLERGIES: See list and reviewed SOCIAL HISTORY: See list and reviewed FAMILY HISTORY: See list and reviewed REVIEW OF ORGAN SYSTEMS: CONSTITUTIONAL: No fevers or chills. Intentional weight loss over 65 pounds from gastric bypass procedure last 3 months. EYES: Denies any trouble with vision. No glasses. HEENT: No difficulties with hearing. No nosebleeds. No difficulty swallowing. As vertigo. RESPIRATORY: Resolved obstructive sleep apnea. Has congenital lung disease. CARDIOVASCULAR: History of congestive heart failure GASTROINTESTINAL: Gastroesophageal reflux disease including irritable bowel syndrome. Recent gastric bypass. GENITOURINARY: Denies any blood in urine or increased urinary frequency. NEUROLOGICAL: Has numbness or tingling along the distal extremities. As seizure disorders or headaches. Has fibromyalgia. MUSCULOSKELETAL: Has back pain, stiffness or joint arthritis. SKIN: No current skin cancer. No rash. 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 Has adrenal insufficiency. HEME/LYMPHATIC: Denies any lumps and bumps around the neck. No recent deep venous thrombosis. ALLERGY/IMMUNOLOGY: No immunoglobulin therapy. No immune deficiencies. BREAST: Denies current breast lumps, pain or nipple discharge. PHYSICAL EXAM: VITALS: Reviewed CONSTITUTIONAL: Well developed and in no acute distress. EYES: Conjuctivae without sclera icterus. Extraocular movements grossly intact. HEAD, EARS, NOSE, THROAT: Moist buccal mucosa. Head is atraumatic, normocephalic. Hears conversational speech. No nasal drainage. NECK: Supple. No JV distention. No thyroidomegaly. RESPIRATORY: Non-labored respirations and equal bilateral excursions. No gross wheezes. CARDIOVASCULAR: Palpable 2+ radial pulses. ABDOMEN: Tender epigastrium bilateral upper abdomen. No diffuse peritonitis. LYMPH: No neck lymphadenopathy. MUSCULOSKELETAL: No clubbing cyanosis or edema SKIN: Warm and well perfused with good skin turgor. NEUROLOGIC: Cranial nerves II through XII grossly intact. No focal or lateralizing signs. PSYCH: Appropriate affect. Alert and oriented to person, place and time. Displays appropriate insight. CLINCAL LABS: Reviewed. WBC within normal limits. IMAGING: Independently reviewed. CT of the abdomen pelvis independent review demonstrates no bowel obstruction. No free air. This is my independent interpretation. RECORDS: previous old records reviewed for gastric bypass November 2023. ASSESSMENT: 1. Acute generalized abdominal pain for mesenteric ischemia 2. History of gastric bypass with risk of internal hernia and mesenteric ischemia 3. Adrenal insufficiency PLAN: 1. IV fluid hydration. 2. Due to mesenteric ischemia, status laparoscopy for reduction of small bowel volvulus and lysis of adhesions described 3. Diagnostic studies including upper GI may be needed to assess gastric ulcers 4. Inpatient admission advised Thank you for this kind consultation. Past Medical History Past Medical History: Asthma, Cancer, Heart Failure, Eye Disorder, Fibromyalgia, GERD/Reflux, Hypertension, Myocardial Infarction (GA), Musculoskeletal Disorder, Osteoarthritis (OA), Renal Disease, Syncope, Thyroid Disorder Additional Past Medical History / Comment(s): SKIN CANCER, ADRENAL INSUFFICENCY. POTS SYNDROME. DIABETES INSIPIDUS. 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 Last Myocardial Infarction Date:: december 29 2014 History of Any Multi-Drug Resistant Organisms: None Reported Past Surgical History: Back Surgery, Bariatric Surgery, Section, Cholecystectomy, Joint Replacement, Orthopedic Surgery Additional Past Surgical History / Comment(s): ARTIFICIAL DISC IN C5,6,7 , TITANIUM PLATE AND 4 SCREWS IN NECK. RT CARPAL TUNNEL. . HEMORRHOIDECTOMY. BRONCHOSCOPY.,CERVIAL EPIDURAL STEROID INJECTION, LT KNEE ARTHROSCOPIC LATERAL FEMORAL CHONDRECTOMY/MEDIALFEMORAL CHONDRECTOMY/PATELLER CHONDROPLASTY/PARTIAL SYNOVECTOMY OF LATERAL AND PATELLOFEMORAL COMPARTMENTS (TOTAL OF 3 KNEE SX), RADIOFREQUENCY TX L5,-RT KNEE SCOPE, EXPLORATORY LAP- ENDOmetriosis, TOTAL KNEE REPLACEMENT MARIA ELENA maria elena shoulder rotator cuff and biceps tendon. gastric bypass 11-30-23 Past Anesthesia/Blood Transfusion Reactions: No Reported Reaction, Family History of Problems w/ Anesthesia, Motion Sickness Additional Past Anesthesia/Blood Transfusion Reaction / Comment(s): CLAUSTERPHOBIA, VERTIGO IN PAST. PATIENTS MOTHER HAS DIFFICULTY WAKING UP Past Psychological History: Anxiety, Depression, PTSD Smoking Status: Never smoker Past Alcohol Use History: Rare Past Drug Use History: None Reported - Past Family History Mother Family Medical History: Cancer, Hyperlipidemia, Hypertension Additional Family Medical History / Comment(s): RECTAL CANCER. Father Family Medical History: Hyperlipidemia, Hypertension Medications and Allergies Home Medications Medication Instructions Recorded Confirmed Type Levothyroxine Sodium [Synthroid] 75 mcg PO DAILY 04/19/14 04/23/24 History Hydrocortisone [Cortef] 10 mg PO DAILY 12/08/15 04/23/24 History Hydrocortisone [Cortef] 5 mg PO HS 01/11/19 04/23/24 History DULoxetine HCL [Cymbalta] 30 mg PO DAILY 12/09/23 04/23/24 History Desmopressin Acetate [Ddavp] 0.05 mg PO BID 12/09/23 04/23/24 History Sucralfate [Carafate] 1 gm PO BID 12/10/23 04/23/24 History ALPRAZolam [Xanax] 0.5 - 1 mg PO TID PRN 04/14/24 04/23/24 History Amitriptyline HCl [Elavil] 20 mg PO HS 04/14/24 04/23/24 History HYDROcodone/APAP [[place] Elixir 15 ml PO TID PRN 04/14/24 04/23/24 History 7.5-325Mg/15Ml] Pantoprazole [Protonix] 40 mg PO BID #60 tab 04/15/24 04/23/24 Rx tiZANidine [Zanaflex] 4 mg PO TID PRN 04/23/24 04/23/24 History Allergies Allergy/AdvReac Type Severity Reaction Status Date / Time adhesive Allergy Rash/Hives Verified 04/23/24 18:27 morphine Allergy Anaphylaxis Verified 04/23/24 18:27 venom-honey bee Allergy Dyspnea Verified 04/23/24 18:27 [bee venom (honey bee)] blue dye AdvReac Mild HYPER Verified 04/23/24 18:27 FEELING Surgical - Exam Vital Signs Temp Pulse Resp BP Pulse Ox 97.5 F L 83 20 143/93 98 04/14/24 09:47 04/14/24 09:47 04/14/24 09:47 04/14/24 09:47 04/14/24 09:47 Results - Labs 04/14/24 11:06 04/14/24 11:06 Abnormal Lab Results - Last 24 Hours (Table) 04/14/24 04/14/24 Range/Units 11:06 11:06 Glucose 101 H (74-99) mg/dL Plasma Lactic Acid Jose 0.6 L (0.7-2.0) mmol/L Diabetes panel 04/14/24 Range/Units 11:06 Sodium 139 (137-145) mmol/L Potassium 4.0 (3.5-5.1) mmol/L Chloride 105 (98-107) mmol/L Carbon Dioxide 28 (22-30) mmol/L BUN 10 (7-17) mg/dL Creatinine 0.84 (0.52-1.04) mg/dL Glucose 101 H (74-99) mg/dL Calcium 9.3 (8.4-10.2) mg/dL AST 26 (14-36) U/L ALT 33 (4-34) U/L Alkaline Phosphatase 125 (38-126) U/L Total Protein 6.8 (6.3-8.2) g/dL Albumin 4.2 (3.5-5.0) g/dL Calcium panel 04/14/24 Range/Units 11:06 Calcium 9.3 (8.4-10.2) mg/dL Albumin 4.2 (3.5-5.0) g/dL Pituitary panel 04/14/24 Range/Units 11:06 Sodium 139 (137-145) mmol/L Potassium 4.0 (3.5-5.1) mmol/L Chloride 105 (98-107) mmol/L Carbon Dioxide 28 (22-30) mmol/L BUN 10 (7-17) mg/dL Creatinine 0.84 (0.52-1.04) mg/dL Glucose 101 H (74-99) mg/dL Calcium 9.3 (8.4-10.2) mg/dL Adrenal panel 04/14/24 Range/Units 11:06 Sodium 139 (137-145) mmol/L Potassium 4.0 (3.5-5.1) mmol/L Chloride 105 (98-107) mmol/L Carbon Dioxide 28 (22-30) mmol/L BUN 10 (7-17) mg/dL Creatinine 0.84 (0.52-1.04) mg/dL Glucose 101 H (74-99) mg/dL Calcium 9.3 (8.4-10.2) mg/dL Total Bilirubin 0.6 (0.2-1.3) mg/dL AST 26 (14-36) U/L ALT 33 (4-34) U/L Alkaline Phosphatase 125 (38-126) U/L Total Protein 6.8 (6.3-8.2) g/dL Albumin 4.2 (3.5-5.0) g/dL
[2024-04-14] MEDS: PANTOPRAZOLE 40 MG/10 ML VIAL IVP SCH (15:07)
[2024-04-14] MEDS: SODIUM CHLORIDE 0.9% 1,000 ML IV SCH (15:07)
[2024-04-14] MEDS: ACETAMINOPHEN IV (For NPO) 1,000 MG in EMPTY BAG 1 BAG IVPB SCH (17:52)
[2024-04-14] MEDS: HYDROCORTISONE 10 MG TAB PO SCH (21:06)
[2024-04-14] MEDS: AMITRIPTYLINE HCL 10 MG TAB PO SCH (21:06)
[2024-04-14] MEDS: ALPRAZolam 1 MG TAB PO SCH (21:06)
[2024-04-14] MEDS: DULoxetine HCL 30 MG CAPSULE.DR PO SCH (21:06)
[2024-04-15] MEDS: LEVOTHYROXINE 75 MCG TAB PO SCH (06:11)
[2024-04-15] MEDS: DESMOPRESSIN 0.2 MG TAB PO SCH (08:16)
[2024-04-15] MEDS: HYDROCORTISONE 10 MG TAB PO SCH (08:17)
[2024-04-15] MEDS ORDERED: LIDOCAINE 1% INJ 10MG/ML (20 ML MDV) ONE ×2 (09:32→15:41)
[2024-04-15] MEDS ORDERED: PROPOFOL 10 MG/ML 20 ML VIAL IV ONE ×2 (09:32→15:41)
[2024-04-15] MEDS: IV FLUID CONTINUATION 1,000 ML IV ONE ×2 (10:08→14:20)
--- NOTE | 2024-04-15 10:11 | P.PN ---
Subjective Progress Note Date: 04/15/24 CHIEF COMPLAINT: Epigastric pain and mesenteric ischemia HISTORY OF PRESENT ILLNESS: The patient is a 53-year-old female comes with history of gastric bypass. Incidentally she reports severe epigastric pain rating to her back. With history of gastric bypass and recent stress, patient presents with high risk of gastric ulcers. ROS: N No fevers or chills. No productive sputum PHYSICAL EXAM: VITAL SIGNS: Reviewed CONSTITUTIONAL: Well developed and in no acute distress. EYES: Conjuctivae without sclera icterus. Extraocular movements grossly intact. HEAD, EARS, NOSE, THROAT: Moist buccal mucosa. Head is atraumatic, normocephalic. Hears conversational speech. No nasal drainage. RESPIRATORY: Non-labored respirations and equal bilateral excursions. CARDIOVASCULAR: Palpable 2+ radial pulses. ABDOMEN: Epigastric tenderness. No diffuse peritonitis. MUSCULOSKELETAL: No gross deformity of the lower extremities noted. No clubbing. No cyanosis. SKIN: Good skin turgor. Well perfused. NEUROLOGIC: Cranial nerves II through XII grossly intact. No focal or lateralizing signs. PSYCH: Appropriate affect. Alert and oriented to person, place and time. CLINICAL LABS: Reviewed. WBC within normal limits. ASSESSMENT: 1. Mesenteric ischemia 2. Severe epigastric abdominal pain 3. History of gastric bypass with risk of gastric ulcers PLAN: 1. Recommend upper endoscopy to assess for gastric ulcers in addition to her abdominal pain. Objective - Vital Signs Vital signs: Vital Signs Temp 98.4 F 04/15/24 02:00 Pulse 53 L 04/15/24 02:00 Resp 16 04/14/24 17:31 BP 116/73 04/15/24 02:00 Pulse Ox 99 04/15/24 02:00 FiO2 Intake & Output 04/14/24 04/15/24 04/15/24 18:59 06:59 18:59 Intake Total 400 Balance 400 Weight 81.647 kg Intake: IV 400 Other: Voiding Method Toilet - Labs CBC & Chem 7: 04/14/24 11:06 04/14/24 11:06 Labs: Abnormal Lab Results - Last 24 Hours (Table) 04/14/24 04/14/24 Range/Units 11:06 11:06 Glucose 101 H (74-99) mg/dL Plasma Lactic Acid Jose 0.6 L (0.7-2.0) mmol/L
--- NOTE | 2024-04-15 10:14 | P.PCN ---
Date of Procedure: 04/15/24 Description of Procedure: PREOPERATIVE DIAGNOSES: 1. Epigastric abdominal pain. 2. Nausea and vomiting. 3. History of Molly-en-Y gastric bypass 4. Mesenteric ischemia POSTOPERATIVE DIAGNOSES: 1. Epigastric abdominal pain. 2. Nausea and vomiting. 3. History of Molly-en-Y gastric bypass 4. Mesenteric ischemia 5. Gastrojejunal ulcer, acute PROCEDURE PERFORMED: Esophagogastrojejunoscopy with biopsies on the gastric pouch. SURGEON: Caitlin Osuna MD ANESTHESIA: MAC. INDICATIONS: The patient is a 53-year-old female with prior history of Molly-en-Y gastric bypass. She presents with intermittent nausea and vomiting, particularly of the epigastric abdominal pain. With her history of Molly-en-Y gastric bypass, upper endoscopy was offered for further evaluation and management. Benefits and risks described. Informed consent was obtained. DESCRIPTION: Patient was brought to the endoscopy suite and laid in the left lateral decubitus position. After adequate IV sedation, a bite block was placed. An Olympus gastroscope was passed along the posterior oropharynx down to the distal esophagus where the squamocolumnar junction was found at approximately 35 cm from the incisors. The diaphragmatic hiatus was found at 35 cm from the incisors. Her anastomosis was found at 40 cm, consistent with approximately 5 cm gastric pouch. Active gastrojejunal ulceration acute on chronic without bleeding was encountered. Biopsies along the gastric pouch. The scope was passed to 60 cm of the Molly limb. No remnant of blind jejunal limb was retained. The GI tract was desufflated. The patient tolerated the procedure well. FINDINGS: 1. Acute gastrojejunal ulceration of 3 mm. 2. Staple found along the anastomosis. 3. No elongated jejunal blind pouch. 4. Squamocolumnar junction at 35 cm from the incisors. 5. Diaphragmatic hiatus at 35 cm from the incisors. 6. Biopsies obtained of gastric pouch 7. Anastomosis at 40 cm from the incisors. 8. Gastric pouch 5 cm. 9. Chronic gastritis of the gastric pouch. PLAN: 1. Continue Carafate and Protonix. 2. Recommend proceed with diagnostic laparoscopy for mesenteric ischemia and abdominal pain
[2024-04-15] MEDS: ONDANSETRON 4 MG/2 ML VIAL IVP PRN (14:47)
[2024-04-15] MEDS: HYDROCORTISONE SUCCINATE 100 MG/2 ML VIAL IV STA (14:48)
[2024-04-15] MEDS: HEPARIN SODIUM,PORCINE 5,000 UNIT/ML 1 ML VIAL SQ STA (15:30)
[2024-04-15] MEDS: DESMOPRESSIN ACETATE 24 MCG in SODIUM CHLORIDE 0.9% 50 ML IVPB ONE (15:30)
[2024-04-15] MEDS ORDERED: SUCCINYLCHOLINE CHLORIDE 200 MG/10 ML VIAL IV ONE (15:41)
[2024-04-15] MEDS ORDERED: ROCURONIUM 10 MG/ML (5 ML VIAL) IV ONE (15:41)
[2024-04-15] MEDS ORDERED: KETAMINE HCL IN 0.9 % NACL 50 MG/5 ML SYRINGE ONE (15:41)
[2024-04-15] MEDS ORDERED: GLYCOPYRROLATE 0.2 MG/ML 2 ML VIAL ONE (15:41)
[2024-04-15] MEDS ORDERED: NEOSTIGMINE 1 MG/ML 10 ML VIAL ONE (15:41)
[2024-04-15] MEDS ORDERED: MIDAZOLAM 2 MG/2 ML VIAL ONE (15:41)
[2024-04-15] MEDS ORDERED: fentaNYL (PF) 50 MCG/ML 2 ML AMP ONE (15:41)
[2024-04-15] MEDS ORDERED: diphenhydrAMINE 50 MG/ML 1 ML VIAL ONE (15:41)
[2024-04-15] MEDS ORDERED: ceFAZolin 1 GM/50 ML BAG (PMX) ONE (15:41)
[2024-04-15] MEDS: LIDOCAINE 1%-EPI 1:100,000 20 ML VIAL SQ ONE ×2 (16:06→16:12)
[2024-04-15] MEDS: SODIUM CHLORIDE 0.9% 100 ML with ceFAZolin 2,000 MG IV ONE (16:07)
[2024-04-15] MEDS: LACTATED RINGERS 1,000 ML IV ONE (16:48)
[2024-04-15 18:40] VITALS: RESP 18
[2024-04-15 19:48] VITALS: BP 125/79; PULSE 77; TEMP 98
--- NOTE | 2024-04-23 21:56 | P.OP ---
Date of Procedure: 04/15/24 Description of Procedure: SURGEON: CHAUNCEY CERRATO MD PREOPERATIVE DIAGNOSES: 1. Mesenteric ischemia with generalized abdominal 2. Epigastric pain 3. Right upper quadrant and left upper quadrant abdominal 4. Generalized anxiety disorder 5. Depressive disorder 6. Fibromyalgia 7. Claustrophobia 8. Vertigo 9. Adrenal insufficiency 10. POTS syndrome 11. Gastroesophageal reflux disease 12. 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 Congenital lung alarmingly 15. Irritable bowel syndrome 16. History of myocardial infarction 17. History of hypertensive heart disease with congestive heart failure 18. History of multiple dental surgeries 19. History of gastric bypass 20. 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 Mesenteric ischemia from small bowel volvulus 2. Epigastric pain due to adhesions 3. Right upper quadrant abdominal pain due to adhesions 4. Generalized anxiety disorder 5. Depressive disorder 6. Fibromyalgia 7. Claustrophobia 8. Vertigo 9. Adrenal insufficiency 10. POTS syndrome 11. Gastroesophageal reflux disease 12. 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 Congenital lung alarmingly 15. Irritable bowel syndrome 16. History of myocardial infarction 17. History of hypertensive heart disease with congestive heart failure 18. History of multiple dental surgeries 19. History of gastric bypass 20. 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 Small bowel volvulus 22. Left upper quadrant abdominal pain due to adhesions 23. Internal hernia OPERATION: 1. Robotic-assisted da Magy Xi laparoscopic with extensive lysis of adhesions over 1 hr 2. Robotic-assisted da Magy Xi laparoscopic reduction of small bowel volvulus and closure of internal hernia x 2 ESTIMATED BLOOD LOSS: 5 mL. SPECIMENS REMOVED: None. COMPLICATIONS: None. OPERATIVE FINDINGS: 1. No ventral hernias identified. 2. Adhesions along the epigastrium, left upper quarant placed 3. Long mesentery of the small bowel with small bowel volvulus causing mesenteric ischemia, reduced 4. Hansen defect and jejunojejunostomy mesenteric defect or open due to weight loss, close 5. Adhesion of gastrojejunal anastomosis to the anterior abdominal wall re leased 6. Abnormal adhesions of biliopancreatic limb jejunostomy to markus limb divided 7. Normal terminal ileum and cecum unremarkable. 8. Extremely long mesentery of cecum extending into the pelvis posterior to the bladder. INDICATIONS: The patient is a 53-year-old female who presents with worsening epigastric abdominal pain including left upper quadrant abdominal pain due to mesenteric ischemia. Surgical intervention with diagnostic laparoscopy, lysis of adhesions were described. Informed consent was obtained. Robotic assisted laparoscopic approach was described. Benefits and risks of the procedure including but not limited to bleeding, infection, injury to the small bowel was described. Informed consent was obtained. DESCRIPTION OF PROCEDURE: Patient was brought to the operating room, placed in supine position. After general induction, the abdomen had been prepped and draped in standard sterile fashion. The robotic da Magy XI system was primed. After a timeout protocol was performed, the patient had been prepped and draped in standard sterile fashion. The robot was docked along the right lateral abdomen. The patient was repositioned in with right side up. Please note prior to docking of the robot; however, a 5 mm 0 degrees laparoscopic trocar entry was performed along the left upper quadrant. The abdomen was insufflated to 15 mmHg pressure which she tolerated well. Diagnostic laparoscopy was performed. Next, three 8 mm robotic ports were placed along the right lateral abdominal wall. The camera 8-mm port was maintained along mid-lateral abdomen. Please note that the ports were placed at least 10 to 15 cm away from the target anatomy. Instruments including graspers and vessel sealer were interchanged by the specimen preparation assistant. I had sat at the console. No incisional hernia was identified. Cecum was found extended into the pelvis, posterior to the bladder with long mesentery. The small bowel from the markus limb to distal ileum was inspected. The small bowel was investigated from the terminal ileum to the ligament of Treitz with finding of redundant mesentery with active small bowel volvulus involving the jejunojejunostomy mesenteric defe ct which should be open due to weight loss. Abnormal adhesions to the jejunojejunostomy causing retroperitoneal adhesions was identified and divided. The mesentery small bowel volvulus were reduced. An active internal hernia Petersons defect was identified and closed using green 2-0 V-Loc. Omental adhesion of gastrojejunal anastomosis to the anterior abdominal wall was released using vessel sealer for lysis. The colon was unremarkable. The terminal ileum and cecum was unremarkable. Extensive lysis of adhesions over 1 hr was performed. After reduction of the small bowel volvulus. Mesentery was viable. Small bowel was viable. All internal hernias were closed using green 2-0 V-Loc. Patent jejunojejunostomy was confirmed however at risk for intussusception due to patency. The small bowel was viable.The robot was undocked. All pneumoperitoneum instruments were evacuated from the abdominal cavity. The incisions were reapproximated using 4-0 Monocryl in an interrupted subcuticular fashion. Please note along the trocar sites, local anesthetic was placed as a field block prior to insertion of all instruments. Exofin was applied to the skin. At the end of the procedure needle, sponge, and instrument count had been verified correct by the operating room surgical technologist. The patient was transferred to postanesthesia care unit in stable condition.
--- NOTE | 2024-04-23 21:59 | P.DS ---
Providers Date of admission: 04/14/24 12:52 Expected date of discharge: 04/15/24 Attending physician: Caitlin Osuna Primary care physician: [facility] Hospital Course: POSTOPERATIVE DIAGNOSES: 1. Mesenteric ischemia from small bowel volvulus 2. Epigastric pain due to adhesions 3. Right upper quadrant abdominal pain due to adhesions 4. Generalized anxiety disorder 5. Depressive disorder 6. Fibromyalgia 7. Claustrophobia 8. Vertigo 9. Adrenal insufficiency 10. POTS syndrome 11. Gastroesophageal reflux disease 12. 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 Congenital lung alarmingly 15. Irritable bowel syndrome 16. History of myocardial infarction 17. History of hypertensive heart disease with congestive heart failure 18. History of multiple dental surgeries 19. History of gastric bypass 20. 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 Small bowel volvulus 22. Left upper quadrant abdominal pain due to adhesions 23. Internal hernia COURSE: The patient is a 53-year-old female who presents with worsening generalized abdominal pain especially of the bilateral upper abdomen. Her history significant for gastric bypass. Patient presented to the emergency room with findings of clinical mesenteric ischemia. Patient had an upper endoscopy prior to assess for ulcers due to her gastric bypass. Ulcers were identified however small not explaining the extent of her pain. Diagnostic pleuroscopy was performed on a separate session with findings of small bowel volvulus contributing to mesenteric ischemia. Extensive lysis of adhesions and closure of internal hernias were performed. Postoperatively, patient reports she was tolerating diet. Her pain had resolved. Patient elected to go home. Close outpatient follow-up was described. Procedures: OPERATION: 1. Robotic-assisted da Magy Xi laparoscopic with extensive lysis of adhesions over 1 hr 2. Robotic-assisted da Magy Xi laparoscopic reduction of small bowel volvulus and closure of internal hernia x 2 ESTIMATED BLOOD LOSS: 5 mL. SPECIMENS REMOVED: None. COMPLICATIONS: None. OPERATIVE FINDINGS: 1. No ventral hernias identified. 2. Adhesions along the epigastrium, left upper quarant placed 3. Long mesentery of the small bowel with small bowel volvulus causing mesenteric ischemia, reduced 4. Hansen defect and jejunojejunostomy mesenteric defect or open due to weight loss, close 5. Adhesion of gastrojejunal anastomosis to the anterior abdominal wall released 6. Abnormal adhesions of biliopancreatic limb jejunostomy to markus limb divided 7. Normal terminal ileum and cecum unremarkable. 8. Extremely long mesentery of cecum extending into the pelvis posterior to the bladder. Patient Condition at Discharge: Stable Plan - Discharge Summary New Discharge Prescriptions: New Pantoprazole [Protonix] 40 mg PO BID #60 tab Continue Levothyroxine Sodium [Synthroid] 75 mcg PO DAILY Hydrocortisone [Cortef] 10 mg PO DAILY Hydrocortisone [Cortef] 5 mg PO HS DULoxetine HCL [Cymbalta] 30 mg PO DAILY Amitriptyline HCl [Elavil] 20 mg PO HS Desmopressin Acetate [Ddavp] 0.05 mg PO BID Sucralfate [Carafate] 1 gm PO BID ALPRAZolam [Xanax] 0.5 - 1 mg PO TID PRN PRN Reason: Anxiety HYDROcodone/APAP [[place] Elixir 7.5-325Mg/15Ml] 15 ml PO TID PRN PRN Reason: Pain Discontinued Omeprazole 40 mg PO DAILY No Action tiZANidine [Zanaflex] 4 mg PO TID PRN PRN Reason: Muscle Spasm Discharge Medication List Levothyroxine Sodium [Synthroid] 75 mcg PO DAILY 04/19/14 [History] Hydrocortisone [Cortef] 10 mg PO DAILY 12/08/15 [History] Hydrocortisone [Cortef] 5 mg PO HS 01/11/19 [History] DULoxetine HCL [Cymbalta] 30 mg PO DAILY 12/09/23 [History] Desmopressin Acetate [Ddavp] 0.05 mg PO BID 12/09/23 [History] Sucralfate [Carafate] 1 gm PO BID 12/10/23 [History] ALPRAZolam [Xanax] 0.5 - 1 mg PO TID PRN 04/14/24 [History] Amitriptyline HCl [Elavil] 20 mg PO HS 04/14/24 [History] HYDROcodone/APAP [[place] Elixir 7.5-325Mg/15Ml] 15 ml PO TID PRN 04/14/24 [History] Pantoprazole [Protonix] 40 mg PO BID #60 tab 04/15/24 [Rx] tiZANidine [Zanaflex] 4 mg PO TID PRN 04/23/24 [History] Follow up Appointment(s)/Referral(s): Corby Mondragon MD [Primary Care Provider] [place] [place] [place] - 04/20/24 3:00 pm Patient Instructions/Handouts: Lysis of Abdominal Adhesions (DC) Activity/Diet/Wound Care/Special Instructions: NO LONG DRIVES OR AIRPLANE RIDES OVER 60 MINUTES FOR THE NEXT 2 WEEKS, 04/29/24, DUE TO HIGH RISK OF PULMONARY EMBOLISM/DVTs May drive in 72 hrs, 04/18/24 No lifting over 10 pounds in 2 weeks until 04/29/24 May shower. No bath tub soaks for two weeks until 04/29/24 Diet as tolerated. Use Tylenol, simethicone scheduled for the next 24-48 hours for best pain relief. Use ice along incisions for today to prevent swelling. Discharge Disposition: HOME SELF-CARE
== END 2024-04-15 20:10 | disposition home or self-care (01) ==
LOC: OR 09:31 → 4SSUR 12:52 → INTOOBSV 12:52 → 4SSUR 17:23
PROVIDERS: ADMIT Surgery Plastic and Reconstructive Surgery; ATTEND Surgery Plastic and Reconstructive Surgery
DX: K55.059 Acute (reversible) ischemia of intestine, part and extent unspecified (principal); K56.2 Volvulus; K28.3 Acute gastrojejunal ulcer without hemorrhage or perforation; K66.0 Peritoneal adhesions (postprocedural) (postinfection); K46.9 Unspecified abdominal hernia without obstruction or gangrene; K31.7 Polyp of stomach and duodenum; K29.50 Unspecified chronic gastritis without bleeding; I11.0 Hypertensive heart disease with heart failure; I50.9 Heart failure, unspecified; E23.2 Diabetes insipidus; E27.40 Unspecified adrenocortical insufficiency; G90.A Postural orthostatic tachycardia syndrome [POTS]; K21.9 Gastro-esophageal reflux disease without esophagitis; E03.9 Hypothyroidism, unspecified; E23.0 Hypopituitarism; K58.9 Irritable bowel syndrome, unspecified; Q33.9 Congenital malformation of lung, unspecified; M79.7 Fibromyalgia; F41.1 Generalized anxiety disorder; F32.A Depression, unspecified; F40.240 Claustrophobia; I25.2 Old myocardial infarction; Z79.890 Hormone replacement therapy; Z79.899 Other long term (current) drug therapy; Z91.030 Bee allergy status; Z88.5 Allergy status to narcotic agent; Z91.048 Other nonmedicinal substance allergy status; Z98.84 Bariatric surgery status; Z90.49 Acquired absence of other specified parts of digestive tract
CPT/HCPCS: 44180; 44238; S2900; 36415; 43239; 74177; 80053; 82150; 83605; 83690; 85025; 88305; 93005; 96374; 96376; 99285

== ENCOUNTER → 2024-04-20 | Outpatient (CLI) | payer MEDICARE ==
[2024-04-20 15:33] VITALS: BP 139/86; PULSE 79; RESP 16; TEMP 98; BMI 28.9
--- NOTE | 2024-04-20 15:51 | P.BASOAP ---
Subjective Progress Note Date: 04/20/24 She has smaller bites and takes time to eat. Not stuclk. She no longer feels hungry. She has an ileus. She can drink anything water. Water thicker is worse. She can eat food. She lost 7 pounds in 1 week. Objective - Vital Signs Vital signs: Vital Signs Temp 98 F 04/20/24 15:19 Pulse 79 04/20/24 15:19 Resp 16 04/20/24 15:19 BP 139/86 04/20/24 15:19 Pulse Ox FiO2 Intake & Output 04/19/24 04/20/24 04/20/24 18:59 06:59 18:59 Weight 78.925 kg Assessment/Plan Plan: Date: 04/20/24 Initial Weight: Initial BMI: Current Weight: 78.925 kg Current BMI: 28.9 Type of Surgery: Total Volume in Band: Previous Volume: Volume Removed: Volume Added: Band Size:
== END ==
LOC: BARWHC3 14:11
PROVIDERS: ATTEND Surgery Plastic and Reconstructive Surgery
DX: E66.01 Morbid (severe) obesity due to excess calories (principal); Z91.09 Other allergy status, other than to drugs and biological substances; Z87.891 Personal history of nicotine dependence; Z88.5 Allergy status to narcotic agent; Z91.041 Radiographic dye allergy status; Z91.030 Bee allergy status; Z68.29 Body mass index [BMI] 29.0-29.9, adult
CPT/HCPCS: 99211

== ENCOUNTER 2024-04-23 13:07 | Inpatient (IN) | payer MEDICARE ==
[2024-04-23 13:33] LABS: Appearance,Urine Clear (Clear); Bilirubin,Urine Negative (Negative); Blood,Urine Negative (Negative); Color,Urine Colorless; Glucose,Urine (UA) Negative (Negative); Ketones,Urine Negative (Negative); Leukocyte Esterase,Urine Negative (Negative); Nitrite,Urine Negative (Negative); PH, Urine 6.5 (5.0-8.0); Protein,Urine Negative (Negative); Specific Gravity,Urine 1.004 (1.001-1.035); Urobilinogen,Urine <2.0 mg/dL (<2.0)
--- NOTE | 2024-04-23 13:51 | ED ---
Abdominal Pain HPI - General Source: patient, EMS Mode of arrival: EMS Limitations: no limitations <Abdulaziz Gage - Last Filed: 04/23/24 13:49> - General Source: patient, RN notes reviewed, old records reviewed <Ed Gallego - Last Filed: 04/23/24 19:57> - General Chief Complaint: Abdominal Pain Stated Complaint: Abdominal Pain Time Seen by Provider: 04/23/24 13:51 - History of Present Illness Initial Comments: Quick note: 53-year-old female presenting with chief complaint of abdominal pain. Patient had lysis of adhesions and hernia repair with Dr. Osuna 8 days ago. She believes that she "overdid it" with lifting boxes 2 days ago, she has had persistent and increasing upper abdominal pain. Also admits to nausea and vomiting. (Abdulaziz Gage) Is a 53-year-old female presents emergency department complaining of intra- abdominal pain. Had lysis of adhesions on [address] Osuna. He has noticed worsening nausea and abdominal pain since Thursday. Still passing gas. Still having bowel movements. Last bowel movement earlier today or last night. Denies any chest pain or shortness of breath. Past medical history includes asthma, heart failure, fibromyalgia, hypertension, CAD. She thinks that she may have overdone it by lifting heavy boxes 2 or 3 days ago and is having upper abdominal pain presents for further evaluation at this time. Patient originally seen as a quick note. I evaluated the patient when she was placed in a room. (Ed Gallego) - Related Data Home Medications Medication Instructions Recorded Confirmed Levothyroxine Sodium [Synthroid] 75 mcg PO DAILY 04/19/14 04/23/24 Hydrocortisone [Cortef] 10 mg PO DAILY 12/08/15 04/23/24 Hydrocortisone [Cortef] 5 mg PO HS 01/11/19 04/23/24 DULoxetine HCL [Cymbalta] 30 mg PO DAILY 12/09/23 04/23/24 Desmopressin Acetate [Ddavp] 0.05 mg PO BID 12/09/23 04/23/24 Sucralfate [Carafate] 1 gm PO BID 12/10/23 04/23/24 ALPRAZolam [Xanax] 0.5 - 1 mg PO TID PRN 04/14/24 04/23/24 Amitriptyline HCl [Elavil] 20 mg PO HS 04/14/24 04/23/24 HYDROcodone/APAP [Hale Elixir 15 ml PO TID PRN 04/14/24 04/23/24 7.5-325Mg/15Ml] tiZANidine [Zanaflex] 4 mg PO TID PRN 04/23/24 04/23/24 Previous Rx's Medication Instructions Recorded Pantoprazole [Protonix] 40 mg PO BID #60 tab 04/15/24 Allergies Allergy/AdvReac Type Severity Reaction Status Date / Time adhesive Allergy Rash/Hives Verified 04/23/24 18:27 morphine Allergy Anaphylaxis Verified 04/23/24 18:27 venom-honey bee Allergy Dyspnea Verified 04/23/24 18:27 [bee venom (honey bee)] blue dye AdvReac Mild HYPER Verified 04/23/24 18:27 FEELING Review of Systems ROS Other: All systems not noted in ROS Statement are negative. <Abdulaziz Gage - Last Filed: 04/23/24 13:49> ROS Other: All systems not noted in ROS Statement are negative. <Ed Gallego - Last Filed: 04/23/24 19:57> ROS Statement: Those systems with pertinent positive or pertinent negative responses have been documented in the HPI. Review of Systems: CONST: Denies fever EYES: Denies blurry vision ENT: Denies nasal congestion C/V: Denies Chest pain RESP: Denies shortness of breath GI: Endorses abdominal pain : Denies dysuria SKIN: Denies rash. MSK: Denies joint pain. NEURO: Denies headache (Ed Gallego) Past Medical History Past Medical History: Asthma, Cancer, Heart Failure, Eye Disorder, Fibromyalgia, GERD/Reflux, Hypertension, Myocardial Infarction (HI), Musculoskeletal Disorder, Osteoarthritis (OA), Renal Disease, Syncope, Thyroid Disorder Additional Past Medical History / Comment(s): SKIN CANCER, ADRENAL INSUFFICENCY. POTS SYNDROME. DIABETES INSIPIDUS. 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 kidney stone history history of renal failure Last Myocardial Infarction Date:: december 29 2014 History of Any Multi-Drug Resistant Organisms: None Reported Past Surgical History: Back Surgery, Bariatric Surgery, Section, Cholecystectomy, Joint Replacement, Orthopedic Surgery Additional Past Surgical History / Comment(s): ARTIFICIAL DISC IN C5,6,7 , TITANIUM PLATE AND 4 SCREWS IN NECK. RT CARPAL TUNNEL. . HEMORRHOIDECTOMY. BRONCHOSCOPY.,CERVIAL EPIDURAL STEROID INJECTION, LT KNEE ARTHROSCOPIC LATERAL FEMORAL CHONDRECTOMY/MEDIALFEMORAL CHONDRECTOMY/PATELLER CHONDROPLASTY/PARTIAL SYNOVECTOMY OF LATERAL AND PATELLOFEMORAL COMPARTMENTS (TOTAL OF 3 KNEE SX), RADIOFREQUENCY TX L5,-RT KNEE SCOPE, EXPLORATORY LAP- ENDOmetriosis, TOTAL KNEE REPLACEMENT MARIA ELENA maria elena shoulder rotator cuff and biceps tendon. gastric bypass 11-30-23, Lysis of Adhesions/Internal Hernia 03/2024 Past Anesthesia/Blood Transfusion Reactions: No Reported Reaction, Family History of Problems w/ Anesthesia, Motion Sickness Additional Past Anesthesia/Blood Transfusion Reaction / Comment(s): CLAUSTERPHOBIA, VERTIGO IN PAST. PATIENTS MOTHER HAS DIFFICULTY WAKING UP Past Psychological History: Anxiety, Depression, PTSD Smoking Status: Never smoker Past Alcohol Use History: Rare Past Drug Use History: None Reported - Past Family History Mother Family Medical History: Cancer, Hyperlipidemia, Hypertension Additional Family Medical History / Comment(s): RECTAL CANCER. Father Family Medical History: Hyperlipidemia, Hypertension <Abdulaziz Gage - Last Filed: 04/23/24 13:49> General Exam Limitations: no limitations <Abdulaziz Gage - Last Filed: 04/23/24 13:49> <Ed Gallego - Last Filed: 04/23/24 19:57> - General Exam Comments Initial Comments: Visual Physical Exam Vital signs reviewed General: Well-appearing, nontoxic, no acute distress. Head: Normocephalic, atraumatic Eyes: PERRLA, EOMI ENT: Airway patent Chest: Nonlabored breathing Skin: No visual rash, normal skin tone Neuro: Alert and oriented 3 Musculoskeletal: No gross abnormalities (Abdulaziz Gage) General: Appears in no acute distress. HEAD: Normal with no signs of head trauma. EYES: PERRLA, EOMI, conjunctiva normal, no discharge. ENT: Hearing grossly intact, normal oropharynx. RESPIRATORY: Clear breath sounds bilaterally. No wheezes, rales, or rhonchi. C/V: Regular rate and rhythm. S1 and S2 auscultated, no edema, peripheral pulses 2+ and intact throughout ABD: Soft, nondistended. Tender to palpation primarily in the epigastric region. Mildly in the bilateral lower quadrants. No guarding or rebound tenderness. No peritoneal signs. EXT: Normal range of motion, no obvious deformity SKIN: No rashes or lesions observed on exposed skin. NEURO: Alert and oriented x 4. (Ed Gallego) Course Vital Signs 04/23/24 04/23/24 04/23/24 13:17 16:38 18:32 Temperature 98.5 F Pulse Rate 57 L 58 L 70 Respiratory 20 18 16 Rate Blood Pressure 152/93 143/88 150/96 O2 Sat by Pulse 97 98 100 Oximetry Medical Decision Making <Abdulaziz Gage - Last Filed: 04/23/24 13:49> - Lab Data Result diagrams: 04/23/24 14:07 04/23/24 14:07 - EKG Data -: EKG Interpreted by Me <Ed Gallego - Last Filed: 04/23/24 19:57> - Medical Decision Making I performed the quick note portion of this visit, electronically signed Abdulaziz Gage PA-C (Abdulaziz Gage) Was pt. sent in by a medical professional or institution (, AMBER, [employer], urgent care, hospital, or prison...) When possible be specific @ -No Did you speak to anyone other than the patient for history (EMS, parent, family, police, friend...)? What history was obtained from this source @ -No Did you review nursing and triage notes (agree or disagree)? Why? @ -I reviewed and agree with nursing and triage notes Were old charts reviewed (outside hosp., previous admission, EMS record, old EKG, old radiological studies, urgent care reports/EKG's, prison records)? Report findings @ -Reviewed from April 14, 2024 which confirmed for lysis of adhesions with Dr. Osuna. Differential Diagnosis (chest pain, altered mental status, abdominal pain women, abdominal pain men, vaginal bleeding, weakness, fever, dyspnea, syncope, headache, dizziness, GI bleed, back pain, seizure, CVA, palpatations, mental health, musculoskeletal)? @ -Differential Abdominal Pain Women: Appendicitis, Cholecystitis, diverticulosis, ischemic bowel, pancreatitis, hepatitis, UTI, gastroenteritis, AAA, incarcerated hernia, bowel obstruction, constipation, inflammatory bowel, hepatitis, peptic ulcer disease, splenic infar ction, perforated viscus, vulvitis, ovarian torsion, PID, kidney stone, placenta abruption, this is not meant to be an all-inclusive list EKG interpreted by me (3pts min.). @ -As above X-rays interpreted by me (1pt min.). @ -None done CT interpreted by me (1pt min.). @ -Imaging reveals possible mild localized enteritis at the distal anastomosis of the Molly-en-Y gastric bypass. Patient has some intrapelvic biliary ductal dilation and may be new however alk phos and bilirubin levels are normal. Mild to moderate pelvic free fluid present. U/S interpreted by me (1pt. min.). @ -None done What testing was considered but not performed or refused? (CT, X-rays, U/S, labs)? Why? @ -None What meds were considered but not given or refused? Why? @ -None Did you discuss the management of the patient with other professionals (professionals i.e. , PA, [employer], lab, RT, psych nurse, social worker delinquency prevention, aircraft dispatcher, teacher, diplomatic officer, director case management)? Give summary @ -Discussed the case with Dr. Osuna who was in agreement with plan for admission if patient has intractable pain. Patient does have intractable pain. Patient will be admitted at this time to observation. [facility] physician group con sulted for medical management. Was smoking cessation discussed for >3mins.? @ -No Was critical care preformed (if so, how long)? @ -No Were there social determinants of health that impacted care today? How? (Homelessness, low income, unemployed, alcoholism, drug addiction, transportation, low edu. Level, literacy, decrease access to med. care, [facility], rehab)? @ -No Was there de-escalation of care discussed even if they declined (Discuss DNR or withdrawal of care, Hospice)? DNR status @ -No What co-morbidities impacted this encounter? (DM, HTN, Smoking, COPD, CAD, Cancer, CVA, ARF, Chemo, Hep., AIDS, mental health diagnosis, sleep apnea, morbid obesity)? @ -Recent lysis of adhesions with Dr. Osuna. Was patient admitted / discharged? Hospital course, mention meds given and route, prescriptions, significant lab abnormalities, going to OR and other pertinent info. @ -Patient presents emergency department abdominal pain 8 days postop for lysis of adhesions. Workup started as a quick note in the waiting room. Laboratory studies returned unremarkable except for mild hypokalemia which was replenished. Lactic acid within normal limits. At this time I evaluated patient when she w as placed in room. I did recommend CT imaging which she was in agreement with. She will be symptomatically treated with IV fluids, Zofran, Protonix, Dilaudid. Patient was in agreement this plan. EKG shows no signs of acute ischemia.Laboratory studies within acceptable limits. This includes no evidence of leukocytosis. Lactic acid within normal limits. Urine unremarkable. Mild hypokalemia which was replenished. CT imaging reveals possible mild enteritis at the distal anastomosis of the R oux-en-Y. Incidental finding of mild biliary ductal dilation however no evidence of complications on laboratory studies as pancreatic enzymes, bilirubin, LFTs, alk phos all within normal limits. Discussed the case with Dr. Osuna who was in agreement with plan for admission if patient has intractable pain. Patient does have intractable pain. Patient will be admitted at this time to observation. [facility] physician group consulted for medical management. Undiagnosed new problem with uncertain prognosis? @ -No Drug Therapy requiring intensive monitoring for toxicity (Heparin, Nitro, Insul in, Cardizem)? @ -No Were any procedures done? @ -No Diagnosis/symptom? @ -Intractable abdominal pain Acute, or Chronic, or Acute on Chronic? @ -Acute Uncomplicated (without systemic symptoms) or Complicated (systemic symptoms)? @ -Complicated Side effects of treatment? @ -None Exacerbation, Progression, or Severe Exacerbation] @ -No Poses a threat to life or bodily function? @ -Potentially, yes (Ed Gallego) - Lab Data Lab Results 04/23/24 04/23/24 04/23/24 Range/Units 13:27 14:07 14:07 WBC 8.7 (3.8-10.6) k/uL RBC 4.53 (3.80-5.40) m/uL Hgb 13.5 (11.4-16.0) gm/dL Hct 41.7 (34.0-46.0) % MCV 91.9 (80.0-100.0) fL MCH 29.8 (25.0-35.0) pg MCHC 32.4 (31.0-37.0) g/dL RDW 15.0 (11.5-15.5) % Plt Count 361 (150-450) k/uL MPV 7.7 Neutrophils % 79 % Lymphocytes % 13 % Monocytes % 4 % Eosinophils % 2 % Basophils % 0 % Neutrophils # 6.9 (1.3-7.7) k/uL Lymphocytes # 1.2 (1.0-4.8) k/uL Monocytes # 0.3 (0-1.0) k/uL Eosinophils # 0.2 (0-0.7) k/uL Basophils # 0.0 (0-0.2) k/uL Sodium 141 (137-145) mmol/L Potassium 3.3 L (3.5-5.1) mmol/L Chloride 106 (98-107) mmol/L Carbon Dioxide 28 (22-30) mmol/L Anion Gap 7 mmol/L BUN 13 (7-17) mg/dL Creatinine 0.98 (0.52-1.04) mg/dL Est GFR (CKD-EPI)AfAm 75 (>60 ml/min/1.73 sqM) Est GFR (CKD-EPI)NonAf 65 (>60 ml/min/1.73 sqM) Glucose 89 (74-99) mg/dL Plasma Lactic Acid Jose (0.7-2.0) mmol/L Calcium 8.7 (8.4-10.2) mg/dL Total Bilirubin 0.6 (0.2-1.3) mg/dL AST 26 (14-36) U/L ALT 20 (4-34) U/L Alkaline Phosphatase 94 (38-126) U/L Total Protein 6.1 L (6.3-8.2) g/dL Albumin 3.7 (3.5-5.0) g/dL Amylase 47 (30-110) U/L Lipase 61 (23-300) U/L Urine Color Colorless Urine Appearance Clear (Clear) Urine pH 6.5 (5.0-8.0) Ur Specific [place] 1.004 (1.001-1.035) Urine Protein Negative (Negative) Urine Glucose (UA) Negative (Negative) Urine Ketones Negative (Negative) Urine Blood Negative (Negative) Urine Nitrite Negative (Negative) Urine Bilirubin Negative (Negative) Urine Urobilinogen <2.0 (<2.0) mg/dL Ur Leukocyte Esterase Negative (Negative) 04/23/24 Range/Units 14:07 WBC (3.8-10.6) k/uL RBC (3.80-5.40) m/uL Hgb (11.4-16.0) gm/dL Hct (34.0-46.0) % MCV (80.0-100.0) fL MCH (25.0-35.0) pg MCHC (31.0-37.0) g/dL RDW (11.5-15.5) % Plt Count (150-450) k/uL MPV Neutrophils % % Lymphocytes % % Monocytes % % Eosinophils % % Basophils % % Neutrophils # (1.3-7.7) k/uL Lymphocytes # (1.0-4.8) k/uL Monocytes # (0-1.0) k/uL Eosinophils # (0-0.7) k/uL Basophils # (0-0.2) k/uL Sodium (137-145) mmol/L Potassium (3.5-5.1) mmol/L Chloride (98-107) mmol/L Carbon Dioxide (22-30) mmol/L Anion Gap mmol/L BUN (7-17) mg/dL Creatinine (0.52-1.04) mg/dL Est GFR (CKD-EPI)AfAm (>60 ml/min/1.73 sqM) Est GFR (CKD-EPI)NonAf (>60 ml/min/1.73 sqM) Glucose (74-99) mg/dL Plasma Lactic Acid Jose 1.0 (0.7-2.0) mmol/L Calcium (8.4-10.2) mg/dL Total Bilirubin (0.2-1.3) mg/dL AST (14-36) U/L ALT (4-34) U/L Alkaline Phosphatase (38-126) U/L Total Protein (6.3-8.2) g/dL Albumin (3.5-5.0) g/dL Amylase (30-110) U/L Lipase (23-300) U/L Urine Color Urine Appearance (Clear) Urine pH (5.0-8.0) Ur Specific [place] (1.001-1.035) Urine Protein (Negative) Urine Glucose (UA) (Negative) Urine Ketones (Negative) Urine Blood (Negative) Urine Nitrite (Negative) Urine Bilirubin (Negative) Urine Urobilinogen (<2.0) mg/dL Ur Leukocyte Esterase (Negative) - EKG Data EKG Comments: 12-lead Electrocardiogram Interpretation Note EKG was reviewed and interpreted by myself. 12-lead ECG performed at 1401 is interpreted by me as revealing sinus bradycardia at a rate of 58 beats per minute. Rock is normal. MN interval is 133 ms, QRS duration is 96 ms, QTc is 450 ms.. There were no ST or T wave abnormalities to suggest myocardial ischemia or injury. R wave progression across the precordium was satisfactory. By my interpretation this EKG is non-diagnostic for acute ischemia. (Ed Gallego) Disposition <Abdulaziz Gage - Last Filed: 04/23/24 13:49> Time of Disposition: 19:57 <Ed Gallego - Last Filed: 04/23/24 19:57> Clinical Impression: Intractable abdominal pain Disposition: ADMITTED IP TO THIS [facility] Condition: Stable Referrals: Corby Mondragon MD [Primary Care Provider] - 1-2 days
[2024-04-23 14:31] LABS: Basophils % (A) 0 %; Eosinophils # (A) 0.2 k/uL (0-0.7); Eosinophils % (A) 2 %; HCT 41.7 % (34.0-46.0); HGB 13.5 gm/dL (11.4-16.0); Lymphocytes # (A) 1.2 k/uL (1.0-4.8); Lymphocytes % (A) 13 %; MCH 29.8 pg (25.0-35.0); MCHC 32.4 g/dL (31.0-37.0); MCV 91.9 fL (80.0-100.0); Mean Platelet Volume 7.7; Monocytes # (A) 0.3 k/uL (0-1.0); Monocytes % (A) 4 %; Neutrophils # (A) 6.9 k/uL (1.3-7.7); Neutrophils % (A) 79 %; Platelet Count 361 k/uL (150-450); RBC 4.53 m/uL (3.80-5.40); WBC 8.7 k/uL (3.8-10.6)
[2024-04-23 14:44] LABS: ALT 20 U/L (4-34); AST 26 U/L (14-36); African American GFR (CKD) 75 (>60 ml/min/1.73 sqM); Albumin 3.7 g/dL (3.5-5.0); Alkaline Phosphatase 94 U/L (38-126); Amylase 47 U/L (30-110); Anion Gap 7 mmol/L; Blood Urea Nitrogen 13 mg/dL (7-17); Calcium 8.7 mg/dL (8.4-10.2); Carbon Dioxide 28 mmol/L (22-30); Chloride 106 mmol/L (98-107); Glucose 89 mg/dL (74-99); Lipase 61 U/L (23-300); Non-African American GFR(CKD) 65 (>60 ml/min/1.73 sqM); Potassium 3.3 mmol/L (3.5-5.1); Sodium 141 mmol/L (137-145); Total Bilirubin 0.6 mg/dL (0.2-1.3); Total Protein 6.1 g/dL (6.3-8.2)
[2024-04-23] MEDS ORDERED: IOPAMIDOL CONTRAST (ORAL USE) VIAL PO PRN (15:56)
[2024-04-23] MEDS: SODIUM CHLORIDE 0.9% 1,000 ML IV STA (16:39)
[2024-04-23] MEDS: ONDANSETRON 4 MG/2 ML VIAL IVP STA (16:40)
[2024-04-23] MEDS: HYDROmorphone 1 MG/ML 1 ML SYRINGE IVP STA (16:43)
[2024-04-23] MEDS: PANTOPRAZOLE 40 MG/10 ML VIAL IVP STA (16:47)
[2024-04-23] MEDS: POTASSIUM CHLORIDE ER 20 MEQ TAB.ER PO STA (18:34)
--- NOTE | 2024-04-23 18:43 | CT ---
EXAMINATION TYPE: CT abdomen pelvis w con DATE OF EXAM: 04/23/2024 6:24 PM COMPARISON: 04/14/2024 CLINICAL INDICATION: Female, 53 years old with history of abd pain, recent abd surgery, Pt c/o increa sed abd pain, with nausea and vomiting, TECHNIQUE: Contiguous axial scanning of the abdomen and pelvis following administration of 100 ml Omn ipaque 300 IV contrast. Delayed images through the kidneys and coronal/sagittal reconstructions perf ormed. CT DLP: 877 mGycm, Automated exposure control for dose reduction was used. FINDINGS: The heart is upper limits of normal in size without pericardial effusion. Lung bases clear without pleural effusion. There are postsurgical changes of Hayden-en-Y gastric bypass. Satisfactory intraluminal opacification o f the proximal stomach and opacification across the gastrojejunostomy into small bowel loops. There m ay be some mild small bowel wall thickening at the level of the lower anastomosis. 1.5 cm cysts anterior left liver lobe. Gallbladder surgically absent. Portal venous system is patent. 1.4 cm cyst posterior right hepatic dome. Mild intrahepatic biliary ductal dilatation has developed since 04/14/2024. No dilatation of the extr a hepatic bile duct is appreciated. Adrenal glands, kidneys, spleen, and pancreas within normal limits. No dilated small bowel or free air. Normal appendix. Mild to moderate stool burden. Redundant sigmoid colon. Bladder is urine distended. Uterus anteverted but retroflexed. Mild to moderate pelvic free fluid lik carrie physiologic. Small bilateral ovaries. No pelvic lymphadenopathy seen. Bones: Facet arthropathy lower lumbar spine. No osseous destructive process. IMPRESSION: 1. PATIENT STATUS POST HAYDEN-EN-Y GASTRIC BYPASS. NO EXTRAVASATION OF ORAL CONTRAST TO SUGGEST LEAK. N O ABSCESS. 2. THERE MAY BE SOME MILD SMALL BOWEL WALL THICKENING AT THE LOWER ANASTOMOSIS THAT COULD REFLECT A M ILD LOCALIZED ENTERITIS. 3. SOME MINIMAL INTRAPELVIC BILIARY DUCTAL DILATATION APPEARS TO HAVE DEVELOPED FROM 04/14/2024. PANFILO ELATE WITH ALKALINE PHOSPHATASE AND BILIRUBIN LEVELS. THE EXTRA HEPATIC BILE DUCT APPEARS NORMAL GENI CHEVY. PATIENT STATUS POST CHOLECYSTECTOMY. 3. MILD TO MODERATE PELVIC FREE FLUID MAY BE PHYSIOLOGIC. FOLLOW-UP CLINICALLY INDICATED. [facility], , 04/23/2024 6:41 PM
[2024-04-23] MEDS: MAG HYDROX/AL HYDROX/SIMETH 30 ML, HYOSCYAMINE ELIXIR 10 ML, LIDOCAINE VISCOUS 2% 10 ML PO STA (18:49)
[2024-04-23] MEDS ORDERED: NALOXONE 0.4 MG/ML 1 ML VIAL IV PRN (19:53)
[2024-04-23] MEDS ORDERED: tiZANidine 4 MG TAB PO PRN (19:55)
[2024-04-23] MEDS: SODIUM CHLORIDE 0.9% 1,000 ML IV SCH (20:35)
[2024-04-23] MEDS: HYDROmorphone 1 MG/ML 1 ML SYRINGE IVP PRN (20:51)
[2024-04-23] MEDS: AMITRIPTYLINE HCL 10 MG TAB PO SCH (21:57)
[2024-04-23] MEDS: DESMOPRESSIN 0.2 MG TAB PO SCH (21:57)
[2024-04-23] MEDS: SUCRALFATE 1 GM TAB PO SCH (21:57)
[2024-04-23] MEDS: HYDROCORTISONE 10 MG TAB PO SCH (21:58)
[2024-04-24] MEDS: PANTOPRAZOLE 40 MG TABLET PO SCH (06:18)
[2024-04-24] MEDS: LEVOTHYROXINE 75 MCG TAB PO SCH (06:18)
[2024-04-24 08:58] LABS: Basophils # (A) 0.05 X 10*3/uL (0.00-0.10); Basophils % (A) 0.9 %; Eosinophils # (A) 0.08 X 10*3/uL (0.04-0.35); Eosinophils % (A) 1.4 %; HCT 40.8 % (37.2-46.3); HGB 13.2 g/dL (12.0-15.0); Immature Grans, Automated 0 %; Lymphocytes # (A) 1.88 X 10*3/uL (0.90-5.00); Lymphocytes % (A) 32.9 %; MCH 30.6 pg (27.0-32.0); MCHC 32.4 g/dL (32.0-37.0); MCV 94.7 FL (80.0-97.0); Monocytes # (A) 0.67 X 10*3/uL (0.20-1.00); Monocytes % (A) 11.7 %; NRBC Per 100 WBC 0 X 10*3/uL (0.00-0.01); Neutrophils # (A) 3.03 X 10*3/uL (1.80-7.70); Neutrophils % (A) 53.1 %; Platelet Count 343 X 10*3/uL (140-440); RBC 4.31 X 10*6/uL (4.10-5.20); RDW 15.3 % (11.5-14.5); WBC 5.71 X 10*3/uL (4.50-10.00)
[2024-04-24] MEDS: diphenhydrAMINE 50 MG/ML 1 ML VIAL IVP PRN (09:01)
[2024-04-24] MEDS: ALPRAZolam 0.5 MG TAB PO PRN (09:04)
[2024-04-24] MEDS: DULoxetine HCL 30 MG CAPSULE.DR PO SCH (09:06)
[2024-04-24] MEDS: HYDROCORTISONE 10 MG TAB PO SCH (09:07)
[2024-04-24 09:46] LABS: ALT 260 U/L (8-44); AST 542 U/L (13-35); Albumin 3.6 g/dL (3.8-4.9); Alkaline Phosphatase 299 U/L (41-126); BUN/Creat Ratio 9.22 Ratio (12.00-20.00); Blood Urea Nitrogen 8.3 mg/dL (9.0-27.0); Calcium 8.9 mg/dL (8.7-10.3); Carbon Dioxide 27.6 mmol/L (21.6-31.8); Chloride 108 mmol/L (96-109); Glucose 93 mg/dL (70-110); Potassium 4.4 mmol/L (3.5-5.5); Sodium 143 mmol/L (135-145); Total Bilirubin 0.5 mg/dL (0.3-1.2); Total Protein 5.6 g/dL (6.2-8.2)
[2024-04-24] MEDS: ONDANSETRON 4 MG/2 ML VIAL IVP PRN (13:47)
--- NOTE | 2024-04-24 14:17 | P.GSHP ---
History of Present Illness H&P Date: 04/24/24 CHIEF COMPLAINT: Abdominal pain HISTORY OF PRESENT ILLNESS: The patient is a 53-year-old female admitted for acute intractable epigastric to left upper quadrant abdominal pain. Patient was recently seen in the bariatric center 5 days ago and was doing well. Patient reports that later on that night, she started develop worsening recurrent left upper quadrant abdominal pain radiating to her back. She reports her pain is now radiating in the the upper abdomen. Patient is status post lysis of a dhesions with reduction of small bowel volvulus 2 weeks ago for mesenteric ischemia. She reports new constipation. She reports difficulty with urination. All of this is new. Additionally, patient comes in with tractable nausea with vomiting. She reports poor oral intake. PAST MEDICAL HISTORY: See list and reviewed PAST SURGICAL HISTORY: See list and reviewed MEDICATIONS: See list and reviewed ALLERGIES: See list and reviewed SOCIAL HISTORY: See list and reviewed FAMILY HISTORY: See list and reviewed REVIEW OF ORGAN SYSTEMS: CONSTITUTIONAL: No fevers or chills. Intentional weight loss over 65 pounds from gastric bypass procedure last 3 months. EYES: Denies any trouble with vision. No glasses. HEENT: No difficulties with hearing. No nosebleeds. No difficulty swallowing. As vertigo. RESPIRATORY: Resolved obstructive sleep apnea. Has congenital lung disease. CARDIOVASCULAR: History of congestive heart failure GASTROINTESTINAL: Gastroesophageal reflux disease including irritable bowel syndrome. Recent gastric bypass. GENITOURINARY: History of kidney stones. NEUROLOGICAL: Has numbness or tingling along the distal extremities. As seizure disorders or headaches. Has fibromyalgia. MUSCULOSKELETAL: Has back pain, stiffness or joint arthritis. SKIN: No current skin cancer. No rash. 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 Has adrenal insufficiency. HEME/LYMPHATIC: Denies any lumps and bumps around the neck. No recent deep venou s thrombosis. ALLERGY/IMMUNOLOGY: No immunoglobulin therapy. No immune deficiencies. BREAST: Denies current breast lumps, pain or nipple discharge. PHYSICAL EXAM: VITALS: Reviewed CONSTITUTIONAL: Well developed and in no acute distress. EYES: Conjuctivae without sclera icterus. Extraocular movements grossly intact. HEAD, EARS, NOSE, THROAT: Moist buccal mucosa. Head is atraumatic, normoceph alic. Hears conversational speech. No nasal drainage. NECK: Supple. No JV distention. No thyroidomegaly. RESPIRATORY: Non-labored respirations and equal bilateral excursions. No gross wheezes. CARDIOVASCULAR: Palpable 2+ radial pulses. ABDOMEN: Tender left upper quadrant. LYMPH: No neck lymphadenopathy. MUSCULOSKELETAL: No clubbing cyanosis or edema SKIN: Warm and well perfused with good skin turgor. NEUROLOGIC: Cranial nerves II through XII grossly intact. No focal or lateralizing signs. PSYCH: Appropriate affect. Alert and oriented to person, place and time. Displays appropriate insight. CLINCAL LABS: Reviewed. WBC within normal limits. New acute hepatitis with elevated liver enzymes AST over 500, ALT over 200, alkaline phosphatase over 200, LFTs were completely normal 24 hours ago. Urinalysis negative. Potassium on admission 3.3, now normal 4.4. IMAGING: Independently reviewed. Inflammatory changes along the jejunojejunostomy. No kidney stones identified. No bowel obstruction. This is my independent or potation. REPORT: Radiology report reviewed demonstrates questionable gastroenteritis along the anastomosis. ASSESSMENT: 1. Intractable epigastric, left upper quadrant abdominal pain 2. Acute hepatitis, new 24 hours 3. Intractable nausea and vomiting 4. Generalized anxiety disorder 5. Depressive disorder 6. Fibromyalgia 7. Claustrophobia 8. Vertigo 9. Adrenal insufficiency 10. POTS syndrome 11. Gastroesophageal reflux disease 12. 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 Congenital lung alarmingly 15. Irritable bowel syndrome 16. History of myocardial infarction 17. History of hypertensive heart disease with congestive heart failure 18. History of multiple dental surgeries 19. History of gastric bypass 20. 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 Small bowel volvulus history 22. Hypokalemia 23. Internal hernia history 24. Mesenteric ischemia from small bowel volvulus PLAN: 1. She has had poor oral intake in the past 5 days where IV fluid hydration 2 L bolus being given. 2. She has new acute hepatitis with liver enzymes from normal to 10 times the normal value in less than 12 to 24 hours. She had recent ultrasound 2 weeks ago which demonstrated mild fatty liver disease however this cannot explain the acute elevation in less than 24 hours. Will obtain MRI for MRCP and risk of hepatic stones as she has prior cholecystectomy. 3. CT scan demonstrates some inflammation involving her jejunojejunostomy which may need complete revision. Revision of jejunostomy described as this involves her left upper quadrant abdominal pain. 4. May have liquid diet in interim. 5. Repeat CBC and CMP 6. Protonix 40 mg twice daily for ulcers 7. Scopolamine patch for intractable nausea and vomiting 8. Dilaudid including Neurontin and Toradol for intractable abdominal pain 9. Inpatient admission advised for anticipated revision of jejunojejunostomy Past Medical History Past Medical History: Asthma, Cancer, Eye Disorder, Fibromyalgia, GERD/Reflux, Hypertension, Myocardial Infarction (NM), Musculoskeletal Disorder, Osteoarthritis (OA), Renal Disease, Syncope, Thyroid Disorder Additional Past Medical History / Comment(s): SKIN CANCER, ADRENAL INSUFFICENCY. POTS SYNDROME. DIABETES INSIPIDUS. 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 kidney stone history, renal failure Last Myocardial Infarction Date:: december 29 2014 History of Any Multi-Drug Resistant Organisms: None Reported Past Surgical History: Back Surgery, Bariatric Surgery, Section, Cholecystectomy, Hernia Repair, Joint Replacement, Orthopedic Surgery Additional Past Surgical History / Comment(s): ARTIFICIAL DISC IN C5,6,7 , TITANIUM PLATE AND 4 SCREWS IN NECK. RT CARPAL TUNNEL. . HEMORRHOIDECTOMY. BRONCHOSCOPY.,CERVIAL EPIDURAL STEROID INJECTION, LT KNEE ARTHROSCOPIC LATERAL FEMORAL CHONDRECTOMY/MEDIALFEMORAL CHONDRECTOMY/PATELLER CHONDROPLASTY/PARTIAL SYNOVECTOMY OF LATERAL AND PATELLOFEMORAL COMPARTMENTS (TOTAL OF 7 KNEE SX), RADIOFREQUENCY TX L5,-RT KNEE SCOPE, EXPLORATORY LAP- ENDOmetriosis, TOTAL KNEE REPLACEMENT MARIA ELENA maria elena shoulder rotator cuff and biceps tendon. gastric bypass 11-30-23, Lysis of Adhesions/Internal Hernia 03/2024 Past Anesthesia/Blood Transfusion Reactions: No Reported Reaction, Family History of Problems w/ Anesthesia, Motion Sickness Additional Past Anesthesia/Blood Transfusion Reaction / Comment(s): CLAUSTERPHOBIA, VERTIGO IN PAST. PATIENTS MOTHER HAS DIFFICULTY WAKING UP Past Psychological History: Anxiety, Depression, PTSD Additional Psychological History / Comment(s): . Smoking Status: Never smoker Past Alcohol Use History: Rare Additional Past Alcohol Use History / Comment(s): STARTED SMOKING 1979 QUIT 2008 WAS 3/4 PPD Past Drug Use History: None Reported - Past Family History Mother Family Medical History: Cancer, Hyperlipidemia, Hypertension Additional Family Medical History / Comment(s): RECTAL CANCER. Father Family Medical History: Hyperlipidemia, Hypertension Medications and Allergies Home Medications Medication Instructions Recorded Confirmed Type Levothyroxine Sodium [Synthroid] 75 mcg PO DAILY 04/19/14 04/23/24 History Hydrocortisone [Cortef] 10 mg PO DAILY 12/08/15 04/23/24 History Hydrocortisone [Cortef] 5 mg PO HS 01/11/19 04/23/24 History DULoxetine HCL [Cymbalta] 30 mg PO DAILY 12/09/23 04/23/24 History Desmopressin Acetate [Ddavp] 0.05 mg PO BID 12/09/23 04/23/24 History Sucralfate [Carafate] 1 gm PO BID 12/10/23 04/23/24 History ALPRAZolam [Xanax] 0.5 - 1 mg PO TID PRN 04/14/24 04/23/24 History Amitriptyline HCl [Elavil] 20 mg PO HS 04/14/24 04/23/24 History HYDROcodone/APAP [[place] Elixir 15 ml PO TID PRN 04/14/24 04/23/24 History 7.5-325Mg/15Ml] Pantoprazole [Protonix] 40 mg PO BID #60 tab 04/15/24 04/23/24 Rx tiZANidine [Zanaflex] 4 mg PO TID PRN 04/23/24 04/23/24 History Allergies Allergy/AdvReac Type Severity Reaction Status Date / Time adhesive Allergy Rash/Hives Verified 04/23/24 18:27 morphine Allergy Anaphylaxis Verified 04/23/24 18:27 venom-honey bee Allergy Dyspnea Verified 04/23/24 18:27 [bee venom (honey bee)] blue dye AdvReac Mild HYPER Verified 04/23/24 18:27 FEELING Surgical - Exam Vital Signs Temp Pulse Resp BP Pulse Ox 98.5 F 57 L 20 152/93 97 04/23/24 13:17 04/23/24 13:17 04/23/24 13:17 04/23/24 13:17 04/23/24 13:17 Results - Labs 04/24/24 05:19 04/24/24 05:19 Abnormal Lab Results - Last 24 Hours (Table) 04/23/24 04/24/24 04/24/24 Range/Units 14:07 05:19 05:19 RDW 15.3 H (11.5-14.5) % Potassium 3.3 L (3.5-5.1) mmol/L BUN 8.3 L (9.0-27.0) mg/dL BUN/Creatinine Ratio 9.22 L (12.00-20.00) Ratio AST 542 H (13-35) U/L ALT 260 H (8-44) U/L Alkaline Phosphatase 299 H (41-126) U/L Total Protein 6.1 L 5.6 L (6.3-8.2) g/dL Albumin 3.6 L (3.8-4.9) g/dL Diabetes panel 04/23/24 04/24/24 Range/Units 14:07 05:19 Sodium 141 143 (137-145) mmol/L Potassium 3.3 L 4.4 (3.5-5.1) mmol/L Chloride 106 108 (98-107) mmol/L Carbon Dioxide 28 27.6 (22-30) mmol/L BUN 13 8.3 L (7-17) mg/dL Creatinine 0.98 0.9 (0.52-1.04) mg/dL Glucose 89 93 (74-99) mg/dL Calcium 8.7 8.9 (8.4-10.2) mg/dL AST 26 542 H (14-36) U/L ALT 20 260 H (4-34) U/L Alkaline Phosphatase 94 299 H (38-126) U/L Total Protein 6.1 L 5.6 L (6.3-8.2) g/dL Albumin 3.7 3.6 L (3.5-5.0) g/dL Calcium panel 04/23/24 04/24/24 Range/Units 14:07 05:19 Calcium 8.7 8.9 (8.4-10.2) mg/dL Albumin 3.7 3.6 L (3.5-5.0) g/dL Pituitary panel 04/23/24 04/24/24 Range/Units 14:07 05:19 Sodium 141 143 (137-145) mmol/L Potassium 3.3 L 4.4 (3.5-5.1) mmol/L Chloride 106 108 (98-107) mmol/L Carbon Dioxide 28 27.6 (22-30) mmol/L BUN 13 8.3 L (7-17) mg/dL Creatinine 0.98 0.9 (0.52-1.04) mg/dL Glucose 89 93 (74-99) mg/dL Calcium 8.7 8.9 (8.4-10.2) mg/dL Adrenal panel 04/23/24 04/24/24 Range/Units 14:07 05:19 Sodium 141 143 (137-145) mmol/L Potassium 3.3 L 4.4 (3.5-5.1) mmol/L Chloride 106 108 (98-107) mmol/L Carbon Dioxide 28 27.6 (22-30) mmol/L BUN 13 8.3 L (7-17) mg/dL Creatinine 0.98 0.9 (0.52-1.04) mg/dL Glucose 89 93 (74-99) mg/dL Calcium 8.7 8.9 (8.4-10.2) mg/dL Total Bilirubin 0.6 0.5 (0.2-1.3) mg/dL AST 26 542 H (14-36) U/L ALT 20 260 H (4-34) U/L Alkaline Phosphatase 94 299 H (38-126) U/L Total Protein 6.1 L 5.6 L (6.3-8.2) g/dL Albumin 3.7 3.6 L (3.5-5.0) g/dL
[2024-04-24] MEDS: KETOROLAC 15 MG/ML 1 ML VIAL IVP SCH (14:29)
[2024-04-24] MEDS: SODIUM CHLORIDE 0.9% 2,000 ML IV ONE (14:29)
[2024-04-24] MEDS: SCOPOLAMINE 1 MG/72 HR PATCH TRANSDERM STA (14:29)
[2024-04-24] MEDS: GABAPENTIN 300 MG CAP PO SCH (14:38)
[2024-04-25 06:43] LABS: ALT 180 U/L (4-34); AST 152 U/L (14-36); African American GFR (CKD) >90 (>60 ml/min/1.73 sqM); Albumin 3.6 g/dL (3.5-5.0); Albumin/Globulin Ratio 1.5; Alkaline Phosphatase 233 U/L (38-126); Anion Gap 5 mmol/L; Blood Urea Nitrogen 4 mg/dL (7-17); Calcium 8.7 mg/dL (8.4-10.2); Carbon Dioxide 26 mmol/L (22-30); Chloride 103 mmol/L (98-107); Globulin 2.4 g/dL; Glucose 84 mg/dL (74-99); Non-African American GFR(CKD) 83 (>60 ml/min/1.73 sqM); Potassium 3.7 mmol/L (3.5-5.1); Sodium 134 mmol/L (137-145); Total Bilirubin 0.8 mg/dL (0.2-1.3)
--- NOTE | 2024-04-25 10:50 | MR ---
EXAMINATION TYPE: MR MRCP DATE OF EXAM: 04/25/2024 10:34 AM COMPARISON: 04/23/2024. CLINICAL INDICATION: Female, 53 years old with history of CBD stones; PHH, Intractable abdominal pain . TECHNIQUE: Multi planar, T2-weighted imaging with and without fat saturation and chemical shift imag ing was performed of the abdomen. Then, heavily T2 weighted imaging (half-Fourier acquisition single- shot turbo spin-echo) was utilized in order to study the biliary system. Maximum intensity projectio n images were reconstructed from the original data of the biliary tree. 3D images were created on [employer] work station. No Gadolinium given. FINDINGS: Lower Thorax: Heart is mildly enlarged for size. MRCP: * The intrahepatic ducts have a normal appearance. * The extrahepatic ducts have a normal appearance. * The common hepatic duct measures 5 mm in size. * The common bile duct at the level of the pancreatic head measures 4 mm in size. * The pancreatic duct is normal. * The gallbladder appears surgically absent with cystic duct remnant. Abdomen: Liver: No evidence for cirrhosis. Signal dropout on chemical shift out of phase imaging. Pancreas: No ductal dilation. No evidence for solid mass. Spleen: Normal for size. Adrenal glands: Unremarkable. Kidneys: No evidence for obstructive uropathy. No suspicious renal masses. Stomach and Bowel: Postsurgical changes compatible with surgery no evidence for bowel obstruction. No evidence for bowel wall thickening or evidence for obstruction. Retroperitoneum/Peritoneum: No evidence of pneumoperitoneum or free fluid. Vasculature: No aortic aneurysm. Musculoskeletal: The osseous structures appear intact. Lymph Nodes: No gross evidence for lymphadenopathy. Abdominal wall: Unremarkable. IMPRESSION: 1. No evidence to suggest ductal stricture, choledocholithiasis, or biliary ductal dilatation. 2. Surgically absent gallbladder. 3. Surgical changes to the bowel no evidence for bowel obstruction or acute process. [facility], , 04/25/2024 10:47 AM
[2024-04-25] MEDS: IV FLUID CONTINUATION 1,000 ML IV ONE (13:28)
[2024-04-25] MEDS: fentaNYL (PF) 50 MCG/ML 2 ML AMP IVP STA (14:06)
[2024-04-25] MEDS: MIDAZOLAM 2 MG/2 ML VIAL IV ONE (14:06)
[2024-04-25] MEDS: LACTATED RINGERS 1,000 ML BAG IV STA (14:12)
--- NOTE | 2024-04-25 14:14 | P.PN ---
Subjective Progress Note Date: 04/25/24 CHIEF COMPLAINT: Abdominal pain HISTORY OF PRESENT ILLNESS: The patient is a 53-year-old female admitted for acute intractable epigastric to left upper quadrant abdominal pain. She reports moderate epigastric abdominal pain. Incidentally, patient developed acute elevation in her liver enzymes of unclear etiology. She had previous ultrasound of the abdomen demonstrating a dilated common bile duct. MRCP was ordered. Patient reports still persistent left upper quadrant abdominal pain with a history of gastric bypass. REVIEW OF ORGAN SYSTEMS: No fevers or chills. No chest pain. PHYSICAL EXAM: VITALS: Reviewed CONSTITUTIONAL: Well developed and in no acute distress. EYES: Conjuctivae without sclera icterus. Extraocular movements grossly intact. HEAD, EARS, NOSE, THROAT: Moist buccal mucosa. Head is atraumatic, normocephalic. Hears conversational speech. No nasal drainage. RESPIRATORY: Non-labored respirations and equal bilateral excursions. No gross wheezes. CARDIOVASCULAR: Palpable 2+ radial pulses. ABDOMEN: Focal epigastric including left upper quadrant tenderness. MUSCULOSKELETAL: No clubbing cyanosis or edema SKIN: Warm and well perfused with good skin turgor. NEUROLOGIC: Cranial nerves II through XII grossly intact. No focal or lateralizing signs. PSYCH: Appropriate affect. Alert and oriented to person, place and time. Displays appropriate insight. CLINCAL LABS: Reviewed. LFTs elevated but trending downward, AST down 542 now 152, ALT down 260 now 180, alkaline phosphatase down 299 now 233 IMAGING: Independently reviewed. MRCP demonstrates no common bile duct stone or liver stones. REPORT: Radiology report reviewed normal intrahepatic duct and pancreas duct including, bile duct ASSESSMENT: 1. Intractable epigastric, left upper quadrant abdominal pain 2. Acute hepatitis, new 24 hours 3. Intractable nausea and vomiting 4. Generalized anxiety disorder 5. Depressive disorder 6. Fibromyalgia 7. Claustrophobia 8. Vertigo 9. Adrenal insufficiency 10. POTS syndrome 11. Gastroesophageal reflux disease 12. 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 Congenital lung alarmingly 15. Irritable bowel syndrome 16. History of myocardial infarction 17. History of hypertensive heart disease with congestive heart failure 18. History of multiple dental surgeries 19. History of gastric bypass 20. 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 Small bowel volvulus history 22. Hypokalemia 23. Internal hernia history PLAN: 1. MRCP confirms no common bile duct or intrahepatic stones which would Change the surgical plan for her including ERCP. 2. With her gastric bypass and location of pain, revision of the jejunojejunostomy described with small bowel resection and reconstruction. Objective - Vital Signs Vital signs: Vital Signs Temp 98.4 F 04/25/24 07:05 Pulse 52 L 04/25/24 14:05 Resp 16 04/25/24 14:05 BP 139/78 04/25/24 14:05 Pulse Ox 100 04/25/24 14:05 FiO2 Intake & Output 04/24/24 04/25/24 04/25/24 18:59 06:59 18:59 Intake Total 540 Balance 540 Intake: Oral 540 Other: Voiding Method Toilet Toilet Toilet # Voids 6 2 # Bowel Movements 0 - Labs CBC & Chem 7: 04/24/24 05:19 04/25/24 05:30 Labs: Abnormal Lab Results - Last 24 Hours (Table) 04/25/24 Range/Units 05:30 Sodium 134 L (137-145) mmol/L BUN 4 L (7-17) mg/dL AST 152 H (14-36) U/L ALT 180 H (4-34) U/L Alkaline Phosphatase 233 H (38-126) U/L Total Protein 6.0 L (6.3-8.2) g/dL
[2024-04-25] MEDS: HYDROCORTISONE SUCCINATE 100 MG/2 ML VIAL IV STA (14:16)
--- NOTE | 2024-04-25 14:24 | P.ANPRN ---
Procedure Note - Anesthesia - Nerve Block Performed Bilateral Erector Spinae Single Time Out Performed: Yes Date of Procedure: 04/25/24 Procedure Start Time: 14:05 Procedure Stop Time: 14:12 Location of Patient: PreOp Indication: Acute Post-Operative Pain, Requested by Surgeon Sedation Type: Sedate with meaningful contact maintained Preparation: Sterile Prep Position: Prone Needle Types: Pajunk Ultrasound used to visualize needle placement: Yes Ultrasound used to observe medication spread: Yes Injectate: 0.5% Ropivacaine (see comment for volume) (20 ml + 10 ml NS +$ mg Dexamethasone per side) Blood Aspirated: No Pain Paresthesia on Injection Noted: No Resistance on Injection: Normal Image Stored and Saved: Yes Events: Uneventful and Well Tolerated
[2024-04-25] MEDS: HEPARIN SODIUM,PORCINE 5,000 UNIT/ML 1 ML VIAL SQ STA (14:25)
[2024-04-25] MEDS ORDERED: PROPOFOL 10 MG/ML 20 ML VIAL IV ONE (14:29)
[2024-04-25] MEDS ORDERED: DEXAMETHASONE SOD PHOSPHATE 4 MG/ML 1 ML VIAL ONE (14:29)
[2024-04-25] MEDS ORDERED: NEOSTIGMINE 1 MG/ML 10 ML VIAL ONE (14:29)
[2024-04-25] MEDS ORDERED: MIDAZOLAM 2 MG/2 ML VIAL ONE (14:29)
[2024-04-25] MEDS ORDERED: GLYCOPYRROLATE 0.2 MG/ML 2 ML VIAL ONE (14:29)
[2024-04-25] MEDS ORDERED: SODIUM CHLORIDE 0.9% (PF) 10 ML VIAL ONE (14:29)
[2024-04-25] MEDS ORDERED: ROCURONIUM 10 MG/ML (5 ML VIAL) IV ONE (14:29)
[2024-04-25] MEDS ORDERED: PHENYLEPHRINE 10 MG/ML VIAL ONE (14:29)
[2024-04-25] MEDS ORDERED: fentaNYL (PF) 50 MCG/ML 2 ML AMP ONE (14:29)
[2024-04-25] MEDS ORDERED: ROPIVACAINE 5 MG/ML 30 ML VIAL ONE (14:29)
[2024-04-25] MEDS ORDERED: SUCCINYLCHOLINE CHLORIDE 200 MG/10 ML VIAL IV ONE (14:29)
[2024-04-25] MEDS ORDERED: LIDOCAINE 1% INJ 10MG/ML (20 ML MDV) ONE (14:29)
[2024-04-25] MEDS ORDERED: ceFAZolin 1 GM/50 ML BAG (PMX) ONE (14:29)
[2024-04-25] MEDS: LIDOCAINE 1%-EPI 1:100,000 20 ML VIAL SQ ONE ×3 (14:52→15:05)
[2024-04-25] MEDS: SODIUM CHLORIDE 0.9% 50 ML with ceFAZolin 2,000 MG IV ONE (15:00)
[2024-04-25] MEDS: LACTATED RINGERS 1,000 ML IV ONE (16:30)
[2024-04-25] MEDS: HYDROmorphone 0.5 MG/0.5 ML SYRINGE IVP STA (17:46)
--- NOTE | 2024-04-25 21:54 | P.OP ---
Date of Procedure: 04/25/24 Description of Procedure: SURGEON: CHAUNCEY CERRATO MD PREOPERATIVE DIAGNOSES: 1. Left upper quadrant abdominal pain, intractable 2. Elevated liver enzyme 3. Intractable nausea and vomiting 4. Generalized anxiety disorder 5. Depressive disorder 6. Fibromyalgia 7. Claustrophobia 8. Vertigo 9. Adrenal insufficiency 10. POTS syndrome 11. Gastroesophageal reflux disease 12. 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 Congenital lung alarmingly 15. Irritable bowel syndrome 16. History of myocardial infarction 17. History of hypertensive heart disease with congestive heart failure 18. History of multiple dental surgeries 19. History of gastric bypass 20. 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 Small bowel volvulus history POSTOPERATIVE DIAGNOSES: 1. Intussusception, left upper quadrant, new 2. Interloop adhesions, left upper quadrant 3. Intractable nausea and vomiting 4. Generalized anxiety disorder 5. Depressive disorder 6. Fibromyalgia 7. Claustrophobia 8. Vertigo 9. Adrenal insufficiency 10. POTS syndrome 11. Gastroesophageal reflux disease 12. 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 Congenital lung alarmingly 15. Irritable bowel syndrome 16. History of myocardial infarction 17. History of hypertensive heart disease with congestive heart failure 18. History of multiple dental surgeries 19. History of gastric bypass 20. 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 Small bowel volvulus history OPERATION: 1. Robotic-assisted da Magy Xi laparoscopic extensive lysis of adhesions with reduction of intussusception 2. Robotic-assisted da Magy Xi laparoscopic small bowel resection x 3 with revision of gastrojejunal anastomosis ANESTHESIA: GETA and local ESTIMATED BLOOD LOSS: 5 mL SPECIMENS REMOVED: None. COMPLICATIONS: NONE. Operative Findings: 1. Retroperitoneal adhesions left upper quadrant with intussusception of jejunojejunostomy 2. Jejunojejunostomy reconstruction involving biliopancreatic limb to the common channel then downstream common channel to Molly-en-Y limb. INDICATIONS: The patient is a 53-year-old female comes in with intractable left upper quadrant abdominal pain. She had recent diagnosed laparoscopy 2 weeks ago demonstrating small bowel volvulus reduction and closure of internal hernia. She comes in with new acute elevated liver enzymes with inflammation of the jejunojejunostomy. Reports intractable left upper quadrant abdominal pain. Due to history of gastric bypass, diagnosed laparoscopy with revision of jejunojejunostomy was described. Due to complications from multiple bariatric procedures, she presents for revision of her gastrojejunal anastomosis. Benefits and risks of procedure including the possibility of protein malnutrition, leaks, gastrojejunal stricture, venous thrombosis, need for further surgery for which she demonstrated understanding. Benefits and risks of the procedure were described at length. Informed consent was obtained. DESCRIPTION: The patient was brought into the operating room theater. She was placed supine. She had received Heparin subcutaneously for DVT prophylaxis. Additionally she Peridex oral solution as an oral decontaminant was placed per anesthesia. After general induction, the abdomen was prepped and draped in standard sterile fashion. Ioban draping was placed along the abdomen. A robotic Yebhi Xi system was prepped and primed. Incisions were proposed at 13 cm from the xiphoid. Proposed port sites were marked with indelible marker along the anterior axillary line bilaterally, mid clavicular line bilaterally with each port marked 10 cm from each other. The robotic stapler port was marked for the right midclavicular line including along the left midclavicular line. A 5 mm 0 degrees laparoscopic trocar entry was performed along her prior cicatrix at the left abdomen. The abdomen was insufflated to 15 mmHg pressure, which she tolerated well. Diagnostic laparoscopy demonstrated no injury to bowel, viscera, or mesentery. An 8 mm camera port was placed left lateral to the umbilicus at the epigastrium, 15 cm distal to the xiphoid. Next, 12-mm robot stapler port was placed along the right mid abdomen. An 12 mm port was exchanged along the left upper quadrant. An 8 mm port was placed on the left lateral abdominal wall under direct visualization Please note that the ports were placed 18 to 20 cm away from the target anatomy of the stomach. Care was taken to check that each robotic arm was safely away from collision with the bed or the patient. The patient was repositioned in reverse Trendelenburg position at 25-degrees after lowering the bed. The robot was docked over the patient. Using grasper for arm 3, a grasper for arm 1, including vessel sealer for arm 4, the robotic system was docked and primed as described. Instruments were interchanged by the mental health assistant including endoscissors, the needle transport truck driver, and stapler. I had sat at the console. Attention was brought to the left upper quadrant where recurrent adhesive band was found along the jejunojejunostomy causing retraction and intussusception of the anastomosis. The adhesive band was taken down using hook cautery including vessel sealer. The adhesion was causing partial obstruction of the transverse colo n. Adhesions were released around the transverse colon at the Molly limb where the transverse colon was now easily mobile. Due to the moderate adhesions along the jejunojejunostomy ischemic changes found along the serosa requiring revision of the jejunojejunostomy. Prior to any small bowel division, each limb were tagged. The common channel was tacked using 3-0 silk. The Molly limb was tacked using purple dye 3-0 Vicryl. The biliopancreatic limb was tagged with undyed 3-0 Vicryl. Initial attention was brought to revision of the vic iopancreatic limb. Biliopancreatic limb was tacked to the common channel using undyed 3-0 Vicryl. Enterotomies were created using hook cautery. Using robotic 60 mm blue staple load, a neolumen was created as a staple load was fired. The enterotomy was closed using 60 mm blue staple load after closing the enterotomy using 3-0 Vicryl. The small bowel was divided along the Molly limb just proximal to the old jejunojejunostomy anastomosis. The small bowel mesentery was mobilized using vessel sealer. The remnant jejunojejunostomy involving the common channel and biliopancreatic limb were similarly divided using 60 mm green staple load x 2. Hemostasis was checked using hook cautery. Next, attention was brought to the anastomosis of the Molly limb to the common channel distally. Approximately 10 cm distal to the biliopancreatic anastomosis to the common channel, enterotomies were placed along the antimesenteric border. The lumen was created using 60 mm blue staple load after placing 3-0 Vicryl diet suture. The enterotomies along the common channel and Molly limb were closed using 60 mm blue load. The anastomosis was patent and without distortion. Anti-prolapse and anti-tension stitch were placed distally to the anastomosis using purple 3-0 Vicryl. Hemostasis was excellent. The robot was then undocked. All instruments and pneumoperitoneum were evacuated from the abdominal cavity. The port correlating with the EEA stapler device was cleansed with normal saline solution and hydrogen peroxide. The rest of incisions were reapproximated using 4-0 Monocryl in an interrupted subcuticular fashion. Local anesthetic was infiltrated along the skin for postop analgesia. OptiFoam dressing was placed along all incisions. At the end of the procedure, needle, sponge and instrument count had been verified correct by the survey field technician. The patient had tolerated the procedure well and was extubated and taken to the postanesthesia unit in stable condition. Patient's brother Sven was contacted with intraoperative findings described.
[2024-04-25] MEDS: D5-0.45% NACL WITH KCL 20MEQ/L 1,000 ML IV SCH (23:17)
[2024-04-26 08:42] LABS: ALT 106 U/L (8-44); AST 66 U/L (13-35); Albumin 3.5 g/dL (3.8-4.9); Albumin/Globulin Ratio 1.84 Ratio (1.60-3.17); Alkaline Phosphatase 206 U/L (41-126); BUN/Creat Ratio 15.12 Ratio (12.00-20.00); Blood Urea Nitrogen 12.1 mg/dL (9.0-27.0); Calcium 8.6 mg/dL (8.7-10.3); Carbon Dioxide 24.6 mmol/L (21.6-31.8); Chloride 94 mmol/L (96-109); Globulin 1.9 g/dL (1.6-3.3); Glucose 162 mg/dL (70-110); Potassium 4.3 mmol/L (3.5-5.5); Sodium 130 mmol/L (135-145); Total Bilirubin 0.3 mg/dL (0.3-1.2); Total Protein 5.4 g/dL (6.2-8.2)
[2024-04-26] MEDS: PANTOPRAZOLE 40 MG/10 ML VIAL IV SCH (08:47)
[2024-04-26] MEDS: ENOXAPARIN 30 MG/0.3 ML SYRINGE SQ SCH (09:06)
--- NOTE | 2024-04-26 11:56 | P.PN ---
Subjective Progress Note Date: 04/26/24 CHIEF COMPLAINT: Abdominal pain HISTORY OF PRESENT ILLNESS: Patient is postop day #1 status post robotic laparoscopic extensive lysis of adhesions with reduction of intussusception and small bowel resection x 3 with revision of gastrojejunal anastomosis. Patient reports her abdominal pain is controlled. Denies any nausea or vomiting. She does complain that she does not feel like she is emptying the bladder completely. Her urine stream is very slow. She is tolerating the bariatric clears. Denies any nausea or vomiting. She did have flatus. PHYSICAL EXAM: VITAL SIGNS: Reviewed GENERAL: Well-developed in no acute distress. HEENT: No sclera icterus. Extraocular movements grossly intact. Moist buccal mucosa. Head is atraumatic, normocephalic. Hears conversational speech. No nasal draina ge. NECK: Supple without lymphadenopathy. CHEST: Non-labored respirations and equal bilateral excursions. CARDIOVASCULAR: Palpable 2+ radial pulses. ABDOMEN: Soft. Nondistended. Incision sites dressing clean dry and intact MUSCULOSKELETAL: No clubbing or cyanosis. NEUROLOGIC: No focal or lateralizing signs. Cranial nerves II through XII grossly intact. PSYCH: Appropriate affect. Alert and oriented to person, place and time. SKIN: Well perfused. Good skin turgor. ASSESSMENT: 1. Intussusception, left upper quadrant, new 2. Interloop adhesions, left upper quadrant 3. Intractable nausea and vomiting 4. Generalized anxiety disorder 5. Depressive disorder 6. Fibromyalgia 7. Claustrophobia 8. Vertigo 9. Adrenal insufficiency 10. POTS syndrome 11. Gastroesophageal reflux disease 12. 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 Congenital lung alarmingly 15. Irritable bowel syndrome 16. History of myocardial infarction 17. History of hypertensive heart disease with congestive heart failure 18. History of multiple dental surgeries 19. History of gastric bypass 20. 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 Small bowel volvulus history PLAN: -Check postvoid residual to monitor for any urinary retention -Continue IV fluids -Continue bariatric clear liquid diet -Encourage patient to ambulate -Incentive spirometer ordered -Continue pain management -GI prophylaxis Protonix and DVT prophylaxis Lovenox Physician Oil Processing Technician note has been reviewed by physician. Signing provider agrees with the documented findings, assessment, and plan of care. As above. Patient reports no passage of flatus. Continue hospitalization. Sodium low, 130. Adjust IV fluids. Objective - Vital Signs Vital signs: Vital Signs Temp 98.1 F 04/26/24 08:08 Pulse 64 04/26/24 08:08 Resp 17 04/26/24 08:08 BP 142/84 04/26/24 08:08 Pulse Ox 97 04/26/24 08:08 FiO2 Intake & Output 04/25/24 04/26/24 04/26/24 18:59 06:59 18:59 Intake Total 1999 Output Total Balance 1994 Intake: IV 1999 Output: Estimated Blood Loss 5 Other: Voiding Method Toilet Toilet # Voids 1 4 6 - Labs CBC & Chem 7: 04/24/24 05:19 04/26/24 03:21 Labs: Abnormal Lab Results - Last 24 Hours (Table) 04/26/24 Range/Units 03:21 Sodium 130 L (135-145) mmol/L Chloride 94 L (96-109) mmol/L Glucose 162 H (70-110) mg/dL Calcium 8.6 L (8.7-10.3) mg/dL AST 66 H (13-35) U/L ALT 106 H (8-44) U/L Alkaline Phosphatase 206 H (41-126) U/L Total Protein 5.4 L (6.2-8.2) g/dL Albumin 3.5 L (3.8-4.9) g/dL
[2024-04-26] MEDS: CALCIUM CARBONATE 500 MG CHEWABLE PO PRN (19:09)
[2024-04-26] MEDS: TAMSULOSIN 0.4 MG CAP.ER.24H PO STA (20:22)
--- NOTE | 2024-04-27 08:31 | P.PN ---
Subjective Progress Note Date: 04/27/24 CHIEF COMPLAINT: Abdominal pain due to intussusception HISTORY OF PRESENT ILLNESS: The patient is a 53-year-old female status post lysis of adhesions with reduction and revision of jejunojejunostomy due to intussusception. She reports she feels much better today. She is passing moderate flatus. She is tolerating liquids. ROS: No reports of nausea and vomiting. No fevers or chills. No new chest pain. No productive sputum PHYSICAL EXAM: VITAL SIGNS: Reviewed CONSTITUTIONAL: Well developed and in no acute distress. EYES: Conjuctivae without sclera icterus. Extraocular movements grossly intact. HEAD, EARS, NOSE, THROAT: Moist buccal mucosa. Head is atraumatic, normocephalic. Hears conversational speech. No nasal drainage. RESPIRATORY: Non-labored respirations and equal bilateral excursions. CARDIOVASCULAR: Palpable 2+ radial pulses. ABDOMEN: Incisions clean dry intact. MUSCULOSKELETAL: No gross deformity of the lower extremities noted. No clubbing. No cyanosis. SKIN: Good skin turgor. Well perfused. NEUROLOGIC: Cranial nerves II through XII grossly intact. No focal or lateralizing signs. PSYCH: Appropriate affect. Alert and oriented to person, place and time. CLINICAL LABS: Reviewed. LFTs trending down. Today's labs pending. ASSESSMENT: 1. Abdominal pain due to intussusception PLAN: 1. Will advance to bariatric full liquid diet. 2. Repeat CMP for elevated liver enzymes 3. Disposition pending tolerating full liquid diet Objective - Vital Signs Vital signs: Vital Signs Temp 98.5 F 04/27/24 02:01 Pulse 105 H 04/27/24 02:01 Resp 18 04/27/24 02:01 BP 113/78 04/27/24 02:01 Pulse Ox 96 04/27/24 02:01 FiO2 Intake & Output 04/26/24 04/27/24 04/27/24 18:59 06:59 18:59 Other: Voiding Method Toilet # Voids 3 3 - Labs CBC & Chem 7: 04/24/24 05:19 04/26/24 03:21 Labs: Abnormal Lab Results - Last 24 Hours (Table) 04/26/24 Range/Units 03:21 Sodium 130 L (135-145) mmol/L Chloride 94 L (96-109) mmol/L Glucose 162 H (70-110) mg/dL Calcium 8.6 L (8.7-10.3) mg/dL AST 66 H (13-35) U/L ALT 106 H (8-44) U/L Alkaline Phosphatase 206 H (41-126) U/L Total Protein 5.4 L (6.2-8.2) g/dL Albumin 3.5 L (3.8-4.9) g/dL
[2024-04-27 09:32] LABS: ALT 51 U/L (4-34); AST 27 U/L (14-36); African American GFR (CKD) 74 (>60 ml/min/1.73 sqM); Albumin 2.7 g/dL (3.5-5.0); Albumin/Globulin Ratio 1.2; Alkaline Phosphatase 142 U/L (38-126); Anion Gap 4 mmol/L; Blood Urea Nitrogen 14 mg/dL (7-17); Calcium 8.3 mg/dL (8.4-10.2); Carbon Dioxide 29 mmol/L (22-30); Chloride 92 mmol/L (98-107); Globulin 2.2 g/dL; Glucose 94 mg/dL (74-99); Non-African American GFR(CKD) 65 (>60 ml/min/1.73 sqM); Potassium 4.1 mmol/L (3.5-5.1); Sodium 125 mmol/L (137-145); Total Bilirubin 0.7 mg/dL (0.2-1.3); Total Protein 4.9 g/dL (6.3-8.2)
[2024-04-27 12:37] VITALS: PULSE 76
[2024-04-27] MEDS: DOCUSATE 100 MG CAP PO SCH (12:41)
--- NOTE | 2024-04-27 14:21 | P.DS ---
Providers Date of admission: 04/23/24 19:54 Expected date of discharge: 04/27/24 Attending physician: Caitlin Osuna Primary care physician: [facility] Course: Discharge diagnosis 1. Intussusception, left upper quadrant, new 2. Interloop adhesions, left upper quadrant 3. Intractable nausea and vomiting 4. Generalized anxiety disorder 5. Depressive disorder 6. Fibromyalgia 7. Claustrophobia 8. Vertigo 9. Adrenal insufficiency 10. POTS syndrome 11. Gastroesophageal reflux disease 12. 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 Congenital lung alarmingly 15. Irritable bowel syndrome 16. History of myocardial infarction 17. History of hypertensive heart disease with congestive heart failure 18. History of multiple dental surgeries 19. History of gastric bypass 20. 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 Small bowel volvulus history 22. Hyponatremia will repeat sodium level at bariatric center Hospital course The patient is a 53-year-old female admitted for acute intractable epigastric to left upper quadrant abdominal pain. She had recent diagnosed laparoscopy 2 weeks ago demonstrating small bowel volvulus reduction and closure of internal hernia. She comes in with new acute elevated liver enzymes with inflammation of the jejunojejunostomy. Patient is status post robotic laparoscopic extensive lysis of adhesions with reduction of intussusception and small bowel resection x 3 with revision of gastrojejunal anastomosis. Patient's pain is controlled. She is tolerating diet. She is afebrile. She is having flatus. She has been amb ulating. Denies any difficulty urinating. She is stable for discharge. Physician Piece Meat Trimmer note has been reviewed by physician. Signing provider agrees with the documented findings, assessment, and plan of care. Patient Condition at Discharge: Stable Plan - Discharge Summary New Discharge Prescriptions: Continue Levothyroxine Sodium [Synthroid] 75 mcg PO DAILY Hydrocortisone [Cortef] 10 mg PO DAILY Hydrocortisone [Cortef] 5 mg PO HS DULoxetine HCL [Cymbalta] 30 mg PO DAILY Amitriptyline HCl [Elavil] 20 mg PO HS tiZANidine [Zanaflex] 4 mg PO TID PRN PRN Reason: Muscle Spasm Desmopressin Acetate [Ddavp] 0.05 mg PO BID Sucralfate [Carafate] 1 gm PO BID ALPRAZolam [Xanax] 0.5 - 1 mg PO TID PRN PRN Reason: Anxiety HYDROcodone/APAP [Huggins Elixir 7.5-325Mg/15Ml] 15 ml PO TID PRN PRN Reason: Pain Pantoprazole [Protonix] 40 mg PO BID #60 tab Discharge Medication List Levothyroxine Sodium [Synthroid] 75 mcg PO DAILY 04/19/14 [History] Hydrocortisone [Cortef] 10 mg PO DAILY 12/08/15 [History] Hydrocortisone [Cortef] 5 mg PO HS 01/11/19 [History] DULoxetine HCL [Cymbalta] 30 mg PO DAILY 12/09/23 [History] Desmopressin Acetate [Ddavp] 0.05 mg PO BID 12/09/23 [History] Sucralfate [Carafate] 1 gm PO BID 12/10/23 [History] ALPRAZolam [Xanax] 0.5 - 1 mg PO TID PRN 04/14/24 [History] Amitriptyline HCl [Elavil] 20 mg PO HS 04/14/24 [History] HYDROcodone/APAP [Huggins Elixir 7.5-325Mg/15Ml] 15 ml PO TID PRN 04/14/24 [History] Pantoprazole [Protonix] 40 mg PO BID #60 tab 04/15/24 [Rx] tiZANidine [Zanaflex] 4 mg PO TID PRN 04/23/24 [History] Follow up Appointment(s)/Referral(s): Corby Mondragon MD [Primary Care Provider] [facility] [place] [facility] - 04/29/24 9:00 am Activity/Diet/Wound Care/Special Instructions: No lifting over 4 pounds in 4 weeks. You May shower. No bath tub soaks for two weeks Use ice along incisions for the today to prevent swelling. Discharge Disposition: HOME SELF-CARE
[2024-04-27 14:40] VITALS: BP 123/81; RESP 17; TEMP 99.4
--- NOTE | 2024-05-02 10:51 | CDI ---
Documentation Clarification Form Date: 05/02/2024 10:31:38 AM From: Jackelyn Eason Admit Date: 04/23/2024 07:54:00 PM Patient Name: Noemi Griggs Visit Number: [id number] Discharge Date: 04/27/2024 04:39:00 PM ATTENTION: The Clinical Documentation Specialists (CDI) and [facility] Coding Staff appreciate your assistance in clarifying documentation. Please respond to the clarification below the line at the bottom and electronically sign. The CDI & [facility] Coding staff will review the response and follow-up if needed. Please note: Queries are made part of the Legal Health Record. If you have any questions, please contact the author of this message via ITS. Doctor/Provider: Caitlin Osuna. 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 Based on this information and the findings below, is there an additional diagnosis that is clinically appropriate for this patient? Patient history/risk factors: CHF, GERD, IBS, general anxiety disorder, depressive disorder, hyper pituitary gland dysfunction, diabetes insipidus, Bam syndrome, adrenal insuficieny Clinical Indicators: Intractable epigastric, left upper quadrant abdominal pain. Acute hepatits, new [address] scandemonstrates someinflammationinvolving herjejunojejunostomywhich may needcompleterevision. Revisionofjejunostomydescribed as this involves herleft upper quadrant abdominal pain. OP Note: Attention was brought to the left upper quadrant where recurrentadhesiveband was found along thejejunojejunostomycausingretractionandintussusceptionof theanastomosis. Theadhesiveband wastaken downusing hookcauteryincluding vessel sealer. Theadhesionwas causing partialobstructionof thetransverse colon. Adhesions were releasedaround thetransversecolon at the Molly limb where thetransversecolon was now easily mobile. Due to the moderateadhesions along thejejunojejunostomyischemicchanges found along the serosa requiring revisionof thejejunojejunostomy.Prior to any small boweldivision, each limb were tagged. Path report: JEJUNOJEJUNOSTOMY: Viable benign small bowel mucosa with submucosalhemorrhage, vascular ectasia,fibrosis, focal acute serositis and suturegranulomas. Treatment: Jejunojejunostomyreconstructioninvolving biliopancreatic limb t Is there an additional diagnosis that is clinically appropriate for this patient? [ ] Acute mesenteric vascular ischemia [ ] Chronic mesenteric vascular ischemia [ ] No additional diagnosis/Not clinically significant [ ] Unable to determine [ X] Other, please specify NEW INTUSSUSCEPTION unrelated to prior surgery MTDD
== END 2024-04-27 16:39 | disposition home or self-care (01) | DRG 327 ==
LOC: EC 13:07 → 6NMEDSUR 19:53 → OBSVTOIN 19:54 → 6NMEDSUR 20:48 → 4SSUR 04-25 18:05
PROVIDERS: ADMIT Surgery Plastic and Reconstructive Surgery; ATTEND Surgery Plastic and Reconstructive Surgery
PROC: 0D164ZA Bypass Stomach to Jejunum, Percutaneous Endoscopic Approach (ICD-10-PCS; 2024-04-25)
PROC: 0DBA4ZZ Excision of Jejunum, Percutaneous Endoscopic Approach (ICD-10-PCS; 2024-04-25)
PROC: 0DNW4ZZ Release Peritoneum, Percutaneous Endoscopic Approach (ICD-10-PCS; 2024-04-25)
PROC: 8E0W4CZ Robotic Assisted Procedure of Trunk Region, Percutaneous Endoscopic Approach (ICD-10-PCS; 2024-04-25)
PROC: 0DSA4ZZ Reposition Jejunum, Percutaneous Endoscopic Approach (ICD-10-PCS; principal; 2024-04-25 10:10)
DX: K56.2 Volvulus (principal); B17.9 Acute viral hepatitis, unspecified; E23.0 Hypopituitarism; E87.20 Acidosis, unspecified; E27.40 Unspecified adrenocortical insufficiency; E87.1 Hypo-osmolality and hyponatremia; I11.0 Hypertensive heart disease with heart failure; I50.9 Heart failure, unspecified; K56.1 Intussusception; F41.1 Generalized anxiety disorder; F32.A Depression, unspecified; M79.7 Fibromyalgia; I25.2 Old myocardial infarction; R42 Dizziness and giddiness; K58.9 Irritable bowel syndrome, unspecified; K66.0 Peritoneal adhesions (postprocedural) (postinfection); G90.A Postural orthostatic tachycardia syndrome [POTS]; F40.240 Claustrophobia; K21.9 Gastro-esophageal reflux disease without esophagitis; K83.8 Other specified diseases of biliary tract; E03.9 Hypothyroidism, unspecified; K28.9 Gastrojejunal ulcer, unspecified as acute or chronic, without hemorrhage or perforation; K46.9 Unspecified abdominal hernia without obstruction or gangrene; E87.6 Hypokalemia; Z98.84 Bariatric surgery status; Z88.8 Allergy status to other drugs, medicaments and biological substances; Z91.041 Radiographic dye allergy status; Z91.030 Bee allergy status; Z87.19 Personal history of other diseases of the digestive system; Z96.653 Presence of artificial knee joint, bilateral; Z96.612 Presence of left artificial shoulder joint; Z96.611 Presence of right artificial shoulder joint; J45.909 Unspecified asthma, uncomplicated; F43.10 Post-traumatic stress disorder, unspecified; I25.10 Atherosclerotic heart disease of native coronary artery without angina pectoris; K76.0 Fatty (change of) liver, not elsewhere classified; Z79.890 Hormone replacement therapy; Z79.899 Other long term (current) drug therapy; Z82.49 Family history of ischemic heart disease and other diseases of the circulatory system; Z85.828 Personal history of other malignant neoplasm of skin; Z87.442 Personal history of urinary calculi; Z87.891 Personal history of nicotine dependence
CPT/HCPCS: 36415; 64999; 74177; 74181; 80053; 81003; 82150; 83605; 83690; 85025; 86850; 86900; 86901; 88304; 93005; 96361; 96374; 96375; 96376; 99285

== ENCOUNTER → 2024-04-29 | Outpatient (CLI) | payer MEDICARE ==
[2024-04-29 09:09] VITALS: BP 149/87; PULSE 69; TEMP 98; BMI 29.6
--- NOTE | 2024-04-29 11:51 | P.BASOAP ---
Subjective Progress Note Date: 04/29/24 Patient presents following revision of jejunojejunostomy for intussusception. She reports generalized pain is to be expected. No further pain with eating foods. She does gas. She is passing flatus. She is taking Gas-X. Separately, she did have persistent low sodium level. She has pre-existing adrenal insufficiency. Patient does report that she was getting low-dose DDAVP in the hospital which she is corrected at home. Recommend repeat CMP for elevated LFTs. Objective - Vital Signs Vital signs: Vital Signs Temp 98 F 04/29/24 09:05 Pulse 69 04/29/24 09:05 Resp BP 149/87 04/29/24 09:05 Pulse Ox FiO2 Intake & Output 04/28/24 04/29/24 04/29/24 18:59 06:59 18:59 Weight 80.739 kg Assessment/Plan Plan: Date: 04/29/24 Initial Weight: Initial BMI: Current Weight: 80.739 kg Current BMI: 29.6 Type of Surgery: Total Volume in Band: Previous Volume: Volume Removed: Volume Added: Band Size:
== END ==
LOC: BARWHC3 08:56
PROVIDERS: ATTEND Surgery Plastic and Reconstructive Surgery
DX: E66.01 Morbid (severe) obesity due to excess calories (principal); Z68.29 Body mass index [BMI] 29.0-29.9, adult; Z98.890 Other specified postprocedural states; Z91.048 Other nonmedicinal substance allergy status; Z88.5 Allergy status to narcotic agent; Z91.030 Bee allergy status; Z91.041 Radiographic dye allergy status; Z87.891 Personal history of nicotine dependence
CPT/HCPCS: 99211

== ENCOUNTER → 2024-04-29 | Outpatient (CLI) | payer MEDICARE ==
[2024-04-29 16:20] LABS: ALT 31 U/L (8-44); AST 17 U/L (13-35); Albumin 3.4 g/dL (3.8-4.9); Albumin/Globulin Ratio 1.55 Ratio (1.60-3.17); Alkaline Phosphatase 144 U/L (41-126); Blood Urea Nitrogen 6.4 mg/dL (9.0-27.0); Carbon Dioxide 27.7 mmol/L (21.6-31.8); Chloride 94 mmol/L (96-109); Globulin 2.2 g/dL (1.6-3.3); Glucose 81 mg/dL (70-110); Potassium 4.4 mmol/L (3.5-5.5); Sodium 132 mmol/L (135-145); Total Bilirubin 0.5 mg/dL (0.3-1.2); Total Protein 5.6 g/dL (6.2-8.2)
== END | disposition home or self-care (01) ==
LOC: LABWHC1 09:34
PROVIDERS: ATTEND Surgery Plastic and Reconstructive Surgery
DX: Z01.812 Encounter for preprocedural laboratory examination (principal); E86.0 Dehydration; E87.6 Hypokalemia; E24.9 Cushing's syndrome, unspecified; E27.40 Unspecified adrenocortical insufficiency
CPT/HCPCS: 36415; 80053

== ENCOUNTER → 2024-05-11 | Outpatient (CLI) | payer MEDICARE ==
[2024-05-11 14:39] VITALS: BP 136/96; PULSE 94; RESP 16; TEMP 98.5; BMI 27.4
--- NOTE | 2024-05-11 15:01 | P.BASOAP ---
Subjective Progress Note Date: 05/11/24 She comes in pain with pain. She reports backward trend of healing. She has generalized abdominal pain. Liquid pharmacy. She is not taking carafate as a liquid. She is taking corted with carafate. She has severe nausea and not drinking enough fluids. She lost 100 pounds. 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 May have crisis with addisons disease and ddavp. Dr Nadia Chapa [phone] for fu, SBFT, adrenals, IV fluids Objective - Vital Signs Vital signs: Vital Signs Temp 98.5 F 05/11/24 14:25 Pulse 94 05/11/24 14:25 Resp 16 05/11/24 14:25 BP 136/96 05/11/24 14:25 Pulse Ox 99 05/11/24 14:25 FiO2 Intake & Output 05/10/24 05/11/24 05/11/24 18:59 06:59 18:59 Weight 74.843 kg Assessment/Plan Plan: Date: 05/11/24 Initial Weight: Initial BMI: Current Weight: 74.843 kg Current BMI: 27.4 Type of Surgery: Total Volume in Band: Previous Volume: Volume Removed: Volume Added: Band Size:
[2024-05-12 01:46] LABS: ALT 21 U/L (8-44); AST 28 U/L (13-35); Albumin 4.1 g/dL (3.8-4.9); Albumin/Globulin Ratio 1.64 Ratio (1.60-3.17); Alkaline Phosphatase 131 U/L (41-126); Blood Urea Nitrogen 10.8 mg/dL (9.0-27.0); Calcium 9.7 mg/dL (8.7-10.3); Carbon Dioxide 27.2 mmol/L (21.6-31.8); Chloride 100 mmol/L (96-109); Globulin 2.5 g/dL (1.6-3.3); Glucose 111 mg/dL (70-110); Potassium 4.4 mmol/L (3.5-5.5); Sodium 139 mmol/L (135-145); Total Bilirubin 0.5 mg/dL (0.3-1.2); Total Protein 6.6 g/dL (6.2-8.2)
== END ==
LOC: BARWHC3 14:15
PROVIDERS: ATTEND Surgery Plastic and Reconstructive Surgery
DX: Z01.818 Encounter for other preprocedural examination (principal); E23.0 Hypopituitarism; E27.1 Primary adrenocortical insufficiency; R10.84 Generalized abdominal pain; E66.01 Morbid (severe) obesity due to excess calories; Z68.27 Body mass index [BMI] 27.0-27.9, adult; Z91.030 Bee allergy status; Z91.048 Other nonmedicinal substance allergy status; Z91.041 Radiographic dye allergy status; Z88.5 Allergy status to narcotic agent; Z87.891 Personal history of nicotine dependence
CPT/HCPCS: 80053; 82533; G0463; 99211

== ENCOUNTER 2024-05-15 12:10 | Observation (INO) | payer MEDICARE ==
[2024-05-15] MEDS ORDERED: IOPAMIDOL CONTRAST (ORAL USE) VIAL PO PRN (12:32)
[2024-05-15] MEDS: HYDROmorphone 1 MG/ML 1 ML SYRINGE IVP STA ×2 (12:37→15:04)
[2024-05-15] MEDS: SODIUM CHLORIDE 0.9% 1,000 ML IV STA (12:38)
[2024-05-15 12:49] LABS: Basophils % (A) 1 %; Eosinophils # (A) 0.3 k/uL (0-0.7); Eosinophils % (A) 4 %; HCT 38.4 % (34.0-46.0); HGB 12.6 gm/dL (11.4-16.0); Lymphocytes # (A) 1.4 k/uL (1.0-4.8); Lymphocytes % (A) 15 %; MCH 30.7 pg (25.0-35.0); MCHC 32.8 g/dL (31.0-37.0); MCV 93.9 fL (80.0-100.0); Mean Platelet Volume 6.8; Monocytes # (A) 0.4 k/uL (0-1.0); Monocytes % (A) 4 %; Neutrophils # (A) 6.8 k/uL (1.3-7.7); Neutrophils % (A) 75 %; Platelet Count 342 k/uL (150-450); RBC 4.09 m/uL (3.80-5.40); RDW 14.1 % (11.5-15.5); WBC 9.1 k/uL (3.8-10.6)
[2024-05-15 13:01] LABS: ALT 13 U/L (4-34); AST 22 U/L (14-36); African American GFR (CKD) >90 (>60 ml/min/1.73 sqM); Albumin 3.4 g/dL (3.5-5.0); Alkaline Phosphatase 89 U/L (38-126); Anion Gap 5 mmol/L; Blood Urea Nitrogen 14 mg/dL (7-17); Calcium 8.6 mg/dL (8.4-10.2); Carbon Dioxide 25 mmol/L (22-30); Chloride 108 mmol/L (98-107); Glucose 95 mg/dL (74-99); Lipase 113 U/L (23-300); Non-African American GFR(CKD) 86 (>60 ml/min/1.73 sqM); Potassium 3.8 mmol/L (3.5-5.1); Sodium 138 mmol/L (137-145); Total Bilirubin 0.6 mg/dL (0.2-1.3); Total Protein 5.7 g/dL (6.3-8.2)
[2024-05-15 13:21] LABS: Appearance,Urine Clear (Clear); Bilirubin,Urine Negative (Negative); Blood,Urine Negative (Negative); Color,Urine Light Yellow; Glucose,Urine (UA) Negative (Negative); Ketones,Urine Negative (Negative); Leukocyte Esterase,Urine Negative (Negative); Nitrite,Urine Negative (Negative); PH, Urine 6.5 (5.0-8.0); Protein,Urine Negative (Negative); Specific Gravity,Urine 1.018 (1.001-1.035); Urobilinogen,Urine <2.0 mg/dL (<2.0)
--- NOTE | 2024-05-15 13:46 | ED ---
Abdominal Pain HPI - General Chief Complaint: Abdominal Pain Stated Complaint: Abd Pain Time Seen by Provider: 05/15/24 12:15 Source: EMS Mode of arrival: EMS - History of Present Illness Initial Comments: 53-year-old female with past medical history of Molly-en-Y, VT, hypertension who presents emergency department reporting abdominal pain. Patient was seen and hospitalized from April 23 to April 27. She had intractable abdominal pain was found to have an internal hernia which was repaired with some lysis of adhesions. Patient states that since her release she has had continued abdominal pain which is continuing to get worse. She minimally tolerates any food. She has been on [place] at home for the pain but it is not improving. Majority of the pain is left upper quadrant. She does admit to some diarrhea. Last bowel movement was yesterday. Denies any black or bloody stools. No changes in her urination. States that patient can tolerate the pain today therefore presents to the emergency department for evaluation. Denies any chest pain, shortness of breath. No other alleviating, precipitating modifying factors - Related Data Home Medications Medication Instructions Recorded Confirmed Levothyroxine Sodium [Synthroid] 75 mcg PO DAILY 04/19/14 05/15/24 Hydrocortisone [Cortef] 10 mg PO DAILY 12/08/15 05/15/24 Hydrocortisone [Cortef] 5 mg PO HS 01/11/19 05/15/24 DULoxetine HCL [Cymbalta] 30 mg PO DAILY 12/09/23 05/15/24 Desmopressin Acetate [Ddavp] 0.05 mg PO BID 12/09/23 05/15/24 Sucralfate [Carafate] 1 gm PO BID 12/10/23 05/15/24 ALPRAZolam [Xanax] 0.5 - 1 mg PO TID PRN 04/14/24 05/15/24 Amitriptyline HCl [Elavil] 20 mg PO HS 04/14/24 05/15/24 HYDROcodone/APAP [[place] Elixir 15 ml PO TID PRN 04/14/24 05/15/24 7.5-325Mg/15Ml] tiZANidine [Zanaflex] 4 mg PO TID PRN 04/23/24 05/15/24 Previous Rx's Medication Instructions Recorded Pantoprazole [Protonix] 40 mg PO BID #60 tab 04/15/24 Allergies Allergy/AdvReac Type Severity Reaction Status Date / Time adhesive Allergy Rash/Hives Verified 05/15/24 12:15 morphine Allergy Anaphylaxis Verified 05/15/24 12:15 venom-honey bee Allergy Dyspnea Verified 05/15/24 12:15 [bee venom (honey bee)] blue dye AdvReac Mild HYPER Verified 05/15/24 12:15 FEELING Review of Systems ROS Statement: Those systems with pertinent positive or pertinent negative responses have been documented in the HPI. ROS Other: All systems not noted in ROS Statement are negative. Past Medical History Past Medical History: Asthma, Cancer, Eye Disorder, Fibromyalgia, GERD/Reflux, Hypertension, Myocardial Infarction (VT), Musculoskeletal Disorder, Osteoarthritis (OA), Renal Disease, Syncope, Thyroid Disorder Additional Past Medical History / Comment(s): SKIN CANCER, ADRENAL INSUFFICENCY. POTS SYNDROME. DIABETES INSIPIDUS. 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 kidney stone history, renal failure Last Myocardial Infarction Date:: december 29 2014 History of Any Multi-Drug Resistant Organisms: None Reported Past Surgical History: Back Surgery, Bariatric Surgery, Section, Cholecystectomy, Hernia Repair, Joint Replacement, Orthopedic Surgery Additional Past Surgical History / Comment(s): ARTIFICIAL DISC IN C5,6,7 , TITANIUM PLATE AND 4 SCREWS IN NECK. RT CARPAL TUNNEL. . HEMORRHOIDECTOMY. BRONCHOSCOPY.,CERVIAL EPIDURAL STEROID INJECTION, LT KNEE ARTHROSCOPIC LATERAL FEMORAL CHONDRECTOMY/MEDIALFEMORAL CHONDRECTOMY/PATELLER CHONDROPLASTY/PARTIAL SYNOVECTOMY OF LATERAL AND PATELLOFEMORAL COMPARTMENTS (TOTAL OF 7 KNEE SX), RADIOFREQUENCY TX L5,-RT KNEE SCOPE, EXPLORATORY LAP- ENDOmetriosis, TOTAL KNEE REPLACEMENT MARIA ELENA maria elena shoulder rotator cuff and biceps tendon. gastric bypass 11-30-23, Lysis of Adhesions/Internal Hernia 03/2024, lysis of adhesions/fariha lresection-intussusception 04/25/2024 Past Anesthesia/Blood Transfusion Reactions: No Reported Reaction, Family History of Problems w/ Anesthesia, Motion Sickness Additional Past Anesthesia/Blood Transfusion Reaction / Comment(s): CLAUSTERPHOBIA, VERTIGO IN PAST. PATIENTS MOTHER HAS DIFFICULTY WAKING UP Past Psychological History: Anxiety, Depression, PTSD Smoking Status: Never smoker Past Alcohol Use History: Rare Past Drug Use History: None Reported - Past Family History Mother Family Medical History: Cancer, Hyperlipidemia, Hypertension Additional Family Medical History / Comment(s): RECTAL CANCER. Father Family Medical History: Hyperlipidemia, Hypertension General Exam General appearance: alert, in no apparent distress Head exam: Present: atraumatic, normocephalic, normal inspection Eye exam: Present: normal appearance, PERRL, EOMI. Absent: scleral icterus, conjunctival injection, periorbital swelling ENT exam: Present: normal exam, mucous membranes moist Neck exam: Present: normal inspection. Absent: tenderness, meningismus, lymphadenopathy Respiratory exam: Present: normal lung sounds bilaterally. Absent: respiratory distress, wheezes, rales, rhonchi, stridor Cardiovascular Exam: Present: regular rate, normal rhythm, normal heart sounds. Absent: systolic murmur, diastolic murmur, rubs, gallop, clicks GI/Abdominal exam: Present: soft, tenderness (Epigastric), normal bowel sounds. Absent: distended, guarding, rebound, rigid Extremities exam: Present: normal inspection, full ROM, normal capillary refill. Absent: tenderness, pedal edema, joint swelling, calf tenderness Back exam: Present: normal inspection Neurological exam: Present: alert, oriented X3, CN II-XII intact Psychiatric exam: Present: normal affect, normal mood Skin exam: Present: warm, dry, intact, normal color. Absent: rash Course Vital Signs 05/15/24 05/15/24 05/15/24 12:12 13:15 14:00 Temperature 98.1 F Pulse Rate 75 81 62 Respiratory 16 18 18 Rate Blood Pressure 137/96 142/98 153/96 O2 Sat by Pulse 95 96 95 Oximetry 05/15/24 05/15/24 05/15/24 16:00 16:36 17:11 Temperature Pulse Rate 78 69 69 Respiratory 18 18 18 Rate Blood Pressure 160/103 157/93 151/90 O2 Sat by Pulse 97 97 97 Oximetry Medical Decision Making - Medical Decision Making Was pt. sent in by a medical professional or institution (, PA, COMMUNITY SUPPORT WORKER, urgent care, hospital, or senior living...) When possible be specific @ -No Did you speak to anyone other than the patient for history (EMS, parent, family, police, friend...)? What history was obtained from this source @ -Spoke with EMS for history Did you review nursing and triage notes (agree or disagree)? Why? @ -I reviewed and agree with nursing and triage notes Were old charts reviewed (outside hosp., previous admission, EMS record, old EKG, old radiological studies, urgent care reports/EKG's, senior living records)? Report findings @ -I reviewed the operative note from April [address] Osuna Differential Diagnosis (chest pain, altered mental status, abdominal pain women, abdominal pain men, vaginal bleeding, weakness, fever, dyspnea, syncope, headache, dizziness, GI bleed, back pain, seizure, CVA, palpatations, mental health, musculoskeletal)? @ -Differential Abdominal Pain Women: Appendicitis, Cholecystitis, diverticulosis, ischemic bowel, pancreatitis, hepatitis, UTI, gastroenteritis, AAA, incarcerated hernia, bowel obstruction, constipation, inflammatory bowel, hepatitis, peptic ulcer disease, splenic infarction, perforated viscus, vulvitis, ovarian torsion, PID, kidney stone, pl acenta abruption, this is not meant to be an all-inclusive list EKG interpreted by me (3pts min.). @ -Not done X-rays interpreted by me (1pt min.). @ -None done CT interpreted by me (1pt min.). @ -Yes and demonstrates postsurgical changes U/S interpreted by me (1pt. min.). @ -None done What testing was considered but not performed or refused? (CT, X-rays, U/S, labs)? Why? @ -None What meds were considered but not given or refused? Why? @ -None Did you discuss the management of the patient with other professionals (professionals i.e. , PA, COMMUNITY SUPPORT WORKER, lab, RT, psych nurse, social work nurse, tone artist apprentice, teacher, dispatch officer, case advocate)? Give summary @ -Spoke with Dr. Osuna who will admit the patient Was smoking cessation discussed for >3mins.? @ -No Was critical care preformed (if so, how long)? @ -No Were there social determinants of health that impacted care today? How? (Homelessness, low income, unemployed, alcoholism, drug addiction, transportation, low edu. Level, literacy, decrease access to med. care, half-way, rehab)? @ -No Was there de-escalation of care discussed even if they declined (Discuss DNR or withdrawal of care, Hospice)? DNR status @ -No What co-morbidities impacted this encounter? (DM, HTN, Smoking, COPD, CAD, Cancer, CVA, ARF, Chemo, Hep., AIDS, mental health diagnosis, sleep apnea, morbid obesity)? @ -Obesity with history of gastric bypass Was patient admitted / discharged? Hospital course, mention meds given and route, prescriptions, significant lab abnormalities, going to OR and other pertinent info. @ -Upon arrival patient seen and evaluated in room 25. Thorough history and physical exam was performed. IV was established. Patient administered 1 mg of Dilaudid. Laboratory studies are conducted. CT is performed with oral contrast. I discussed results with the patient. She continues to have pain and is given a second dose of pain medications. I called and spoke with Dr. Osuna. She was agreeable to admission to her service. Patient was agreeable to the admission Undiagnosed new problem with uncertain prognosis? @ -No Drug Therapy requiring intensive monitoring for toxicity (Heparin, Nitro, Insulin, Cardizem)? @ -No Were any procedures done? @ -No Diagnosis/symptom? @ -Acute exacerbation of chronic abdominal pain, history of Molly-en-Y Acute, or Chronic, or Acute on Chronic? @ -Acute on chronic Uncomplicated (without systemic symptoms) or Complicated (systemic symptoms)? @ -Complicated Side effects of treatment? @ -No Exacerbation, Progression, or Severe Exacerbation? @ -No Poses a threat to life or bodily function? How? (Chest pain, USA, VT, pneumonia, PE, COPD, DKA, ARF, appy, cholecystitis, CVA, Diverticulitis, Homicidal, Suicidal, threat to staff... and all critical care pts) @ -No - Lab Data Result diagrams: 05/15/24 12:41 05/15/24 12:41 Lab Results 05/15/24 05/15/24 05/15/24 Range/Units 12:41 12:41 12:41 WBC 9.1 (3.8-10.6) k/uL RBC 4.09 (3.80-5.40) m/uL Hgb 12.6 (11.4-16.0) gm/dL Hct 38.4 (34.0-46.0) % MCV 93.9 (80.0-100.0) fL MCH 30.7 (25.0-35.0) pg MCHC 32.8 (31.0-37.0) g/dL RDW 14.1 (11.5-15.5) % Plt Count 342 (150-450) k/uL MPV 6.8 Neutrophils % 75 % Lymphocytes % 15 % Monocytes % 4 % Eosinophils % 4 % Basophils % 1 % Neutrophils # 6.8 (1.3-7.7) k/uL Lymphocytes # 1.4 (1.0-4.8) k/uL Monocytes # 0.4 (0-1.0) k/uL Eosinophils # 0.3 (0-0.7) k/uL Basophils # 0.0 (0-0.2) k/uL Sodium 138 (137-145) mmol/L Potassium 3.8 (3.5-5.1) mmol/L Chloride 108 H (98-107) mmol/L Carbon Dioxide 25 (22-30) mmol/L Anion Gap 5 mmol/L BUN 14 (7-17) mg/dL Creatinine 0.78 (0.52-1.04) mg/dL Est GFR (CKD-EPI)AfAm >90 (>60 ml/min/1.73 sqM) Est GFR (CKD-EPI)NonAf 86 (>60 ml/min/1.73 sqM) Glucose 95 (74-99) mg/dL Plasma Lactic Acid Jose 1.0 (0.7-2.0) mmol/L Calcium 8.6 (8.4-10.2) mg/dL Total Bilirubin 0.6 (0.2-1.3) mg/dL AST 22 (14-36) U/L ALT 13 (4-34) U/L Alkaline Phosphatase 89 (38-126) U/L Total Protein 5.7 L (6.3-8.2) g/dL Albumin 3.4 L (3.5-5.0) g/dL Lipase 113 (23-300) U/L Urine Color Urine Appearance (Clear) Urine pH (5.0-8.0) Ur Specific [place] (1.001-1.035) Urine Protein (Negative) Urine Glucose (UA) (Negative) Urine Ketones (Negative) Urine Blood (Negative) Urine Nitrite (Negative) Urine Bilirubin (Negative) Urine Urobilinogen (<2.0) mg/dL Ur Leukocyte Esterase (Negative) 05/15/24 Range/Units 12:50 WBC (3.8-10.6) k/uL RBC (3.80-5.40) m/uL Hgb (11.4-16.0) gm/dL Hct (34.0-46.0) % MCV (80.0-100.0) fL MCH (25.0-35.0) pg MCHC (31.0-37.0) g/dL RDW (11.5-15.5) % Plt Count (150-450) k/uL MPV Neutrophils % % Lymphocytes % % Monocytes % % Eosinophils % % Basophils % % Neutrophils # (1.3-7.7) k/uL Lymphocytes # (1.0-4.8) k/uL Monocytes # (0-1.0) k/uL Eosinophils # (0-0.7) k/uL Basophils # (0-0.2) k/uL Sodium (137-145) mmol/L Potassium (3.5-5.1) mmol/L Chloride (98-107) mmol/L Carbon Dioxide (22-30) mmol/L Anion Gap mmol/L BUN (7-17) mg/dL Creatinine (0.52-1.04) mg/dL Est GFR (CKD-EPI)AfAm (>60 ml/min/1.73 sqM) Est GFR (CKD-EPI)NonAf (>60 ml/min/1.73 sqM) Glucose (74-99) mg/dL Plasma Lactic Acid Jose (0.7-2.0) mmol/L Calcium (8.4-10.2) mg/dL Total Bilirubin (0.2-1.3) mg/dL AST (14-36) U/L ALT (4-34) U/L Alkaline Phosphatase (38-126) U/L Total Protein (6.3-8.2) g/dL Albumin (3.5-5.0) g/dL Lipase (23-300) U/L Urine Color Light Yellow Urine Appearance Clear (Clear) Urine pH 6.5 (5.0-8.0) Ur Specific [place] 1.018 (1.001-1.035) Urine Protein Negative (Negative) Urine Glucose (UA) Negative (Negative) Urine Ketones Negative (Negative) Urine Blood Negative (Negative) Urine Nitrite Negative (Negative) Urine Bilirubin Negative (Negative) Urine Urobilinogen <2.0 (<2.0) mg/dL Ur Leukocyte Esterase Negative (Negative) Disposition Clinical Impression: Abdominal pain Disposition: ADMITTED IP TO THIS HOSP Condition: Stable Is patient prescribed a controlled substance at d/c from ED?: No Time of Disposition: 15:50 Decision to Admit Reason: Admit from EC Decision Date: 05/15/24 Decision Time: 15:51
--- NOTE | 2024-05-15 15:12 | CT ---
EXAMINATION TYPE: CT abdomen pelvis w con DATE OF EXAM: 05/15/2024 2:48 PM COMPARISON: CT abdomen pelvis most recent from 04/23/2024 CLINICAL INDICATION: Female, 53 years old with history of abd pain; LEFT SIDED ABDOMINAL PAIN TECHNIQUE: Axial CT abdomen pelvis w con;Sagittal and coronal reformats were created on a separate w orkstation. Contrast used:80ML mL of Isovue 300 with IV Contrast, (none if empty) Oral contrast used: with Oral Contrast (none if empty) CT DLP: 742.2 mGycm, Automated exposure control for dose reduction was used. FINDINGS: LOWER CHEST: Unremarkable ABDOMEN LIVER: Focal fatty infiltration adjacent to the falciform ligament in segment IVb GALLBLADDER AND BILE DUCTS: Unremarkable. PANCREAS: Unremarkable. SPLEEN: Unremarkable. ADRENAL GLANDS: Unremarkable. KIDNEYS AND URETERS: No evidence of hydronephrosis or renal calculus. The ureters are unremarkable. PELVIS BLADDER: No evidence for wall thickening or mass given limitations of exam. REPRODUCTIVE: Unremarkable. ABDOMEN & PELVIS STOMACH AND BOWEL: No evidence of bowel obstruction. Postsurgical changes of the gastric lumen. Scatt ered colonic diverticula. Postsurgical changes of small bowel in the left upper quadrant. PERITONEUM/RETROPERITONEUM: No evidence of pneumoperitoneum or free fluid. VASCULATURE: No evidence of aortic aneurysm. MUSCULOSKELETAL: No acute osseous abnormalities LYMPH NODES: No gross evidence for lymphadenopathy. SOFT TISSUE/ABDOMINAL WALL: Unremarkable IMPRESSION: 1. Postsurgical changes of the small bowel and stomach without evidence for obstruction. 2. No evidence for acute intrarenal process. 3. Colonic diverticulosis [facility], , 05/15/2024 3:10 PM
[2024-05-15] MEDS ORDERED: NALOXONE 0.4 MG/ML 1 ML VIAL IV PRN (15:51)
[2024-05-15] MEDS: SODIUM CHLORIDE 0.9% 1,000 ML IV SCH (16:17)
--- NOTE | 2024-05-15 17:07 | P.GSHP ---
History of Present Illness H&P Date: 05/15/24 CHIEF COMPLAINT: Abdominal pain HISTORY OF PRESENT ILLNESS: The patient is a 53-year-old female who started developing intractable abdominal pain approximately 1 month ago. She had upper endoscopy demonstrating acute gastrojejunal ulcers. 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 Patient had a diagnostic laparoscopy lysis of adhesions for small bowel volvulus also 1 month ago with return to the hospital for new intussusception of the small bowel. She had a reconstruction of her jejunojejunostomy 2 weeks ago. She had done well and she reported her abdominal pain had resolved after surgery. Incidentally, she was placed on decreased dose of her medications for Sunset's disease where she reports her abdominal pain had resolved. Her abdominal pain then recurred after initiating her endocrine medications. She and myself have been unable to contact her delivery specialist reg arding adjustment of her medications due to her significant weight loss overall 100 pounds. Patient reports reflux. She reports primarily epigastric left upper quadrant pain. Patient reports pain is worse with movement and pinpoint of the left upper quadrant of the subcutaneous deep tissue. Pain has been worse in the past 2 to 3 days. PAST MEDICAL HISTORY: See list and reviewed PAST SURGICAL HISTORY: See list and reviewed MEDICATIONS: See list and reviewed ALLERGIES: See list and reviewed SOCIAL HISTORY: See list and reviewed FAMILY HISTORY: See list and reviewed REVIEW OF ORGAN SYSTEMS: CONSTITUTIONAL: No fevers or chills. Intentional weight loss of 100 pounds in 6 months. EYES: Denies any trouble with vision. No glasses. HEENT: No difficulties with hearing. No nosebleeds. No difficulty swallowing. As vertigo. RESPIRATORY: Resolved obstructive sleep apnea. Has congenital lung disease. CARDIOVASCULAR: History of congestive heart failure GASTROINTESTINAL: Gastroesophageal reflux disease including irritable bowel syndrome. Recent gastric bypass. GENITOURINARY: History of kidney stones. NEUROLOGICAL: Has numbness or tingling along the distal extremities. As seizure disorders or headaches. Has fibromyalgia. MUSCULOSKELETAL: Has back pain, stiffness or joint arthritis. SKIN: No current skin cancer. No rash. PSYCHIATRIC: Has generalized anxiety disorder including depressive disorder ENDOCRINE: Has hypo pituitary gland dysfunction including diabetes insipidus, Bam syndrome. Has adrenal insufficiency. HEME/LYMPHATIC: Denies any lumps and bumps around the neck. No recent deep venous thrombosis. ALLERGY/IMMUNOLOGY: No immunoglobulin therapy. No immune deficiencies. BREAST: Denies current breast lumps, pain or nipple discharge. PHYSICAL EXAM: VITALS: Reviewed CONSTITUTIONAL: Well developed and in no acute distress. EYES: Conjuctivae without sclera icterus. Extraocular movements grossly intact. HEAD, EARS, NOSE, THROAT: Moist buccal mucosa. Head is atraumatic, normocephalic. Hears conversational speech. No nasal drainage. NECK: Supple. No JV distention. No thyroidomegaly. RESPIRATORY: Non-labored respirations and equal bilateral excursions. No gross wheezes. CARDIOVASCULAR: Palpable 2+ radial pulses. ABDOMEN: Tender left upper quadrant. All incisions granulated LYMPH: No neck lymphadenopathy. MUSCULOSKELETAL: No clubbing cyanosis or edema SKIN: Warm and well perfused with good skin turgor. NEUROLOGIC: Cranial nerves II through XII grossly intact. No focal or lateralizing signs. PSYCH: Appropriate affect. Alert and oriented to person, place and time. Displays appropriate insight. CLINCAL LABS: Reviewed. WBC within normal limits. LFTs within normal limits. IMAGING: Independently reviewed. CT of the abdomen pelvis reviewed demonstrates no mesenteric swirl or signs of internal hernia. Postsurgical changes a ppropriate. No free fluid. Postsurgical changes along the left abdominal wall. REPORT: CT abdomen pelvis demonstrates postsurgical changes. ASSESSMENT: 1. Intractable left upper quadrant abdominal pain 2. Adrenal insufficiency with metabolic abdominal 3. Intractable nausea and vomiting 4. Generalized anxiety disorder 5. Depressive disorder 6. Fibromyalgia 7. Claustrophobia 8. Vertigo 9. Abdominal adhesions 10. POTS syndrome 11. Gastroesophageal reflux disease 12. 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 Congenital lung alarmingly 15. Irritable bowel syndrome 16. History of myocardial infarction 17. History of hypertensive heart disease with congestive heart failure 18. History of multiple dental surgeries 19. History of gastric bypass 20. 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 Small bowel volvulus history 22. Hypokalemia 23. Internal hernia history PLAN: 1. Patient reports her pain began after taking her usual dose of Cortef which incited her symptoms. Patient has requested to hold her Cortef while inpatient to monitor symptoms. 2. As she has recent reconstruction of the jejunojejunostomy, small bowel fo llow-through being ordered to investigate any stenosis along her anastomosis 3. Patient reports pinpoint tenderness of the abdominal wall with soft tissue changes identified. Ultrasound of the abdominal wall being obtained for fluid/seroma which may be aspirated. 4. Ice packs for abdominal pain 5. May benefit from upper endoscopy after results of ultrasound including small bowel follow-through 6. Liquid diet in interim Past Medical History Past Medical History: Asthma, Cancer, Eye Disorder, Fibromyalgia, GERD/Reflux, Hypertension, Myocardial Infarction ([place]), Musculoskeletal Disorder, Osteoarthritis (OA), Renal Disease, Syncope, Thyroid Disorder Additional Past Medical History / Comment(s): SKIN CANCER, ADRENAL INSUFFIC ENCY. POTS SYNDROME. DIABETES INSIPIDUS. 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 kidney stone history, renal failure Last Myocardial Infarction Date:: december 29 2014 History of Any Multi-Drug Resistant Organisms: None Reported Past Surgical History: Back Surgery, Bariatric Surgery, Section, Cholecystectomy, Hernia Repair, Joint Replacement, Orthopedic Surgery Additional Past Surgical History / Comment(s): ARTIFICIAL DISC IN C5,6,7 , TITANIUM PLATE AND 4 SCREWS IN NECK. RT CARPAL TUNNEL. . HEMORRHOIDECTOMY. BRONCHOSCOPY.,CERVIAL EPIDURAL STEROID INJECTION, LT KNEE ARTHROSCOPIC LATERAL FEMORAL CHONDRECTOMY/MEDIALFEMORAL CHONDRECTOMY/PATELLER CHONDROPLASTY/PARTIAL SYNOVECTOMY OF LATERAL AND PATELLOFEMORAL COMPARTMENTS (TOTAL OF 7 KNEE SX), RADIOFREQUENCY TX L5,-RT KNEE SCOPE, EXPLORATORY LAP- ENDOmetriosis, TOTAL KNEE REPLACEMENT MARIA ELENA maria elena shoulder rotator cuff and biceps tendon. gastric bypass 11-30-23, Lysis of Adhesions/Internal Hernia 03/2024, lysis of adhesions/bowelresection-intussusception 04/25/2024 Past Anesthesia/Blood Transfusion Reactions: No Reported Reaction, Family History of Problems w/ Anesthesia, Motion Sickness Additional Past Anesthesia/Blood Transfusion Reaction / Comment(s): CLAUSTERPHOBIA, VERTIGO IN PAST. PATIENTS MOTHER HAS DIFFICULTY WAKING UP Past Psychological History: Anxiety, Depression, PTSD Smoking Status: Never smoker Past Alcohol Use History: Rare Past Drug Use History: None Reported - Past Family History Mother Family Medical History: Cancer, Hyperlipidemia, Hypertension Additional Family Medical History / Comment(s): RECTAL CANCER. Father Family Medical History: Hyperlipidemia, Hypertension Medications and Allergies Home Medications Medication Instructions Recorded Confirmed Type Levothyroxine Sodium [Synthroid] 75 mcg PO DAILY 04/19/14 05/15/24 History Hydrocortisone [Cortef] 10 mg PO DAILY 12/08/15 05/15/24 History Hydrocortisone [Cortef] 5 mg PO HS 01/11/19 05/15/24 History DULoxetine HCL [Cymbalta] 30 mg PO DAILY 12/09/23 05/15/24 History Desmopressin Acetate [Ddavp] 0.05 mg PO BID 12/09/23 05/15/24 History Sucralfate [Carafate] 1 gm PO BID 12/10/23 05/15/24 History ALPRAZolam [Xanax] 0.5 - 1 mg PO TID PRN 04/14/24 05/15/24 History Amitriptyline HCl [Elavil] 20 mg PO HS 04/14/24 05/15/24 History HYDROcodone/APAP [[place]wich Elixir 15 ml PO TID PRN 04/14/24 05/15/24 History 7.5-325Mg/15Ml] Pantoprazole [Protonix] 40 mg PO BID #60 tab 04/15/24 05/15/24 Rx tiZANidine [Zanaflex] 4 mg PO TID PRN 04/23/24 05/15/24 History Allergies Allergy/AdvReac Type Severity Reaction Status Date / Time adhesive Allergy Rash/Hives Verified 05/15/24 12:15 morphine Allergy Anaphylaxis Verified 05/15/24 12:15 venom-honey bee Allergy Dyspnea Verified 05/15/24 12:15 [bee venom (honey bee)] blue dye AdvReac Mild HYPER Verified 05/15/24 12:15 FEELING Surgical - Exam Vital Signs Temp Pulse Resp BP Pulse Ox 98.1 F 75 16 137/96 95 05/15/24 12:12 05/15/24 12:12 05/15/24 12:12 05/15/24 12:12 05/15/24 12:12 Results - Labs 05/15/24 12:41 05/15/24 12:41 Abnormal Lab Results - Last 24 Hours (Table) 05/15/24 Range/Units 12:41 Chloride 108 H (98-107) mmol/L Total Protein 5.7 L (6.3-8.2) g/dL Albumin 3.4 L (3.5-5.0) g/dL Diabetes panel 05/15/24 Range/Units 12:41 Sodium 138 (137-145) mmol/L Potassium 3.8 (3.5-5.1) mmol/L Chloride 108 H (98-107) mmol/L Carbon Dioxide 25 (22-30) mmol/L BUN 14 (7-17) mg/dL Creatinine 0.78 (0.52-1.04) mg/dL Glucose 95 (74-99) mg/dL Calcium 8.6 (8.4-10.2) mg/dL AST 22 (14-36) U/L ALT 13 (4-34) U/L Alkaline Phosphatase 89 (38-126) U/L Total Protein 5.7 L (6.3-8.2) g/dL Albumin 3.4 L (3.5-5.0) g/dL Calcium panel 05/15/24 Range/Units 12:41 Calcium 8.6 (8.4-10.2) mg/dL Albumin 3.4 L (3.5-5.0) g/dL Pituitary panel 05/15/24 Range/Units 12:41 Sodium 138 (137-145) mmol/L Potassium 3.8 (3.5-5.1) mmol/L Chloride 108 H (98-107) mmol/L Carbon Dioxide 25 (22-30) mmol/L BUN 14 (7-17) mg/dL Creatinine 0.78 (0.52-1.04) mg/dL Glucose 95 (74-99) mg/dL Calcium 8.6 (8.4-10.2) mg/dL Adrenal panel 05/15/24 Range/Units 12:41 Sodium 138 (137-145) mmol/L Potassium 3.8 (3.5-5.1) mmol/L Chloride 108 H (98-107) mmol/L Carbon Dioxide 25 (22-30) mmol/L BUN 14 (7-17) mg/dL Creatinine 0.78 (0.52-1.04) mg/dL Glucose 95 (74-99) mg/dL Calcium 8.6 (8.4-10.2) mg/dL Total Bilirubin 0.6 (0.2-1.3) mg/dL AST 22 (14-36) U/L ALT 13 (4-34) U/L Alkaline Phosphatase 89 (38-126) U/L Total Protein 5.7 L (6.3-8.2) g/dL Albumin 3.4 L (3.5-5.0) g/dL
[2024-05-15] MEDS ORDERED: LORazepam 2 MG/ML INJ IV PRN (17:27)
[2024-05-15] MEDS: HYDROmorphone 1 MG/ML 1 ML SYRINGE IVP PRN (17:50)
[2024-05-15] MEDS: SUCRALFATE 1 GM TAB PO SCH (21:12)
[2024-05-15] MEDS: PANTOPRAZOLE 40 MG TABLET PO SCH (21:12)
[2024-05-15] MEDS: CALCIUM CARBONATE 500 MG CHEWABLE PO PRN (21:12)
[2024-05-15] MEDS: DESMOPRESSIN 0.2 MG TAB PO SCH (21:13)
[2024-05-15] MEDS: SCOPOLAMINE 1 MG/72 HR PATCH TRANSDERM SCH (21:13)
[2024-05-15] MEDS: AMITRIPTYLINE HCL 10 MG TAB PO SCH (21:13)
[2024-05-15] MEDS: HYDROCORTISONE 10 MG TAB PO SCH (21:17)
[2024-05-16] MEDS: ONDANSETRON 4 MG/2 ML VIAL IVP SCH (00:05)
[2024-05-16] MEDS: tiZANidine 4 MG TAB PO PRN (05:11)
[2024-05-16] MEDS: LEVOTHYROXINE 75 MCG TAB PO SCH (06:49)
[2024-05-16] MEDS: diphenhydrAMINE 50 MG/ML 1 ML VIAL IVP PRN (07:19)
[2024-05-16 08:43] LABS: Blood Urea Nitrogen 6.3 mg/dL (9.0-27.0); Calcium 8.6 mg/dL (8.7-10.3); Carbon Dioxide 27.1 mmol/L (21.6-31.8); Chloride 103 mmol/L (96-109); Glucose 90 mg/dL (70-110); Potassium 3.7 mmol/L (3.5-5.5); Sodium 138 mmol/L (135-145)
[2024-05-16] MEDS: HYDROCORTISONE 10 MG TAB PO SCH (08:58)
[2024-05-16] MEDS: DULoxetine HCL 30 MG CAPSULE.DR PO SCH (08:58)
[2024-05-16 09:14] LABS: Basophils # (A) 0.07 X 10*3/uL (0.00-0.10); Basophils % (A) 1.2 %; Eosinophils # (A) 0.36 X 10*3/uL (0.04-0.35); Eosinophils % (A) 6.1 %; HCT 35.4 % (37.2-46.3); HGB 11.4 g/dL (12.0-15.0); Lymphocytes # (A) 2.82 X 10*3/uL (0.90-5.00); Lymphocytes % (A) 47.4 %; MCH 29.9 pg (27.0-32.0); MCHC 32.2 g/dL (32.0-37.0); MCV 92.9 FL (80.0-97.0); Mean Platelet Volume 9.8 FL (9.5-12.2); Monocytes # (A) 0.51 X 10*3/uL (0.20-1.00); Monocytes % (A) 8.6 %; NRBC Per 100 WBC 0 X 10*3/uL (0.00-0.01); Neutrophils # (A) 2.18 X 10*3/uL (1.80-7.70); Neutrophils % (A) 36.5 %; Platelet Count 330 X 10*3/uL (140-440); RBC 3.81 X 10*6/uL (4.10-5.20); RDW 14.3 % (11.5-14.5); WBC 5.95 X 10*3/uL (4.50-10.00)
[2024-05-16 11:18] LABS: Prothrombin Time 10.9 sec (10.0-12.5)
--- NOTE | 2024-05-16 11:40 | US ---
EXAMINATION TYPE: US abdomen limited DATE OF EXAM: 05/16/2024 COMPARISON: CT 05/15/2024 CLINICAL INDICATION: Female, 53 years old with history of left abdominal seroma; Post OP ABD pain TECHNIQUE: Superficial ABD wall, left side FINDINGS: Book Author notes: No abdominal wall fluid collections in area of pt's pain Left side of a bdomen IMPRESSION: Superficial soft tissue ultrasound along the left abdominal wall at the site of patient' s pain shows no abnormal fluid collection. [facility], , 05/16/2024 11:38 AM
--- NOTE | 2024-05-16 11:42 | XR ---
EXAMINATION TYPE: XR abdomen 1V DATE OF EXAM: 05/16/2024 10:34 AM COMPARISON: Correlation CT 05/15/2024 CLINICAL INDICATION: Female, 53 years old with history of PRELIM FOR SMALL BOWEL, , FINDINGS: Preliminary abdominal radiograph in preparation for small bowel follow-through shows prominent retain ed oral contrast within the right side of the colon and distal small bowel. Surgical material through out the left side of the abdomen suggests prior Molly-en-Y gastric bypass. Overall nonobstructive fariha l gas pattern. IMPRESSION: Preliminary abdominal radiograph in preparation for small bowel follow-through. There is prominent re tained oral contrast within the right side of the colon and distal small bowel. Small bowel follow-th rough discontinued at this time due to the retained contrast. [facility], , 05/16/2024 11:40 AM
[2024-05-16 14:48] VITALS: BMI 25.4
--- NOTE | 2024-05-16 15:36 | P.PN ---
Subjective Progress Note Date: 05/16/24 CHIEF COMPLAINT: Abdominal pain HISTORY OF PRESENT ILLNESS: Patient continues to complain of abdominal pain. She denies any vomiting. She did have nausea. She is having flatus. She is also complaining of sinus congestion and left ear discomfort as well as itching and pain where the scopolamine patch is located. Abdominal x-ray completed had reported there is prominent retained oral contrast within the right side of the colon and distal small bowel. Small bowel follow-through discontinued at this time due to retained contrast. Abdominal ultrasound reports no abdominal fluid collection. Afebrile PHYSICAL EXAM: VITAL SIGNS: Reviewed GENERAL: Well-developed in no acute distress. HEENT: No sclera icterus. Extraocular movements grossly intact. Moist buccal mucosa. Head is atraumatic, normocephalic. Hears conversational speech. No nasal drainage. NECK: Supple without lymphadenopathy. CHEST: Non-labored respirations and equal bilateral excursions. CARDIOVASCULAR: Palpable 2+ radial pulses. ABDOMEN: Soft. Nondistended. Tenderness to palpation epigastric area MUSCULOSKELETAL: No clubbing or cyanosis. NEUROLOGIC: No focal or lateralizing signs. Cranial nerves II through XII grossly intact. PSYCH: Appropriate affect. Alert and oriented to person, place and time. SKIN: Well perfused. Good skin turgor. ASSESSMENT: 1. Intractable left upper quadrant abdominal pain 2. Adrenal insufficiency with metabolic abdominal 3. Intractable nausea and vomiting 4. Generalized anxiety disorder 5. Depressive disorder 6. Fibromyalgia 7. Claustrophobia 8. Vertigo 9. Abdominal adhesions 10. POTS syndrome 11. Gastroesophageal reflux disease 12. 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 Congenital lung alarmingly 15. Irritable bowel syndrome 16. History of myocardial infarction 17. History of hypertensive heart disease with congestive heart failure 18. History of multiple dental surgeries 19. History of gastric bypass 20. 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 Small bowel volvulus history 22. Hypokalemia 23. Internal hernia history PLAN: -Patient scheduled for EGD tomorrow with Dr. Osuna -Patient did leave a message with her chauffeur motorbus about her medications possibly contributing to her pain -Discontinued scopolamine patch due to it causing itching and discomfort -Continue the Benadryl and Tums as needed -Continue Protonix and Carafate Physician Human Resources Executive note has been reviewed by physician. Signing provider agrees with the documented findings, assessment, and plan of care. Please see additional documentation below CHIEF COMPLAINT: Intractable abdominal pain with nausea HISTORY OF PRESENT ILLNESS: The patient is a 53-year-old female admitted with intractable abdominal pain including nausea. She has pre-existing history of adrenal insufficiency including hypopituitary disorder. Patient reports troubles with the ear present prior to admission. ROS: No fevers or chills. No new chest pain. PHYSICAL EXAM: VITAL SIGNS: Reviewed CONSTITUTIONAL: Well developed and in no acute distress. EYES: Conjuctivae without sclera icterus. Extraocular movements grossly intact. HEAD, EARS, NOSE, THROAT: Moist buccal mucosa. Head is atraumatic, normocephalic. Hears conversational speech. Postnasal drip RESPIRATORY: Non-labored respirations and equal bilateral excursions. CARDIOVASCULAR: Palpable 2+ radial pulses. ABDOMEN: Palpable scar left upper quadrant. MUSCULOSKELETAL: No gross deformity of the lower extremities noted. No clubbing. No cyanosis. SKIN: Good skin turgor. Well perfused. NEUROLOGIC: Cranial nerves II through XII grossly intact. No focal or lateralizing signs. PSYCH: Appropriate affect. Alert and oriented to person, place and time. CLINICAL LABS: Reviewed. Sodium within normal limits. STUDIES: ReSound of the abdomen independently reviewed demonstrates no seroma. Presence of scarring at location of pain. This is my independent interpretation. Abdominal x-ray reviewed demonstrates contrast within the colon without features of bowel obstruction or anastomotic stricture. This is my independent interpretation. ASSESSMENT: 1. Abdominal pain, intractable 2. Nausea and vomiting with dysphagia PLAN: 1. She may have an element of metabolic versus endocrine abdominal pain for which recommendations per chauffeur motorbus is being used with prednisone and hydrocortisone. Solu-Cortef being discontinued. 2. Benefit from upper endoscopy due to pre-existing history of ulcers as well as worsening reflux disease and risk for stricture Objective - Vital Signs Vital signs: Vital Signs Temp 99.1 F 05/16/24 13:57 Pulse 62 05/16/24 13:57 Resp 17 05/16/24 13:57 BP 142/84 05/16/24 13:57 Pulse Ox 98 05/16/24 07:19 FiO2 Intake & Output 05/15/24 05/16/24 05/16/24 18:59 06:59 18:59 Intake Total 300 Balance 300 Weight 71.668 kg 71.668 kg Intake: Oral 300 Other: Voiding Method Toilet Toilet # Voids 1 2 - Labs CBC & Chem 7: 05/16/24 03:24 05/16/24 03:24 Labs: Abnormal Lab Results - Last 24 Hours (Table) 05/16/24 05/16/24 Range/Units 03:24 03:24 RBC 3.81 L (4.10-5.20) X 10*6/uL Hgb 11.4 L (12.0-15.0) g/dL Hct 35.4 L (37.2-46.3) % Eosinophils # 0.36 H (0.04-0.35) X 10*3/uL BUN 6.3 L (9.0-27.0) mg/dL BUN/Creatinine Ratio 9.00 L (12.00-20.00) Ratio Calcium 8.6 L (8.7-10.3) mg/dL
[2024-05-17 02:56] VITALS: TEMP 98.7
[2024-05-17] MEDS ORDERED: PROPOFOL 10 MG/ML 20 ML VIAL IV ONE (08:05)
[2024-05-17] MEDS: IV FLUID CONTINUATION 1,000 ML IV ONE (08:11)
[2024-05-17] MEDS: LACTATED RINGERS 1,000 ML IV ONE (08:11)
[2024-05-17 08:20] VITALS: BP 159/111; PULSE 83; RESP 16
--- NOTE | 2024-05-17 08:27 | P.PCN ---
Date of Procedure: 05/17/24 Description of Procedure: PREOPERATIVE DIAGNOSIS: Nausea with vomiting. Dysphagia History of gastrojejunal ulcer POSTOPERATIVE DIAGNOSIS: Dysphagia. Gastrojejunal stricture without chronic ulcer without perforation OPERATION: Esophagogastrojejunoscopy with balloon dilatation from 15 to 20 mm for esophage al stenosis and gastric stricture SURGEON: Caitlin Osuna MD ANESTHESIA: MAC. INDICATIONS: The patient is a 53-year-old female who presents with a history of dysphagia, including nausea and vomiting. Benefits and risks of the procedure were described. Informed consent was obtained. DESCRIPTION: The patient was brought into the endoscopy suite and laid in the left lateral decubitus position. After a timeout was confirmed, the procedure was initiated. An Olympus gastroscope was passed along the posterior oropharynx down to the distal esophagus with mild stricture identified. The gastric pouch was entered. A gastrojejunal stricture of 15 mm was found as the adult gastroscope was 9.5 mm in size. A [employer] balloon dilator was placed through the scope. The scope was reentered for balloon dilation of the gastrojejunal anastomosis followed by esophageal stenosis. Final insufflation from 15 to 20 mm was performed with a total of 2 minutes. The scope was advanced up to 60 cm from the incisors into the Molly limb. The mucosa of the gastrojejunal anastomosis was intact. No chronic gastrojejunal marginal ulcer was encountered. No full-thickness injury was encountered. The GI tract was desufflated. The patient tolerated the procedure well. FINDINGS: Squamocolumnar junction unremarkable at 40 cm. Stricture of approximately 15 mm encountered. Esophageal stricture identified Resolved chronic gastrojejunal ulceration encountered. Successful balloon dilatation to 20 mm. RECOMMENDATIONS: Upper endoscopy as needed.
--- NOTE | 2024-05-17 08:40 | P.PN ---
Progress Note - Text Progress Note Date: 05/16/24 Patient reports improved epigastric pain. She contacted her outsole scheduler with adjustment of her medications. She does report reflux. She has previously seen history of ulcers. Will proceed with upper endoscopy with possible dilation.
--- NOTE | 2024-05-17 08:47 | P.DS ---
Providers Date of admission: 05/15/24 15:51 Expected date of discharge: 05/17/24 Attending physician: Caitlin Osuna Primary care physician: [facility] Course: Discharge diagnoses: 1. Intractable left upper quadrant abdominal pain 2. Adrenal insufficiency with metabolic abdominal 3. Intractable nausea and vomiting 4. Gastrojejunal stricture 5. Esophageal obstruction 6. Adrenal insufficiency with primary hypopituitary disorder 7. Claustrophobia 8. Vertigo 9. History of abdominal adhesions 10. POTS syndrome 11. Gastroesophageal reflux disease 12. 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 Irritable bowel syndrome 16. History of myocardial infarction 17. History of hypertensive heart disease with congestive heart failure 18. History of multiple dental surgeries 19. History of gastric bypass 20. Depressive disorder 21. Small bowel volvulus history 22. Hypokalemia 23. Generalized anxiety disorder 24. Fibromyalgia COURSE: The patient is a 53-year-old female who is initially status post revision of jejunojejunostomy 2 weeks ago had done well upon discharge. Patient returned to the emergency room with epigastric abdominal pain. She reports troubles with intractable nausea and vomiting reflux. Patient underwent CT and pelvis without findings of mesenteric swirl internal hernia. Attempted small bowel follow-through demonstrated no stenosis as contrast was found within the abdomen on plain abdominal x-ray. Ultrasound of the abdomen to assess for seroma demonstrated abdominal scar at location of pain. Patient had upper endoscopy for dysphagia and nausea demonstrating mild stricture which was dilated. Patient had telehealth with her primary dance hall host/hostess with adjustment of her medications which was also contributing to her intractable abdominal pain. Patient reported abdominal pain had improved prior to discharge. Close outpatient follow-up with her dance hall host/hostess in the bariatric center described with adjustment of medications and medical reconciliation performed. Patient reassured no additional surgical invention needed especially with multiple diagnostic studies performed. Patient Condition at Discharge: Stable Plan - Discharge Summary Discharge Rx Participant: No New Discharge Prescriptions: New predniSONE 5 mg PO DAILY tab Continue Levothyroxine Sodium [Synthroid] 75 mcg PO DAILY DULoxetine HCL [Cymbalta] 30 mg PO DAILY Amitriptyline HCl [Elavil] 20 mg PO HS tiZANidine [Zanaflex] 4 mg PO TID PRN PRN Reason: Muscle Spasm Desmopressin Acetate [Ddavp] 0.05 mg PO BID Sucralfate [Carafate] 1 gm PO BID ALPRAZolam [Xanax] 0.5 - 1 mg PO TID PRN PRN Reason: Anxiety HYDROcodone/APAP [[place] Elixir 7.5-325Mg/15Ml] 15 ml PO TID PRN PRN Reason: Pain Pantoprazole [Protonix] 40 mg PO BID #60 tab Discontinued Hydrocortisone [Cortef] 10 mg PO DAILY Hydrocortisone [Cortef] 5 mg PO HS Discharge Medication List Levothyroxine Sodium [Synthroid] 75 mcg PO DAILY 04/19/14 [History] DULoxetine HCL [Cymbalta] 30 mg PO DAILY 12/09/23 [History] Desmopressin Acetate [Ddavp] 0.05 mg PO BID 12/09/23 [History] Sucralfate [Carafate] 1 gm PO BID 12/10/23 [History] ALPRAZolam [Xanax] 0.5 - 1 mg PO TID PRN 04/14/24 [History] Amitriptyline HCl [Elavil] 20 mg PO HS 04/14/24 [History] HYDROcodone/APAP [[place] Elixir 7.5-325Mg/15Ml] 15 ml PO TID PRN 04/14/24 [History] Pantoprazole [Protonix] 40 mg PO BID #60 tab 04/15/24 [Rx] tiZANidine [Zanaflex] 4 mg PO TID PRN 04/23/24 [History] predniSONE 5 mg PO DAILY tab 05/17/24 [Rx] Follow up Appointment(s)/Referral(s): Corby Mondragon MD [Primary Care Provider] - 1-2 days Bariat[facility] [place], [place] [NON-STAFF] - 05/20/24 9:00 am Patient Instructions/Handouts: Esophageal Dilation (DC) Discharge Disposition: HOME SELF-CARE
[2024-05-17] MEDS: predniSONE 5 MG TAB PO SCH (10:04)
== END 2024-05-17 12:45 | disposition home or self-care (01) ==
LOC: EC 12:10 → 4SSUR 15:51
PROVIDERS: ADMIT Surgery Plastic and Reconstructive Surgery; ATTEND Surgery Plastic and Reconstructive Surgery
DX: R10.12 Left upper quadrant pain (principal); K56.699 Other intestinal obstruction unspecified as to partial versus complete obstruction; K22.2 Esophageal obstruction; K21.9 Gastro-esophageal reflux disease without esophagitis; K28.7 Chronic gastrojejunal ulcer without hemorrhage or perforation; K58.9 Irritable bowel syndrome, unspecified; E03.9 Hypothyroidism, unspecified; E23.0 Hypopituitarism; E24.9 Cushing's syndrome, unspecified; E27.40 Unspecified adrenocortical insufficiency; E87.6 Hypokalemia; F32.A Depression, unspecified; F40.240 Claustrophobia; R42 Dizziness and giddiness; F41.1 Generalized anxiety disorder; F43.10 Post-traumatic stress disorder, unspecified; G90.A Postural orthostatic tachycardia syndrome [POTS]; I11.0 Hypertensive heart disease with heart failure; I25.2 Old myocardial infarction; I50.9 Heart failure, unspecified; J45.909 Unspecified asthma, uncomplicated; M79.7 Fibromyalgia; Q33.9 Congenital malformation of lung, unspecified; Z79.52 Long term (current) use of systemic steroids; Z79.890 Hormone replacement therapy; Z79.899 Other long term (current) drug therapy; Z80.0 Family history of malignant neoplasm of digestive organs; Z87.442 Personal history of urinary calculi; Z98.84 Bariatric surgery status; Z88.5 Allergy status to narcotic agent
CPT/HCPCS: 96376 ×4; 96375; 96374; 99285; 36415; 80053; 80048; 83605; 83690; 85025 ×2; 85610; 81003; 74018; 76705; 74177; 43249; G0378 ×3; J1200 ×2; J2405 ×2; J1171 ×3; J2704; J7512; Q9967; C1726

== ENCOUNTER → 2024-06-22 | Outpatient (CLI) | payer MEDICARE ==
[2024-06-22 15:08] VITALS: BP 113/73; PULSE 73; RESP 16; TEMP 98.8; BMI 25.9
--- NOTE | 2024-06-22 15:39 | P.BASOAP ---
Subjective Progress Note Date: 06/22/24 She is doing better. She is losing more wegiht 156 pounds. She is wearing her daughter clothes. Predisone and feeling is spacey. No more crampy pain. She ate a sandwich. She is eating meats and cheese. She is tolerating. She can tolerate ground beef and meatloaf. Objective - Vital Signs Vital signs: Vital Signs Temp 98.8 F 06/22/24 15:04 Pulse 73 06/22/24 15:04 Resp 16 06/22/24 15:04 BP 113/73 06/22/24 15:04 Pulse Ox FiO2 Intake & Output 06/21/24 06/22/24 06/22/24 18:59 06:59 18:59 Weight 70.76 kg Assessment/Plan Plan: Date: 06/22/24 Initial Weight: Initial BMI: Current Weight: 70.76 kg Current BMI: 25.9 Type of Surgery: Total Volume in Band: Previous Volume: Volume Removed: Volume Added: Band Size:
== END ==
LOC: BARWHC3 14:40
PROVIDERS: ATTEND Surgery Plastic and Reconstructive Surgery
DX: R63.4 Abnormal weight loss (principal); Z68.25 Body mass index [BMI] 25.0-25.9, adult; Z91.030 Bee allergy status; Z91.041 Radiographic dye allergy status; Z91.09 Other allergy status, other than to drugs and biological substances; Z88.5 Allergy status to narcotic agent; Z87.891 Personal history of nicotine dependence
CPT/HCPCS: 99211

== ENCOUNTER → 2024-08-17 | Outpatient (CLI) | payer MEDICARE ==
[2024-08-17 14:34] VITALS: BP 153/93; PULSE 93; RESP 16; TEMP 98.8; BMI 24.4
--- NOTE | 2024-08-17 14:56 | P.BASOAP ---
Subjective Progress Note Date: 08/17/24 She lost 100 pounds. Medications for Addisons disease is not adjusted. 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 She is off all vitamins. Needs new labs. She feels great. [facility]. She reports bloats and gasey. BMs are extreme. Needs food journal. She drinks 100 oz daily. She drinks with straws and gives gas. She is eating brussel sprouts for gas. She has migraines. She has C3,C4 and needs surgery for headaches. NO GERD. Objective - Vital Signs Vital signs: Vital Signs Temp 98.8 F 08/17/24 14:28 Pulse 93 08/17/24 14:28 Resp 16 08/17/24 14:28 BP 153/93 08/17/24 14:28 Pulse Ox FiO2 Intake & Output 08/16/24 08/17/24 08/17/24 18:59 06:59 18:59 Weight 66.678 kg Assessment/Plan Plan: Date: 08/17/24 Initial Weight: Initial BMI: Current Weight: 66.678 kg Current BMI: 24.4 Type of Surgery: Total Volume in Band: Previous Volume: Volume Removed: Volume Added: Band Size:
[2024-08-17 16:12] LABS: INR 0.9 (<1.2); Partial Thromboplastin Time 21.3 sec (22.0-30.0)
[2024-08-17 19:06] LABS: HGB 13.1 g/dL (12.0-15.0); MCH 29.1 pg (27.0-32.0); MCHC 31.2 g/dL (32.0-37.0); MCV 93.3 FL (80.0-97.0); Mean Platelet Volume 9.5 FL (9.5-12.2); NRBC Per 100 WBC 0 X 10*3/uL (0.00-0.01); Platelet Count 450 X 10*3/uL (140-440); RDW 14.8 % (11.5-14.5); WBC 6.72 X 10*3/uL (4.50-10.00)
[2024-08-17 19:39] LABS: % Iron Saturation 18.07 (12.00-45.00); ALT 37 U/L (8-44); AST 34 U/L (13-35); Albumin 4.1 g/dL (3.8-4.9); Albumin/Globulin Ratio 1.78 Ratio (1.60-3.17); Alkaline Phosphatase 116 U/L (41-126); Blood Urea Nitrogen 10.8 mg/dL (9.0-27.0); Calcium 9.3 mg/dL (8.7-10.3); Carbon Dioxide 24.6 mmol/L (21.6-31.8); Chloride 100 mmol/L (96-109); Chol/HDL Ratio 2.49 Ratio; Ferritin 34.8 ng/mL (10.0-291.0); Globulin 2.3 g/dL (1.6-3.3); Glucose 91 mg/dL (70-110); Iron 60 UG/DL (50-170); LDL Cholesterol,Calculated 83.3 mg/dL (0.0-131.0); Magnesium 2.1 mg/dL (1.5-2.4); Phosphorus 4.7 mg/dL (2.4-5.1); Potassium 4.6 mmol/L (3.5-5.5); Sodium 137 mmol/L (135-145); Total Bilirubin 0.2 mg/dL (0.3-1.2); Total Iron Binding Capacity 332 UG/DL (228-460); Total Protein 6.4 g/dL (6.2-8.2)
[2024-08-17 21:25] LABS: Prealbumin 19.1 mg/dL (18.0-42.0)
[2024-08-18 12:36] LABS: Zinc, Serum 38 ug/dL (60-130)
[2024-08-19 08:35] LABS: Vit B1(Thiamine) 55 ug/L (38-122)
[2024-08-19 09:57] LABS: Vitamin A 55 ug/dL (38-106)
[2024-08-19 21:19] LABS: Selenium 113 mcg/L (63-160)
== END ==
LOC: BARWHC3 13:56
PROVIDERS: ATTEND Surgery Plastic and Reconstructive Surgery
DX: E89.1 Postprocedural hypoinsulinemia (principal); D50.8 Other iron deficiency anemias; K90.89 Other intestinal malabsorption; K74.1 Hepatic sclerosis; N19 Unspecified kidney failure; T56.894A Toxic effect of other metals, undetermined, initial encounter; K50.90 Crohn's disease, unspecified, without complications; E55.9 Vitamin D deficiency, unspecified; Z87.891 Personal history of nicotine dependence; Z88.5 Allergy status to narcotic agent; Z91.048 Other nonmedicinal substance allergy status; Z91.030 Bee allergy status; Z91.018 Allergy to other foods
CPT/HCPCS: 80053; 80061; 82306; 82525; 82607; 82728; 82746; 83036; 83540; 83550; 83735; 83970; 84100; 84134; 84255; 84425; 84443; 84590; 84630; 85027; 85610; 85730; 99211

== ENCOUNTER 2024-08-20 14:38 | Inpatient (IN) | payer MEDICARE ==
--- NOTE | 2024-08-20 14:49 | ED ---
Recheck HPI - General Chief Complaint: Recheck/Abnormal Lab/Rx Stated Complaint: left side numbness, headache Time Seen by Provider: 08/20/24 14:48 Source: patient, RN notes reviewed Mode of arrival: ambulatory Limitations: no limitations - History of Present Illness Initial Comments: this is a 53-year-old female with multiple comorbid conditions presented emergency department with complaint of left-sided facial paresthesias headache over the past 2 days. Patient does have a history of recurrent migraine headaches and follows with her neurologist. Patient states that she was informed by her neurologist reports Emergency Department for a CAT scan. She endorses photophobia and associated nausea. Denies fevers, chills, cough, rhinorrhea, congestion. States that she was recently prescribed a muscle relaxer for her headaches which is mildly aided in her symptoms. She states that symptoms that she is experiencing currently at her the same as when she has had migraine headaches in the past. She denies chest pain, heart palpitations, difficulty breathing. - Related Data Home Medications Medication Instructions Recorded Confirmed Levothyroxine Sodium [Synthroid] 75 mcg PO DAILY 04/19/14 08/17/24 DULoxetine HCL [Cymbalta] 30 mg PO BID 12/09/23 08/17/24 Desmopressin Acetate [Ddavp] 0.05 mg PO BID 12/09/23 08/17/24 Sucralfate [Carafate] 1 gm PO BID 12/10/23 08/17/24 ALPRAZolam [Xanax] 1 mg PO HS PRN 04/14/24 08/17/24 Amitriptyline HCl [Elavil] 20 mg PO HS 04/14/24 08/17/24 tiZANidine [Zanaflex] 4 mg PO TID PRN 04/23/24 08/17/24 HYDROcodone/APAP 7.5-325MG [[place] 1 tab PO TID PRN 06/22/24 08/17/24 7.5-325] Baclofen 1 tab PO Q8H PRN 08/17/24 08/17/24 Previous Rx's Medication Instructions Recorded Pantoprazole [Protonix] 40 mg PO BID #60 tab 04/15/24 predniSONE 5 mg PO DAILY tab 05/17/24 Allergies Allergy/AdvReac Type Severity Reaction Status Date / Time adhesive Allergy Rash/Hives Verified 08/20/24 14:44 morphine Allergy Anaphylaxis Verified 08/20/24 14:44 venom-honey bee Allergy Dyspnea Verified 08/20/24 14:44 [bee venom (honey bee)] blue dye AdvReac Mild HYPER Verified 08/20/24 14:44 FEELING Review of Systems ROS Statement: Those systems with pertinent positive or pertinent negative responses have been documented in the HPI. ROS Other: All systems not noted in ROS Statement are negative. Past Medical History Past Medical History: Asthma, Cancer, Eye Disorder, Fibromyalgia, GERD/Reflux, Hypertension, Myocardial Infarction ([place]), Musculoskeletal Disorder, Osteoarthritis (OA), Renal Disease, Syncope, Thyroid Disorder Additional Past Medical History / Comment(s): SKIN CANCER, ADRENAL INSUFFICENCY. POTS SYNDROME. DIABETES INSIPIDUS. 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 kidney stone history, renal failure Last Myocardial Infarction Date:: december 29 2014 History of Any Multi-Drug Resistant Organisms: None Reported Past Surgical History: Back Surgery, Bariatric Surgery, Section, Cholecystectomy, Hernia Repair, Joint Replacement, Orthopedic Surgery Additional Past Surgical History / Comment(s): ARTIFICIAL DISC IN C5,6,7 , TITANIUM PLATE AND 4 SCREWS IN NECK. RT CARPAL TUNNEL. . HEMORRHOIDECTOMY. BRONCHOSCOPY.,CERVIAL EPIDURAL STEROID INJECTION, LT KNEE ARTHROSCOPIC LATERAL FEMORAL CHONDRECTOMY/MEDIALFEMORAL CHONDRECTOMY/PATELLER CHONDROPLASTY/PARTIAL SYNOVECTOMY OF LATERAL AND PATELLOFEMORAL COMPARTMENTS (TOTAL OF 7 KNEE SX), RADIOFREQUENCY TX L5,-RT KNEE SCOPE, EXPLORATORY LAP- ENDOmetriosis, TOTAL KNEE REPLACEMENT MARIA ELENA maria elena shoulder rotator cuff and biceps tendon. gastric bypass 11-30-23, Lysis of Adhesions/Internal Hernia 03/2024, lysis of adhesions /bowelresection-intussusception 04/25/2024, Pain clinic injections Past Anesthesia/Blood Transfusion Reactions: No Reported Reaction, Family History of Problems w/ Anesthesia, Motion Sickness Additional Past Anesthesia/Blood Transfusion Reaction / Comment(s): CLAUSTERPHOBIA, VERTIGO IN PAST. PATIENTS MOTHER HAS DIFFICULTY WAKING UP Past Psychological History: Anxiety, Depression, PTSD Smoking Status: Never smoker Past Alcohol Use History: Rare Past Drug Use History: None Reported - Past Family History Mother Family Medical History: Cancer, Hyperlipidemia, Hypertension Additional Family Medical History / Comment(s): RECTAL CANCER. Father Family Medical History: Hyperlipidemia, Hypertension General Exam Limitations: no limitations General appearance: alert, in no apparent distress Eye exam: Present: normal appearance, PERRL, EOMI. Absent: scleral icterus, conjunctival injection, periorbital swelling Neck exam: Present: normal inspection. Absent: tenderness, meningismus, lymphadenopathy Respiratory exam: Present: normal lung sounds bilaterally. Absent: respiratory distress, wheezes, rales, rhonchi, stridor Cardiovascular Exam: Present: regular rate, normal rhythm, normal heart sounds. Absent: systolic murmur, diastolic murmur, rubs, gallop, clicks GI/Abdominal exam: Present: soft, normal bowel sounds. Absent: distended, tend erness, guarding, rebound, rigid Extremities exam: Present: normal inspection, full ROM, normal capillary refill. Absent: tenderness, pedal edema, joint swelling, calf tenderness Neurological exam: Present: alert, oriented X3, CN II-XII intact Course Vital Signs 08/20/24 14:41 Temperature 98.4 F Pulse Rate 74 Respiratory 18 Rate Blood Pressure 160/105 O2 Sat by Pulse 100 Oximetry Medical Decision Making - Medical Decision Making Was pt. sent in by a medical professional or institution (, PA, LONG FILLER CIGAR ROLLER MACHINE, urgent care, hospital, or jail...) When possible be specific @ -No Did you speak to anyone other than the patient for history (EMS, parent, family, police, friend...)? What history was obtained from this source @ -No Did you review nursing and triage notes (agree or disagree)? Why? @ -I reviewed and agree with nursing and triage notes Were old charts reviewed (outside hosp., previous admission, EMS record, old EK G, old radiological studies, urgent care reports/EKG's, jail records)? Report findings @ -I reviewed patient's ER visit note from 07/31/2023 where she presented with symptoms of frontal headache, dizziness, confusion and numbness to left extremities with symptoms ongoing for the past few months. Patient has established care with neurology. Patient's physical examination the time was benign, laboratory testing was unremarkable, CT imaging no acute process, patient's pain resolved with headache cocktail and advised follow-up outpatient. Differential Diagnosis (chest pain, altered mental status, abdominal pain women, abdominal pain men, vaginal bleeding, weakness, fever, dyspnea, syncope, headache, dizziness, GI bleed, back pain, seizure, CVA, palpatations, mental health, musculoskeletal)? @ -Differential Headache: Migraine, tension, cluster, carbon monoxide, central venous thrombosis, pension karma temporal arteritis, acute closure glaucoma, intercranial hemorrhage, mastoiditis, sinusitis, head injury, this is not meant to be an all-inclusive list. EKG interpreted by me (3pts min.). @ -None X-rays interpreted by me (1pt min.). @ -None done CT interpreted by me (1pt min.). @ -CT of the brain without contrast no acute Intracranial hemorrhage or midline shift with diffuse age-related cerebral atrophy U/S interpreted by me (1pt. min.). @ -None done What testing was considered but not performed or refused? (CT, X-rays, U/S, labs )? Why? @ -None What meds were considered but not given or refused? Why? @ -None Did you discuss the management of the patient with other professionals (professionals i.e. , PA, [employer] MACHINE, lab, RT, psych nurse, clinical social worker, manager cosmetic, teacher, chief procurement officer, case reviewer)? Give summary @ -spoke with head control clerk [facility] physician, Dr. Vaughn, who has agreed to admit the patient for hyponatrmeia. she will be started on IV fluid resuscitation. Was smoking cessation discussed for >3mins.? @ -No Was critical care preformed (if so, how long)? @ -No Were there social determinants of health that impacted care today? How? (Homelessness, low income, unemployed, alcoholism, drug addiction, transportation, low edu. Level, literacy, decrease access to med. care, usp, rehab)? @ -No Was there de-escalation of care discussed even if they declined (Discuss DNR or withdrawal of care, Hospice)? DNR status @ -No What co-morbidities impacted this encounter? (DM, HTN, Smoking, COPD, CAD, Cancer, CVA, ARF, Chemo, Hep., AIDS, mental health diagnosis, sleep apnea, morbid obesity)? @ -None Was patient admitted / discharged? Hospital course, mention meds given and route, prescriptions, significant lab abnormalities, going to OR and other pertinent info. @ -Admitted. 53-year female presents emergency department for complaint of migraine headache. Neurological examination completed with no acute deficits. Patient states that symptoms are similar to when she has had migraine headaches in the past. She is provided with migraine cocktail and will undergo laboratory testing including CT imaging. CT is unremarkable. Labs remarkable for hyponatremia of 121 on low chloride of 87. Patient will be mated to internal medicine started on IV resuscitation. Undiagnosed new problem with uncertain prognosis? @ -No Drug Therapy requiring intensive monitoring for toxicity (Heparin, Nitro, Ins ulin, Cardizem)? @ -No Were any procedures done? @ -No Diagnosis/symptom? @ -hyponatremia Acute, or Chronic, or Acute on Chronic? @ -acute Uncomplicated (without systemic symptoms) or Complicated (systemic symptoms)? @ -uncomplicated Side effects of treatment? @ -No Exacerbation, Progression, or Severe Exacerbation? @ -No Poses a threat to life or bodily function? How? (Chest pain, USA, MT, pneumonia, PE, COPD, DKA, ARF, appy, cholecystitis, CVA, Diverticulitis, Homicidal, Suicidal, threat to staff... and all critical care pts) @ -No - Lab Data Result diagrams: 08/20/24 15:32 08/20/24 15:32 Lab Results 08/20/24 08/20/24 Range/Units 15:32 15:32 WBC 7.0 (3.8-10.6) k/uL RBC 4.61 (3.80-5.40) m/uL Hgb 13.6 (11.4-16.0) gm/dL Hct 40.9 (34.0-46.0) % MCV 88.8 (80.0-100.0) fL MCH 29.6 (25.0-35.0) pg MCHC 33.3 (31.0-37.0) g/dL RDW 13.9 (11.5-15.5) % Plt Count 406 (150-450) k/uL MPV 7.3 Neutrophils % 64 % Lymphocytes % 26 % Monocytes % 6 % Eosinophils % 2 % Basophils % 0 % Neutrophils # 4.4 (1.3-7.7) k/uL Lymphocytes # 1.8 (1.0-4.8) k/uL Monocytes # 0.4 (0-1.0) k/uL Eosinophils # 0.1 (0-0.7) k/uL Basophils # 0.0 (0-0.2) k/uL Sodium 121 L (137-145) mmol/L Potassium 3.9 (3.5-5.1) mmol/L Chloride 87 L (98-107) mmol/L Carbon Dioxide 24 (22-30) mmol/L Anion Gap 10 mmol/L BUN 11 (7-17) mg/dL Creatinine 0.67 (0.52-1.04) mg/dL Est GFR (CKD-EPI)AfAm >90 (>60 ml/min/1.73 sqM) Est GFR (CKD-EPI)NonAf >90 (>60 ml/min/1.73 sqM) Glucose 90 (74-99) mg/dL Calcium 9.5 (8.4-10.2) mg/dL Total Bilirubin 0.8 (0.2-1.3) mg/dL AST 30 (14-36) U/L ALT 25 (4-34) U/L Alkaline Phosphatase 93 (38-126) U/L Total Protein 6.6 (6.3-8.2) g/dL Albumin 4.1 (3.5-5.0) g/dL Disposition Clinical Impression: Hyponatremia Disposition: ADMITTED IP TO THIS [facility] Condition: Serious Referrals: Corby Mondragon MD [Primary Care Provider] - 1-2 days Decision to Admit Reason: Admit from EC Decision Date: 08/20/24 Decision Time: 16:22
[2024-08-20] MEDS: ONDANSETRON 4 MG/2 ML VIAL IVP STA (15:48)
[2024-08-20] MEDS: SODIUM CHLORIDE 0.9% 1,000 ML IV STA ×2 (15:48→18:36)
[2024-08-20] MEDS: KETOROLAC 15 MG/ML 1 ML VIAL IVP STA (15:48)
[2024-08-20] MEDS: diphenhydrAMINE 50 MG/ML 1 ML VIAL IVP STA (15:49)
[2024-08-20] MEDS: HYDROmorphone 0.5 MG/0.5 ML SYRINGE IVP STA (15:49)
[2024-08-20 15:51] LABS: Basophils % (A) 0 %; Eosinophils # (A) 0.1 k/uL (0-0.7); Eosinophils % (A) 2 %; HCT 40.9 % (34.0-46.0); HGB 13.6 gm/dL (11.4-16.0); Lymphocytes # (A) 1.8 k/uL (1.0-4.8); Lymphocytes % (A) 26 %; MCH 29.6 pg (25.0-35.0); MCHC 33.3 g/dL (31.0-37.0); MCV 88.8 fL (80.0-100.0); Mean Platelet Volume 7.3; Monocytes # (A) 0.4 k/uL (0-1.0); Monocytes % (A) 6 %; Neutrophils # (A) 4.4 k/uL (1.3-7.7); Neutrophils % (A) 64 %; Platelet Count 406 k/uL (150-450); RBC 4.61 m/uL (3.80-5.40); RDW 13.9 % (11.5-15.5)
[2024-08-20 16:01] LABS: ALT 25 U/L (4-34); AST 30 U/L (14-36); African American GFR (CKD) >90 (>60 ml/min/1.73 sqM); Albumin 4.1 g/dL (3.5-5.0); Alkaline Phosphatase 93 U/L (38-126); Anion Gap 10 mmol/L; Blood Urea Nitrogen 11 mg/dL (7-17); Calcium 9.5 mg/dL (8.4-10.2); Carbon Dioxide 24 mmol/L (22-30); Chloride 87 mmol/L (98-107); Glucose 90 mg/dL (74-99); Non-African American GFR(CKD) >90 (>60 ml/min/1.73 sqM); Potassium 3.9 mmol/L (3.5-5.1); Sodium 121 mmol/L (137-145); Total Bilirubin 0.8 mg/dL (0.2-1.3); Total Protein 6.6 g/dL (6.3-8.2)
--- NOTE | 2024-08-20 16:04 | CT ---
EXAMINATION TYPE: CT brain wo con DATE OF EXAM: 08/20/2024 COMPARISON: CLINICAL INDICATION: Female, 53 years old with history of EATON, left sided facial parasthesias; PHH, EATON , LT side facial parathesias TECHNIQUE: CT scan of the head is performed without contrast. CT DLP: 1186.[address] CTDI: mGy Automated exposure control for dose reduction was used. FINDINGS: There is no acute intracranial hemorrhage or midline shift identified. There is diffuse v entricular and sulcal prominence consistent with diffuse age-related cerebral atrophy. There is low- attenuation in the periventricular white matter consistent with chronic small vessel ischemic change. The globes are intact and the visualized sinuses are clear. IMPRESSION: No acute intracranial hemorrhage or midline shift. There is diffuse age-related cerebra l atrophy and chronic small vessel ischemic change noted. [facility], , 08/20/2024 4:01 PM
[2024-08-20] MEDS ORDERED: NALOXONE 0.4 MG/ML 1 ML VIAL IV PRN (16:22)
[2024-08-20] MEDS ORDERED: IBUPROFEN 400 MG TAB PO PRN (16:22)
[2024-08-20] MEDS ORDERED: ACETAMINOPHEN TAB 325 MG TAB PO PRN (16:22)
[2024-08-20 17:18] LABS: Appearance,Urine Clear (Clear); Bilirubin,Urine Negative (Negative); Blood,Urine Negative (Negative); Color,Urine Colorless; Glucose,Urine (UA) Negative (Negative); Ketones,Urine Negative (Negative); Leukocyte Esterase,Urine Negative (Negative); Nitrite,Urine Negative (Negative); Protein,Urine Negative (Negative); Specific Gravity,Urine 1.001 (1.001-1.035); Urobilinogen,Urine <2.0 mg/dL (<2.0)
[2024-08-20 17:42] LABS: Magnesium 1.9 mg/dL (1.6-2.3)
--- NOTE | 2024-08-20 17:46 | P.HPIM ---
History of Present Illness H&P Date: 08/20/24 I have seen and evaluated the patient today. Discussed with the resident and agree with the residents finding and plan as documented in the resident's note. Changes highlighted in blue font. History of present illness; 53-year-old female with PMH of Anxiety/depression, PTSD, Diabetes Insipidus, POTS, Fibromyalgia, Migraines, prior gastric bypass/Molly-en-Y surgery, hypothyr oidism, chronic adrenal insufficiency presents emergency department with complaint of left-sided facial paresthesias and headache over the past 2 days. She first noticed some paresthesia last week, however it progressively became more noticeable. She notes that she does have a history of recurrent migraines for which she follows with her neurologist. She endorses having felt some "weakness" in her left upper extremity, although has not noticed any deficits and says it has improved. She endorses photophobia and does have associated nausea, however has not vomited. She states that her current symptoms are similar to when she has had migraines in the past. She denies any chest pain, heart palpitations, difficulty breathing, fevers, chills, cough or congestion. Labratory review: -WBC 7.0, hemoglobin 13.6, hematocrit 40.9, platelet 409; sodium 121, potassium 3.9, chloride 87, BUN 11, creatinine 0.67, calcium 9.5, total bilirubin 0.8, AST 30, ALT 25, alkaline phosphatase 93 Imaging: -CT head done showed no acute intracranial hemorrhage or midline shift, but there is diffuse age-related cerebral atrophy and chronic small vessel ischemic changes Vitals: -Blood pressure 160/105, heart rate 74, respiratory rate 18, SpO2 100% room air Patient admitted to internal medicine service REVIEW OF SYSTEMS: Pertinent positives and negatives noted in HPI. The rest of the 14-point review of systems is negative. Physical Exam: General: nontoxic, no distress, appears at stated age; Derm: warm, dry, intact Head: atraumatic, normocephalic, symmetric Eyes: EOMI, anicteric sclera Mouth: no lip lesion, mucus membranes moist Cardiovascular: S1 S2 reg, no murmur, rubs, or gallops Lungs: CTA bilateral, no rales, no accessory muscle use Abdominal: soft, non-tender to palpataion, no appreciable organomegaly Extremities: no gross muscle atrophy, no edema, no contractures Neuro: Alert, Oriented, CNII-XII grossly intact, gait normal; muscle strength in LUE 5/5 Psych: well appearing, appropriate affect Assessment and plan 53-year-old female with PMH of various psychiatric diagnoses, prior gastric bypass/Molly-en-Y surgery, hypothyroidism multiple comorbid conditions presents emergency department with complaint of left-sided facial paresthesias and head ache over the past 2 days. Upon blood work being done in the ED showed that her sodium is currently 121 as well. #Euvolemic Hyponatremia, possibly secondary to DDAVP use vs. polypharmacy with psychiatric medications -Sodium should be 121 on arrival, 126 on repeat -Received 1L bolus NS in the ED -Serum osmolality ordered, currently pending -Urine osmolality ordered, currently pending -Urine sodium ordered, currently pending -Continuous sodium checks every 4 hours -Hold DDAVP for now, if sodium increase >8 in <24 hours consider restarting DDAVP -Nephrology consulted #Anxiety/Depression -Resumed antipsychotic medications for now -Consider gradually weening medications if hyponatremia does not correct -Considered possible contributing factor, recommend close follow up with prescribing physician for optimization following discharge #Migraine with trigeminal distribution parasthesia, improved -no focal neurological deficits on exam -Received 0.5 mg Dilaudid in ED -Toradol 15mg IV q 6 hr PRN for 3 doses, Tylenol 650q6 PRN and Motrin 400q 6 PO PRN available for worsening pain GI prophylaxis: Protonix 40 mg BID DVT prophylaxis: Ambulation The patient is admitted with an anticipated more than than 2 midnight stay for evaluation of CODE STATUS: Full code Discussed with: Patient Anticipated discharge place: Pending clinical course Dictation was produced using Gist dictation software. please excuse any grammatical, word or spelling errors. Cj Khan MD PGY-1 IM Past Medical History Past Medical History: Asthma, Cancer, Eye Disorder, Fibromyalgia, GERD/Reflux, Hypertension, Myocardial Infarction ([place]), Musculoskeletal Disorder, Osteoarthritis (OA), Renal Disease, Syncope, Thyroid Disorder Additional Past Medical History / Comment(s): SKIN CANCER, ADRENAL INSUFFICENCY. POTS SYNDROME. DIABETES INSIPIDUS. 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 kidney stone history, renal failure Last Myocardial Infarction Date:: december 29 2014 History of Any Multi-Drug Resistant Organisms: None Reported Past Surgical History: Back Surgery, Bariatric Surgery, Section, Cholecystectomy, Hernia Repair, Joint Replacement, Orthopedic Surgery Additional Past Surgical History / Comment(s): ARTIFICIAL DISC IN C5,6,7 , TITANIUM PLATE AND 4 SCREWS IN NECK. RT CARPAL TUNNEL. . HEMORRHOIDECTOMY. BRONCHOSCOPY.,CERVIAL EPIDURAL STEROID INJECTION, LT KNEE ARTHROSCOPIC LATERAL FEMORAL CHONDRECTOMY/MEDIALFEMORAL CHONDRECTOMY/PATELLER CHONDROPLASTY/PARTIAL SYNOVECTOMY OF LATERAL AND PATELLOFEMORAL COMPARTMENTS (TOTAL OF 7 KNEE SX), RADIOFREQUENCY TX L5,-RT KNEE SCOPE, EXPLORATORY LAP- ENDOmetriosis, TOTAL KNEE REPLACEMENT MARIA ELENA maria elena shoulder rotator cuff and biceps tendon. gastric bypass 11-30-23, Lysis of Adhesions/Internal Hernia 03/2024, lysis of adhesions/bowelresection-intussusception 04/25/2024, Pain clinic injections Past Anesthesia/Blood Transfusion Reactions: No Reported Reaction, Family History of Problems w/ Anesthesia, Motion Sickness Additional Past Anesthesia/Blood Transfusion Reaction / Comment(s): CLAUSTERPHOBIA, VERTIGO IN PAST. PATIENTS MOTHER HAS DIFFICULTY WAKING UP Past Psychological History: Anxiety, Depression, PTSD Smoking Status: Never smoker Past Alcohol Use History: Rare Past Drug Use History: None Reported - Past Family History Mother Family Medical History: Cancer, Hyperlipidemia, Hypertension Additional Family Medical History / Comment(s): RECTAL CANCER. Father Family Medical History: Hyperlipidemia, Hypertension Medications and Allergies Home Medications Medication Instructions Recorded Confirmed Type Levothyroxine Sodium [Synthroid] 75 mcg PO DAILY 04/19/14 08/20/24 History DULoxetine HCL [Cymbalta] 30 mg PO BID 12/09/23 08/20/24 History Desmopressin Acetate [Ddavp] 0.05 mg PO BID 12/09/23 08/20/24 History Sucralfate [Carafate] 1 gm PO BID 12/10/23 08/20/24 History ALPRAZolam [Xanax] 1 mg PO HS PRN 04/14/24 08/20/24 History Amitriptyline HCl [Elavil] 20 mg PO HS 04/14/24 08/20/24 History Pantoprazole [Protonix] 40 mg PO BID #60 tab 04/15/24 08/20/24 Rx tiZANidine [Zanaflex] 6 mg PO TID PRN 04/23/24 08/20/24 History predniSONE 5 mg PO DAILY tab 05/17/24 08/20/24 Rx Cariprazine HCl [Vraylar] 1.5 mg PO DAILY 08/20/24 08/20/24 History Hydrocodone/Acetaminophen 15 ml PO TID PRN 08/20/24 08/20/24 History [Hydrocodone/Acetaminophen 7.5-325/15 ML] Allergies Allergy/AdvReac Type Severity Reaction Status Date / Time adhesive Allergy Rash/Hives Verified 08/20/24 17:15 morphine Allergy Anaphylaxis Verified 08/20/24 17:15 venom-honey bee Allergy Dyspnea Verified 08/20/24 17:15 [bee venom (honey bee)] blue dye AdvReac Mild HYPER Verified 08/20/24 17:15 FEELING Physical Exam Vitals: Vital Signs Temp Pulse Resp BP Pulse Ox 08/20/24 14:41 98.4 F 74 18 160/105 100 Intake and Output 08/20/24 08/20/24 08/20/24 06:59 14:59 22:59 Other: Weight 65.771 kg Results CBC & Chem 7: 08/20/24 15:32 08/20/24 17:25 Labs: Abnormal Lab Results - Last 24 Hours (Table) 08/20/24 Range/Units 15:32 Sodium 121 L (137-145) mmol/L Chloride 87 L (98-107) mmol/L
[2024-08-20] MEDS: SODIUM CHLORIDE 3%(HYPERTONIC) 500 ML IV ONE (18:37)
[2024-08-20] MEDS: KETOROLAC 15 MG/ML 1 ML VIAL IVP PRN (20:13)
[2024-08-20] MEDS: DULoxetine HCL 30 MG CAPSULE.DR PO SCH (21:00)
[2024-08-20] MEDS: AMITRIPTYLINE HCL 10 MG TAB PO SCH (21:02)
[2024-08-20] MEDS: PANTOPRAZOLE 40 MG TABLET PO SCH (21:05)
[2024-08-20] MEDS: SUCRALFATE 1 GM TAB PO SCH (21:05)
[2024-08-20] MEDS: BUTALB/APAP/CAFF 50-325-40MG TAB PO PRN (22:53)
[2024-08-20] MEDS: AMITRIPTYLINE HCL 10 MG TAB PO STA (22:53)
[2024-08-20] MEDS: ALPRAZolam 1 MG TAB PO PRN (22:55)
[2024-08-21] MEDS: LEVOTHYROXINE 75 MCG TAB PO SCH (06:36)
[2024-08-21 08:23] LABS: African American GFR (CKD) >90 (>60 ml/min/1.73 sqM); Anion Gap 6 mmol/L; Blood Urea Nitrogen 10 mg/dL (7-17); Calcium 9.4 mg/dL (8.4-10.2); Carbon Dioxide 27 mmol/L (22-30); Chloride 101 mmol/L (98-107); Glucose 131 mg/dL (74-99); Non-African American GFR(CKD) >90 (>60 ml/min/1.73 sqM); Sodium 134 mmol/L (137-145)
[2024-08-21 08:51] LABS: Potassium 5.3 mmol/L (3.5-5.1)
[2024-08-21] MEDS: predniSONE 5 MG TAB PO SCH (09:30)
[2024-08-21] MEDS: DESMOPRESSIN 0.2 MG TAB PO SCH (09:31)
[2024-08-21] MEDS: NON FORMULARY DRUG (Cariprazine Hcl [Vraylar] 1.5 MG Capsule) PO SCH (10:55)
[2024-08-21] MEDS: ASPIRIN 81 MG PO SCH (11:34)
--- NOTE | 2024-08-21 12:51 | P.NPCON ---
History of Present Illness - Reason for Consult Consult date: 08/21/24 hyponatremia - Chief Complaint headache - History of Present Illness 53-year-old female with PMH of Anxiety/depression, PTSD, Diabetes Insipidus, POTS, Fibromyalgia, Migraines, prior gastric bypass/Molly-en-Y surgery, hypothyroidism, chronic adrenal insufficiency, Bam syndrome, presented to [facility] emergency department complaining of left-sided facial paresthesias and headache over the past 2 days. she has a history of migraine and her current symptoms are similar to when she has had migraines in the past. She denies any other complaints, she initially thought her symptoms are related to her recurrent neck pain. CT head showed no acute intracranial process, labs showed sodium level 121, the patient is on DDVAP for 13 years, she is taking 0.05 mg BID, she follows regularily with endocrinology, she mentioned that she recently lost weight post R&y surgery, the dose was never adjusted. nephrology is consulted for hyponatremia, she is currently feeling well, headache and dizziness has resolved, she is asking if she can go home. Review of Systems as above Past Medical History Past Medical History: Asthma, Cancer, Eye Disorder, Fibromyalgia, GERD/Reflux, Hypertension, Myocardial Infarction ([place]), Musculoskeletal Disorder, Osteoarthritis (OA), Renal Disease, Syncope, Thyroid Disorder Additional Past Medical History / Comment(s): SKIN CANCER, ADRENAL INSUFFICENCY. POTS SYNDROME. DIABETES INSIPIDUS. 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 kidney stone history, renal failure Last Myocardial Infarction Date:: december 29 2014 History of Any Multi-Drug Resistant Organisms: None Reported Past Surgical History: Back Surgery, Bariatric Surgery, Section, Cholecystectomy, Hernia Repair, Joint Replacement, Orthopedic Surgery Additional Past Surgical History / Comment(s): ARTIFICIAL DISC IN C5,6,7 , TITANIUM PLATE AND 4 SCREWS IN NECK. RT CARPAL TUNNEL. . HEMORRHOIDECTOMY. BRONCHOSCOPY.,CERVIAL EPIDURAL STEROID INJECTION, LT KNEE ARTHROSCOPIC LATERAL FEMORAL CHONDRECTOMY/MEDIALFEMORAL CHONDRECTOMY/PATELLER CHONDROPLASTY/PARTIAL SYNOVECTOMY OF LATERAL AND PATELLOFEMORAL COMPARTMENTS (TOTAL OF 7 KNEE SX), RADIOFREQUENCY TX L5,-RT KNEE SCOPE, EXPLORATORY LAP- ENDOmetriosis, TOTAL KNEE REPLACEMENT MARIA ELENA maria elena shoulder rotator cuff and biceps tendon. gastric bypass 11-30-23, Lysis of Adhesions/Internal Hernia 03/2024, lysis of adhesi ons/bowelresection-intussusception 04/25/2024, Pain clinic injections Past Anesthesia/Blood Transfusion Reactions: No Reported Reaction, Family History of Problems w/ Anesthesia, Motion Sickness Additional Past Anesthesia/Blood Transfusion Reaction / Comment(s): CLAUSTERPHOBIA, VERTIGO IN PAST. PATIENTS MOTHER HAS DIFFICULTY WAKING UP Past Psychological History: Anxiety, Depression, PTSD Additional Psychological History / Comment(s): . Smoking Status: Never smoker Past Alcohol Use History: Rare Additional Past Alcohol Use History / Comment(s): STARTED SMOKING 1979 QUIT 2008 WAS 3/4 PPD Past Drug Use History: None Reported - Past Family History Mother Family Medical History: Cancer, Hyperlipidemia, Hypertension Additional Family Medical History / Comment(s): RECTAL CANCER. Father Family Medical History: Hyperlipidemia, Hypertension Medications and Allergies Home Medications Medication Instructions Recorded Confirmed Type Levothyroxine Sodium [Synthroid] 75 mcg PO DAILY 04/19/14 08/20/24 History DULoxetine HCL [Cymbalta] 30 mg PO BID 12/09/23 08/20/24 History Desmopressin Acetate [Ddavp] 0.05 mg PO BID 12/09/23 08/20/24 History Sucralfate [Carafate] 1 gm PO BID 12/10/23 08/20/24 History ALPRAZolam [Xanax] 1 mg PO HS PRN 04/14/24 08/20/24 History Amitriptyline HCl [Elavil] 20 mg PO HS 04/14/24 08/20/24 History Pantoprazole [Protonix] 40 mg PO BID #60 tab 04/15/24 08/20/24 Rx tiZANidine [Zanaflex] 6 mg PO TID PRN 04/23/24 08/20/24 History predniSONE 5 mg PO DAILY tab 05/17/24 08/20/24 Rx Cariprazine HCl [Vraylar] 1.5 mg PO DAILY 08/20/24 08/20/24 History Hydrocodone/Acetaminophen 15 ml PO TID PRN 08/20/24 08/20/24 History [Hydrocodone/Acetaminophen 7.5-325/15 ML] Allergies Allergy/AdvReac Type Severity Reaction Status Date / Time adhesive Allergy Rash/Hives Verified 08/20/24 17:15 morphine Allergy Anaphylaxis Verified 08/20/24 17:15 venom-honey bee Allergy Dyspnea Verified 08/20/24 17:15 [bee venom (honey bee)] blue dye AdvReac Mild HYPER Verified 08/20/24 17:15 FEELING Physical Exam Vitals: Vital Signs Temp Pulse Pulse Pulse Resp BP BP 08/21/24 07:25 98.8 F 85 16 135/93 08/21/24 04:00 63 17 08/21/24 02:00 18 08/21/24 00:00 97.9 F 62 17 08/20/24 22:30 18 08/20/24 22:00 98.9 F 73 17 08/20/24 20:00 98.9 F 71 73 17 157/99 08/20/24 16:57 98.2 F 65 18 163/107 08/20/24 14:41 98.4 F 74 18 160/105 BP Pulse Ox 08/21/24 07:25 100 08/21/24 04:00 122/78 98 08/21/24 02:00 08/21/24 00:00 102/67 99 08/20/24 22:30 08/20/24 22:00 143/94 99 08/20/24 20:00 143/94 99 08/20/24 16:57 100 08/20/24 14:41 100 Intake and Output 08/20/24 08/21/24 08/21/24 22:59 06:59 14:59 Intake Total 500 354 Balance 500 354 Intake: Oral 500 354 Other: # Voids 1 3 Weight 65.771 kg General: nontoxic, no distress, appears at stated age; Derm: warm, dry, intact Head: atraumatic, normocephalic, symmetric Eyes: EOMI, anicteric sclera Mouth: no lip lesion, mucus membranes moist Cardiovascular: S1 S2 reg, no murmur, rubs, or gallops Lungs: CTA bilateral, no rales, no accessory muscle use Abdominal: soft, non-tender to palpataion, no appreciable organomegaly Extremities: no gross muscle atrophy, no edema, no contractures Neuro: Alert, Oriented, CNII-XII grossly intact, gait normal. Psych: well appearing, appropriate affect Results - Lab Results Most recent lab results Calcium 9.4 mg/dL (8.4-10.2) 08/21/24 07:26 Magnesium 1.9 mg/dL (1.6-2.3) 08/20/24 16:49 08/20/24 15:32 08/21/24 11:41 Assessment and Plan Assessment: 1. Hyponatremia, acute symptomatic euvolemic hyponatremia, on DDAVP for 13 years, DDAVP was held yesterday, sodium level on admission 121, urine osm 108, urine sodium 42, trending to 126-> 131-> 140 (likely error) -> 134 , DDAVP was resumed 9:30 am at 0.05 mg BID, repeat sodium level 131 at 11:30 am . 2. adrenal insufficiency , she is also on daily prednisone 5 mg PO 3. Migraine headaches. improved 4. anxiety/ depression Plan: sodium level is correcting appropriately , check sodium level , please notify nephrology of the result patient is willing to go home today, if sodium level stable around 130 and patient is asymptomatic then can be discharged with close follow up with endocrinology and nephrology , continue DDAVP at current dose Thank you for consulting nephrology, discussed with Dr. Vaughn
--- NOTE | 2024-08-21 15:43 | P.CNNES ---
History of Present Illness Consult date: 08/21/24 Requesting physician: Anabela Vaughn Reason for Consult: Facial numbness persistence, complex migraine versus CVA History of Present Illness: This is a telemedicine neurology consultation performed today on 08/21/2024, in collaboration with Tamra Rodas. Patient is a 53-year-old female came to the hospital yesterday at 2:38 PM for left facial numbness. Patient states that she woke up at 6:30 AM and was feeling fine. At 7 AM, she started feeling funny sensation on the face. She was busy at the work, and at around 2 PM, she noticed nausea, headache and left facial numbness involving complete left side of the head. There was no facial droop, no slurred speech and she protruded her tongue and was straight. She also noticed tingling in the left arm. She felt the K-Phos strong bilaterally. The headache was gradual onset. Patient admits to having history of migraines, but none for "years". She has had couple falls in the last month from her POTS, and the migraines have come back. Occurring about 2-3 times a week. Vital signs on arrival blood pressure 160/105, went up to 163/107, pulse rate 74 temperature 98.4. Blood test shows normal CBC, CMP with sodium 121, improved to 134, and then down to 131. Hepatic panel is normal. UA negative. CT head showed no acute intracranial process. There is diffuse age-related cerebral atrophy and chronic small vessel ischemic change noted. Home medications include levothyroxine, Cymbalta, DDAVP, Elavil 20 mg at bedtime, Xanax 1 mg at bedtime when necessary, Protonix, Zanaflex, prednisone 5 mg daily, [place] and Vraylar. Patient has history of smoking 1 pack per day for 25+ years, quit 16 years ago. Denies any alcohol or drug use. She has tried CBD gummies in the past. Patient says she has history of titanium plate at C4 5 6 and also has some herniated discs in the neck. She has POTS and fell about 2 times and woke up on the floor. One of them was 3 days ago and the one prior was 3 weeks prior. Patient denies any history of CVA. Patient is not on any blood thinners, or anti-platelets. Patient states that while in the hospital, her numbness is coming back on the face, but is better when she stands up. Patient admits to having neck pain 8- 02/01. Review of Systems All pertinent positive and negative review of systems mentioned in the HPI, otherwise unremarkable Past Medical History Past Medical History: Asthma, Cancer, Eye Disorder, Fibromyalgia, GERD/Reflux, Hypertension, Myocardial Infarction ([place]), Musculoskeletal Disorder, Osteoa rthritis (OA), Renal Disease, Syncope, Thyroid Disorder Additional Past Medical History / Comment(s): SKIN CANCER, ADRENAL INSUFFICENCY. POTS SYNDROME. DIABETES INSIPIDUS. 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 kidney stone history, renal failure Last Myocardial Infarction Date:: december 29 2014 History of Any Multi-Drug Resistant Organisms: None Reported Past Surgical History: Back Surgery, Bariatric Surgery, Section, Cholecystectomy, Hernia Repair, Joint Replacement, Orthopedic Surgery Additional Past Surgical History / Comment(s): ARTIFICIAL DISC IN C5,6,7 , TITANIUM PLATE AND 4 SCREWS IN NECK. RT CARPAL TUNNEL. . HEMORRHOIDECTOMY. BRONCHOSCOPY.,CERVIAL EPIDURAL STEROID INJECTION, LT KNEE ARTHROSCOPIC LATERAL FEMORAL CHONDRECTOMY/MEDIALFEMORAL CHONDRECTOMY/PATELLER CHONDROPLASTY/PARTIAL SYNOVECTOMY OF LATERAL AND PATELLOFEMORAL COMPARTMENTS (TOTAL OF 7 KNEE SX), RADIOFREQUENCY TX L5,-RT KNEE SCOPE, EXPLORATORY LAP- ENDOmetriosis, TOTAL KNEE REPLACEMENT MARIA ELENA maria elena shoulder rotator cuff and biceps tendon. gastric bypass 11-30-23, Lysis of Adhesions/Internal Hernia 03/2024, lysis of adhesions/bowelresection-intussusception 04/25/2024, Pain clinic injections Past Anesthesia/Blood Transfusion Reactions: No Reported Reaction, Family History of Problems w/ Anesthesia, Motion Sickness Additional Past Anesthesia/Blood Transfusion Reaction / Comment(s): CLA USTERPHOBIA, VERTIGO IN PAST. PATIENTS MOTHER HAS DIFFICULTY WAKING UP Past Psychological History: Anxiety, Depression, PTSD Additional Psychological History / Comment(s): . Smoking Status: Never smoker Past Alcohol Use History: Rare Additional Past Alcohol Use History / Comment(s): STARTED SMOKING 1979 QUIT 2008 WAS 3/4 PPD Past Drug Use History: None Reported - Past Family History Mother Family Medical History: Cancer, Hyperlipidemia, Hypertension Additional Family Medical History / Comment(s): RECTAL CANCER. Father Family Medical History: Hyperlipidemia, Hypertension Medications and Allergies Home Medications Medication Instructions Recorded Confirmed Type Levothyroxine Sodium [Synthroid] 75 mcg PO DAILY 04/19/14 08/20/24 History DULoxetine HCL [Cymbalta] 30 mg PO BID 12/09/23 08/20/24 History Desmopressin Acetate [Ddavp] 0.05 mg PO BID 12/09/23 08/20/24 History Sucralfate [Carafate] 1 gm PO BID 12/10/23 08/20/24 History ALPRAZolam [Xanax] 1 mg PO HS PRN 04/14/24 08/20/24 History Amitriptyline HCl [Elavil] 20 mg PO HS 04/14/24 08/20/24 History Pantoprazole [Protonix] 40 mg PO BID #60 tab 04/15/24 08/20/24 Rx tiZANidine [Zanaflex] 6 mg PO TID PRN 04/23/24 08/20/24 History predniSONE 5 mg PO DAILY tab 05/17/24 08/20/24 Rx Cariprazine HCl [Vraylar] 1.5 mg PO DAILY 08/20/24 08/20/24 History Hydrocodone/Acetaminophen 15 ml PO TID PRN 08/20/24 08/20/24 History [Hydrocodone/Acetaminophen 7.5-325/15 ML] Allergies Allergy/AdvReac Type Severity Reaction Status Date / Time adhesive Allergy Rash/Hives Verified 08/20/24 17:15 morphine Allergy Anaphylaxis Verified 08/20/24 17:15 venom-honey bee Allergy Dyspnea Verified 08/20/24 17:15 [bee venom (honey bee)] blue dye AdvReac Mild HYPER Verified 08/20/24 17:15 FEELING Physical Examination - Vital Signs Vital Signs: Vital Signs Temp Pulse Pulse Pulse Resp BP BP 08/21/24 12:00 75 16 136/88 08/21/24 07:25 98.8 F 85 16 135/93 08/21/24 04:00 63 17 08/21/24 02:00 18 08/21/24 00:00 97.9 F 62 17 08/20/24 22:30 18 08/20/24 22:00 98.9 F 73 17 08/20/24 20:00 98.9 F 71 73 17 157/99 08/20/24 16:57 98.2 F 65 18 163/107 08/20/24 14:41 98.4 F 74 18 160/105 BP Pulse Ox 08/21/24 12:00 100 08/21/24 07:25 100 08/21/24 04:00 122/78 98 08/21/24 02:00 08/21/24 00:00 102/67 99 08/20/24 22:30 08/20/24 22:00 143/94 99 08/20/24 20:00 143/94 99 08/20/24 16:57 100 08/20/24 14:41 100 Intake and Output 08/20/24 08/21/24 08/21/24 22:59 06:59 14:59 Intake Total 500 354 Balance 500 354 Intake: Oral 500 354 Other: # Voids 1 3 Weight 65.771 kg Patient is a middle aged female, very pleasant, in no acute distress. Patient is alert awake oriented to time place and person. Speech and language functions are normal. Patient can name and repeat very well. No aphasia or dysarthria. Attention, concentration and fund of knowledge is adequate. On cranial nerve examination, pupils are equal, round and reacting to light, visual zuleta are full on confrontation, with no neglect on double simultaneous stimulation. Extraocular muscles are intact with no nystagmus. Face is symmetric, tongue protrudes to the midline. Palatal elevation and sensation normal, hearing and shoulder shrug normal, facial sensation decreased on the left. On muscle strength testing, there is no pronator drift and the strength is normal in arms and legs distally and proximally. Deep tendon reflexes are symmetric 2 all over and plantars downgoing. Sensory to touch is decreased on the left side, involving the face, arm and leg. Cerebellar function showed no ataxia for [id number] testing. No dysdiadochokinesia. No ataxia for [id number] testing on either side. Tone and bulk of muscles normal. Gait deferred.. On general examination, there is no carotid bruit or murmur, S1-S2 audible. Chest is clear on consultation. Abdomen is soft nontender. No organomegaly, bowel sounds present. Peripheral pulses are present. No peripheral edema. Results - Laboratory Findings CBC and BMP: 08/20/24 15:32 08/21/24 21:10 Abnormal Lab Findings: Abnormal Labs 08/20/24 08/20/24 08/20/24 15:32 16:49 17:01 Sodium 121 L Potassium Chloride 87 L Glucose Osmolality 274 L Urine Osmolality 108 L 08/20/24 08/20/24 08/21/24 17:25 20:37 00:36 Sodium 126 L 129 L 131 L Potassium Chloride Glucose Osmolality Urine Osmolality 08/21/24 08/21/24 08/21/24 07:26 07:26 11:41 Sodium 133 L 134 L 131 L Potassium 5.3 H Chloride Glucose 131 H Osmolality Urine Osmolality Assessment and Plan Assessment: * 53-year-old female presented with left facial numbness, and now also involving the left arm. Examination is essentially nonfocal, except for left sided numbness, with NIH stroke scale of 1. * Hyponatremia, improved * Migraine headaches * X tobacco use * History of POTS * History of neck surgery Plan: * We will perform stroke/TIA workup because left-sided numbness getting worse. * MRI of the brain without contrast, evaluate for acute CVA * Carotid Doppler, rule out stenosis * Fasting a.m. lipid panel cholesterol 171, LDL 83, HDL 68 and triglycerides 94. We will start statins. * Hemoglobin A1c 5.6 * Optimize control of blood pressure * Continue Fioricet as needed for headache. * Agree with starting aspirin 81 mg daily. Patient not on antiplatelet medicat ion at home. * Neuro checks every 4 hours. * Telemetry monitoring rule out any arrhythmia * PT, OT, speech therapy * DVT prophylaxis: Patient is low risk, patient is ambulatory. * Discussed with primary physician. * Neurology will continue to follow. Thank you for the consult.
--- NOTE | 2024-08-21 16:21 | P.PN ---
Subjective Progress Note Date: 08/21/24 Hospital Course: History of present illness; 53-year-old female with PMH of Anxiety/depression, PTSD, Diabetes Insipidus, POTS, Fibromyalgia, Migraines, prior gastric bypass/Molly-en-Y surgery, hy pothyroidism, chronic adrenal insufficiency presents emergency department with complaint of left-sided facial paresthesias and headache over the past 2 days. She first noticed some paresthesia last week, however it progressively became more noticeable. She notes that she does have a history of recurrent migraines for which she follows with her neurologist. She endorses having felt some "weakness" in her left upper extremity, although has not noticed any deficits and says it has improved. She endorses photophobia and does have associated nausea, however has not vomited. She states that her current symptoms are similar to when she has had migraines in the past. She denies any chest pain, h eart palpitations, difficulty breathing, fevers, chills, cough or congestion. Labratory review: -WBC 7.0, hemoglobin 13.6, hematocrit 40.9, platelet 409; sodium 121, potassium 3.9, chloride 87, BUN 11, creatinine 0.67, calcium 9.5, total bilirubin 0.8, AST 30, ALT 25, alkaline phosphatase 93 Imaging: -CT head done showed no acute intracranial hemorrhage or midline shift, but there is diffuse age-related cerebral atrophy and chronic small vessel ischemic changes Patient was admitted for further evaluation of euvolemic hyponatremia, left facial numbness. Her evening DDAVP was on hold, sodium started trending up to 134 and DDAVP was resumed on 08/21 in the morning. Nephrology consulted, patient was recommended to follow-up closely with her nephrology and endocrinology, sodium level remained stable and she was cleared from nephrology standpoint. Due to ongoing left facial numbness despite headache resolution, neurology was consulted for concern of possible CVA versus complex migraine. On exam, patient did have some decreased sensation on the left side of her checks, moving towards ears, including lateral surface of the neck and posterior surface of the neck. She did share that she had neck surgery years ago for multiple herniated disks. On neck palpation she noted shooting pain going down to her left upper extremity. There is no facial asymmetry, dysarthria, aphasia, no other focal deficits. Neurology evaluated, ordered brain MRI and carotid duplex. Patient was started on aspirin and atorvastatin 40, she had blood work done on 08/17 that showed LDL of 83, A1c of 5.6. Pertinent Imaging: No new imaging Subjective: Denies headache today, left facial numbness is getting worse Pertinent positives and negatives as discussed above, a complete review of systems was performed and all other systems are negative. Vitals Signs Reviewed. General: [nontoxic], [no distress], [appears at stated age] Derm: [warm], [dry] Head: [atraumatic], [normocephalic], [symmetric] Eyes: [EOMI], [no lid lag], [anicteric sclera] Mouth: [no lip lesion], [mucus membranes moist] Cardiovascular: [S1S2 reg], [no murmur] Lungs: [CTA bilateral], [no rhonchi, no rales] , [no accessory muscle use] Abdominal: [soft], [ nontender to palpation], [no guarding], [no appreciable organomegaly] Ext: [no gross muscle atrophy], [no edema], [no contractures], neck palpation with tenderness, shooting pain to the left upper extremity Neuro: [ CN II-XI grossly intact], [on exam left facial numbness excluding forehead Psych: [Alert], [oriented], [appropriate affect] Data Reviewed Today: Pertinent Labs: Sodium 131, potassium 5.3, creatinine normal, bicarb normal, glucose 131, calcium 9.4. Urine osmolality 108, random sodium urine 42. Assessment and Plan: Worsening left facial numbness concern for CVA -Neurology consulted, appreciate recommendations -Discussed with neurology, brain MRI and carotid duplex ordered, patient was started on aspirin 81 mg, atorvastatin 40 mg -Reviewed outpatient blood work results as mentioned in hospital course Euvolemic symptomatic hyponatremia in the patient on home DDAVP -Her evening DDAVP was on hold, sodium started trending up to 134 and DDAVP was resumed on 08/21 in the morning. Nephrology consulted, patient was recommended to follow-up closely with her nephrology and endocrinology, sodium level remained stable and she was cleared from nephrology standpoint. -continue monitoring BMP Chronic adrenal insufficiency -Continue home prednisone 5 mg p.o. daily Anxiety/Depression -Resumed antipsychotic medications for now -Consider gradually weening medications if hyponatremia does not correct -Considered possible contributing factor, recommend close follow up with prescribing physician for optimization following discharge DVT ppx: Ambulation Code status: Full code Anticipated discharge place: Home Anticipated discharge time: 24 to 48 hours depending on MRI and carotid duplex results Objective - Vital Signs Vital signs: Vital Signs Temp 98.8 F 08/21/24 16:00 Pulse 72 08/21/24 16:00 Resp 16 08/21/24 16:00 BP 145/94 08/21/24 16:00 Pulse Ox 100 08/21/24 16:00 FiO2 Intake & Output 08/20/24 08/21/24 08/21/24 18:59 06:59 18:59 Intake Total 500 472 Balance 500 472 Weight 65.771 kg 65.771 kg Intake: Oral 500 472 Other: # Voids 3 4 # Bowel Movements 0 - Labs CBC & Chem 7: 08/20/24 15:32 08/21/24 11:41 Labs: Abnormal Lab Results - Last 24 Hours (Table) 08/20/24 08/20/24 08/20/24 Range/Units 16:49 17:01 17:25 Sodium 126 L (137-145) mmol/L Potassium (3.5-5.1) mmol/L Glucose (74-99) mg/dL Osmolality 274 L (275-295) mOsm/kg Urine Osmolality 108 L (400-1100) mOsm/kg 08/20/24 08/21/24 08/21/24 Range/Units 20:37 00:36 07:26 Sodium 129 L 131 L 133 L (137-145) mmol/L Potassium (3.5-5.1) mmol/L Glucose (74-99) mg/dL Osmolality (275-295) mOsm/kg Urine Osmolality (400-1100) mOsm/kg 08/21/24 08/21/24 Range/Units 07:26 11:41 Sodium 134 L 131 L (137-145) mmol/L Potassium 5.3 H (3.5-5.1) mmol/L Glucose 131 H (74-99) mg/dL Osmolality (275-295) mOsm/kg Urine Osmolality (400-1100) mOsm/kg
[2024-08-21] MEDS: HYDROcodone/APAP 15 ML SOLUTION PO PRN (16:32)
[2024-08-21 17:01] LABS: Sodium 133 mmol/L (137-145)
[2024-08-21 18:04] LABS: T4, Free (Free Thyroxine) 1.21 ng/dL (0.78-2.19)
--- NOTE | 2024-08-21 18:36 | US ---
EXAMINATION TYPE: US carotid duplex BILAT DATE OF EXAM: 08/21/2024 COMPARISON: NONE CLINICAL INDICATION: Female, 53 years old with history of cva; left sided facial numbness Additional History: R29.810 Facial weakness TECHNIQUE: Grayscale, color Doppler and spectral Doppler evaluation of the bilateral carotid systems and vertebral arteries. Indirect Doppler criteria was utilized. FINDINGS: EXAM MEASUREMENTS: RIGHT: Peak Systolic Velocity (PSV) cm/sec ----- Right CCA: 79.9 ----- Right ICA: 156 ----- Right ECA: 144 ICA/CCA ratio: 1.95 RIGHT: End Diastole cm/sec ----- Right CCA: 24.9 ----- Right ICA: 67.2 ----- Right ECA: 30.7 LEFT: Peak Systolic Velocity (PSV) cm/sec ----- Left CCA: 90.3 ----- Left ICA: 118 ----- Left ECA: 115 ICA/CCA ratio: 1.3 LEFT: End Diastole cm/sec ----- Left CCA: 42.8 ----- Left ICA: 60.9 ----- Left ECA: 34.2 VERTEBRALS (direction of flow): Right Vertebral: Antegrade Left Vertebral: Antegrade Rhythm: Normal SSIS SSRS DEVELOPER NOTES: no plaque, tortuous distal ICAs bilaterally. Increased PSV and ratio or the right may be attributed to vessel toruosity Color Doppler imaging shows patency with blood flow throughout the carotid artery. Spectral waveforms are within normal limits. IMPRESSION: Right: less than 50% stenosis Left: [facility] Criteria for Assigning % of Stenosis / Diameter reduction (Estimation based on the indirect measurements of the internal carotid artery velocities (ICA PSV). 1. Normal (no stenosis)=ICA PSV < 125 cm/s: ratio < 2.0: ICA EDV<40 cm/s. 2. Less than 50% stenosis=ICA PSV < 125 cm/s: ratio < 2.0: ICA EDV<40 cm/s. 3. 50 to 69% stenosis=ICA PSV of 125 to 230 cm/s: ration 2.0 ? 4.0: ICA EDV 40-100 cm/s. 4. Greater than 70% stenosis to near occlusion= ICA PSV > 230 cm/s: ratio > 4.0: ICA EDV > 100 cm/s. 5. Near occlusion= ICA PSV velocities may be low or undetectable: variable ratio and ICA EDV. 6. Total occlusion=unable to detect flow. [facility], , 08/21/2024 6:34 PM
[2024-08-21] MEDS: AMITRIPTYLINE HCL 10 MG TAB PO SCH (21:23)
[2024-08-21] MEDS: ATORVASTATIN 40 MG TAB PO SCH (21:23)
[2024-08-22] MEDS: tiZANidine 4 MG TAB PO PRN (04:19)
[2024-08-22 10:49] LABS: BUN/Creat Ratio 15.75 Ratio (12.00-20.00); Blood Urea Nitrogen 12.6 mg/dL (9.0-27.0); Calcium 8.6 mg/dL (8.7-10.3); Carbon Dioxide 23.6 mmol/L (21.6-31.8); Chloride 99 mmol/L (96-109); Glucose 89 mg/dL (70-110); Potassium 4.4 mmol/L (3.5-5.5); Sodium 134 mmol/L (135-145)
[2024-08-22] MEDS: LORazepam 1 MG TAB PO PRN (11:59)
[2024-08-22 12:09] VITALS: RESP 14
--- NOTE | 2024-08-22 13:25 | MR ---
EXAMINATION TYPE: MR brain wo con DATE OF EXAM: 08/22/2024 COMPARISON: CT brain 2 days earlier HISTORY: EATON, LT side facial paresthesias, CVA. TECHNIQUE: Multiplanar, multisequence imaging of the brain and brainstem is performed without IV cont rast. FINDINGS: Diffusion weighted images demonstrate no evidence of a recent infarct or other diffusion abnormality. There is mild sulcal prominence of the bilateral frontal lobes is redemonstrated. There are some scat tered foci of T2 hyperintensity throughout the white matter bilaterally. Approximately 10-15 scattere d lesions are seen. Lesions are nonspecific in appearance and distribution. Midline structures demonstrate normal morphology. The craniocervical junction appears within normal limits. Normal vascular flow voids are present. The visualized sinuses are clear and the globes are i ntact. IMPRESSION: No MRI evidence for recent infarct. Mild cerebral atrophy and nonspecific white matter ch anges favoring product of chronic small vessel ischemic change is appreciated. [facility], , 08/22/2024 1:22 PM
--- NOTE | 2024-08-22 14:49 | P.DS ---
Providers Date of admission: 08/20/24 16:18 Expected date of discharge: 08/22/24 Attending physician: Anabela Vaughn MD Consults: 08/20/24 17:39 Consult Physician Routine Consulting Provider: Stew Petit Consult Reason/Comments: Hyponatremia w/13 year history of DDAVP use Do you want consulting provider notified?: Yes 08/21/24 10:02 Consult Physician Routine Consulting Provider: Kenyon Mendez Consult Reason/Comments: facial numbness,persistens, complex migrain vs CVA Do you want consulting provider notified?: Yes [facility] Hospital Course: Discharge diagnoses; Worsening left facial numbness, acute CVA ruled out Suspected complex migraine Euvolemic symptomatic hyponatremia Hospital course; 53-year-old female with PMH of Anxiety/depression, PTSD, Diabetes Insipidus, POTS, Fibromyalgia, Migraines, prior gastric bypass/Molly-en-Y surgery, hypothyroidism, chronic adrenal insufficiency presents emergency department with complaint of left-sided facial paresthesias and headache over the past 2 days. She first noticed some paresthesia last week, however it progressively became m ore noticeable. She notes that she does have a history of recurrent migraines for which she follows with her neurologist. She endorses having felt some "weakness" in her left upper extremity, although has not noticed any deficits and says it has improved. Additionally, she was noted to have very low sodium, 121, on arrival to the hospital. During her admission there was a CT of her head done which showed no acute intracranial hemorrhage or midline shift, but diffuse age-related cerebral atrophy and chronic small vessel vessel ischemic changes were present. She had no alterations to her motor function in all extremities. During her admission she was evaluated in nephrology and neurology. Upon neurology's evaluation, MRI of the brain was recommended to further evaluate for an acute CVA. She underwent sad MRI which showed no evidence of a recent infarct. Additionally, she underwent bilateral carotid duplex ultrasound which showed stenosis of less than 50% on the right side and the left side being within normal limits. Discussed with her the importance of following up regularly with channel sales director, nephrology, and now with neurology as well as her PCP. She is excited to be discharged today. For hyponatremia, DDAVP was discontinued. Repeat BMP in 2 days. Physical Exam: General: nontoxic, no distress, appears at stated age; Derm: warm, dry, intact Head: atraumatic, normocephalic, symmetric Eyes: EOMI, anicteric sclera Mouth: no lip lesion, mucus membranes moist Cardiovascular: S1 S2 reg, no murmur, rubs, or gallops Lungs: CTA bilateral, no rales, no accessory muscle use Abdominal: soft, non-tender to palpataion, no appreciable organomegaly Extremities: no gross muscle atrophy, no edema, no contractures Neuro: Alert, Oriented, CNII-XII grossly intact, gait normal; muscle strength in LUE 5/5 Psych: well appearing, appropriate affect Dictation was produced using [employer] dictation software. please excuse any grammatical, word or spelling errors. Cj Khan MD PGY-1 IM A total of 36 minutes of time were spent preparing this complex discharge summary. Patient was discharged on 08/22/2024 at 1442. I have seen and evaluated the patient today. Discussed with the resident and agree with the residents finding and plan as documented in the resident's note. Changes highlighted in blue font. Patient Condition at Discharge: Fair Plan - Discharge Summary New Discharge Prescriptions: New Aspirin 81 mg PO DAILY #60 tab Atorvastatin Calcium [Lipitor] 40 mg PO DAILY #60 tab Continue Levothyroxine Sodium [Synthroid] 75 mcg PO DAILY DULoxetine HCL [Cymbalta] 30 mg PO BID Amitriptyline HCl [Elavil] 20 mg PO HS tiZANidine [Zanaflex] 6 mg PO TID PRN PRN Reason: Muscle Spasm Hydrocodone/Acetaminophen [Hydrocodone/Acetaminophen 7.5-325/15 ML] 15 ml PO TID PRN PRN Reason: Pain Sucralfate [Carafate] 1 gm PO BID ALPRAZolam [Xanax] 1 mg PO HS PRN PRN Reason: Anxiety Pantoprazole [Protonix] 40 mg PO BID #60 tab predniSONE 5 mg PO DAILY tab Cariprazine HCl [Vraylar] 1.5 mg PO DAILY Discontinued Desmopressin Acetate [Ddavp] 0.05 mg PO BID Discharge Medication List Levothyroxine Sodium [Synthroid] 75 mcg PO DAILY 04/19/14 [History] DULoxetine HCL [Cymbalta] 30 mg PO BID 12/09/23 [History] Sucralfate [Carafate] 1 gm PO BID 12/10/23 [History] ALPRAZolam [Xanax] 1 mg PO HS PRN 04/14/24 [History] Amitriptyline HCl [Elavil] 20 mg PO HS 04/14/24 [History] Pantoprazole [Protonix] 40 mg PO BID #60 tab 04/15/24 [Rx] tiZANidine [Zanaflex] 6 mg PO TID PRN 04/23/24 [History] predniSONE 5 mg PO DAILY tab 05/17/24 [Rx] Cariprazine HCl [Vraylar] 1.5 mg PO DAILY 08/20/24 [History] Hydrocodone/Acetaminophen [Hydrocodone/Acetaminophen 7.5-325/15 ML] 15 ml PO TID PRN 08/20/24 [History] Aspirin 81 mg PO DAILY #60 tab 08/22/24 [Rx] Atorvastatin Calcium [Lipitor] 40 mg PO DAILY #60 tab 08/22/24 [Rx] Follow up Appointment(s)/Referral(s): Corby Mondragon MD [Primary Care Provider] - 1-2 days Amy Lindsey MD [REFERRING] - 1 Week Timoteo Guzman MD [REFERRING] - 1 Week Stew Petit DO [STAFF PHYSICIAN] - 1 Week Ambulatory/Diagnostic Orders: Basic Metabolic Panel [LAB.AMB] Time Frame: 2 Days, Location: None Selected Patient Instructions/Handouts: Migraine Headache (GEN), Trigeminal Neuralgia (GEN) Activity/Diet/Wound Care/Special Instructions: Please follow-up closely with your primary care physician. Follow-up within the next 1-2 weeks with nephrology, for further evaluation and recommendation on any possible alterations to dose of DDAVP. Additionally, important follow-up with neurology outpatient for any further evaluation. New prescription for aspirin 81 mg daily and Lipitor 40 mg daily. Discharge Disposition: HOME SELF-CARE
[2024-08-22 15:04] LABS: Influenza A Not Detected (Not Detectd); Influenza B Not Detected (Not Detectd); RSV Not Detected (Not Detectd)
[2024-08-22 16:02] VITALS: BP 148/90; PULSE 83; TEMP 98.5
[2024-08-22] MEDS ORDERED: AMITRIPTYLINE HCL 10 MG TAB PO SCH (21:00)
== END 2024-08-22 16:36 | disposition home or self-care (01) | DRG 103 ==
LOC: EC 14:38 → 6NMEDSUR 16:18 → OBSVTOIN 16:19 → 6NMEDSUR 17:27
PROVIDERS: ADMIT Student in an Organized Health Care Education/Training Program; ATTEND Student in an Organized Health Care Education/Training Program
DX: G43.109 Migraine with aura, not intractable, without status migrainosus (principal); E27.40 Unspecified adrenocortical insufficiency; E87.1 Hypo-osmolality and hyponatremia; G90.A Postural orthostatic tachycardia syndrome [POTS]; F32.A Depression, unspecified; F41.9 Anxiety disorder, unspecified; G43.809 Other migraine, not intractable, without status migrainosus; H53.149 Visual discomfort, unspecified; R29.6 Repeated falls; Z96.653 Presence of artificial knee joint, bilateral; Z79.890 Hormone replacement therapy; Z79.899 Other long term (current) drug therapy; I25.2 Old myocardial infarction; Z98.84 Bariatric surgery status; Z85.828 Personal history of other malignant neoplasm of skin; Z91.81 History of falling; Z87.891 Personal history of nicotine dependence; Z79.52 Long term (current) use of systemic steroids
CPT/HCPCS: 36415; 70450; 70551; 80048; 80053; 81003; 83735; 83930; 83935; 84295; 84300; 84439; 84443; 85025; 87636; 93880; 96361; 96374; 96375; 99285

== ENCOUNTER → 2024-10-04 | Outpatient (CLI) | payer MEDICARE ==
--- NOTE | 2024-10-04 14:39 | MR ---
EXAMINATION TYPE: MR shoulder RT wo con DATE OF EXAM: 10/04/2024 1:43 PM COMPARISON: None. CLINICAL INDICATION: Female, 53 years old with history of M25.511 R SHOULDER PAIN, Right shoulder osmany n, locking and numbness to extremity since November 2023 IV Contrast: cc (None if empty) TECHNIQUE: Multiplanar, multisequence imaging of the right shoulder is performed without contrast. FINDINGS: There is no bone contusion or fracture. There are cluster of small subchondral cysts in the lateral h ead. There is minimal degeneration of the AC joint and there is no shoulder impingement. There is no subdeltoid are submitted for acromial bursitis. There is an intrasubstance tear of the infraspinatus without retraction. The supraspinatus is intact. Mild tendinosis of the subscapularis tendon. The biceps tendon is normal in signal intensity and position within the bicipital groove. There is a tear of the superior cartilaginous labrum. The biceps anchor is intact. IMPRESSION: 1. SLAP tear involving the cartilaginous labrum. 2. Small intrasubstance tear of the infraspinatus without retraction. 3 mild tendinosis of the subscapularis tendon. 4. No shoulder impingement or shoulder bursitis. [facility], , 10/04/2024 2:36 PM
== END | disposition home or self-care (01) ==
LOC: RADMRIMAIN 12:58
PROVIDERS: ATTEND Orthopaedic Surgery
DX: S43.431A Superior glenoid labrum lesion of right shoulder, initial encounter (principal); M67.813 Other specified disorders of tendon, right shoulder; X58.XXXA Exposure to other specified factors, initial encounter

== ENCOUNTER 2024-10-28 22:29 | Emergency (ER) | payer MEDICARE ==
[2024-10-28 22:41] VITALS: TEMP 99.5
[2024-10-28 22:52] LABS: Glucose,Whole Blood 272 mg/dL (70-110)
--- NOTE | 2024-10-28 23:03 | ED ---
General Adult HPI - General Chief complaint: Syncope Stated complaint: syncope Time Seen by Provider: 10/28/24 22:30 Source: patient, EMS Mode of arrival: EMS Limitations: no limitations - History of Present Illness Initial comments: Dictation was produced using [employer] dictation software. please excuse any grammatical, word or spelling errors. Chief Complaint: 53-year-old female with history of POTS presents to the ER for syncope and fall History of Present Illness: Patient is 53-year-old female syncope. States she has a history of POTS. She had some mild nausea going upstairs. She went upstairs when she got to about group home up the stairs she started to feel little lightheaded. By the time she got up to the top of the steps she started to feel faint fell backwards and hit her head on the ground. Complaining of neck and posterior head pain. The ROS documented in this emergency department record has been reviewed and confirmed by me. Those systems with pertinent positive or negative responses have been documented in the HPI. All other systems are other negative and/or noncontributory. - Related Data Home Medications Medication Instructions Recorded Confirmed Levothyroxine Sodium [Synthroid] 75 mcg PO DAILY 04/19/14 08/20/24 DULoxetine HCL [Cymbalta] 30 mg PO BID 12/09/23 08/20/24 Sucralfate [Carafate] 1 gm PO BID 12/10/23 08/20/24 ALPRAZolam [Xanax] 1 mg PO HS PRN 04/14/24 08/20/24 Amitriptyline HCl [Elavil] 20 mg PO HS 04/14/24 08/20/24 tiZANidine [Zanaflex] 6 mg PO TID PRN 04/23/24 08/20/24 Cariprazine HCl [Vraylar] 1.5 mg PO DAILY 08/20/24 08/20/24 Hydrocodone/Acetaminophen 15 ml PO TID PRN 08/20/24 08/20/24 [Hydrocodone/Acetaminophen 7.5-325/15 ML] Previous Rx's Medication Instructions Recorded Pantoprazole [Protonix] 40 mg PO BID #60 tab 04/15/24 predniSONE 5 mg PO DAILY tab 05/17/24 Aspirin 81 mg PO DAILY #60 tab 08/22/24 Atorvastatin Calcium [Lipitor] 40 mg PO DAILY #60 tab 08/22/24 Allergies Allergy/AdvReac Type Severity Reaction Status Date / Time adhesive Allergy Rash/Hives Verified 10/28/24 22:40 morphine Allergy Anaphylaxis Verified 10/28/24 22:40 venom-honey bee Allergy Dyspnea Verified 10/28/24 22:40 [bee venom (honey bee)] blue dye AdvReac Mild HYPER Verified 10/28/24 22:40 FEELING Review of Systems ROS Statement: Those systems with pertinent positive or pertinent negative responses have been documented in the HPI. ROS Other: All systems not noted in ROS Statement are negative. Past Medical History Past Medical History: Asthma, Cancer, Eye Disorder, Fibromyalgia, GERD/Reflux, Hypertension, Myocardial Infarction (PR), Musculoskeletal Disorder, Osteoarthritis (OA), Renal Disease, Syncope, Thyroid Disorder Additional Past Medical History / Comment(s): SKIN CANCER, ADRENAL INS UFFICENCY. POTS SYNDROME. DIABETES INSIPIDUS. 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 kidney stone history, renal failure Last Myocardial Infarction Date:: december 29 2014 History of Any Multi-Drug Resistant Organisms: None Reported Past Surgical History: Back Surgery, Bariatric Surgery, Section, Cholecystectomy, Hernia Repair, Joint Replacement, Orthopedic Surgery Additional Past Surgical History / Comment(s): ARTIFICIAL DISC IN C5,6,7 , TITANIUM PLATE AND 4 SCREWS IN NECK. RT CARPAL TUNNEL. . HEMORRHOIDECTOMY. BRONCHOSCOPY.,CERVIAL EPIDURAL STEROID INJECTION, LT KNEE ARTHROSCOPIC LATERAL FEMORAL CHONDRECTOMY/MEDIALFEMORAL CHONDRECTOMY/PATELLER CHONDROPLASTY/PARTIAL SYNOVECTOMY OF LATERAL AND PATELLOFEMORAL COMPARTMENTS (TOTAL OF 7 KNEE SX), RADIOFREQUENCY TX L5,-RT KNEE SCOPE, EXPLORATORY LAP- ENDOmetriosis, TOTAL KNEE REPLACEMENT MARIA ELENA maria elena shoulder rotator cuff and biceps tendon. gastric bypass 11-30-23, Lysis of Adhesions/Internal Hernia 03/2024, lysis of adhesions/bowelresection-intussusception 04/25/2024, Pain clinic injections Past Anesthesia/Blood Transfusion Reactions: No Reported Reaction, Family History of Problems w/ Anesthesia, Motion Sickness Additional Past Anesthesia/Blood Transfusion Reaction / Comment(s): CLAUSTERPHOBIA, VERTIGO IN PAST. PATIENTS MOTHER HAS DIFFICULTY WAKING UP Past Psychological History: Anxiety, Depression, PTSD Smoking Status: Never smoker Past Alcohol Use History: Rare Past Drug Use History: None Reported - Past Family History Mother Family Medical History: Cancer, Hyperlipidemia, Hypertension Additional Family Medical History / Comment(s): RECTAL CANCER. Father Family Medical History: Hyperlipidemia, Hypertension General Exam - General Exam Comments Initial Comments: PHYSICAL EXAM: General Impression: Alert and oriented x3, not in acute distress HEENT: Normocephalic atraumatic, extra-ocular movements intact, pupils equal and reactive to light bilaterally, mucous membranes moist. Cardiovascular: Heart regular rate and rhythm Chest: Able to complete full sentences, no retractions, no tachypnea Abdomen: abdomen soft, non-tender, non-distended, no organomegaly Musculoskeletal: Pulses present and equal in all extremities, no peripheral edema Motor: no focal deficits noted Neurological: CN II-XII grossly intact, no focal motor or sensory deficits noted Skin: Intact with no visualized rashes Psych: Normal affect and mood Limitations: no limitations Course Vital Signs 10/28/24 10/28/24 10/29/24 22:35 23:32 00:37 Temperature 99.5 F Pulse Rate 64 64 55 L Respiratory 17 17 16 Rate Blood Pressure 100/58 97/63 101/66 O2 Sat by Pulse 99 100 98 Oximetry EKG Findings - EKG Comments: EKG Findings:: My EKG interpretation: Ventricular rate 59, sinus bradycardia, IN 141, QRS 90, QTc 454. No IN prolongation, no QTC prolongation, no ST or T-wave changes noted. Overall, this EKG is unremarkable Medical Decision Making - Medical Decision Making Was pt. sent in by a medical professional or institution (, PA, BRIDGE INSTRUCTOR, urgent care, hospital, or residential...) When possible be specific @ -No Did you speak to anyone other than the patient for history (EMS, parent, family, police, friend...)? What history was obtained from this source @ -No Did you review nursing and triage notes (agree or disagree)? Why? @ -I reviewed and agree with nursing and triage notes Were old charts reviewed (outside hosp., previous admission, EMS record, old EKG, old radiological studies, urgent care reports/EKG's, residential records)? Report findings @ -No old charts were reviewed Differential Diagnosis (chest pain, altered mental status, abdominal pain women, abdominal pain men, vaginal bleeding, musculoskeletal, weakness, fever, dyspnea, syncope, headache, dizziness, GI bleed, back pain, seizure, CVA, palpatations, mental health)? @ -Differential Syncope: Valvular disease, hypertrophic cardiomyopathy, pulmonary embolism, tamponade, tachycardia, bradycardia, PR, hypovolemia, hemorrhage, dissection, anemia, intracranial hemorrhage, seizure, hypoglycemia, carbon monoxide poisoning, this is not meant to be an all-inclusive list. EKG interpreted by me (3pts min.). @ -See above X-rays interpreted by me (1pt min.). @ -Chest x-ray is nonacute CT interpreted by me (1pt min.). @ -CT brain and C-spine shows no acute processes U/S interpreted by me (1pt. min.). @ -None done What testing was considered but not performed or refused? (CT, X-rays, U/S, labs)? Why? @ -None What meds were considered but not given or refused? Why? @ -None Was smoking cessation discussed for >3mins.? @ -No Were there social determinants of health that impacted care today? How? (Homelessness, low income, unemployed, alcoholism, drug addiction, transportation, low edu. Level, literacy, decrease access to med. care, half-way, rehab)? @ -No Was there de-escalation of care discussed even if they declined (Discuss DNR or withdrawal of care, Hospice)? DNR status @ -No What co-morbidities impacted this encounter? (DM, HTN, Smoking, COPD, CAD, Cancer, CVA, ARF, Chemo, Hep., AIDS, mental health diagnosis, sleep apnea, morbid obesity)? @ -None Was patient admitted / discharged? Hospital course, mention meds given and route, prescriptions, significant lab abnormalities, going to OR and other pertinent info. @ -53-year-old female with no significant cardiac history presents to the ER for syncopal episode. Vital signs stable. Physical examination is benign. EKG is negative. Laboratory evaluation is unremarkable. Imaging studies are negative. Patient reevaluated at bedside 1:11 AM found to be stable condition. Patient well-appearing asymptomatic ambulatory with no complications. Feels well. Patient discharged advised follow-up with primary care doctor. Did you discuss the management of the patient with other professionals (professionals i.e. , PA, BRIDGE INSTRUCTOR, lab, RT, psych nurse, renal social worker, rope twisting machine operator, teacher, special officer automat, protective services case worker)? Give summary @ -No Was critical care preformed (if so, how long)? @ -No Undiagnosed new problem with uncertain prognosis? @ -No Drug Therapy requiring intensive monitoring for toxicity (Heparin, Nitro, Insulin, Cardizem)? @ -No Were any procedures done? @ -No Diagnosis/symptom? Acute, or Chronic, or Acute on Chronic? Uncomplicated (without systemic symptoms) or Complicated (systemic symptoms)? @ -Syncopal episode, closed head injury Side effects of treatment? @ -No Exacerbation, Progression, or Severe Exacerbation? @ -No Poses a threat to life or bodily function? How? (Chest pain, USA, PR, pneumonia, PE, COPD, DKA, ARF, appy, cholecystitis, CVA, Diverticulitis, Homicidal, Suicidal, threat to staff... and all critical care pts) @ -No - Lab Data Result diagrams: 10/28/24 23:02 10/28/24 23:02 Lab Results 10/28/24 10/28/24 10/28/24 Range/Units 22:51 23:02 23:02 WBC 4.69 (4.50-10.00) 10*3/uL RBC 3.70 L (4.10-5.20) 10*6/uL Hgb 11.2 L (12.0-15.0) g/dL Hct 35.0 L (37.2-46.3) % MCV 94.6 (80.0-97.0) fL MCH 30.3 (27.0-32.0) pg MCHC 32.0 (32.0-37.0) g/dL Plt Count 323 (140-440) 10*3/uL MPV 9.5 (9.5-12.2) fL Immature Gran % (Auto) 0.2 % Neutrophils % 88.5 % Lymphocytes % 9.0 % Monocytes % 1.9 % Eosinophils % 0.0 % Basophils % 0.4 % Immature Gran # 0.01 (0.00-0.04) 10*3/uL Neutrophils # 4.15 (1.80-7.70) 10*3/uL Lymphocytes # 0.42 L (0.90-5.00) 10*3/uL Monocytes # 0.09 L (0.20-1.00) 10*3/uL Eosinophils # 0.00 L (0.04-0.35) 10*3/uL Basophils # 0.02 (0.00-0.10) 10*3/uL PT 10.7 (10.0-12.5) sec INR 1.0 (<1.2) APTT 22.1 (22.0-30.0) sec Sodium (137-145) mmol/L Potassium (3.5-5.1) mmol/L Chloride (98-107) mmol/L Carbon Dioxide (22-30) mmol/L Anion Gap mmol/L BUN (7-17) mg/dL Creatinine (0.52-1.04) mg/dL Est GFR (CKD-EPI)AfAm (>60 ml/min/1.73 sqM) Est GFR (CKD-EPI)NonAf (>60 ml/min/1.73 sqM) Glucose (74-99) mg/dL POC Glucose (mg/dL) 272 H (70-110) mg/dL POC Glu Greenhouse Technician ID Byron Diamond Calcium (8.4-10.2) mg/dL Total Bilirubin (0.2-1.3) mg/dL AST (14-36) U/L ALT (4-34) U/L Alkaline Phosphatase (38-126) U/L Troponin I (0.000-0.034) ng/mL Total Protein (6.3-8.2) g/dL Albumin (3.5-5.0) g/dL 10/28/24 10/28/24 Range/Units 23:02 23:02 WBC (4.50-10.00) 10*3/uL RBC (4.10-5.20) 10*6/uL Hgb (12.0-15.0) g/dL Hct (37.2-46.3) % MCV (80.0-97.0) fL MCH (27.0-32.0) pg MCHC (32.0-37.0) g/dL Plt Count (140-440) 10*3/uL MPV (9.5-12.2) fL Immature Gran % (Auto) % Neutrophils % % Lymphocytes % % Monocytes % % Eosinophils % % Basophils % % Immature Gran # (0.00-0.04) 10*3/uL Neutrophils # (1.80-7.70) 10*3/uL Lymphocytes # (0.90-5.00) 10*3/uL Monocytes # (0.20-1.00) 10*3/uL Eosinophils # (0.04-0.35) 10*3/uL Basophils # (0.00-0.10) 10*3/uL PT (10.0-12.5) sec INR (<1.2) APTT (22.0-30.0) sec Sodium 133 L (137-145) mmol/L Potassium 4.9 (3.5-5.1) mmol/L Chloride 101 (98-107) mmol/L Carbon Dioxide 22 (22-30) mmol/L Anion Gap 10 mmol/L BUN 17 (7-17) mg/dL Creatinine 0.84 (0.52-1.04) mg/dL Est GFR (CKD-EPI)AfAm >90 (>60 ml/min/1.73 sqM) Est GFR (CKD-EPI)NonAf 78 (>60 ml/min/1.73 sqM) Glucose 184 H (74-99) mg/dL POC Glucose (mg/dL) (70-110) mg/dL POC Glu Greenhouse Technician ID Calcium 8.6 (8.4-10.2) mg/dL Total Bilirubin 0.3 (0.2-1.3) mg/dL AST 37 H (14-36) U/L ALT 42 H (4-34) U/L Alkaline Phosphatase 91 (38-126) U/L Troponin I <0.012 (0.000-0.034) ng/mL Total Protein 5.6 L (6.3-8.2) g/dL Albumin 3.4 L (3.5-5.0) g/dL Disposition Clinical Impression: Syncope Disposition: HOME SELF-CARE Condition: Fair Instructions (If sedation given, give patient instructions): Syncope (ED) Is patient prescribed a controlled substance at d/c from ED?: No Referrals: Corby Mondragon MD [Primary Care Provider] - 1-2 days Time of Disposition: 01:12
--- NOTE | 2024-10-28 23:29 | XR ---
EXAMINATION TYPE: XR chest 2V DATE OF EXAM: 10/28/2024 11:19 PM COMPARISON: 02/09/2021 CLINICAL INDICATION: Female, 53 years old with history of syncope, TECHNIQUE: XR chest 2V view(s) obtained. FINDINGS: The heart size is normal. The pulmonary vasculature is normal. There is a right middle lobe infiltrate silhouetting the right heart border. May be related to scarri ng. Findings stable from prior examination. IMPRESSION: 1. Stable silhouetting of the right heart border. Scarring could be considered. Differential would in clude atelectasis and pneumonia. [facility], , 10/28/2024 11:27 PM
--- NOTE | 2024-10-28 23:36 | CT ---
EXAMINATION TYPE: CT brain fatimah wo con DATE OF EXAM: 10/28/2024 11:33 PM COMPARISON: None. CLINICAL INDICATION: Female, 53 years old with history of head injury, syncope, pain TECHNIQUE: CT of the brain is performed utilizing 3 mm thick sections through the posterior fossa and 3 mm thick sections through the remaining calvarium. Study is performed within 24 hours of arrival to the hospital. Contrast used: mL of , (none if empty) CT DLP: 1400.5 mGycm, Automated exposure control for dose reduction was used. FINDINGS: No abnormal hyperdensity is present to suggest an acute intracranial hemorrhage. No mass lesion is evident. No acute infarcts are evident. Ventricles and sulci are appropriate for the patient age. Paranasal sinuses and mastoid air cells within the [id number] are clear. IMPRESSIONS: 1. No acute intracranial process. Follow-up MRI can be performed as clinically indicated. CT cervical spine. COMPARISON: None TECHNIQUE: CT of the cervical spine is performed in the axial plane at 2 mm thick sections. Reconstr ucted images in the coronal, and sagittal plane are reviewed on the computer. FINDINGS: No acute fractures are evident. Anterior cervical inferior endplate spurring is present at C4. Vertebral body alignment is normal. There is an anterior cervical fusion at C5-C7. Disc spaces utiliz es these levels. Prevertebral space is normal. Posterior spinal lamellar line is intact. Remaining disc heights are preserved. Vertebral body heights are preserved. No spinal canal stenosis is evident. No neural foraminal stenosis is evident. IMPRESSION: 1. No acute osseous abnormality cervical spine [facility], , 10/28/2024 11:34 PM
[2024-10-28 23:39] LABS: Basophils # (A) 0.02 10*3/uL (0.00-0.10); Basophils % (A) 0.4 %; HGB 11.2 g/dL (12.0-15.0); Lymphocytes # (A) 0.42 10*3/uL (0.90-5.00); MCH 30.3 pg (27.0-32.0); MCV 94.6 fL (80.0-97.0); Mean Platelet Volume 9.5 fL (9.5-12.2); Monocytes # (A) 0.09 10*3/uL (0.20-1.00); Monocytes % (A) 1.9 %; Neutrophils # (A) 4.15 10*3/uL (1.80-7.70); Neutrophils % (A) 88.5 %; Platelet Count 323 10*3/uL (140-440); RDW 14.1 % (11.5-14.5); WBC 4.69 10*3/uL (4.50-10.00)
[2024-10-28 23:58] LABS: Partial Thromboplastin Time 22.1 sec (22.0-30.0); Prothrombin Time 10.7 sec (10.0-12.5)
[2024-10-29 00:26] LABS: ALT 42 U/L (4-34); AST 37 U/L (14-36); African American GFR (CKD) >90 (>60 ml/min/1.73 sqM); Albumin 3.4 g/dL (3.5-5.0); Alkaline Phosphatase 91 U/L (38-126); Anion Gap 10 mmol/L; Blood Urea Nitrogen 17 mg/dL (7-17); Calcium 8.6 mg/dL (8.4-10.2); Carbon Dioxide 22 mmol/L (22-30); Chloride 101 mmol/L (98-107); Glucose 184 mg/dL (74-99); Non-African American GFR(CKD) 78 (>60 ml/min/1.73 sqM); Potassium 4.9 mmol/L (3.5-5.1); Sodium 133 mmol/L (137-145); Total Bilirubin 0.3 mg/dL (0.2-1.3); Total Protein 5.6 g/dL (6.3-8.2)
[2024-10-29 00:38] VITALS: PULSE 55
[2024-10-29] MEDS: KETOROLAC 15 MG/ML 1 ML VIAL IVP STA (01:01)
[2024-10-29 04:36] VITALS: BP 104/75; RESP 17
== END 2024-10-29 02:11 | disposition home or self-care (01) ==
LOC: EC 22:29
DX: S09.90XA Unspecified injury of head, initial encounter (principal); Z91.030 Bee allergy status; Z88.5 Allergy status to narcotic agent; Z91.048 Other nonmedicinal substance allergy status; Z91.041 Radiographic dye allergy status; W10.9XXA Fall (on) (from) unspecified stairs and steps, initial encounter
CPT/HCPCS: 36415; 93005; 80053; 84484; 85025; 85610; 85730; 71046; 72125; 70450; 99285; 96374; L0120; J1885

== ENCOUNTER → 2024-11-02 | Outpatient (CLI) | payer MEDICARE ==
[2024-11-02 15:01] VITALS: BP 117/83; PULSE 69; RESP 16; TEMP 98.2; BMI 24.6
--- NOTE | 2024-11-02 15:23 | P.BASOAP ---
Subjective Progress Note Date: 11/02/24 She is 11 months out. Her weight is stable. 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 She is every senstive to her medications. She was stopped 75 mcg 50 mg. May need highed thyroid dose. Post op labs since Apr 2024. She is doing much better. Objective - Vital Signs Vital signs: Vital Signs Temp 98.2 F 11/02/24 14:52 Pulse 69 11/02/24 14:52 Resp 16 11/02/24 14:52 BP 117/83 11/02/24 14:52 Pulse Ox FiO2 Intake & Output 11/01/24 11/02/24 11/02/24 18:59 06:59 18:59 Weight 67.132 kg Assessment/Plan Plan: Date: 11/02/24 Initial Weight: Initial BMI: Current Weight: 67.132 kg Current BMI: 24.6 Type of Surgery: Total Volume in Band: Previous Volume: Volume Removed: Volume Added: Band Size:
[2024-11-02 16:53] LABS: INR 0.8 (<1.2); Partial Thromboplastin Time 22.8 sec (22.0-30.0); Prothrombin Time 9.6 sec (10.0-12.5)
[2024-11-03 01:49] LABS: HGB 12.9 g/dL (12.0-15.0); MCH 29.9 pg (27.0-32.0); MCHC 30.7 g/dL (32.0-37.0); MCV 97.2 FL (80.0-97.0); Mean Platelet Volume 9.9 FL (9.5-12.2); NRBC Per 100 WBC 0 X 10*3/uL (0.00-0.01); Platelet Count 383 X 10*3/uL (140-440); RBC 4.32 X 10*6/uL (4.10-5.20); RDW 14.7 % (11.5-14.5); WBC 6.92 X 10*3/uL (4.50-10.00)
[2024-11-03 02:27] LABS: Prealbumin 20.3 mg/dL (18.0-42.0)
[2024-11-03 02:43] LABS: BUN/Creat Ratio 14.33 Ratio (12.00-20.00); Blood Urea Nitrogen 12.9 mg/dL (9.0-27.0); Chloride 97 mmol/L (96-109); Chol/HDL Ratio 2.53 Ratio; Glucose 88 mg/dL (70-110); Iron 40 UG/DL (50-170); LDL Cholesterol,Calculated 80.6 mg/dL (0.0-131.0); Magnesium 2.2 mg/dL (1.5-2.4); Phosphorus 3.9 mg/dL (2.4-5.1); Potassium 4.7 mmol/L (3.5-5.5); Sodium 133 mmol/L (135-145); Total Iron Binding Capacity 354 UG/DL (228-460); VLDL Calculation 14.44 mg/dL (5.00-40.00)
[2024-11-03 02:44] LABS: ALT 33 U/L (8-44); AST 25 U/L (13-35); Albumin 4.2 g/dL (3.8-4.9); Albumin/Globulin Ratio 1.83 Ratio (1.60-3.17); Alkaline Phosphatase 106 U/L (41-126); Calcium 9.4 mg/dL (8.7-10.3); Carbon Dioxide 24.6 mmol/L (21.6-31.8); Ferritin 32.6 ng/mL (10.0-291.0); Globulin 2.3 g/dL (1.6-3.3); Total Bilirubin 0.3 mg/dL (0.3-1.2); Total Protein 6.5 g/dL (6.2-8.2)
== END ==
LOC: BARWHC3 14:23
PROVIDERS: ATTEND Surgery Plastic and Reconstructive Surgery
DX: E66.01 Morbid (severe) obesity due to excess calories (principal); E89.1 Postprocedural hypoinsulinemia; E44.0 Moderate protein-calorie malnutrition; E45 Retarded development following protein-calorie malnutrition; E55.9 Vitamin D deficiency, unspecified; N19 Unspecified kidney failure; T56.894A Toxic effect of other metals, undetermined, initial encounter; K50.90 Crohn's disease, unspecified, without complications; K91.2 Postsurgical malabsorption, not elsewhere classified; K74.1 Hepatic sclerosis; Z68.24 Body mass index [BMI] 24.0-24.9, adult; Z91.048 Other nonmedicinal substance allergy status; Z91.041 Radiographic dye allergy status; Z91.030 Bee allergy status; Z88.5 Allergy status to narcotic agent; Z87.891 Personal history of nicotine dependence
CPT/HCPCS: 80053; 80061; 82306; 82525; 82607; 82728; 82746; 83036; 83540; 83550; 83735; 83970; 84100; 84134; 84255; 84425; 84443; 84590; 84630; 85027; 85610; 85730; 99211

== ENCOUNTER → 2024-11-28 | Outpatient (CLI) | payer MEDICARE ==
--- NOTE | 2024-11-28 21:34 | MR ---
EXAMINATION TYPE: MR brain/cspine wo DATE OF EXAM: 11/28/2024 8:10 PM COMPARISON: 08/22/2024. 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 No gadolinium was given. Multi planar, multi sequence imaging was performed utilizing: T1-weighted, T2-weighted, and turbo inv ersion recovery imaging of the cervical spine. IV Contrast: None FINDINGS: Mild cerebral atrophy with proportional dilation of ventricular system. Scattered foci of high T2 s ignal intensity are seen within the periventricular white matter. Midline structures show no abnormal ity. Diffusion-weighted imaging shows no evidence of restricted diffusion. The susceptibility weighte d images do not reveal any evidence for micro-hemorrhage. The bone marrow signal is within normal limits. Paranasal sinuses and mastoid air cells: No significant paranasal sinus disease. Visualized orbits: Orbital contents are intact. Alignment: The cervical vertebral bodies have preserved heights. Alignment is within normal limits gi ruben patient positioning. Bones: Postsurgical changes at C5-C6 and C7 anteriorly. There is fusion of C5-C6 and C6-C7 vertebral bodies. Scattered osteophytes and disc space narrowing. Cord: The spinal cord is unremarkable with regards to their signal intensity and morphology. Discs: Multilevel disc desiccation is present. C2-C3: No significant disc pathology. The spinal canal is patent. No neural foraminal stenosis. C3-C4: No significant disc pathology. The spinal canal is patent. No neural foraminal stenosis. C4-C5: No significant disc pathology. The spinal canal is patent. Bilateral facet and uncovertebral joint arthropathy are present with mild bilateral neural foraminal stenosis. C5-C6: No significant disc pathology. The spinal canal is patent. No neural foraminal stenosis. C6-C7: No significant disc pathology. The spinal canal is patent. No neural foraminal stenosis. C7-T1: No significant disc pathology. The spinal canal is patent. No neural foraminal stenosis. Other: None. IMPRESSION: 1. No evidence for disc herniation or significant spinal canal stenosis. 2. Postsurgical changes with mild disc degeneration with associated osteoarthritic changes. No high- grade neural foraminal or spinal canal stenosis identified. 3. No evidence of intracranial mass or acute/subacute infarct. 4. Stable nonspecific white matter changes, likely secondary to small vessel ischemic disease. [facility], , 11/28/2024 9:32 PM
== END | disposition home or self-care (01) ==
LOC: RADMRIMAIN 18:48
PROVIDERS: ATTEND Orthopaedic Surgery
DX: M48.02 Spinal stenosis, cervical region (principal); M50.30 Other cervical disc degeneration, unspecified cervical region; G51.0 Bell's palsy; R90.82 White matter disease, unspecified
CPT/HCPCS: 70551; 72141